=== PATIENT | male | born 1955 | race Caucasian/White ===

== ENCOUNTER 2023-09-23 08:34 | Outpatient (OUT) | payer MEDICARE, SELFPAY ==
--- NOTE | 2023-09-23 | CT_ITS ---
[address] [address] Patient Name: GER MACKENZIE MRN: [id number] date: 1955 Sex: M Assigned Patient Location: LAB Current Patient Location: Accession/Order Number: [id number] Exam Date: 09/23/2023 09:14 Report Date: 09/25/2023 08:27 At the request of: DERIC LOCKETT Procedure: CT chest w con EXAMINATION: CT chest w con HISTORY: R91.8, Lung mass COMPARISON: 06/15/2023 PET scan TECHNIQUE: Multi-planar CT images were created with IV contrast. Axial, Coronal, and Sagittal images. Dose reduction techniques were achieved by using automated exposure control and/or adjustment of mA and/or kV according to patient size and/or use of iterative reconstruction technique. FINDINGS: LUNGS: Slight interval overall increase in size of left upper lobe solid noncalcified mass now measuring up to 5.9 x 2.8 cm previously 5.9 x 2.7 cm. Increase in size of a solid noncalcified pulmonary nodule in the right lung base measuring 8 mm, axial image 81. Multiple new and increased size of scattered bilateral subcentimeter pulmonary nodules. Increase in size of a now submillimeter solid nodule right lower lobe axial image 56. Moderate diffuse centrilobular emphysema. Peripheral intralobular septal thickening and honeycombing. PLEURA: No mass, effusion, or pneumothorax. VASCULATURE: No abnormality. WINSTON: Bilateral hilar lymphadenopathy MEDIASTINUM: Pretracheal and subcarinal lymphadenopathy CARDIAC: No enlargement or pericardial effusion. Mild coronary atherosclerosis AORTA: No aneurysm or dissection. CHEST WALL: No mass or axillary adenopathy. BONES: No bone lesion or fracture. LIMITED ABDOMEN: Diffuse hypoattenuation the liver suggesting hepatic steatosis. Stable 9 mm perihepatic solid nodule axial image #99 OTHER: Negative. CT/CT chest w con IMPRESSION: Slight interval progression of malignancy with increase in size of a left upper lobe mass and increase in metastases Electronically authenticated by: JP VELASQUEZ Date: 09/25/2023 08:27
[2023-09-23 09:04] LABS: Estimated GFR (African America >60 (>=60); Estimated GFR (Non-African Ame 56 (>=60)
== END 2023-09-23 08:35 | disposition home or self-care (01) ==
PROVIDERS: PCP Family Medicine; Visit Provider Internal Medicine
DX: R91.8 Other nonspecific abnormal finding of lung field (principal)
CPT/HCPCS: 36415; 71260; 82565; Q9967

== ENCOUNTER 2023-10-02 12:46 | Outpatient (OUT) | payer MEDICARE, SELFPAY ==
--- NOTE | 2023-10-02 12:51 | ECG_ITS ---
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
== END 2023-10-02 12:47 | disposition home or self-care (01) ==
LOC: PST 12:47
PROVIDERS: PCP Family Medicine; Visit Provider Internal Medicine
DX: Z01.810 Encounter for preprocedural cardiovascular examination (principal); R91.8 Other nonspecific abnormal finding of lung field
CPT/HCPCS: 93005

== ENCOUNTER 2023-10-03 10:43 | Day surgery (SDC) | payer MEDICARE, SELFPAY ==
[2023-10-02 13:41] VITALS: BP 168/92; PULSE 79; TEMP 36.3; O2SAT 92; BMI 29.7
[2023-10-03] VITALS (14 sets, daily range): BP systolic 111–137; BP diastolic 62–99; PULSE 65–101; TEMP 36.2; O2SAT 92–97; BMI 29.3
--- NOTE | 2023-10-03 | FL_ITS ---
[address] [address] Patient Name: GER MACKENZIE MRN: [id number] date: 1955 Sex: M Assigned Patient [facility] Current Patient Location: [facility] Accession/Order Number: [id number] Exam Date: 10/03/2023 12:15 Report Date: 10/03/2023 15:03 At the request of: DERIC LOCKETT Procedure: FL fluoroscopy <1hr NON-READ EXAM: FL fluoroscopy <1hr NON-READ HISTORY: TECHNIQUE: FINDINGS: Please see Operative Report. Electronically authenticated by: RADIOLOGIST NO Date: 10/03/2023 15:03
[2023-10-03] MEDS: LACTATED RINGER'S SOLUTION 1,000 ML 50 ML IV ×2 (11:22→12:55)
[2023-10-03] MEDS: ALBUTEROL SULFATE 2.5 MG/3 ML VIAL NEB IH (12:02)
[2023-10-03] MEDS: LIDOCAINE HCL 1% 100 MG/10 ML MDV 5 ML INJ (12:40)
--- NOTE | 2023-10-03 13:14 | XR_ITS ---
The [address] [address] Patient Name: GER MACKENZIE MRN: [id number] date: 1955 Sex: M Assigned Patient Location: [facility] Current Patient Location: [facility] Accession/Order Number: [id number] Exam Date: 10/03/2023 13:28 Report Date: 10/03/2023 15:17 At the request of: DERIC LOCKETT Procedure: XR chest 1V ONE-VIEW CHEST RADIOGRAPH, 10/03/2023 1:28 PM EDT COMPARISON: CT scan of the chest, 09/23/2023. CLINICAL HISTORY: Left lower lobe mass - check for pneumothorax. Findings and impression: 1. No pneumothorax identified. 2. Known mass in the apical segment of the left lower lobe is not well appreciated by plain film. Some slight fullness in the left infrahilar region with opacity in the left lower lobe likely due to some atelectasis. Minimal atelectasis also suspected in the right lower lobe. 3. Normal heart size. 4. No acute osseous abnormality. Electronically authenticated by: Sahil FREEDMAN Date: 10/03/2023 15:17
--- NOTE | 2023-10-03 14:01 | PC.NURSE ---
1400 REAPPLIED OXYGEN PATIENT HAS ON OXYGEN SATURATION OF 84% PUT BACK ON 2 LITERS SATURATION IS 89 TO 91 %
--- NOTE | 2023-10-03 15:09 | PC.NURSE ---
1500 TURNED OXYGEN OFF 1507 PULSE OX IS BEEPING PATIENT IS DOWN TO 86% ON ROOM AIR. REAPPLIED 1 LITER OF OXYGEN AND OXYGENATION REMAINED AT 86 TO 87% 1510 REAPPLIED 2 LITERS OF OXYGEN CURRENT OXYGENATION IS 91%
--- NOTE | 2023-10-03 15:14 | PC.NURSE ---
1500 TURNED OFF OXYGEN, 1505 OXYGEN RINGNG PULSE OX DROPPED TO 86%. REAPPLIED OXYGEN TO 1 LITER OXYGEN IS 86 YO 87% INCREASED OXYGEN TO 2 LITERS CURRENT OXYGEN LEVEL IS 91%.
--- NOTE | 2023-10-03 15:33 | PC.NURSE ---
Dr Caldwell came up to see patient post operation due to low oxygen saturation. Gave patient directives that if when he goes home and becomes short of breath to call 911 and return to the Er. Physician believes it is due to the fwashing of the lung. Patient has chosen to go home as well and understands what to do if he becomes short of breath.
--- NOTE | 2023-10-03 16:42 | P.ON_ITS ---
Date of procedure: 10/03/23 Procedure: Procedure Diagnostic fiberoptic bronchoscopy with bronchoalveolar lavage (BAL) and marroquin sbronchial biopsies Indication Left lower lobe (LLL) mass Findings 1. Mild amount of clear mucus throughout the bronchial tree 2. No endobronchial lesions Anesthesia 1. General anesthesia - please see their records 2. Lidocaine 1% - 5mL Specimens 1. BAL of LLL 2. Transbronchial biopsies of LLL Estimated blood loss <5mL Complications Patient had mild asymptomatic hypoxemia post-op Fluoroscopy time 12 seconds Description Informed consent was obtained after risks, benefits, and alternatives were discussed with the patient.? Time out was initiated to confirm the correct patient, site, and procedure with all present voicing in the affirmative. Patient was brought to the operating room suite where noninvasive monitoring was utilized.? Sedation & anesthesia were administered by the anesthesia department- please refer to their records for further information.? Tape was placed over the patient's eyes to prevent spillage of secretions.? An endotracheal tube was placed by anesthesia. Due to the endotracheal tube, the larynx, vocal cords, and proximal trachea were unable to be examined. The distal trachea was visualized without any gross tracheal lesions. 5mL of 1% lidocaine were instilled topically to the main avelino.? The main avelino was sharp without splaying or evidence of underlying mass. The bronchoscope was then advanced through the right main bronchus to the right upper lobe, where the apical, posterior, and anterior segments were visualized.? The bronchoscope was advanced through the bronchus intermedius to the right middle lobe or the medial and lateral segments visualized.? The bronchoscope was then advanced to the right lower lobe superior, medial, anterior, lateral, and posterior basilar segments.? A mild amount of thick, clear secretions were suctioned from various bronchopulmonary segments. No endobronchial lesions were seen. The bronchoscope was retracted to the main avelino and advanced through the left main bronchus to the left upper lobe where the upper division apicoposterior and anterior, as well as lingular superior and inferior segments were visualized.? The bronchoscope was then advanced into the left lower lobe where the superior, anteromedial, lateral, and posterior basilar segments visualized.? No endobronchial lesions, exudate, or other abnormalities were noted. Next, the bronchoscope was wedged into the LLL with attention to the superior segment. A BAL was performed in the LLL. After adequate return of fluid was obtained, transbronchial biopsies under fluoroscopic guidance were performed. The position of the targeted bronchus was somewhat difficult to cannulate with the biopsy forceps, but I was eventually able to get at least 5 transbronchial biopsies from the area. There was mild bleeding encountered, but it spo ntaneously stopped without further intervention by me. The bronchoscope was withdrawn.? Patient tolerated procedure well. His [id number] was updated on the procedure and findings. Post-operative chest x-ray was done which showed no perioperative pneumothorax. I was contacted by PACU with concerns that the patient remained on supplemental O2. On 2L/min, SpO2 was 97%, but after 7 minutes on room air, he would drop to 86%. I personally saw him at the bedside after being contacted by PACU. The patient was awake and alert by this point. He voiced he was asymptomatic when he was off the O2. I provided him with the options of ordering him O2 vs. going home and taking it easy for the next several days. My suspicion is that the hypoxemia is transient, associated with the procedure and lavage fluid instilled. He voiced that as he did not feel much benefit from the O2, he wished to be discharged home. My office will call him tomorrow in follow up to see how he is doing. If his breathing worsens, he was instructed to call 911/go to ER. He voiced understanding. Surgeon: Usman Caldwell Condition: stable Disposition: same day
== END 2023-10-03 15:43 | disposition home or self-care (01) ==
PROVIDERS: PCP Family Medicine; Visit Provider Internal Medicine
PROC: (CPT 31624; principal; 2023-10-03 12:00)
DX: R91.8 Other nonspecific abnormal finding of lung field (principal); R09.02 Hypoxemia; J43.2 Centrilobular emphysema; F17.210 Nicotine dependence, cigarettes, uncomplicated; Z96.642 Presence of left artificial hip joint; C61 Malignant neoplasm of prostate
CPT/HCPCS: 31624; 31628; 36415; 71045; 76000; 87070; 87102; 87116; 87205; 87206; 88112; 88305; 89051; 94640; 99999; J1094; J2704

== ENCOUNTER 2024-01-13 09:04 | Outpatient (OUT) | payer MEDICARE, SELFPAY ==
--- OUTSIDE RECORDS SUMMARY | 2024-01-13 09:07 | XMS_ITS | CCD ---
Author Organization [facility] Team Providers Care Alternative Medicine Practitioner Name Role Phone ALONZOC, DR SUMMERS Attending Unavailable MISC, DR SUMMERS Admitting Unavailable HOUSE, DR MEJIA Primary Care Unavailable HOUSE, DR MEJIA Primary Care Unavailable HOUSE, DR MEJIA Admitting Unavailable HOUSE, DR MEJIA Attending Unavailable HOUSE, DR MEJIA Consulting Unavailable MISC, DR SUMMERS Attending Unavailable MISC, DR SUMMERS Admitting Unavailable HOUSE, DR MEJIA Consulting Unavailable HOUSE, DR MEJIA Primary Care Unavailable MISC, DR SUMMERS Consulting Unavailable House Sr., DO, Jw P Primary Care Provider HOUSE SR, JW Onofre Primary Care Unavailable COLLETTE SEGAL Referring Unavailable HOUSE SR, JW Onofre Primary Care Unavailable COLLETTE SEGAL Referring Unavailable HOUSE SR, JW Onofre Primary Care Unavailable COLLETTE SEGAL Referring Unavailable LUZMA, COLLETTE Attending Unavailable COLLETTE SEGAL Referring Unavailable HOUSE SR, JW Onofre Primary Care Unavailable Kim SCHOFIELD, Ramiro Rosas Attending Unavailab le House DO, [facility] Unavai lable House DO, Jw Ramirez Consulting Ena Alvarez MD, Ramiro oRsas Attending Unavailab le House DO, [facility] Unavai lable House DO, [facility] Primary [facility] Ena Alvarez MD, Ramiro Rosas Attending Unavailab bertin Alvarez MD, Ramiro Rosas Attending Unavailab le House DO, [facility] Chandler Peres MD Attending Unavailable Sukhjinder Wild PA-C Referring Unav ailable House DO, [facility] Ena Alvarez MD, Ramiro Rosas Attending Unavailab le House DO, [facility] Ena Alvarez MD, Ramiro Rosas Attending Unavailab le House DO, [facility] Ena Alvarez MD, Ramiro Rosas Attending Unavailab le House DO, [facility] DO Deric Stuart Attending Provider Paulette, Deric P Attending Unavailable Samsa, Deric P Admitting Unavailable Samsa, Deric P Attending Unavailable Samsa, Deric P Admitting Unavailable FLORIN, STEPHANIE Attending Unavailable FLORIN, STEPHANIE Referring Unavailable FLORIN, STEPHANIE Referring Unavailable Mark Padilla MD Attending Unavailable JW SHEA Primary Care Unavailable JW SHEA Primary Care Unavailable Mark Padilla MD Attending Unavailable JW SHEA Primary Care Unavailable Mark Padilla MD Attending Unavailable JW SHEA Primary Care Unavailable JW SHEA Attending Unavailable Medications Current Medications Medication Drug Class(es) Dates Sig (Normalized) Sig (Original) meloxicam 15 mg oral tablet (1 source) Nonsteroidal Anti-inflammatory Drug Start: 01-31-2023 take 1 tablet by mouth once daily meloxicam (MOBIC) 15 MG tablet Take 1 tablet by mouth daily 0 01/31/2023 Active tamsulosin hydrochloride 0.4 mg oral capsule (1 source) alpha-Adrenergic Diana Start: 02-23-2023 take 1 capsule by mouth once daily tamsulosin (FLOMAX) 0.4 MG capsule Indications: BPH with obstruction/lowe r urinary tract symptoms Take 1 capsule by mouth daily 30 capsule 5 02/23/2023 Active Problems Active Problems Problem Classification Problem Date Documented Da te Episodic/Chronic Cancer of prostate (1 source) Malignant neoplasm of prostate; Translations: [Malignant neoplasm of prostate] Onset: 06-15-2023 Chronic Hyperplasia of prostate (6 sources) Benign prostatic hyperplasia without lower urinary tract symptoms; Translations: [Benign prostatic hypertrophy with outflow obstruction] Onset: 05-24-2022 Chronic Osteoarthritis (2 sources) Unilateral primary osteoarthritis, left hip; Translations: [Unilateral primary osteoarthritis, right hip] Onset: 06-21-2021 Chronic Other lower respiratory disease (2 sources) Other nonspecific abnormal finding of lung field; Translations: [Other nonspecific abnormal finding of lung field] Onset: 10-19-2023 Episodic Other screening for suspected conditions (not mental disorders or infectious disease) (5 sources) Patient encounter status; Translations: [Encounter for screening for malignant neoplasm of prostate] Onset: 02-23-2023 02-23-2023 Episodic Past or Other Problems Problem Classification Problem Date Documented Da te Episodic/Chronic Genitourinary symptoms and ill-defined conditions (2 sources) Proteinuria; Translations: [Proteinuria, unspecified] Onset: 02-23-2023 02-23-2023 Episodic Other diseases of kidney and ureters (1 source) Other obstructive and reflux uropathy; Translations: [Other obstructive and reflux uropathy] Onset: 02-23-2023 Episodic Other non-traumatic joint disorders (4 sources) Pain in right hip; Translations: [PAIN IN RIGHT HIP] Onset: 06-13-2021 Episodic Other non-traumatic joint disorders (1 source) Pain in left hip; Translations: [PAIN IN LEFT HIP] Onset: 06-21-2021 Episodic Other non-traumatic joint disorders (1 source) Other specified joint disorders, unspecified hip; Translations: [OTHER SPECIFIED JOINT D/O UNS HIP] Onset: 06-21-2021 Episodic Results Test Name Value Interpretation Reference Range Facility Outside Recordson 10-25-2023 Outside Records [id number] Telephone [id number] Haroon Mackenzie Sonia 1955 M Date Provider Department Center 10/23/2023 ROMEO URBAN [facility] ONC [facility] Family History Problem Relation Age of Onset Bone cancer Mother Asthma Maternal Grandfather Asthma Paternal Grandfather Family Status - Relation Status Age at Mother Maternal Grandfather Paternal Grandfather Normal [facility] Lab - Other Lab Resultson Lab - Other Lab Results [id number] Results [id number] [facility]icine[facility] 10-19-2023 Telemedicine [id number] Haroon Mackenzie L 1955 M Date Provider Department Center 10/19/2023 STEPHANIE DIAZ [facility] ONC [facility] Family History Problem Relation Age of Onset Bone cancer Mother Asthma Maternal Grandfather Asthma Paternal Grandfather Family Status - Relation Status Age at Mother Maternal Grandfather Paternal Grandfather Level of Service:59132 MS PHYS/QHP TELEPHONE EVALUATION 21-30 MIN () Reason for Visit and Comments: New Patient [632] - 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 CT DONE 09-23-23. PET DONE 06-15-23 FILMS in EPIC. BRONCH WAS DONE 10-18-2023. ALL IN MEDIA Normal [facility] Orders Onlyon 10-18-2023 Orders Only [id number] Haroon Mackenzie 1955 M Date Provider Department Center 10/18/2023 QUINTON ARIAS ONC DCC Family History Problem Relation Age of Onset Bone cancer Mother Asthma Maternal Grandfather Asthma Paternal Grandfather Family Status - Relation Status Age at Mother Maternal Grandfather Paternal Grandfather Normal [facility] Body fluid differential cell countOrdered By: Deric Lockett on 10-03-2023 Differential panel (Body fld) 5 % [facility] Comment on above: The reference interv al and other method performance specifications have not been established for this body fluid. The test result must be integrated into the clinical context for interpretation. Cell Count/Diff, Fluidon Appearance, Fluid Hazy Normal [facility] Comment on above: Order Comment: Body Fluid Source: Other (Name in the Site) Body Fluid Site: LEFT LOWER LOBE LAVAGE Result Comment: The reference interval and other method performance specifications have not been established for this body fluid. The test result must be integrated into the clinical context for interpretation. Performed By: #### F LCCDIFF #### [facility] [address] [id number] [place] Color, Fluid Colorless Normal [facility] Comment on above: Order Comment: Body Fluid Source: Other (Name in the Site) Body Fluid Site: LEFT LOWER LOBE LAVAGE Result Comment: The reference interval and other method performance specifications have not been established for this body fluid. The test result must be integrated into the clinical context for interpretation. Performed By: #### F LCCDIFF #### [facility] [address] [id number] [place] Color, Fluid Supernatant Colorless Normal [facility] Comment on above: Order Comment: Body Fluid Source: Other (Name in the Site) Body Fluid Site: LEFT LOWER LOBE LAVAGE Result Comment: The reference interval and other method performance specifications have not been established for this body fluid. The test result must be integrated into the clinical context for interpretation. Performed By: #### F LCCDIFF #### [address] Comment, Fluid Normal [facility] Comment on above: Order Comment: Body Fluid Source: Other (Name in the Site) Body Fluid Site: LEFT LOWER LOBE LAVAGE Result Comment: Body fluid is partially clotted and/or cell clumps or debris are present. Fluid cell count and differential results may not be reliable. Clinical correlation is recommended. PERFORMED BY: [place] [address] PATHOLOGIST DYNO TECHNICIAN HEMA GOULD M.D. Performed By: #### F LCCDIFF #### [address] Eosinophils, Fluid 0 /100{WBC} Normal 0-3 [facility] Comment on above: Order Comment: Body Fluid Source: Other (Name in the Site) Body Fluid Site: LEFT LOWER LOBE LAVAGE Performed By: #### F LCCDIFF #### [address] Lymphocytes, Fluid 2 % Normal [facility] Comment on above: Order Comment: Body Fluid Source: Other (Name in the Site) Body Fluid Site: LEFT LOWER LOBE LAVAGE Result Comment: The reference interval and other method performance specifications have not been established for this body fluid. The test result must be integrated into the clinical context for interpretation. Performed By: #### F LCCDIFF #### [address] Monocytes/Macrophages, Fluid 5 % Normal [facility] Comment on above: Order Comment: Body Fluid Source: Other (Name in the Site) Body Fluid Site: LEFT LOWER LOBE LAVAGE Result Comment: The reference interval and other method performance specifications have not been established for this body fluid. The test result must be integrated into the clinical context for interpretation. Performed By: #### F LCCDIFF #### [address] [address] [place] Neutrophil, Fluid 93 % Normal [facility] Comment on above: Order Comment: Body Fluid Source: Other (Name in the Site) Body Fluid Site: LEFT LOWER LOBE LAVAGE Result Comment: The reference interval and other method performance specifications have not been established for this body fluid. The test result must be integrated into the clinical context for interpretation. Performed By: #### F LCCDIFF #### [facility] [address] [id number] [facility] RBC, Fluid 735 /uL Normal [facility] Comment on above: Order Comment: Body Fluid Source: Other (Name in the Site) Body Fluid Site: LEFT LOWER LOBE LAVAGE Result Comment: Body fluid is partially clotted and/or cell clumps or debris are present. Fluid cell count and differential results may not be reliable. Clinical correlation is recommended. The reference interval and other method performance specifications have not been established for this body fluid. The test result must be integrated into the clinical context for interpretation. Performed By: #### F LCCDIFF #### [facility] [address] [place] [address] TNC, Body Fluid 525 /uL Normal [facility] Comment on above: Order Comment: Body Fluid Source: Other (Name in the Site) Body Fluid Site: LEFT LOWER LOBE LAVAGE Result Comment: Body fluid is partially clotted and/or cell clumps or debris are present. Fluid cell count and differential results may not be reliable. Clinical correlation is recommended. The reference interval and other method performance specifications have not been established for this body fluid. The test result must be integrated into the clinical context for interpretation. Performed By: #### F LCCDIFF #### [facility] [address] [place], [place] [id number] [facility] Color of Spun Body fluidOrde red By: Deric Lockett on 10-03-2023 Color (Spun body fld) Colorless [facility] Comment on above: The reference interv al and other method performance specifications have not been established for this body fluid. The test result must be integrated into the clinical context for interpretation. Determination of appearance of body fluidOrdered By: Deric Lockett on 10-03-2023 Appearance (Body fld) Hazy [facility] Comment on above: The reference interv al and other method performance specifications have not been established for this body fluid. The test result must be integrated into the clinical context for interpretation. Evaluation of color of body fluidOrdered By: Deric Lockett on 10-03-2023 Color (Body fld) Colorless [facility] Comment on above: The reference interv al and other method performance specifications have not been established for this body fluid. The test result must be integrated into the clinical context for interpretation. Gordon 10-03-2023 L Specimen: [id number] Received: 10/04/23 Status: FRED Koenig Num: [id number] Spec Type: Surgical Subm Dr: Deric Lockett DO Tissues: A Lung - Transbroncial Biopsy (LT LOWER LOBE BX) Procedures: HE/2, Gross/Micro L4 Age/ Patient Sex Location Account Attending Physician Haroon Mackenzie 68/M LABELL [id number] Deric Lockett DO SPEC NUM: [id number] RECD: 10/04/23 STATUS: FRED KOENIG NUM: [id number] ARSH: 10/03/[address]: Deric Lockett DO ENTERED: 10/04/[address] [facility] [address]: Nadine,Lab SPEC TYPE: Surgical DEPT: [facility] ORDERED: HE/2, Gross/Micro L4 ORDERED: HE/2, Gross/Micro L4 Pathological Diagnosis Left lung, lower lobe, biopsy: Fragments of benign bronchial mucosa and cartilage. Gross Description Received in formalin, labeled with the patient's name and left lower lobe BX is a single delicate delong tissue core measuring 0.6 cm in length by 0.1 cm in diameter. Additionally submitted are 4 delicate delong tissue fragments ranging from 0.2 to 0.1 cm. Submitted entirely in A1. Clinical history: Mild amount of mucus, no endometrial lesions. CPT Codes 30694 -------- -------- Specimen: [id number] Received: 10/04/23 Status: FRED Koenig Num: [id number] Spec Type: Surgical Subm Dr: Deric Lockett DO Tissues: A Lung - Transbroncial Biopsy (LT LOWER LOBE BX) Procedures: HANNAH/Letty, Gross/Micro L4 -------- Patient: Haroon Mackenzie [id number] (Continued) -------- Signed (signature on file) Stephanie Jackson MD 10/05/23 1636 Normal [facility] L Specimen: [id number] Received: 10/05/23 Status: FRED Koenig Num: [id number] Spec Type: Cytology Subm Dr: Deric Lockett DO Tissues: A BRONWASH (LLL) Procedures: HE/2, Gross/Micro L4, Cyto Prepstain, PAPSTN Age/ Patient Sex Location Account Attending Physician Haroon Mackenzie 68/M LABELL [id number] Deric Lockett DO SPEC NUM: [id number] RECD: 10/05/23 STATUS: FRDE KOENIG NUM: [id number] ARSH: 10/03/23- DR: Deric Lockett DO ENTERED: 10/05/[address]: Nadine,Lab SPEC TYPE: Cytology DEPT: [facility] ENTERED BY: [id number] RECV BY: [id number] ORDERED: HE/2, Gross/Micro L4, Cyto Prepstain, PAPSTN ORDERED: HE/2, Gross/Micro L4, Cyto Prepstain, PAPSTN Pathological Diagnosis Left lower lobe of lung, bronchial lavage cytology: -No evidence of malignant cells -Few reactive or degenerated bronchial epithelial cells are intermixed with some degenerative debris, and few alveolar macrophages and other acute and chronic inflammatory cells -Cell block section also showing similar findings, suggesting at least some degenerated mucus plugging Gross Description Received fresh labeled with the patient's name, date of and left lower lobe lavage per requisition is 5 ml colorless slightly hazy unfixed fluid. 1 Thin Prep slides are prepared. 1 cell blocks are prepared. (UT/ct) CPT Codes 05605, 88196 -------- -------- Specimen: [id number] Received: 10/05/23 Status: FRED [place] Num: [id number] Spec Type: Cytology Subm Dr: Deric Lockett DO Tissues: A BRONWASH (LLL) Procedures: HE/2, Gross/Micro L4, Cyto Prepstain, PAPSTN -------- Patient: Haroon Mackenzie [id number] (Continued) -------- Signed (signature on file) Johnny-Jamaal Acosta MD 10/08/232007 Normal [facility] Manual body fluid eosinophil s/100 leukocytesOrdered By: Deric Lockett on 10-03-2023 Eosinophils/100 WBC Manual cnt (Body fld) 0 /100{WBC} 0-3 [facility] Manual body fluid erythrocyt es count (number/volume)Ordered By: Deric Lockett on 10-03-2023 RBC Manual cnt (Body fld) [#/Vol] 735 /uL [facility] Comment on above: Body fluid is partia lly clotted and/or cell clumps or debris are present. Fluid cell count and differential results may not be reliable. Clinical correlation is recommended.The reference interval and other method performance specifications have not been established for this body fluid. The test result must be integrated into the clinical context for interpretation. Manual body fluid lymphocyte s/100 leukocytesOrdered By: Deric Lockett on 10-03-2023 Lymphocytes/100 WBC Manual cnt (Body fld) 2 % [facility] Comment on above: The reference interv al and other method performance specifications have not been established for this body fluid. The test result must be integrated into the clinical context for interpretation. Neutrophils/100 WBC Manual c nt (Body fld)Ordered By: Deric Lockett on 10-03-2023 Neutrophils/100 WBC (Body fld) 93 % [facility] Comment on above: The reference interv al and other method performance specifications have not been established for this body fluid. The test result must be integrated into the clinical context for interpretation. No Panel InformationOrdered By: Deric Lockett on 10-03-2023 Body Fluid Comment See comment [facility] Comment on above: Body fluid is partia lly clotted and/or cell clumps or debris are present. Fluid cell count and differential results may not be reliable. Clinical correlation is recommended. Body Fluid Total Nucleated Cells 525 /uL [facility] Comment on above: Body fluid is partia lly clotted and/or cell clumps or debris are present. Fluid cell count and differential results may not be reliable. Clinical correlation is recommended.The reference interval and other method performance specifications have not been established for this body fluid. The test result must be integrated into the clinical context for interpretation. Outside Recordson 09-28-2023 Outside Records [id number] [facility] Outside Recordson 09-27-2023 Outside Records [id number]#1 .[facility] CT TUMOR IMAGE SKULL THI GH PSMAon 06-15-[address] TUMOR IMAGE SKULL THIGH PSMA EXAMINATION: PROSTATE PET SKULL BASE TO MID THIGHS 06/15/2023 TECHNIQUE: 4.5 mCi Ga-68 gozetotide (Illuccix) injected intravenously. PET imaging was obtained from skull vertex to mid thighs. Computed tomography was used for attenuation correction and localization. Fusion imaging was obtained. Uptake time 79 mins. COMPARISON: None HISTORY: ORDERING SYSTEM PROVIDED HISTORY: Prostate cancer (HCC) FINDINGS: PROSTATE/PROSTATE BED: Small focus of activity in the left posterior peripheral zone is present. LYMPH NODES: No PSMA avid lymph nodes. BONES: No abnormal PSMA activity localizes to the bones. OTHER PET FINDINGS: Mild PSMA activity localizes to a bilobed mass in the left lower lobe measuring about 5.7 x 2.6 cm. Physiologic activity within the salivary glands, liver, spleen, kidneys, and bowel. OTHER INCIDENTAL CT FINDINGS: Emphysema. Evidence of prior granulomatous disease. Nodule in the right posterior retroperitoneum adjacent to the liver without any focal activity. Left hip arthroplasty. IMPRESSION: 1. Small focus of activity in the left posterior peripheral zone of the prostate compatible with history of prostate cancer. 2. Mild PSMA activity associated with a 5.7 cm bilobed mass in the left lower lobe. This is unlikely to be related to the prostate cancer, but is concerning for primary lung cancer. Further evaluation could include biopsy and FDG PET. If there is evidence of active pulmonary infection, consider further evaluation in 2-3 months after appropriate treatment. Interpreted by: Deric Hernández MD Signed by: Deric Hernández MD 06/15/23 Final result Normal [facility] Surgical Pathology Reporton 05-18-2023 Surgical Pathology Report (NOTE) Path Number: [id number] -- Diagnosis -- A. PROSTATE, LB, NEEDLE CORE BIOPSY: -BENIGN PROSTATE TISSUE B. PROSTATE, LLB, NEEDLE CORE BIOPSY: -BENIGN PROSTATE TISSUE C. PROSTATE, LM, NEEDLE CORE BIOPSY: -PROSTATIC ADENOCARCINOMA, EDGAR SCORE 3+4 = 7, INVOLVING 1 OF 1 CORE, AND OCCUPYING APPROXIMATELY 60% OF THE BIOPSY SPECIMEN, 5.5 MM EXTENT -PERCENTAGE OF PATTERN 4: LESS THAN 10% -GRADE GROUP 2 D. PROSTATE, LLM, NEEDLE CORE BIOPSY: -PROSTATIC ADENOCARCINOMA, EDGAR SCORE 3+3 = 6, INVOLVING 1 OF 1 CORE, AND OCCUPYING APPROXIMATELY 20% OF THE BIOPSY SPECIMEN, 3 MM EXTENT -GRADE GROUP 1 E. PROSTATE, LA, NEEDLE CORE BIOPSY: -PROSTATIC ADENOCARCINOMA, EDGAR SCORE 3+4 = 7, INVOLVING 1 OF 1 CORE, AND OCCUPYING APPROXIMATELY 40% OF THE BIOPSY SPECIMEN, 6 MM EXTENT -PERCENTAGE OF PATTERN 4: LESS THAN 10% -GRADE GROUP 2 F. PROSTATE, LLA, NEEDLE CORE BIOPSY: -PROSTATIC ADENOCARCINOMA, EDGAR SCORE 4+3 = 7, INVOLVING 1 OF 2 CORES AND OCCUPYING APPROXIMATELY 20% OF THE BIOPSY SPECIMEN, 1 MM EXTENT -PERCENTAGE OF PATTERN 4: APPROXIMATELY 70% -GRADE GROUP 3 G. PROSTATE, RB, NEEDLE CORE BIOPSY: -BENIGN PROSTATE TISSUE H. PROSTATE, RLB, NEEDLE CORE BIOPSY: -BENIGN PROSTATE TISSUE I. PROSTATE, RM, NEEDLE CORE BIOPSY: -BENIGN PROSTATE TISSUE J. PROSTATE, RLM, NEEDLE CORE BIOPSY: -BENIGN PROSTATE TISSUE K. PROSTATE, RA, NEEDLE CORE BIOPSY: -BENIGN PROSTATE TISSUE L. PROSTATE, RLA, NEEDLE CORE BIOPSY: -PROSTATIC ADENOCARCINOMA, EDGAR SCORE 3+4 = 7, INVOLVING 1 OF 1 CORE AND OCCUPYING APPROXIMATELY 9% OF THE BIOPSY SPECIMEN, 1.5 MM EXTENT -PERCENTAGE OF PATTERN 4: 10-20% -GRADE GROUP 2 Matt Dale D.O. Electronically Signed Out lj/05/23/2023 Clinical Information Pre-Op Diagnosis: ELEVATED PSA Operative Findings: PROSTATE BIOPSY X 12 Operation Performed: MS PROSTATE NEEDLE BIOPSY ANY APPROACH kb Source of Specimen A: LB B: LLB C: LM D: LLM E: LA F: LLA G: RB H: RLB I: RM J: RLM K: RA L: RLA Gross Description HAROON MACKENZIE, PROSTATE BIOPSIES All specimens are received in formalin on sponges and are delong-white needle core biopsies less than < 0.1 cm in diameter with the following lengths: A. LB One core, 1.5 cm in length. Entirely 1cs. B. LLB One core, 1.4 cm in length. Entirely 1cs. C. LM One core, 1.2 cm in length. Entirely 1cs. D. LLM One core, 1.5 cm in length. Entirely 1cs. E. LA One core, 1.4 cm in length. Entirely 1cs. F. LLA Two core fragments, 0.3 and 0.4 cm in length. Entirely 1cs. G. RB One core, 1.4 cm in length. Entirely 1cs. H. RLB One core, 1.1 cm in length. Entirely 1cs. I. RM One core, 1.4 cm in length. Entirely 1cs. J. RLM Two cores, 0.6 and 0.7 cm in length. Entirely 1cs. K. RA One core, 1.3 cm in length. Entirely 1cs. L. RLA One core, 1.6 cm in length. Entirely 1cs. yr tm FRANKLYN/kb2:05/19/2023 Microscopic Description A-L. Microscopic examination performed. Parts E, F, and L were seen in intradepartmental consultation (FRANKLYN) for quality review trainer purposes. Processing Lab: [address] [place] [address] Interpretation Performed at [facility] [address] [place] [address] SURGICAL PATHOLOGY CONSULTATION Patient Name: HAROON MACKENZIE Rec: [id number] [facility] ANATOMIC PATHOLOGY [address] [place] [id number] [facility] PSA, Diagnosticon 04-15-2023 Prostatic Spec. Ag 9.60 ng/mL High <4.1 [facility] Comment on above: Result Comment: The Ion ECLIA assay is used. Results obtained with different assay methods cannot be used interchangeably. Performed By: #### P SAD #### [address] [id number] Wheelchair Van Operator First Responder: Delon Rizzo MD Outside Recordson 03-09-2023 Outside Records [id number]#1 .00[facility] Patient Provided Health Data on 03-08-2023 Patient Provided Health Data [id number]#1 .00[facility] Patient Handouton 02-28-2023 Patient Handout [id number]# 1.00[facility] Cult,Urineon 02-24-2023 Cult,Urine Specimen Description .CLEAN CATCH URINE Culture NO GROWTH Report Status FINAL 02/24/2023 [facility] Comment on above: Performed By: #### U RC #### [address] [id number] Wheelchair Van Operator First Responder: Delon Rizzo MD [facility] [address] [place] [address] [place] [address] Wheelchair Van Operator First Responder: Juan Carlos Eisenberg MD PSA, Screeningon 02-24-2023 Prostatic Spec. Ag 7.43 ng/mL High <4.1 [facility] Comment on above: Result Comment: The Ion ECLIA assay is used. Results obtained with different assay methods cannot be used interchangeably. Performed By: #### C P, CDP #### [facility] [address] [place] [address] Wheelchair Van Operator First Responder: Juan Carlos Eisenberg MD #### PSAS #### [facility] [address] [place], [place] [phone] Wheelchair Van Operator First Responder: Delon Rizzo MD CBC with Auto Differentialon 02-23-2023 Basophils (Bld) [#/Vol] 0.07 10*3/uL [facility] Basophils/100 WBC (Bld) 1 % 0 - 2 % [facility] Eosinophils (Bld) [#/Vol] 0.11 10*3/uL [facility] Eosinophils/100 WBC (Bld) 1 % 1 - 4 % [facility] Erythrocyte distribution width (RBC) [Ratio] 12.1 % 11.8 - 14.4 % [facility] Hematocrit (Bld) [Volume fraction] 47.1 % 40.7 - 50.3 % [facility] Hemoglobin (Bld) [Mass/Vol] 16.6 g/dL 13.0 - 17.0 g/dL [facility] Immature granulocytes (Bld) [#/Vol] 0.03 10*3/uL [facility] Immature granulocytes/100 WBC (Bld) 0 % 0 [facility] Interpretation and review of laboratory results Abnormal [facility] Lymphocytes/100 WBC (Bld) 19 % Low 24 - 43 % [facility] Lymphocytes/100 WBC (Bld) 1.46 % [facility] MCH (RBC) [Entitic mass] 33.9 pg High 25.2 - 33.5 pg [facility] MCHC (RBC) [Mass/Vol] 35.2 g/dL High 28.4 - 34.8 g/dL [facility] MCV (RBC) [Entitic vol] 96.1 fL 82.6 - 102.9 fL [facility] Monocytes/100 WBC (Bld) 7 % 3 - 12 % [facility] Monocytes/100 WBC (Bld) 0.52 % [facility] Neutrophils/100 WBC (Bld) 72 % High 36 - 65 % [facility] Nucleated RBC/100 WBC (Bld) [Ratio] 0.0 % 0.0 per 100 WBC [facility] Platelet mean volume (Bld) [Entitic vol] 10.2 fL 8.1 - 13.5 fL [facility] Platelets (Bld) [#/Vol] 206 10*3/uL [facility] RBC (Bld) [#/Vol] 4.90 10*6/uL 4.21 - 5.7 7 m/uL [facility] Segmented neutrophils/100 WBC (Bld) 5.44 % [facility] WBC other (Bld) [#/Vol] 7.6 [facility] CBC with Diffon 02-23-2023 Abs. Basophil 0.07 k/uL Normal 0.00-0.20 [place] Comment on above: Performed By: #### C P, CDP #### [address] [place] [phone] Wheelchair Van Operator First Responder: Juan Carlos Eisenberg MD #### PSAS #### [place] [phone] Wheelchair Van Operator First Responder: Delon Rizzo MD Abs.Imm.Granulocyte 0.03 k/uL Normal 0.00-0.30 [facility] Comment on above: Performed By: #### C P, CDP #### [address] [place] [phone] Wheelchair Van Operator First Responder: Juan Carlos Eisenberg MD #### PSAS #### [place] [phone] Wheelchair Van Operator First Responder: Delon Rizzo MD Abs.Neutrophil (Seg) 5.44 k/uL Normal 1.50-8.10 [facility] Comment on above: Performed By: #### C P, CDP #### [address] [place] [phone] Wheelchair Van Operator First Responder: Juan Carlos Eisenberg MD #### PSAS #### [address] [address] Wheelchair Van Operator First Responder: Delon Rizzo MD Basophils/100 WBC (Bld) 1 % Normal 0-2 [facility] Comment on above: Performed By: #### C P, CDP #### [address] [place] [phone] Wheelchair Van Operator First Responder: Juan Carlos Eisenberg MD #### PSAS #### [place] [address] Wheelchair Van Operator First Responder: Delon Rizzo MD Eosinophils (Bld) [#/Vol] 0.11 10*3/uL Normal 0.00-0.44 [facility] Comment on above: Performed By: #### C P, CDP #### [address] [place] [phone] ( Wheelchair Van Operator First Responder: Juan Carlos Eisenberg MD #### PSAS #### [place] [address] Wheelchair Van Operator First Responder: Delon Rizzo MD Eosinophils/100 WBC (Bld) 1 % Normal 1-4 [facility] Comment on above: Performed By: #### C P, CDP #### [address] [place] [phone] Wheelchair Van Operator First Responder: Juan Carlos Eisenberg MD #### PSAS #### [place] [address] Wheelchair Van Operator First Responder: Delon Rizzo MD Erythrocyte distribution width (RBC) [Ratio] 12.1 % Normal 11.8-14.4 [facility] Comment on above: Performed By: #### C P, CDP #### [address] [place] [phone] Wheelchair Van Operator First Responder: Juan Carlos Eisenberg MD #### PSAS #### [address] [address] Wheelchair Van Operator First Responder: Delon Rizzo MD Hematocrit (Bld) [Volume fraction] 47.1 % Normal 40.7-50.3 [facility] Comment on above: Performed By: #### C P, CDP #### [facility] [address] [place], [place] [phone] Wheelchair Van Operator First Responder: Juan Carlos Eisenberg MD #### PSAS #### [address] [address] Wheelchair Van Operator First Responder: Delon Rizzo MD Hemoglobin (Bld) [Mass/Vol] 16.6 g/dL Normal 13.0-17.0 [facility] Comment on above: Performed By: #### C P, CDP #### [facility] [address] [place] [address] Dr. [place] [phone] Wheelchair Van Operator First Responder: Juan Carlos Eisenberg MD #### PSAS #### [address] [address] Wheelchair Van Operator First Responder: Delon Rizzo MD Immature granulocytes/100 WBC (Bld) 0 % Normal 0 [facility] Comment on above: Performed By: #### C P, CDP #### [facility] [address] [place] [phone] Wheelchair Van Operator First Responder: Juan Carlos Eisenberg MD #### PSAS #### [address] [address] Wheelchair Van Operator First Responder: Delon Rizzo MD Lymphocytes (Bld) [#/Vol] 1.46 10*3/uL Normal 1.10-3.70 [facility] Comment on above: Performed By: #### C P, CDP #### [facility] [address] [place] [phone] Wheelchair Van Operator First Responder: Juan Carlos Eisenberg MD #### PSAS #### [address] [phone] Wheelchair Van Operator First Responder: Delon Rizzo MD Lymphocytes/100 WBC (Bld) 19 % Low 24-43 [facility] Comment on above: Performed By: #### C P, CDP #### [facility] [address] [place], [place] [phone] Wheelchair Van Operator First Responder: Juan Carlos Eisenberg MD #### PSAS #### [address] [address] Wheelchair Van Operator First Responder: Delon Rizzo MD MCH (RBC) [Entitic mass] 33.9 pg High 25.2-33.5 [facility] Comment on above: Performed By: #### C P, CDP #### [facility] [address] [place] [address] Dr. [place] [phone] Wheelchair Van Operator First Responder: Juan Carlos Eisenberg MD #### PSAS #### [address] [address] Wheelchair Van Operator First Responder: Delon Rizzo MD MCHC (RBC) [Mass/Vol] 35.2 g/dL High 28.4-34.8 [facility] Comment on above: Performed By: #### C P, CDP #### [facility] [address] [place] [address] Dr. [place], [place] [phone] Wheelchair Van Operator First Responder: Juan Carlos Eisenberg MD #### PSAS #### [address] [address] Wheelchair Van Operator First Responder: Delon Rizzo MD MCV (RBC) [Entitic vol] 96.1 fL Normal 82.6-102.9 [facility] Comment on above: Performed By: #### C P, CDP #### [address] [place], [place] [phone] Wheelchair Van Operator First Responder: Juan Carlos Eisenberg MD #### PSAS #### [address] [phone] Wheelchair Van Operator First Responder: Delon Rizzo MD Monocytes (Bld) [#/Vol] 0.52 10*3/uL Normal 0.10-1.20 [facility] Comment on above: Performed By: #### C P, CDP #### [facility] [address] [place] [address] Dr. [place], [place] [phone] Wheelchair Van Operator First Responder: Juan Carlos Eisenberg MD #### PSAS #### [address] [phone] Wheelchair Van Operator First Responder: Delon Rizzo MD Monocytes/100 WBC (Bld) 7 % Normal 3-12 [facility] Comment on above: Performed By: #### C P, CDP #### [address] [place] [phone] Wheelchair Van Operator First Responder: Juan Carlos Eisenberg MD #### PSAS #### [address] [address] Wheelchair Van Operator First Responder: Delon Rizzo MD Neutrophil (Seg) 72 % High 36-65 [facility] Comment on above: Performed By: #### C P, CDP #### [address] [place] [phone] Wheelchair Van Operator First Responder: Juan Carlos Eisenberg MD #### PSAS #### [address] [address] Wheelchair Van Operator First Responder: Delon Rizzo MD NRBC Automated 0.0 per 100 WBC Normal 0.0 [facility] Comment on above: Performed By: #### C P, CDP #### [address] [place] [phone] Wheelchair Van Operator First Responder: Juan Carlos Eisenberg MD #### PSAS #### [address] [address] Wheelchair Van Operator First Responder: Delon Rizzo MD Platelet mean volume (Bld) [Entitic vol] 10.2 fL Normal 8.1-13.5 [facility] Comment on above: Performed By: #### C P, CDP #### [facility] [address] [place], [place] [phone] Wheelchair Van Operator First Responder: Juan Carlos Eisenberg MD #### PSAS #### [place] 722372 [place], [place] [phone] Wheelchair Van Operator First Responder: Delon Rizzo MD Platelets (Bld) [#/Vol] 206 10*3/uL Normal 138-453 [facility] Comment on above: Performed By: #### C P, CDP #### [facility] [address] [place], [place] [phone] Wheelchair Van Operator First Responder: Juan Carlos Eisenberg MD #### PSAS #### [address] [address] Wheelchair Van Operator First Responder: Delon Rizzo MD RBC (Bld) [#/Vol] 4.90 10*6/uL Normal 4.21-5.77 [facility] Comment on above: Performed By: #### C P, CDP #### [facility] [address] [place], [place] [phone] Wheelchair Van Operator First Responder: Juan Carlos Eisenberg MD #### PSAS #### [place] [address] [place] [address] Wheelchair Van Operator First Responder: Delon Rizzo MD WBC (Bld) [#/Vol] 7.6 10*3/uL Normal 3.5-11.3 [facility] Comment on above: Performed By: #### C P, CDP #### [facility] [address] [place], [place] [phone] Wheelchair Van Operator First Responder: Juan Carlos Eisenberg MD #### PSAS #### [address] [address] Wheelchair Van Operator First Responder: Delon Rizzo MD Comp Metabolic Profon 2022 Albumin [Mass/Vol] 4.4 g/dL Normal 3.5-5.2 [facility] Comment on above: Performed By: #### C P, CDP #### [facility] [address] [place] [address] [place] [address] Wheelchair Van Operator First Responder: Juan Carlos Eisenberg MD #### PSAS #### [address] [address] Wheelchair Van Operator First Responder: Delon Rizzo MD Albumin/Glob Ratio 1.3 Normal 1.0-2.5 [facility] Comment on above: Performed By: #### C P, CDP #### [address] [place], [place] 8856083 Wheelchair Van Operator First Responder: Juan Carlos Eisenberg MD #### PSAS #### [address] [address] Wheelchair Van Operator First Responder: Delon Rizzo MD Alkaline Phos 91 U/L Normal 40-129 [place] Comment on above: Performed By: #### C P, CDP #### [address] [place] [address] Wheelchair Van Operator First Responder: Juan Carlos Eisenberg MD #### PSAS #### [address] [address] Wheelchair Van Operator First Responder: Delon Rizzo MD ALT [Catalytic activity/Vol] 42 U/L High 5-41 [facility] Comment on above: Performed By: #### C P, CDP #### [address] [place] [address] Wheelchair Van Operator First Responder: Juan Carlos Eisenberg MD #### PSAS #### [address] [address] Wheelchair Van Operator First Responder: Delon Rizzo MD Anion gap [Moles/Vol] 9 mmol/L Normal 9-17 [facility] Comment on above: Performed By: #### C P, CDP #### [address] [place], [place] [phone] Wheelchair Van Operator First Responder: Juan Carlos Eisenberg MD #### PSAS #### [address] [address] Wheelchair Van Operator First Responder: Delon Rizzo MD AST [Catalytic activity/Vol] 27 U/L Normal <40 [facility] Comment on above: Performed By: #### C P, CDP #### [address] [place], [place] 7159083 Wheelchair Van Operator First Responder: Juan Carlos Eisenberg MD #### PSAS #### [address] [address] Wheelchair Van Operator First Responder: Delon Rizzo MD Bilirubin [Mass/Vol] 0.6 mg/dL Normal 0.3-1.2 [facility] Comment on above: Performed By: #### C P, CDP #### [address] [place] [address] Wheelchair Van Operator First Responder: Juan Carlos Eisenberg MD #### PSAS #### [address] [address] Wheelchair Van Operator First Responder: Delon Rizzo MD BUN/CRE Ratio 21 High 9-20 [place] Comment on above: Performed By: #### C P, CDP #### [address] [place], [place] [phone] Wheelchair Van Operator First Responder: Jua nCarlos Eisenberg MD #### PSAS #### [address] [address] Wheelchair Van Operator First Responder: Delon Rizzo MD Calcium [Mass/Vol] 9.3 mg/dL Normal 8.6-10.4 [facility] Comment on above: Performed By: #### C P, CDP #### [address] [place], [place] 6961083 Wheelchair Van Operator First Responder: Juan Carlos Eisenberg MD #### PSAS #### [place] [address] [place] [address] Wheelchair Van Operator First Responder: Delon Rizzo MD Chloride [Moles/Vol] 106 mmol/L Normal 98-107 [facility] Comment on above: Performed By: #### C P, CDP #### [facility] [address] [place], [place] [phone] Wheelchair Van Operator First Responder: Juan Carlos Eisenberg MD #### PSAS #### [address] [address] Wheelchair Van Operator First Responder: Delon Rizzo MD CO2 [Moles/Vol] 28 mmol/L Normal 20-31 [facility] Comment on above: Performed By: #### C P, CDP #### [facility] [address] [place], [place] 9909783 Wheelchair Van Operator First Responder: Juan Carlos Eisenberg MD #### PSAS #### [address] [address] Wheelchair Van Operator First Responder: Delon Rizzo MD Creatinine [Mass/Vol] 1.0 mg/dL Normal 0.7-1.2 [facility] Comment on above: Performed By: #### C P, CDP #### [facility] [address] [place], [place] 7111283 Wheelchair Van Operator First Responder: Juan Carlos Eisenberg MD #### PSAS #### [address] [address] Wheelchair Van Operator First Responder: Delon Rizzo MD GFR/1.73 sq M.predicted among non-blacks MDRD (S/P/Bld) [Vol rate/Area] mL/min/{1.73_m2} Normal >60 [facility] Comment on above: Result Comment: These results are not intended for use in patients <18 years of age. eGFR results are calculated without a race factor using the 2020 CKD-EPI equation. Careful clinical correlation is recommended, particularly when comparing to results calculated using previous equations. The CKD-EPI equation is less accurate in patients with extremes of muscle mass, extra-renal metabolism of creatine, excessive creatine ingestion, or following therapy that affects renal tubular secretion. Performed By: #### C P, CDP #### [address] [place] [address] Wheelchair Van Operator First Responder: Juan Carlos Eisenberg MD #### PSAS #### [address] [address] Wheelchair Van Operator First Responder: Delon Rizzo MD Glucose [Mass/Vol] 84 mg/dL Normal 70-99 [facility] Comment on above: Performed By: #### C P, CDP #### [address] [place] 9477583 Wheelchair Van Operator First Responder: Juan Carlos Eisenberg MD #### PSAS #### [address] [address] Wheelchair Van Operator First Responder: Delon Rizzo MD Potassium [Moles/Vol] 4.4 mmol/L Normal 3.7-5.3 [facility] Comment on above: Performed By: #### C P, CDP #### [address] [place], [place] [phone] Wheelchair Van Operator First Responder: Juan Carlos Eisenberg MD #### PSAS #### [address] [address] Wheelchair Van Operator First Responder: Delon Rizzo MD Protein [Mass/Vol] 7.8 g/dL Normal 6.4-8.3 [facility] Comment on above: Performed By: #### C P, CDP #### [address] [place] 9477583 Wheelchair Van Operator First Responder: Juan Carlos Eisenberg MD #### PSAS #### [address] [address] Wheelchair Van Operator First Responder: Delon Rizzo MD Sodium [Moles/Vol] 143 mmol/L Normal 135-144 [facility] Comment on above: Performed By: #### C P, CDP #### [facility] [address] [place] [address] Wheelchair Van Operator First Responder: Juan Carlos Eisenberg MD #### PSAS #### [facility] [address] [place], [place] [phone] Wheelchair Van Operator First Responder: Delon Rizzo MD Urea nitrogen [Mass/Vol] 21 mg/dL Normal 8-23 [facility] Comment on above: Performed By: #### C P, CDP #### [facility] [address] [place] [address] Wheelchair Van Operator First Responder: Juan Carlos Eisenberg MD #### PSAS #### [facility] [address] [place], [place] 0694708 Wheelchair Van Operator First Responder: Delon Rizzo MD Comprehensive Metabolic Pane [facility] 02-23-2023 Albumin [Mass/Vol] 4.4 g/dL 3.5 - 5.2 g/dL [facility] Albumin/Globulin [Mass ratio] 1.3 {ratio} 1.0 - 2.5 [facility] ALP [Catalytic activity/Vol] 91 U/L 40 - 129 U/L [facility] ALT [Catalytic activity/Vol] 42 U/L High 5 - 41 U/L [facility] Anion gap [Moles/Vol] 9 mmol/L 9 - 17 mmol/L [facility] AST [Catalytic activity/Vol] 27 U/L NINF - 40 U/L [facility] Bilirubin [Mass/Vol] 0.6 mg/dL 0.3 - 1 .2 mg/dL [facility] Calcium [Mass/Vol] 9.3 mg/dL 8.6 - 10. 4 mg/dL [facility] Chloride [Moles/Vol] 106 mmol/L 98 - 10 7 mmol/L [facility] CO2 [Moles/Vol] 28 mmol/L 20 - 31 mmol/L [facility] Creatinine [Mass/Vol] 1.0 mg/dL 0.7 - 1.2 mg/dL [facility] GFR/1.73 sq M.predicted MDRD (S/P/Bld) [Vol rate/Area] - PINF [facility] Comment on above: These results are not intended for use in patients <18 years of age. eGFR results are calculated without a race factor using the 2020 CKD-EPI equation. Careful clinical correlation is recommended, particularly when comparing to results calculated using previous equations. The CKD-EPI equation is less accurate in patients with extremes of muscle mass, extra-renal metabolism of creatine, excessive creatine ingestion, or following therapy that affects renal tubular secretion. Glucose [Mass/Vol] 84 mg/dL 70 - 99 mg/dL [facility] Interpretation and review of laboratory results Abnormal [facility] Potassium [Moles/Vol] 4.4 mmol/L 3.7 - 5.3 mmol/L [facility] Protein [Mass/Vol] 7.8 g/dL 6.4 - 8.3 g/dL [facility] Sodium [Moles/Vol] 143 mmol/L 135 - 144 mmol/L [facility] Urea nitrogen [Mass/Vol] 21 mg/dL 8 - 23 mg/dL [facility] Urea nitrogen/Creatinine [Mass ratio] 21 mg/mg High 9 - 20 [facility] Urinalysis w/ Microon 2022 Bilirubin, SemiQt,Ur Negative Normal NEG [facility] Comment on above: Performed By: #### U AMIC #### [facility] [address] [place] [address] Wheelchair Van Operator First Responder: Juan Carlos Eisenberg MD Blood, Urine Negative Normal NEG [facility] Comment on above: Performed By: #### U AMIC #### [facility] [address] [place] [address] Wheelchair Van Operator First Responder: Juan Carlos Eisenberg MD Clarity (U) Clear Normal CLEAR [facility] Comment on above: Performed By: #### U AMIC #### [facility] [address] [place] [address] Wheelchair Van Operator First Responder: Juan Carlos Eisenberg MD Color (U) Yellow Normal YEL [facility] Comment on above: Performed By: #### U AMIC #### [facility] [address] [place] [address] Dr. [place], [place] [phone] Wheelchair Van Operator First Responder: Juan Carlos Eisenberg MD Epithelial cells LM Ql (Urine sed) None Normal 0-5 [facility] Comment on above: Performed By: #### U AMIC #### [facility] [address] [place] [address] Dr. [place], [place] [phone] Wheelchair Van Operator First Responder: Juan Carlos Eisenberg MD Glucose Ql (U) Negative Normal NEG [facility] Comment on above: Performed By: #### U AMIC #### [address] [place], [place] [phone] Wheelchair Van Operator First Responder: Juan Carlos Eisenberg MD Ketones Ql (U) Negative Normal NEG [facility] Comment on above: Performed By: #### U AMIC #### [facility] [address] [place] [address] Dr. [place], [place] [phone] Wheelchair Van Operator First Responder: Juan Carlos Eisenberg MD Leukocyte esterase Test strip Ql (U) Negative Normal NEG [facility] Comment on above: Performed By: #### U AMIC #### [address] [place], [place] [phone] Wheelchair Van [employer] First Responder: Juan Carlos Eisenberg MD Nitrite,Ur Negative Normal NEG [facility] Comment on above: Performed By: #### U AMIC #### [facility] [facility] [address] [place] [address] Dr. [place], [place] [id number] Wheelchair Van Operator First Responder: Juan Carlos Eisenberg MD PH,Ur 6.5 Normal 5.0-9.0 [facility] Comment on above: Performed By: #### U AMIC #### [facility] [address] [place] [address] Dr. Mack[place], [place] [id number] Wheelchair Van Operator First Responder: Juan Carlos Eisenberg MD Protein Ql (U) Negative Normal NEG [facility] in Hospital Comment on above: Performed By: #### U AMIC #### [facility] [address] [place], [place] [id number] Wheelchair Van Operator First Responder: Juan Carlos Eisenbegr MD Spec. [place],Ur 1.020 Normal 1.010-1.020 [facility] Comment on above: Performed By: #### U AMIC #### [facility] [address] [place] [address] Wheelchair Van Operator First Responder: Juan Carlos Eisenberg MD Urine RBC's None Normal 0-2 [facility] Comment on above: Performed By: #### U AMIC #### [facility] [address] [place], [place] [phone] Wheelchair Van Operator First Responder: Juan Carlos Eisenberg MD Urine WBC's None Normal 0-5 [facility] Comment on above: Performed By: #### U AMIC #### [facility] [address] [place], [place] [phone] Wheelchair Van Operator First Responder: Juan Carlos Eisenberg MD Urobilinogen,Ur Normal Normal 0.0-1.0 [facility] Comment on above: Performed By: #### U AMIC #### [facility] [address] [place] [address] [address] [place], [place] [id number] Wheelchair Van Operator First Responder: Juan Carlos Eisenberg MD Urinalysis with Microscopico n 02-23-2023 Bilirubin Ql (U) Negative NEGATIVE [facility] Clarity (U) Clear Clear [facility] Color (U) Yellow Yellow [facility] Epithelial cells LM.HPF (Urine sed) [#/Area] None [facility] Glucose Test strip (U) [Mass/Vol] Negative NEGATIVE mg/dL [facility] Hemoglobin Auto test strip Ql (U) Negative NEGATIVE [facility] Ketones (U) [Mass/Vol] Negative NEGAT MATHEW mg/dL [facility] Leukocyte esterase Test strip Ql (U) Negative NEGATIVE [facility] Nitrite Ql (U) Negative NEGATIVE [facility] pH (U) 6.5 [pH] 5.0 - 9.0 [facility] Protein (U) [Mass/Vol] Negative NEGAT MATHEW mg/dL [facility] RBC LM.HPF (Urine sed) [#/Area] None [facility] Specific gravity (U) [Rel density] 1.020 1.010 - 1.020 [facility] Urobilinogen Qn (U) Normal 0.0 - 1. 0 EU/dL [facility] WBC LM.HPF (Urine sed) [#/Area] None [facility] Urology Office/Clinic Noteon 10-10-2022 Urology Office/Clinic Note Chief Complaint F/u with MRI resutls. Discuss biopsy History of Present Illness The patient is a 67 Years old Male with a past history of an elevated PSA to 9.12 who returns to discuss prostate MRI findings. He was previously scheduled for MRI but cancelled this without explanation. He now returns with his wfie. Review of Systems Constitutional: No fevers. No chills. Physical Exam Vitals & Measurements T: 36.5 ?C (Temporal Artery) HT: 173 cm WT: 89.9 kg WT: 89.9 kg (Dosing) BMI: 30.04 Constitutional: Well nourished. HENT: Normocephalic, atraumatic. Assessment/Plan 1. Prostate mass I independently reviewed and interpreted the patient's MRI imaging. My findings are that: he has two visible areas of diffusion restriction. Prostate is otherwise enlarged. Normal bladder appearance. We discussed his MRI findings with two highly concerning PIRADS5 lesions. He was initially not planning to move forward with a biopsy. I did strongly encourage him to move forward given these findings. He now wishes to do so. Reviewed risks of bleeding and infection again. I will send him Drake again. Follow-up for a biopsy on a at his request. Medications ciprofloxacin 500 mg oral tablet meloxicam 15 mg oral tablet Mobic, Oral Mobic 15 mg oral tablet, 15 mg= 1 tabs, Oral, Daily Allergies No Known Allergies Diagnostic Results (09/10/2022 10:52 EDT MRI Prostate w/ + w/o Contrast) The prostate gland measures 6.2 x 5.0 x 5.1 cm. This correlates with a prostate volume of 70.3 mL. [1] (09/10/2022 10:52 EDT MRI Prostate w/ + w/o Contrast) Category 5 lesions involving the prostate, as described above. [2] [1] MRI Prostate w/ + w/o Contrast; Franny Webb MD 09/10/2022 10:52 EDT [2] MRI Prostate w/ + w/o Contrast; Franny Webb MD 09/10/2022 10:52 EDT Electronically signed by Ramiro Alvarez MD 10/10/22 20:10 EDT Normal [facility] MRI Prostate w/ + w/o Contra caorline 09-12-2022 MRI Prostate w/ + w/o Contrast HISTORY: Enlarged prostate. TECHNIQUE: MRI of the prostate gland with T2 axial, sagittal, and coronal. Axial T1. Diffusion-weighted imaging with ADC mapping was performed as well as axial dynamic enhanced sequences. CONTRAST ADMINISTERED: 18cc of Multihance. COMPARISON: None. FINDINGS: The prostate gland measures 6.2 x 5.0 x 5.1 cm. This correlates with a prostate volume of 70.3 mL. Peripheral zone: VANIA 1: A 1.6 x 0.8 x 1.5 cm focus of moderate hypointensity on T2 with early enhancement seen in the left posterior medial posterior lateral peripheral zone at the mid gland. Nondiagnostic diffusion-weighted images due to artifacts of the left hip hardware. This is a category 5 lesion. VANIA 2: A 1.9 x 0.9 x 1.8 cm focus of moderate hypointensity on ADC map, moderate hyperintensity on high b value diffusion-weighted images, moderate hypointensity on T2 with early enhancement seen in the right posterior medial posterior lateral peripheral zone at the mid gland to apex. This is a category 5 lesion. Transitional zone: Finding suggestive of benign prostatic hypertrophy Central zone: Unremarkable Prostatic capsule: There is involvement of the posterior prostatic capsule Neurovascular bundles: Unremarkable Seminal vesicles: Unremarkable Extraprostatic findings: Bilateral inguinal hernias containing fat. Colonic diverticulosis. IMPRESSION: Category 5 lesions involving the prostate, as described above. PIRADS 5 - Very high (clinically significant cancer is highly likely to be present) Final Dictated by: Franny Webb MD Dictated DT/TM: 09/12/2022 9:10 am Signed by: Franny Webb MD Signed (Electronic Signature): 09/12/2022 9:27 am (If Report Is Signed, Electronically Signed in Other Vendor System) Normal [facility] In office Testingon 08-25-19 23 In office Testing [id number] 3 [id number] .[id number]:[id number] Normal [facility] Provider Letteron 07-25-2022 Provider Letter Jw Shea DO [address] [place] [address] Re: Haroon Mackenzie 1955 Date of Visit: 07/25/2022 Dear Jw Shea, I had the pleasure of seeing your patient, Haroon Mackenzie, in my office today. Please find a summary of my assessment below: Assessment/Plan 1. Elevated PSA The patient and I discussed the non-specific nature of an elevated PSA in the context of his age, health, and >10 year life table predicted life expectancy. I did discuss his enlargement with his last MRI showing his prostate to be 112cc (PSAD 0.08). Reviewed that his enlargement may be the most likely origin. I am concerned about his nodule and degree of PSA elevation however. He elected to proceed with a prostate biopsy. He acknowledged the risks of hematochezia, hematospermia, hematuria, retention, and urosepsis. A 3 day course of Cipro was sent to his pharmacy . 2. Nocturia Did discuss association with IVETTE. Will have him complete a voiding diary in the interim and consider sleep referral. Thank you for referring your patient to my office. Please do no hesitate to contact me with any questions or concerns about your patient's care. Sincerely, Ramiro Alvarez MD Normal [facility] Urology Office/Clinic Noteon 07-25-2022 Urology Office/Clinic Note Chief Complaint Referred by Dr. Shea - Elevated PSA and enlarged prostate. History of Present Illness The patient is a 67 Years old Male with a past history of hip OA who presents in consultation regarding elevated PSA and enlarged prostate at the request of Dr. Shea. This was found in the work-up of hip OA. Had his left hip previously replaced. Being evaluated on the right. No recent PSAs otherwise. Does have mild urinary symptoms. Biggest complaints is nocturia x3. Does snore. MRI HIP- IMPRESSION: 05/06/22 1. Severe osteoarthritis with marked subchondral cyst change anterior, superior, ans posterior lateral aspect right acetabulum. 2. Moderate right hip joint effusion. 3. severe right superficial greater trochanteric bursitis. 4. Left total hip arthroplasty. 5. mild left superficial greater trochanteric bursitis. 6. Enlarged heterogeneous signal intensity prostate extending into the bladder base measuring 5.8cm superior to inferior 7cm transverse 5.3cm AP diameter. 7. 1.3cm subcortical cystic change posterior lateral aspect right ischial tuberosity. 8. Bilateral hamstring tendinosis. PSA (5 Years) Event Name Event Result Date/Time Total PSA 9.12 ng/mL High 05/24/22 Review of Systems Constitutional: No fevers. No chills. Physical Exam Vitals & Measurements T: 36.7 ?C (Tympanic) HT: 173 cm WT: 89 kg WT: 89 kg (Dosing) BMI: 29.74 MALISSA: 60+g, indeterminate left lateral nodule. Additional Vitals No qualifying data available. Assessment/Plan 1. Elevated PSA The patient and I discussed the non-specific nature of an elevated PSA in the context of his age, health, and >10 year life table predicted life expectancy. I did discuss his enlargement with his last MRI showing his prostate to be 112cc (PSAD 0.08). Reviewed that his enlargement may be the most likely origin. I am concerned about his nodule and degree of PSA elevation however. He elected to proceed with a prostate biopsy. He acknowledged the risks of hematochezia, hematospermia, hematuria, retention, and urosepsis. A 3 day course of Cipro was sent to his pharmacy. Ordered: MRI Prostate w/ + w/o Contrast 2. Nocturia Did discuss association with IVETTE. Will have him complete a voiding diary in the interim and consider sleep referral. MDM: #1 is a new diagnosis with prognosis pending biopsy. Problem List/Past Medical History Ongoing No chronic problems Historical No qualifying data Procedure/Surgical History ANESTH ARTHROSCOPY OF HIP Medications Mobic 15 mg oral tablet, 15 mg= 1 tabs, Oral, Daily Allergies No Known Allergies Social History Tobacco 5-9 cigarettes (between 1/4 to 1/2 pack)/day in last 30 days Use:. Family History Other: Mother. Electronically signed by Ramiro Alvarez MD 07/25/22 19:47 EST Normal [facility] PROTIMEon 08-14-2021 INR Coag (PPP) [Relative time] 1.03 {INR} Normal [facility] Comment on above: Performed By: #### P TT, PT #### [facility] [address] [place] [address] Dr. Philippe Acosta INR GUIDELINES SEE BELOW Normal [facility] Comment on above: Result Comment: TONY RED INR: 2.0 - 3.0 CONDITIONS NOT LISTED BELOW 2.5 - 3.5 FOR PROSTHETIC HEART VALVE REPLACEMENT 2.5 - 3.5 RECURRENT THROMBOSIS Performed By: #### P TT, PT #### [facility] [address] [place] [address] Dr. Philippe Acosta PT Coag (PPP) [Time] 11.1 s Normal 9.0-11.6 [facility] Comment on above: Performed By: #### P TT, PT #### [facility] [address] [place] [address] Dr. Philippe Acosta PTTon 08-14-2021 aPTT Coag (Bld) [Time] 30.4 s Normal 22.3-36.2 [facility] Comment on above: Performed By: #### P TT, PT #### [facility] [address] [place] [address] Dr. Philippe Acosta Encounters Encounter Date Encounter Type Care Provider Facility Start: 10-19-2023 End: 10-19-2023 [facility] Start: 10-19-2023 End: 10-20-2023 ambulatory [facility] Start: 10-19-2023 End: 10-19-2023 ambulatory [facility] Start: 10-03-2023 End: 10-03-2023 ambulatory Deric Lockett Facility:[facility] Start: 10-03-2023 End: 10-03-2023 ambulatory DO Deric Lockett Work Phone: [facility] Work Phone: Start: 10-03-2023 End: 10-03-2023 Departed Referred DO Deric Lockett Work Phone: [facility] Start: 06-20-2023 ambulatory Chandler Ventura MD Facility: [facility] Start: 06-15-2023 End: 06-18-2023 ambulatory COLLETTE SEGAL [facility] Start: 05-18-2023 End: 05-19-2023 ambulatory WJ SHEA SR [facility] Start: 04-20-2023 End: 04-20-2023 ambulatory JW SHEA Facility:[facility] Start: 04-15-2023 End: 04-16-2023 ambulatory JW SHEA SR [facility] Start: 03-30-2023 End: 03-30-2023 ambulatory JW SHEA Facility:[facility] Start: 03-02-2023 End: 03-02-2023 ambulatory Mark Padilla MD Facility:[facility] Start: 02-23-2023 End: 02-24-2023 ambulatory JW SHEA SR [facility] Start: 02-23-2023 End: 02-23-2023 Subsequent hospital visit by physician Jw Shea Sr., DO [facility] Phone[facility] Comment on above: Proteinuria, unspeci fied type; Prostate cancer screening; BPH with obstruction/lower urinary tract symptoms Start: 12-26-2022 ambulatory Jw Shea DO Facility:[facility] Start: 12-08-2022 End: 12-09-2022 ambulatory Ramiro Alvarez MD [facility] Start: 10-10-2022 End: 10-11-2022 ambulatory Ramiro Alvarez MD [facility] Start: 10-03-2022 ambulatory Ramiro Alvarez MD F acility:[facility] Start: 09-15-2022 End: 09-16-2022 ambulatory Ramiro Alvarez MD Facility:[facility] Start: 09-10-2022 End: 09-11-2022 ambulatory Ramiro Alvarez MD Facility:[facility] Start: 07-25-2022 End: 07-26-2022 ambulatory Ramiro Alvarez MD [facility] Start: 05-24-2022 End: 05-25-[address] JW SHEA Facility:[facility] Start: 08-17-2021 Encounter for preprocedural laboratory examination DR DOCTOR TELLES [facility] Start: 08-14-2021 End: 08-15-[address] DOCTOR TELLES Facility:[facility] Start: 08-14-2021 End: 08-15-2021 Encounter for preprocedural laboratory examination DR DOCTOR TELLES Facility:[facility] Start: 06-13-2021 End: 08-06-[address] DOCTOR TELLES Facility:[facility] Procedures Date Procedure Procedure Detail Performing Clinician Start: 02-23-2023 Urnls dip stick/tabl et reagent auto microscopy Collette Segal MD Work Phone: Start: 02-23-2023 Comprehensive metabo lic panel Collette Segal MD Work Phone: Start: 05-24-[address] DOCTOR TELLES Comment on above: Performed By: #### P SAD #### [facility] [address] [place] [address] Dr. Philippe Acosta Plan of Treatment Date Care Activity Detail Author Start: 03-09-2023 End: 03-09-2023 Patient encounter procedure 03/09/2023 4:30 PM EDT Office Visit [facility] Part of [address] [place] [phone] follow up, PSA [facility] Part of [facility] Comment on above: follow up, PSA Start: 01-10-2023 Influenza vaccination Flu vaccine (# 1) [facility] Start: 06-03-2022 Pneumococcal 65+ yea rs Vaccine (2 - PCV) Pneumococcal 65+ years Vaccine (2 - PCV) [facility] Start: 2021 Abdominal aortic aneurysm screening AAA screen [facility] Start: 2006 Shingles vaccine (1 of 2) Shingles vaccine (1 of 2) [facility] Start: 2001 Screening for malign ant neoplasm of colon [facility] Start: 1996 Lipid panel Lipids [facility] Start: 1991 Diabetes screen Diabetes screen [facility] Start: 1975 DTaP/Tdap/Td vaccine (1 - Tdap) DTaP/Tdap/Td vaccine (1 - Tdap) [facility] Start: 1974 Hepatitis C screening Hepatitis C sc reen [facility] Start: 1968 Depression Screen Depression Screen [facility] Start: 1956 COVID-19 Vaccine (#1) COVID-19 Vacci ne (#1) [facility] End: 02-23-2023 Culture, Urine [facility] Comment on above: 1 Occurrences starti ng 02/23/2023 until 02/23/2023 End: 02-23-2023 PSA screening [facility] Comment on above: 1 Occurrences starti ng 02/23/2023 until 02/23/2023 Payers Date Payer Category Payer Self-pay 2023 Medicare [id number] 2021 Unknown 1959 Unknown [id number] 1955 Unknown [id number] 2.16.84 [id number] 1955 Unknown [id number] 2.16.84 [id number] 1955 Unknown [id number] 2.16.84 0.1.323587.3.579.2.593 1955 Unknown [id number] 2.16.8 40.1.509095.3.579.2.173 1955 Unknown [id number] 2.16.8 40.1.072061.3.579.2.173 1955 Unknown [id number] 2.16.8 40.1.300604.3.579.2.173 1956 Unknown [id number] 2.16.8 40.1.190227.3.579.2.173 1956 Unknown [id number] 2.16. 840.1.556822.3.579.2.196 1955 Unknown [id number] 2.16. 840.1.974423.3.579.2.196 1956 Unknown [id number] 2.16. 840.1.627163.3.579.2.196 1955 Unknown [id number] 2.16. 840.1.435033.3.579.2.196 1956 Unknown [id number] 2.16. 840.1.684017.3.579.2.196 1956 Unknown [id number] 2.16. 840.1.653651.3.579.2.196 1955 Unknown [id number] 2.16. 840.1.468426.3.579.2.196 1956 Unknown [id number] 2.16.8 40.1.005158.3.579.2.718 1955 Unknown [id number] 2.16.8 40.1.968540.3.579.2.718 1955 Unknown [id number] 2.16.8 40.1.802833.3.579.2.718 1955 Unknown [id number] 2.16.8 40.1.379128.3.579.2.718 Social History Date Type Detail Facility Start: [facility] [employer] History of tobacco use Cigarette Smoker B ON [employer] Start: 02-23-2023 Tobacco use and exposure Smokeless tobacco non-user [facility] [employer] Start: 02-23-2023 Alcohol intake Current drinke r of alcohol (finding) [facility] [employer] Start: 02-23-2023 History of Social function [facility] [employer] Start: 02-23-2023 Tobacco use panel [facility] [employer] Start: 02-23-2023 Alcohol Comment weekends [facility] [employer] Start: 1955 Sex Assigned At Not on file B ON [employer] Start: 1955 Sex Assigned At Male F [facility] Medication management note 12-05-2023 Note Date & Type Note Facility 12-05-2023 Note Entered by STEPHANY SHEA DO on December 05, 2023 09:57:04 EDT From: JW SHEA DO To: [id number] Sent: 12/05/2023 09:57:04 EDT Subject: Medication Management Submitted: Complete:meloxicam (meloxicam 15 mg oral tablet) Signed by JW SHEA DO 12/05/2023 09:57:00 EDT Approved with modifications: meloxicam (MELOXICAM 15MG TABLET) TAKE ONE TABLET BY MOUTH DAILY Qty: 30 EA Days Supply: 30 Refills: 2 Substitutions Allowed Route To Pharmacy - [id number] From: [facility] To: JW SHEA DO Sent: December 05, 2023 8:33:02 AM CDT Subject: Medication Management Due: December 06, 2023 12:10:45 AM CDT On Hold Pending Signature Drug: meloxicam (meloxicam 15 mg oral tablet), TAKE ONE TABLET BY MOUTH DAILY Quantity: 30 EA Days Supply: 30 Refills: 1 Substitutions Allowed Notes from Pharmacy: Dispensed Drug: meloxicam (meloxicam 15 mg oral tablet), TAKE ONE TABLET BY MOUTH DAILY Quantity: 30 EA Days Supply: 30 Refills: 2 Substitutions Allowed Notes from Pharmacy: [facility] Progress note 10-19-2023 Note Date & Type Note Facility 10-19-2023 Note -------- Attestation signed by Stephanie Emmanuel MD at 10/20/2023 11:16 AM Total time spent on day of encounter: 30 minutes Attending attestation: GC: I personally spoke with this patient via telephone on the day of the encounter, performed the wang portion(s) of the service and participated in the management and confirm the fellow's documentation. Physical examination was not performed and may limit some portions of the clinical encounter. Please note there may be an additional personal documentation from me. -------- Pulmonary Tele Visit Note Patient: Haroon Mackenzie Age: 68 y.o. : 1955 Account No.: [id number] Referring physician: Paulette Chief complaint: Left lung mass HPI 68 years old male past medical history significant for prostatic adenocarcinoma, PET scan was done as a part of workup on 06/15/2023 that showed size 5.9 x 2.8 cm left lobe lung mass with mild tracer uptake, which is new. He underwent bronchoscopy but the lesion was far to reach, so BAL was done and procedure was ended. Patient was referred to us for ION robotic evaluation. Shx: prison smoker 2 pack a day for 50 years, trying to cut down Past Medical History: Diagnosis Date Mass of upper lobe of left lung Past Surgical History: Procedure Laterality Date TOTAL HIP ARTHROPLASTY Left Allergies: Patient has no known allergies. Prior to Admission medications Medication Sig Start Date End Date Taking? Authorizing Provider albuterol 90 mcg/actuation inhaler 2 puffs as needed for SOB Inhalation Q4H for 30 days 09/20/23 Yes Historical Provider, lisinopril 20 mg tablet Take 1 tablet by mouth in the morning. 03/02/23 Yes Historical Provider, meloxicam (Mobic) 15 mg tablet TAKE ONE TABLET BY MOUTH DAILY Oral for 30 Days 01/31/23 Yes Historical Provider, multivitamin with minerals (MULTIPLE VITAMIN-MINERALS ORAL) 1 (one) time each day at the same time. Yes Historical Provider, tamsulosin (Flomax) 0.4 mg 24 hr capsule 1 capsule 1 (one) time each day at the same time. 08/22/23 Yes Historical Provider, tiotropium-olodateroL (Stiolto Respimat) 2.5-2.5 mcg/actuation mist inhaler 1 (one) time each day at the same time. 09/26/23 Yes Historical Provider, Social history: reports that he has been smoking cigarettes. He has a 50.00 pack-year smoking history. He does not have any smokeless tobacco history on file. Alcohol use questions deferred to the physician. Drug use questions deferred to the physician. Family History Problem Relation Name Age of Onset Bone cancer Mother Asthma Maternal Grandfather Asthma Paternal Grandfather Review of Systems: -ve except as above Labs Results: No results found for: HGB , HCT , WBC , BUN , CREATININE , NA , K , BICARB , CO2 , PH , PHART , PHVEN , BSA1LLI , KVV0ASC , ZWV8EGE , PO2POC , PO2ART , PO2VEN , CHM1SGZ , [id number] Radiology: Assessment and Plan: # Left lower lobe mildly PET avid # Recent diagnosis of prostatic adenocarcinoma # heavy smoker # Emphysema Plan: - Patient is agreeable for bronchoscopy+ ION robotic TBBx, TBFNA and EBUS. -Will require CT chest for procedure planning on the day of procedure - Procedure was explained indetails to the patient -Time to be determined Total time spent in Medical Discussion including obtaining history from the patient, review of labs, tests with the patient, discussion of assessment and plan 30 minutes.. The visit was initiated by the patient and conducted [id number] with use of audio-only real time telephone communication between patient and provider for a virtual visit. Verbal consent to provide and bill this service was obtained on: 10/19/23 No signature was obtained due to the COVID-19 pandemic. Manuel Hoffman MD [facility] Pulmonary/Critical Care Fellow [facility] Evaluation note Note Date & Type Note Facility Evaluation note Diagnosis Proteinuria, unspecified type Prostate cancer screening Special screening for malignant neoplasm of prostate BPH with obstruction/lower urinary tract symptoms Hypertrophy of prostate with urinary obstruction and other lower urinary tract symptoms (LUTS) documented in this encounter [facility] Evaluation note Note Date & Type Note Facility Evaluation note No assessment information availa [facility] Work Phone: Summary Purpose Family History No Family History Records FoundNo Family History Records FoundNo Family History Records FoundNo Family History Records FoundNo Family History Records FoundNo Family History Records FoundNo Family History Records Found Advance Directives No Advanced Directives Records FoundNo Advanced Directives Records FoundNo Advanced Directives Records FoundNo Advanced Directives Records FoundNo Advanced Directives Records FoundNo Advanced Directives Records FoundNo Advanced Directives Records Found Additional Source Comments (unrecognized sect ion and content) No Status Records FoundNo Status Records FoundNo Status Records FoundNo Status Records FoundNo Status Records FoundNo Status Records FoundNo Status Records Found INFORMATION SOURCE (unrecogn ized section and content) DATE CREATED AUTHOR 06/03/2022 [facility] DATE CREATED AUTHOR AUTHOR'S ORGANIZ ATION 08/25/2022 [facility] DATE CREATED AUTHOR AUTHOR'S ORGANIZ ATION 06/18/[address] [facility] DATE CREATED AUTHOR AUTHOR'S ORGANIZ ATION 06/21/2023 [facility] DATE CREATED AUTHOR AUTHOR'S ORGANIZ ATION 10/09/2023 [facility] DATE CREATED AUTHOR AUTHOR'S ORGANIZ ATION 10/23/2023 [facility] DATE CREATED AUTHOR AUTHOR'S ORGANIZ ATION 12/06/2023 [facility] Care Teams (unrecognized sec tion and content) Alternative Medicine Practitioner Relationship Specialty Start Date End Date Jw Shea Sr., DO [address] [place] [address] PCP - General Family Medicine 02/23/23 Team Status: Inactive Member Role Status Dates Deric Lockett DO Attending Provider Active St art: October 03, 2023 End: October 03, 2023 Goals (unrecognized section and content) Goals may be documented in a n alternate sectionGoals may be documented in an alternate section FOR RECORDS PERTAINING TO PATIENTS WHO ARE OR HAVE BEEN ENROLLED IN A CHEMICAL DEPENDENCY/SUBSTANCEABUSE PROGRAM, SOME INFORMATION MAY BE OMITTED. This clinical summary was aggregated from multiple sources. Caution should be exercised in using it in the provision of clinical care. This summary normalizes information from multiple sources, and as a consequence, information in this document may materially change the coding, format and clinical context of patient data. In addition, data may be omitted in some cases. CLINICAL DECISIONS SHOULD BE BASED ON THE PRIMARY CLINICAL RECORDS. [employer] provides no warranty or guarantee of the accuracy or completeness of information in this document.
--- NOTE | 2024-01-13 09:20 | CT_ITS ---
[address] [address] Patient Name: GER MACKENZIE MRN: [id number] date: 1955 Sex: M Assigned Patient Location: LAB Current Patient Location: Accession/Order Number: [id number] Exam Date: 01/13/2024 09:40 Report Date: 01/16/2024 07:04 At the request of: DERIC LOCKETT Procedure: CT chest w con EXAMINATION: CT chest w con HISTORY: Lung mass R91.8 COMPARISON: CT chest 09/23/2023 TECHNIQUE: Multi-planar CT images were obtained without and/or with IV contrast as indicated by examination type. Axial, Coronal, and Sagittal images. Dose reduction techniques were achieved by using automated exposure control and/or adjustment of mA and/or kV according to patient size and/or use of iterative reconstruction technique. FINDINGS: LUNGS: Within left lower lobe superior segment is a geographic shaped spiculated mass approximately 6.6 x 3.1 x 4.6 cm; unchanged. 6 mm nodule within lateral left lung base and 5 mm nodule within posterior medial left lower lobe.7 mm nodule within posterior lateral right lower lobe and 8 mm nodule within right lower lobe adjacent the diaphragm. Marked emphysematous changes throughout the lungs. PLEURA: No mass, effusion, or pneumothorax. VASCULATURE: No abnormality. WINSTON: Mild adenopathy bilaterally. MEDIASTINUM: Mild adenopathy. CARDIAC: No enlargement or pericardial thickening.. Coronary artery calcifications: AORTA: No aneurysm or dissection. CHEST WALL: No mass or axillary adenopathy. BONES: No bone lesion or fracture. LIMITED ABDOMEN: No suspicious findings Limited images of the upper abdomen. OTHER: Negative. CT/CT chest w con IMPRESSION: 1. Grossly stable large mass within left lower lobe superior segment most compatible with malignancy. 2. Stable appearance of the additional nonspecific nodules. 3. Grossly stable mediastinal and hilar adenopathy. 4. Moderate-marked emphysematous changes. Electronically authenticated by: GER KELLY Date: 01/16/2024 07:04
[2024-01-13 09:24] LABS: Estimated GFR (African America >60 (>=60); Estimated GFR (Non-African Ame >60 (>=60)
== END 2024-01-13 09:05 | disposition home or self-care (01) ==
LOC: LAB 09:05
PROVIDERS: PCP Family Medicine; Visit Provider Internal Medicine
DX: R91.8 Other nonspecific abnormal finding of lung field (principal)
CPT/HCPCS: 36415; 71260; 82565; Q9967

== ENCOUNTER 2024-04-22 08:51 | Outpatient (OUT) | payer MEDICARE, SELFPAY ==
--- NOTE | 2024-04-22 09:02 | CT_ITS ---
[address] [address] Patient Name: GER MACKENZIE MRN: [id number] date: 1955 Sex: M Assigned Patient Location: LAB Current Patient Location: Accession/Order Number: [id number] Exam Date: 04/22/2024 09:30 Report Date: 04/24/2024 15:48 At the request of: DERIC LOCKETT Procedure: CT chest w con EXAMINATION: CT chest w con HISTORY: Nonspecific Abnormal Finding Lung Field COMPARISON: 01/13/2024 TECHNIQUE: Multi-planar CT images were created with IV contrast. Axial, Coronal, and Sagittal images. Dose reduction techniques were achieved by using automated exposure control and/or adjustment of mA and/or kV according to patient size and/or use of iterative reconstruction technique. FINDINGS: LUNGS: Soft tissue in the trachea likely retained mucus. 6.0 x 4.0 cm left lower lobe lobular spiculated pulmonary mass with narrowing of the associated pulmonary artery. Additional 10 mm pulmonary nodule right lower lobe axial image #81. 8mm pulmonary nodule right lower lobe axial image #58. Moderate to severe centrilobular and paraseptal emphysema. Peripheral intralobular septal thickening. PLEURA: No mass, effusion, or pneumothorax. VASCULATURE: Normal postcontrast opacification with no filling defects to suggest a pulmonary embolus WINSTON: Bilateral hilar lymphadenopathy MEDIASTINUM: Enlarged pretracheal and subcarinal lymph nodes CARDIAC: No enlargement or pericardial effusion Coronary arteries: Mild calcifications AORTA: No aortic aneurysm or dissection CHEST WALL: No mass or axillary adenopathy. BONES: No bone lesion or fracture. LIMITED ABDOMEN: No suspicious findings. Limited images of the upper abdomen. OTHER: Negative. CT/CT chest w con IMPRESSION: 6 cm left lower lobe pulmonary mass. Primary malignancy is favored. Electronically authenticated by: JP VELASQUEZ Date: 04/24/2024 15:48
--- OUTSIDE RECORDS SUMMARY | 2024-04-22 09:08 | XMS_ITS | CCD ---
Author Organization [facility] Care Team Providers Care Necktie Operator Pockets And Pieces Name Role Phone ALONZOC, DR SUMMERS Attending [...] COLLETTE SEGAL Referring Unavailable HOUSE SR, JW nOofre Primary Care Unavailable COLLETTE SEGAL Referring Unavailable LUZMA, COLLETTE Attending Unavailable COLLETTE SEGAL Referring Unavailable HOUSE SR, JW Onofre Primary Care Unavailable Kim SCHOFIELD, Ramiro Rosas Attending Unavailab le House DO, [facility] Unavai lable House DO, Jw Ramirez Consulting Ena Alvarez MD, Ramiro Rosas Attending Unavailab le House DO, [facility] Unavai lable House DO, [facility] Primary [facility] Ena Alvarez MD, Ramiro Rosas Attending Unavailab bertin Alvarez MD, Ramiro Rosas Attending Unavailab le House DO, [facility] Chandler Peres MD Attending Unavailable Sukhjinder Wild PA-C Referring Unav ailable House DO, Jw [facility] Ena Alvarez MD, Ramiro Rosas Attending Unavailab le House DO, [facility] Ena Alvarez MD, Ramiro Rosas Attending Unavailab le House DO, [facility] Ena Alvarez MD, Ramiro Rosas Attending Unavailab le House DO, [facility] DO Deric Stuart Attending Provider Paulette, Deric P Attending Unavailable Samsa, Deric P Admitting Unavailable Samsa, Deric P Attending Unavailable Paulette, Deric P Admitting Unavailable STEPHANIE CATHERINE Attending Unavailable FLORIN, STEPHANIE Referring Unavailable FLORIN, STEPHANIE Referring Unavailable Mark Padilla MD Attending Unavailable JW SHEA Primary Care Unavailable Mark Padilla MD Attending Unavailable JW SHEA Primary Care Unavailable QUINTONDO JW Attending [facility] JW SHEA Primary Care Unavailable Medications Current Medications Medication Drug Class(es) [...] Value Interpretation Reference Range Facility Outside Recordson 02-01-2024 Outside Records [id number] .00[facility] Rad - Other Radiology Report on 01-16-2024 Rad - Other Radiology Report [id number] .[facility] 10-25-2023 Outside Records [id number] .[facility] 10-23-2023 Telephone [id number] Haroon Mackenzie 1955 Date Provider Department [place] 10/23/2023 ROMEO UBRAN ONC DCC Family History Problem Relation Age of Onset Bone cancer Mother Asthma Maternal Grandfather Asthma Paternal Grandfather Family Status - Relation Status Age at Mother Maternal Grandfather Paternal Grandfather Normal [facility] Lab - Other Lab Resultson Lab - Other Lab Results [id number] Results [id number] [facility]-19-2023 Telemedicine [id number] Haroon Mackenzie 1955 M Date Provider Department Center 10/19/2023 383-STEPHANIE CATHERINE [facility] ONC [facility] Family History Problem Relation Age of Onset Bone cancer Mother Asthma Maternal Grandfather Asthma Paternal Grandfather Family Status - Relation Status Age at Mother Maternal Grandfather Paternal Grandfather Level of Service:82389 [place] PHYS/QHP TELEPHONE EVALUATION 21-30 MIN () Reason for Visit and Comments: 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 CT DONE 09-23-23. PET DONE 06-15-23 FILMS in EPIC. BRONCH WAS DONE 10-18-2023. ALL IN MEDIA Normal [facility] Orders Onlyon 10-18-2023 Orders Only [id number] Haroon Mackenzie 1955 M Date Provider Department Center 10/18/2023 QUINTON ARIAS ONC [facility] Family History Problem Relation Age of Onset Bone cancer Mother Asthma Maternal Grandfather Asthma Paternal Grandfather Family Status - Relation Status Age at Mother Maternal Grandfather Paternal Grandfather Normal [facility] Body fluid differential cell countOrdered By: Deric Lockett on 10-03-2023 Differential panel (Body fld) 5 % [facility] Comment on above: The reference interv al and other method performance specifications have not been established for this body fluid. The test result must be integrated into the clinical context for interpretation. Cell Count/Diff, Fluidon Appearance, Fluid Hazy Normal [facility] Comment on above: Order Comment: Body Fluid Source: Other (Name in the Site) Body Fluid Site: LEFT LOWER LOBE LAVAGE Result Comment: The reference interval and other method performance specifications have not been established for this body fluid. The test result must be integrated into the clinical context for interpretation. Performed By: #### F LCCDIFF #### [address] Color, Fluid Colorless Normal [facility] Comment on above: Order Comment: Body Fluid Source: Other (Name in the Site) Body Fluid Site: LEFT LOWER LOBE LAVAGE Result Comment: The reference interval and other method performance specifications have not been established for this body fluid. The test result must be integrated into the clinical context for interpretation. Performed By: #### F LCCDIFF #### [address] Color, Fluid Supernatant Colorless Normal [facility] Comment on above: Order Comment: Body Fluid Source: Other (Name in the Site) Body Fluid Site: LEFT LOWER LOBE LAVAGE Result Comment: The reference interval and other method performance specifications have not been established for this body fluid. The test result must be integrated into the clinical context for interpretation. Performed By: #### F LCCDIFF #### [address] Comment, Fluid Normal [facility] Comment on above: Order Comment: Body Fluid Source: Other (Name in the Site) Body Fluid Site: LEFT LOWER LOBE LAVAGE Result Comment: Body fluid is partially clotted and/or cell clumps or debris are present. Fluid cell count and differential results may not be reliable. Clinical correlation is recommended. PERFORMED BY: [place] [address] PATHOLOGIST ENDO TECH HEMA GOULD M.D. Performed By: #### F LCCDIFF #### [address] Eosinophils, Fluid 0 /100{WBC} Normal 0-3 [facility] Comment on above: Order Comment: Body Fluid Source: Other (Name in the Site) Body Fluid Site: LEFT LOWER LOBE LAVAGE Performed By: #### F LCCDIFF #### [address] Lymphocytes, Fluid 2 % Normal [facility] Comment on above: Order Comment: Body Fluid Source: Other (Name in the Site) Body Fluid Site: LEFT LOWER LOBE LAVAGE Result Comment: The reference interval and other method performance specifications have not been established for this body fluid. The test result must be integrated into the clinical context for interpretation. Performed By: #### F LCCDIFF #### [place] [address] [place] Monocytes/Macrophages, Fluid 5 % Normal [facility] Comment on above: Order Comment: Body Fluid Source: Other (Name in the Site) Body Fluid Site: LEFT LOWER LOBE LAVAGE Result Comment: The reference interval and other method performance specifications have not been established for this body fluid. The test result must be integrated into the clinical context for interpretation. Performed By: #### F LCCDIFF #### [facility] [address] [place] [address] [facility] [[email or web address]] Neutrophil, Fluid 93 % Normal [facility] Comment on above: Order Comment: Body Fluid Source: Other (Name in the Site) Body Fluid Site: LEFT LOWER LOBE LAVAGE Result Comment: The reference interval and other method performance specifications have not been established for this body fluid. The test result must be integrated into the clinical context for interpretation. Performed By: #### F LCCDIFF #### [facility] [address] [place] [id number] [facility] [[email or web address]] RBC, Fluid 735 /uL Normal [facility] Comment on above: Order Comment: [...] interpretation. Performed By: #### F LCCDIFF #### [facility] [address] [place] [id number] [facility] [[email or web address]] TNC, Body Fluid 525 /uL Normal [facility] Comment on above: [...] interpretation. Performed By: #### F LCCDIFF #### [facility] [address] [place] [id number] [facility] [[email or web address]] Color of Spun Body fluidOrde red By: Deric Lockett on 10-03-2023 Color (Spun body fld) Colorless [facility] Comment on above: The reference interv al and other method performance specifications have not been established for this body fluid. The test result must be integrated into the clinical context for interpretation. Determination of appearance of body fluidOrdered By: Deric Lockett on 10-03-2023 Appearance (Body fld) Hazy Fir [facility] Comment on above: The reference interv al and other method performance specifications have not been established for this body fluid. The test result must be integrated into the clinical context for interpretation. Evaluation of color of body fluidOrdered By: Deric Lockett on 10-03-2023 Color (Body fld) Colorless [facility] Comment on above: The reference interv al and other method performance specifications have not been established for this body fluid. The test result must be integrated into the clinical context for interpretation. Gordon 10-03-2023 L Specimen: [id number] Received: 10/04/23 Status: FRED Koenig Num: [id number] Spec Type: Surgical Subm Dr: Deric Lockett DO Tissues: A Lung - Transbroncial Biopsy (LT LOWER LOBE BX) Procedures: HE/2, Gross/Micro L4 Age/ Patient Sex Location Account Attending Physician Haroon Mackenzie 68/M LABELL [id number] Deric Lockett DO SPEC NUM: [id number] RECD: 10/04/23 STATUS: FRED KOENIG NUM: [id number] ARSH: 10/03/[address]: Deric Lockett DO ENTERED: 10/04/[address] [facility] [address]: Nadine,Lab SPEC TYPE: Surgical DEPT: NETTA [...] of mucus, no endometrial lesions. CPT Codes 90309 -------- -------- Specimen: [id number] Received: 10/04/23 Status: MIKEYLauren Liberty Num: [id number] Spec Type: Surgical Subm Dr: Deric Lockett DO Tissues: A Lung - Transbroncial Biopsy (LT LOWER LOBE BX) Procedures: Timothy ALAS/Kathya L4 -------- Patient: Haroon Mackenzie [id number] (Continued) -------- Signed (signature on file) Stephanie Jackson MD 10/05/23 [address] [facility] L Specimen: [id number] Received: 10/05/23 Status: FRED Koenig Num: [id number] Spec Type: Cytology Subm Dr: Deric Lockett DO Tissues: [facility] Procedures: HE/2, Gross/Micro L4, Cyto Prepstain, PAPSTN Age/ Patient Sex Location Account Attending Physician Jose Mackenzieen Snoia 68/M LABELL [id number] Deric Lockett DO SPEC NUM: [id number] RECD: 10/05/23 STATUS: FRED KOENIG NUM: [id number] ARSH: 10/03/23- SUBM DR: Deric Lockett DO ENTERED: 10/05/[address]: Ajay Mccoy SPEC TYPE: Cytology DEPT: NET[facility] ENTERED BY: [id number] RECV BY: [id number] ORDERED: HE/2, Gross/Micro L4, Cyto Prepstain, PAPSTN [...] are prepared. 1 cell blocks are prepared. (NH/wa) CPT Codes 75214, 50890 -------- -------- Specimen: [id number] Received: 10/05/23 Status: FRED Koenig Num: [id number] Spec Type: Cytology Subm Dr: Deric Lockett DO Tissues: A BRONWASH ([facility]) Procedures: HE/2, Gross/Micro L4, Cyto Prepstain, PAPSTN -------- Patient: Haroon Mackenzie [id number] (Continued) -------- Signed (signature on file) Snehal Acosta MD 10/08/232007 Normal [facility] Manual body fluid eosinophil s/100 leukocytesOrdered By: Deric Lockett on 10-03-2023 Eosinophils/100 WBC Manual cnt (Body fld) 0 /100{WBC} 0-3 [facility] Manual body fluid erythrocyt es count (number/volume)Ordered By: Deric Lockett on 10-03-2023 RBC Manual cnt (Body fld) [#/Vol] 735 /uL [facility] Comment on above: Body fluid is partia [...] WBC Manual cnt (Body fld) 2 % [facility] Comment on above: The reference interv al and other method performance specifications have not been established for this body fluid. The test result must be integrated into the clinical context for interpretation. Neutrophils/100 WBC Manual c nt (Body fld)Ordered By: Deric Lockett on 10-03-2023 Neutrophils/100 WBC (Body fld) 93 % [facility] Comment on above: The reference interv al and other method performance specifications have not been established for this body fluid. The test result must be integrated into the clinical context for interpretation. No Panel InformationOrdered By: Deric Lockett on 10-03-2023 Body Fluid Comment See comment [facility] Comment on above: Body fluid is partia lly clotted and/or cell clumps or debris are present. Fluid cell count and differential results may not be reliable. Clinical correlation is recommended. Body Fluid Total Nucleated Cells 525 /uL [facility] Comment on above: Body fluid is partia lly clotted and/or cell clumps or debris are present. Fluid cell count and differential results may not be reliable. Clinical correlation is recommended.The reference interval and other method performance specifications have not been established for this body fluid. The test result must be integrated into the clinical context for interpretation. Outside Recordson 09-28-2023 Outside Records [id number] [facility] 09-27-2023 Outside Records [id number] .[facility] CT TUMOR IMAGE SKULL THI [...] Deric Hernández MD 06/15/23 Final result Normal [facility] Surgical Pathology Reporton 05-18-2023 Surgical Pathology Report (NOTE) Path Number: [id number] -- Diagnosis -- A. PROSTATE, LB, NEEDLE [...] 2 Matt Dale D.O. Electronically Signed Out 05/23/2023 Clinical Information Pre-Op Diagnosis: ELEVATED PSA Operative Findings: PROSTATE BIOPSY X 12 Operation Performed: CA PROSTATE NEEDLE BIOPSY ANY APPROACH kb Source [...] seen in intradepartmental consultation (FRANKLYN) for quality internship purposes. Processing Lab: [facility] [address] [place] [phone] Interpretation Performed at [facility] [address] [place] [address] SURGICAL PATHOLOGY CONSULTATION Patient Name: HAROON MACKENZIE [facility] Rec: [id number] [facility] ANATOM[facility] PATHOLOG[facility] [address] [place] [phone] Normal [facility] PSA, Diagnosticon 04-15-2023 Prostatic Spec. Ag 9.60 ng/mL High <4.1 [facility] Comment on above: Result Comment: The Ion ECLIA assay is used. Results obtained with different assay methods cannot be used interchangeably. Performed By: #### P SAD #### [address] [id number] Wine Merchant: Delon Rizzo MD Cult,Urineon 02-24-2023 Cult,Urine Specimen Description .CLEAN CATCH URINE Culture NO GROWTH Report Status FINAL 02/24/2023 [facility] Comment on above: Performed By: #### U RC #### [address] [phone] Wine Merchant: Delon Rizzo MD [facility] [address] [place] [address] [place] [address] Wine Merchant: Juan Carlos Eisenberg MD PSA, Screeningon 02-24-2023 Prostatic Spec. Ag 7.43 ng/mL High <4.1 [facility] Comment on above: Result Comment: The Ion ECLIA assay is used. Results obtained with different assay methods cannot be used interchangeably. Performed By: #### C P, CDP #### [facility] [address] [place] [address] [place] [address] Wine Merchant: Juan Carlos Eisenberg MD #### PSAS #### [facility] [address] [place] [address] Wine Merchant: Delon Rizzo MD CBC with Auto Differentialon 02-23-2023 Basophils (Bld) [#/Vol] 0.07 10*3/uL [facility] Basophils/100 WBC (Bld) 1 % 0 - 2 % [facility] Eosinophils (Bld) [#/Vol] 0.11 10*3/uL [facility] Eosinophils/100 WBC (Bld) 1 % 1 - 4 % [facility] Erythrocyte distribution width (RBC) [Ratio] 12.1 % 11.8 - 14.4 % [facility] Hematocrit (Bld) [Volume fraction] 47.1 % 40.7 - 50.3 % [facility] Hemoglobin (Bld) [Mass/Vol] 16.6 g/dL 13.0 - 17.0 g/dL [facility] Immature granulocytes (Bld) [#/Vol] 0.03 10*3/uL [facility] Immature granulocytes/100 WBC (Bld) 0 % 0 [facility] Interpretation and review of laboratory results Abnormal [facility] Lymphocytes/100 WBC (Bld) 19 % Low 24 - 43 % [facility] Lymphocytes/100 WBC (Bld) 1.46 % [facility] MCH (RBC) [Entitic mass] 33.9 pg High 25.2 - 33.5 pg [facility] MCHC (RBC) [Mass/Vol] 35.2 g/dL High 28.4 - 34.8 g/dL [facility] MCV (RBC) [Entitic vol] 96.1 fL 82.6 - 102.9 fL [facility] Monocytes/100 WBC (Bld) 7 % 3 - 12 % [facility] Monocytes/100 WBC (Bld) 0.52 % [facility] Neutrophils/100 WBC (Bld) 72 % High 36 - 65 % [facility] Nucleated RBC/100 WBC (Bld) [Ratio] 0.0 % 0.0 per 100 WBC [facility] Platelet mean volume (Bld) [Entitic vol] 10.2 fL 8.1 - 13.5 fL [facility] Platelets (Bld) [#/Vol] 206 10*3/uL [facility] RBC (Bld) [#/Vol] 4.90 10*6/uL 4.21 - 5.7 7 m/uL [facility] Segmented neutrophils/100 WBC (Bld) 5.44 % [facility] WBC other (Bld) [#/Vol] 7.6 [facility] CBC with Diffon 02-23-2023 Abs. Basophil 0.07 k/uL Normal 0.00-0.20 [facility] Comment on above: Performed By: #### C P, CDP #### [address] [place] [phone] Wine Merchant: Juan Carlos Eisenberg MD #### PSAS #### [place] [address] Wine Merchant: Delon Rizzo MD Abs.Imm.Granulocyte 0.03 k/uL Normal 0.00-0.30 [facility] Comment on above: Performed By: #### C P, CDP #### [address] [place] [phone] Wine Merchant: Juan Carlos Eisenberg MD #### PSAS #### [place] [address] Wine Merchant: Delon Rizzo MD Abs.Neutrophil (Seg) 5.44 k/uL Normal 1.50-8.10 [facility] Comment on above: Performed By: #### C P, CDP #### [facility] [address] [place] [address] Dr. [place] [phone] Wine Merchant: Juan Carlos Eisenberg MD #### PSAS #### [place] [address] Wine Merchant: Delon Rizzo MD Basophils/100 WBC (Bld) 1 % Normal 0-2 [facility] Comment on above: Performed By: #### C P, CDP #### [facility] [address] [place] [address] Wine Merchant: Juan Carlos Eisenberg MD #### PSAS #### [address] [id number] Wine Merchant: Delon Rizzo MD Eosinophils (Bld) [#/Vol] 0.11 10*3/uL Normal 0.00-0.44 [facility] Comment on above: Performed By: #### C P, CDP #### [address] [place] [phone] Wine Merchant: Juan Carlos Eisenberg MD #### PSAS #### [address] [address] Wine Merchant: Delon Rizzo MD Eosinophils/100 WBC (Bld) 1 % Normal 1-4 [facility] Comment on above: Performed By: #### C P, CDP #### [address] [place] [phone] Wine Merchant: Juan Carlos Eisenberg MD #### PSAS #### [address] [address] Wine Merchant: Delon Rizzo MD Erythrocyte distribution width (RBC) [Ratio] 12.1 % Normal 11.8-14.4 [facility] Comment on above: Performed By: #### C P, CDP #### [address] [place] [phone] Wine Merchant: Juan Carlos Eisenberg MD #### PSAS #### [address] [address] Wine Merchant: Delon Rizzo MD Hematocrit (Bld) [Volume fraction] 47.1 % Normal 40.7-50.3 [facility] Comment on above: Performed By: #### C P, CDP #### [facility] [address] [place], [place] [phone] Wine Merchant: Juan Carlos Eisenberg MD #### PSAS #### [address] [phone] Wine Merchant: Delon Rizzo MD Hemoglobin (Bld) [Mass/Vol] 16.6 g/dL Normal 13.0-17.0 [facility] Comment on above: Performed By: #### C P, CDP #### [facility] [address] [place] [phone] Wine Merchant: Juan Carlos Eisenberg MD #### PSAS #### [address] [phone] Wine Merchant: Delon Rizzo MD Immature granulocytes/100 WBC (Bld) 0 % Normal 0 [facility] Comment on above: Performed By: #### C P, CDP #### [facility] [address] [place], [place] [phone] Wine Merchant: Juan Carlos Eisenberg MD #### PSAS #### [address] [address] Wine Merchant: Delon Rizzo MD Lymphocytes (Bld) [#/Vol] 1.46 10*3/uL Normal 1.10-3.70 [facility] Comment on above: Performed By: #### C P, CDP #### [facility] [address] [place], [place] [phone] Wine Merchant: Juan Carlos Eisenberg MD #### PSAS #### [address] [address] Wine Merchant: Delon Rizzo MD Lymphocytes/100 WBC (Bld) 19 % Low 24-43 [facility] Comment on above: Performed By: #### C P, CDP #### [facility] [address] [place] [address] [place], [place] [phone] Wine Merchant: Juan Carlos Eisenberg MD #### PSAS #### [address] [phone] Wine Merchant: Delon Rizzo MD MCH (RBC) [Entitic mass] 33.9 pg High 25.2-33.5 [facility] Comment on above: Performed By: #### C P, CDP #### [facility] [address] [place] [address] Dr. [place] [phone] Wine Merchant: Juan Carlos Eisenberg MD #### PSAS #### [address] [address] Wine Merchant: Delon Rizzo MD MCHC (RBC) [Mass/Vol] 35.2 g/dL High 28.4-34.8 [facility] Comment on above: Performed By: #### C P, CDP #### [address] [place] [phone] Wine Merchant: Juan Carlos Eisenberg MD #### PSAS #### [address] [address] Wine Merchant: Delon Rizzo MD MCV (RBC) [Entitic vol] 96.1 fL Normal 82.6-102.9 [facility] Comment on above: Performed By: #### C P, CDP #### [address] [place] [phone] Wine Merchant: Juan Carlos Eisenberg MD #### PSAS #### [address] [address] Wine Merchant: Delon Rizzo MD Monocytes (Bld) [#/Vol] 0.52 10*3/uL Normal 0.10-1.20 [facility] Comment on above: Performed By: #### C P, CDP #### [facility] [address] [place], [place] [phone] Wine Merchant: Juan Carlos Eisenberg MD #### PSAS #### [address] [phone] Wine Merchant: Delon Rizzo MD Monocytes/100 WBC (Bld) 7 % Normal 3-12 [facility] Comment on above: Performed By: #### C P, CDP #### [facility] [address] [place] [address] Dr. [place], [place] [phone] Wine Merchant: Juan Carlos Eisenberg MD #### PSAS #### [address] [address] Wine Merchant: Delon Rizzo MD Neutrophil (Seg) 72 % High 36-65 [facility] Comment on above: Performed By: #### C P, CDP #### [address] [place], [place] [id number] Wine Merchant: Juan Carlos Eisenberg MD #### PSAS #### [address] [address] Wine Merchant: Delon Rizzo MD NRBC Automated 0.0 per 100 WBC Normal 0.0 [facility] Comment on above: Performed By: #### C P, CDP #### [address] [place], [place] [id number] Wine Merchant: Juan Carlos Eisenberg MD #### PSAS #### [address] [address] Wine Merchant: Delon Rizzo MD Platelet mean volume (Bld) [Entitic vol] 10.2 fL Normal 8.1-13.5 [facility] Comment on above: Performed By: #### C P, CDP #### [address] [place], [place] [id number] Wine Merchant: Juan Carlos Eisenberg MD #### PSAS #### [address] [place] [address] Wine Merchant: Delon Rizzo MD Platelets (Bld) [#/Vol] 206 10*3/uL Normal 138-453 [facility] Comment on above: Performed By: #### C P, CDP #### [facility] [address] [place] [address] Dr. [place], [place] [phone] Wine Merchant: Juan Carlos Eisenberg MD #### PSAS #### [address] [place] [address] Wine Merchant: Delon Rizzo MD RBC (Bld) [#/Vol] 4.90 10*6/uL Normal 4.21-5.77 [facility] Comment on above: Performed By: #### C P, CDP #### [address] [place] [id number] Wine Merchant: Juan Carlos Eisenberg MD #### PSAS #### [address] [id number] Wine Merchant: Delon Rizzo MD WBC (Bld) [#/Vol] 7.6 10*3/uL Normal 3.5-11.3 [facility] Comment on above: Performed By: #### C P, CDP #### [address] [place] [phone] Wine Merchant: Juan Carlos Eisenberg MD #### PSAS #### [address] [address] Wine Merchant: Delon Rizzo MD Comp Metabolic Profon 2022 Albumin [Mass/Vol] 4.4 g/dL Normal 3.5-5.2 [facility] Comment on above: Performed By: #### C P, CDP #### [facility] [address] [place] [address] [place] [address] Wine Merchant: Juan Carlos Eisenberg MD #### PSAS #### [address] [address] Wine Merchant: Delon Rizzo MD Albumin/Glob Ratio 1.3 Normal 1.0-2.5 [facility] Comment on above: Performed By: #### C P, CDP #### [facility] [address] [place], [place] [phone] Wine Merchant: Juan Carlos Eisenberg MD #### PSAS #### [address] [address] Wine Merchant: Delon Rizzo MD Alkaline Phos 91 U/L Normal 40-129 [facility] Comment on above: Performed By: #### C P, CDP #### [facility] [address] [place], [place] [phone] Wine Merchant: Juan Carlos Eisenberg MD #### PSAS #### [address] [address] Wine Merchant: Delon Rizzo MD ALT [Catalytic activity/Vol] 42 U/L High 5-41 [facility] Comment on above: Performed By: #### C P, CDP #### [facility] [address] [place] [address] Dr. [place], [place] [phone] Wine Merchant: Juan Carlos Eisenberg MD #### PSAS #### [address] [address] Wine Merchant: Delon Rizzo MD Anion gap [Moles/Vol] 9 mmol/L Normal 9-17 [facility] Comment on above: Performed By: #### C P, CDP #### [facility] [address] [place], [place] [phone] Wine Merchant: Juan Carlos Eisenberg MD #### PSAS #### [address] [address] Wine Merchant: Delon Rizzo MD AST [Catalytic activity/Vol] 27 U/L Normal <40 [facility] Comment on above: Performed By: #### C P, CDP #### [facility] [address] [place], [place] [phone] Wine Merchant: Juan Carlos Eisenberg MD #### PSAS #### [address] [address] Wine Merchant: Delon Rizzo MD Bilirubin [Mass/Vol] 0.6 mg/dL Normal 0.3-1.2 [facility] Comment on above: Performed By: #### C P, CDP #### [facility] [address] [place] [address] Dr. [place], [place] [phone] Wine Merchant: Juan Carlos Eisenberg MD #### PSAS #### [address] [address] Wine Merchant: Delon Rizzo MD BUN/CRE Ratio 21 High 9-20 [facility] Comment on above: Performed By: #### C P, CDP #### [facility] [address] [place] [address] Dr. [place], [place] [phone] Wine Merchant: Juan Carlos Eisenberg MD #### PSAS #### [address] [address] Wine Merchant: Delon Rizzo MD Calcium [Mass/Vol] 9.3 mg/dL Normal 8.6-10.4 [facility] Comment on above: Performed By: #### C P, CDP #### [facility] [address] [place], [place] 1027483 Wine Merchant: Juan Carlos Eisenberg MD #### PSAS #### [address] [address] Wine Merchant: Delon Rizzo MD Chloride [Moles/Vol] 106 mmol/L Normal 98-107 [facility] Comment on above: Performed By: #### C P, CDP #### [facility] [address] [place], [place] 1309183 Wine Merchant: Juan Carlos Eisenberg MD #### PSAS #### [facility] [address] [place], [place] 1173108 Wine Merchant: Delon Rizzo MD CO2 [Moles/Vol] 28 mmol/L Normal 20-31 [facility] Comment on above: Performed By: #### C P, CDP #### [facility] [address] [place], [place] 4202483 Wine Merchant: Juan Carlos Eisenberg MD #### PSAS #### [address] [place], [place] 8018608 Wine Merchant: Delon Rizzo MD Creatinine [Mass/Vol] 1.0 mg/dL Normal 0.7-1.2 [facility] Comment on above: Performed By: #### C P, CDP #### [facility] [address] [place] [address] Wine Merchant: Juan Carlos Eisenberg MD #### PSAS #### [address] [place], [place] 1523608 Wine Merchant: Delon Rizzo MD GFR/1.73 sq M.predicted among non-blacks MDRD (S/P/Bld) [Vol rate/Area] mL/min/{1.73_m2} Normal >60 [facility] Comment on above: Result Comment: These results [...] Performed By: #### C P, CDP #### [facility] [address] [place], [place] 6886483 Wine Merchant: Juan Carlos Eisenberg MD #### PSAS #### [address] [address] Wine Merchant: Delon Rizzo MD Glucose [Mass/Vol] 84 mg/dL Normal 70-99 [facility] Comment on above: Performed By: #### C P, CDP #### [address] [place], [place] 3098183 Wine Merchant: Juan Carlos Eisenberg MD #### PSAS #### [address] [address] Wine Merchant: Delon Rizzo MD Potassium [Moles/Vol] 4.4 mmol/L Normal 3.7-5.3 [facility] Comment on above: Performed By: #### C P, CDP #### [address] [place] [phone] Wine Merchant: Juan Carlos Eisenberg MD #### PSAS #### [address] [address] Wine Merchant: Delon Rizzo MD Protein [Mass/Vol] 7.8 g/dL Normal 6.4-8.3 [facility] Comment on above: Performed By: #### C P, CDP #### [address] [place], [place] 3713283 Wine Merchant: Juan Carlos Eisenberg MD #### PSAS #### [address] [address] Wine Merchant: Delon Rizzo MD Sodium [Moles/Vol] 143 mmol/L Normal 135-144 [facility] Comment on above: Performed By: #### C P, CDP #### [address] [place], [place] 7189583 Wine Merchant: Juan Carlos Eisenberg MD #### PSAS #### [facility] [address] [place] [address] Wine Merchant: Delon Rizzo MD Urea nitrogen [Mass/Vol] 21 mg/dL Normal 8-23 [facility] Comment on above: Performed By: #### C P, CDP #### [facility] [address] [place] [address] Wine Merchant: Juan Carlos Eisenberg MD #### PSAS #### [facility] [address] [place] [address] Wine Merchant: Delon Rizzo MD Comprehensive Metabolic Pane [facility] 02-23-2023 Albumin [Mass/Vol] 4.4 g/dL 3.5 - [...] ratio] 21 mg/mg High 9 - 20 [facility] Urinalysis w/ Microon 2022 Bilirubin, SemiQt,Ur Negative Normal NEG [facility] Comment on above: Performed By: #### U AMIC #### [facility] [address] [place] [address] [place] [address] Wine Merchant: Juan Carlos Eisenberg MD Blood, Urine Negative Normal NEG [facility] Comment on above: Performed By: #### U AMIC #### [facility] [address] [place] [address] [place] [address] Wine Merchant: Juan Carlos Eisenberg MD Clarity (U) Clear Normal CLEAR [facility] Comment on above: Performed By: #### U AMIC #### [facility] [address] [place] [address] [place] [address] Wine Merchant: Juan Carlos Eisenberg MD Color (U) Yellow Normal YEL [facility] Comment on above: Performed By: #### U AMIC #### [facility] [address] [place] [address] [place] [address] Wine Merchant: Juan Carlos Eisenberg MD Epithelial cells LM Ql (Urine sed) None Normal 0-5 [facility] Comment on above: Performed By: #### U AMIC #### [facility] [address] [place], [place] 4747183 Wine Merchant: Juan Carlos Eisenberg MD Glucose Ql (U) Negative Normal NEG [facility] Comment on above: Performed By: #### U AMIC #### [facility] [address] [place] [address] Wine Merchant: Juan Carlos Eisenberg MD Ketones Ql (U) Negative Normal NEG [facility] Comment on above: Performed By: #### U AMIC #### [facility] [address] [place] [address] [place]. [place], [place] 5815483 Wine Merchant: Juan Carlos Eisenberg MD Leukocyte esterase Test strip Ql (U) Negative Normal NEG [facility] Comment on above: Performed By: #### U AMIC #### [facility] [address] [place] [address] [place] [address] Wine Merchant: Juan Carlos Eisenberg MD Nitrite,Ur Negative Normal NEG [facility] Comment on above: Performed By: #### U AMIC #### [facility] [address] [place] [address] [place] [address] Wine Merchant: Juan Carlos Eisenberg MD PH,Ur 6.5 Normal 5.0-9.0 [facility] Comment on above: Performed By: #### U AMIC #### [facility] [address] [place] [address] Wine Merchant: Juan Carlos Eisenberg MD Protein Ql (U) Negative Normal NEG [facility] Comment on above: Performed By: #### U AMIC #### [facility] [address] [place], [place] 4503283 Wine Merchant: Juan Carlos Eisenberg MD Spec. [place],Ur 1.020 Normal 1.010-1.[address] [facility] Comment on above: Performed By: #### U AMIC #### [facility] [address] [place] [address] Wine Merchant: Juan Carlos Eisenberg MD Urine RBC's None Normal 0-2 [facility] Comment on above: Performed By: #### U AMIC #### [facility] [address] [place], [place] [phone] Wine Merchant: Juan Carlos Eisenberg MD Urine WBC's None Normal 0-5 [facility] Comment on above: Performed By: #### U AMIC #### [facility] [address] [place] [address] Wine Merchant: Juan Carlos Eisenberg MD Urobilinogen,Ur Normal Normal 0.0-1.0 [facility] Comment on above: Performed By: #### U AMIC #### [facility] [address] [place] [address] Wine Merchant: Juan Carlos Eisenberg MD Urinalysis with Microscopico n 02-23-2023 Bilirubin Ql (U) Negative NEGATIVE [facility] Clarity (U) Clear Clear [facility] Color (U) Yellow Yellow [facility] Epithelial cells LM.HPF (Urine sed) [#/Area] None [facility] Glucose Test strip (U) [Mass/Vol] Negative NEGATIVE mg/dL [facility] Hemoglobin Auto test strip Ql (U) Negative NEGATIVE [facility] Ketones (U) [Mass/Vol] Negative NEGAT MATHEW mg/dL [facility] Leukocyte esterase Test strip Ql (U) Negative NEGATIVE [facility] Nitrite Ql (U) Negative NEGATIVE [facility] pH (U) 6.5 [pH] 5.0 - 9.[address] [facility] Protein (U) [Mass/Vol] Negative NEGAT MATHEW mg/dL [facility] RBC LM.HPF (Urine sed) [#/Area] None [facility] Specific gravity (U) [Rel density] 1.020 1.010 - 1.020 [facility] Urobilinogen Qn (U) Normal 0.0 - 1. 0 EU/dL [facility] WBC LM.HPF (Urine sed) [#/Area] None [facility] Urology Office/Clinic Noteon 10-10-2022 Urology Office/Clinic Note [...] and infection again. I will send him Cipro again. Follow-up for a biopsy on a [...] Ramiro Alvarez MD 10/10/22 20:10 EDT Normal [facility] MRI Prostate w/ + w/o Contra ston 09-12-2022 MRI Prostate w/ + w/o Contrast [...] Dictated DT/TM: 09/12/2022 9:10 am Signed by: Tracey SCHOFIELD, Franny Flores Signed (Electronic Signature): 09/12/2022 9:27 am (If Report Is Signed, Electronically Signed in Other Vendor System) Normal [facility] In office Testingon 08-25-19 23 In office Testing [id number] Normal [facility] Provider Letteron 07-25-2022 Provider Letter Jw Shea DO [address] [place] [address] Re: Haroon Mackenzie 1955 Date of Visit: [...] patient's care. Sincerely, Ramiro Alvarez MD Normal [facility] Urology Office/Clinic Noteon 07-25-2022 Urology Office/Clinic [...] Ramiro Alvarez MD 07/25/22 19:47 EST Normal [facility] PROTIMEon 08-14-2021 INR Coag (PPP) [Relative time] 1.03 {INR} Normal [facility] Comment on above: Performed By: #### P TT, PT #### [facility] [address] [place] [address] Dr. Philippe Acosta INR GUIDELINES SEE BELOW Normal [facility] Comment on above: Result Comment: TONY RED INR: 2.0 - 3.0 CONDITIONS NOT LISTED BELOW 2.5 - 3.5 FOR PROSTHETIC HEART VALVE REPLACEMENT 2.5 - 3.5 RECURRENT THROMBOSIS Performed By: #### P TT, PT #### [facility] [address] [address] [address] Philippe Acosta PT Coag (PPP) [Time] 11.1 s Normal 9.0-11.6 [facility] Comment on above: Performed By: #### P TT, PT #### [facility] [address] [place] [address] Dr. Philippe Acosta PTTon 08-14-2021 aPTT Coag (Bld) [Time] 30.4 s Normal 22.3-36.2 [facility] Comment on above: Performed By: #### P TT, PT #### [facility] [address] [place] [address] Dr. Philippe Acosta Encounters Encounter Date Encounter Type Care Provider Facility Start: 10-19-2023 End: 10-19-2023 ambulatory [facility] Start: 10-19-2023 End: 10-20-2023 ambulatory [facility] Start: 10-19-2023 End: 10-19-2023 ambulatory [facility] Start: 10-03-2023 End: 10-03-2023 ambulatory Deric P Samsa Facility:[facility] Start: 10-03-2023 End: 10-03-2023 ambulatory DO Deric Lockett Work Phone: [facility] Work Phone: Start: 10-03-2023 End: 10-03-2023 Departed Referred DO Deric Lockett Work Phone: [facility] Start: 06-20-2023 ambulatory Chandler Ventura MD Facility: [facility] Start: 06-15-2023 End: 06-18-2023 ambulatory [facility]LET[facility] LYNDAILY [facility] Start: 05-18-2023 End: 05-19-2023 ambulatory [facility]W [facility]A [facility] Start: 04-20-2023 End: 04-20-2023 ambulatory Mark Padilla MD Facility:[facility] Start: 04-15-2023 End: 04-16-2023 ambulatory JW SHEA SR [facility] Start: 03-30-2023 End: 03-30-2023 ambulatory Mark Padilla MD Facility:[facility] Start: 02-23-2023 End: 02-24-2023 ambulatory JW SHEA SR [facility] Start: 02-23-2023 End: 02-23-2023 Subsequent hospital visit by physician Jw Shea Sr., DO [facility] Comment on above: Proteinuria, unspeci fied type; Prostate cancer screening; BPH with obstruction/lower urinary tract symptoms Start: 12-26-2022 ambulatory Jw Shea DO Facility:[facility] Start: 12-08-2022 End: 12-09-2022 ambulatory Ramiro Alvarez MD [facility] Start: 10-10-2022 End: 10-11-2022 ambulatory Ramiro Alvarez MD [facility] Start: 10-03-2022 ambulatory Ramiro Alvarez MD F acility:[facility] Start: 09-15-2022 End: 09-16-2022 ambulatory Ramiro Alvarez MD Facility:[facility] Start: 09-10-2022 End: 09-11-2022 ambulatory Ramiro Alvarez MD Facility:[facility] Start: 07-25-2022 End: 07-26-2022 ambulatory Ramiro Alvarez MD [facility] Start: 05-24-2022 End: 05-25-[address] JW SHEA Facility:[facility] Start: 08-17-2021 Encounter for preprocedural laboratory examination DR DOCTOR TELLES [facility] Start: 08-14-2021 End: 08-15-[address] DOCTOR [...] above: Performed By: #### P SAD #### [facility] [address] [place] [address] Dr. Philippe Acosta Plan of Treatment Date Care Activity Detail Author Start: 03-09-2023 End: 03-09-2023 Patient encounter procedure 03/09/2023 4:30 PM EDT Office Visit [facility] Part of [address] [place] [phone] follow up, PSA [facility] Comment on above: follow up, PSA Start: 01-10-2023 Influenza vaccination Flu vaccine (# 1) [facility] Start: 06-03-2022 Pneumococcal 65+ yea rs Vaccine (2 - PCV) Pneumococcal 65+ years Vaccine (2 - PCV) [facility] Start: 2021 Abdominal aortic aneurysm screening AAA screen [facility] Start: 2006 Shingles vaccine (1 of 2) Shingles vaccine (1 of 2) [facility] Start: 2001 Screening for malign ant neoplasm of colon [facility] Start: 1996 Lipid panel Lipids [facility] Start: 1991 Diabetes screen Diabetes screen [facility] Start: 1975 DTaP/Tdap/Td vaccine (1 - Tdap) DTaP/Tdap/Td vaccine (1 - Tdap) [facility] Start: 1974 Hepatitis C screening Hepatitis C sc reen [facility] Start: 1968 Depression Screen Depression Screen [facility] Start: 1956 COVID-19 Vaccine (#1) COVID-19 Vacci ne (#1) [facility] End: 02-23-2023 Culture, Urine [facility] Comment on above: 1 Occurrences starti ng 02/23/2023 until 02/23/2023 End: 02-23-2023 PSA screening [facility] Comment on above: 1 Occurrences starti ng 02/23/2023 until 02/23/2023 Payers Date Payer Category Payer Self-pay 2023 Medicare [id number] 2021 Unknown 1959 Unknown [id number] 1955 Unknown [id number] 2.16.84 [id number] 1955 Unknown [id number] 2.16.84 [id number] 1955 Unknown [id number] 2.16.84 0.1.905980.3.579.2.593 1955 Unknown [id number] 2.16.8 40.1.756573.3.579.2.173 1956 Unknown [id number] 2.16.8 40.1.034235.3.579.2.173 1955 Unknown [id number] 2.16.8 40.1.217309.3.579.2.173 1956 Unknown [id number] 2.16.8 40.1.813901.3.579.2.173 1956 Unknown [id number] 2.16. 840.1.965624.3.579.2.196 1955 Unknown [id number] 2.16. 840.1.663871.3.579.2.196 1956 Unknown [id number] 2.16. 840.1.882085.3.579.2.196 1956 Unknown [id number] 2.16. 840.1.046835.3.579.2.196 1956 Unknown [id number] 2.16. 840.1.903863.3.579.2.196 1956 Unknown [id number] 2.16. 840.1.459929.3.579.2.196 1956 Unknown [id number] 2.16. 840.1.449662.3.579.2.196 1956 Unknown [id number] 2.16.8 40.1.805436.3.579.2.718 1956 Unknown [id number] 2.16.8 40.1.341231.3.579.2.718 1955 Unknown [id number] 2.16.8 40.1.813996.3.579.2.718 Social History Date Type Detail Facility Start: 02-23-2023 [facility] of tobacco use [facility]ig[facility] Start: 02-23-2023 Tobacco use and exposure Smokeless tobacco [facility]-user [facility] Start: 02-23-2023 Alcohol intake Current drinke r of alcohol (finding) [facility] Start: 02-23-2023 History of Social function [facility] Start: 02-23-2023 Tobacco use panel [facility] Start: 02-23-2023 Alcohol Comment weekends [facility] Start: 1955 Sex Assigned At Not on file B ON [facility] Start: 1955 Sex Assigned At Male F [facility] Medication management note 03-05-2024 Note Date & Type Note Facility 03-05-2024 Note Entered by STEPHANY SHEA DO on March 05, 2024 09:51:44 EDT From: JW SHEA DO To: [id number] Sent: 03/05/2024 09:51:44 EDT Subject: Medication Management Submitted: Complete:meloxicam (meloxicam 15 mg oral tablet) Signed by JW SHEA DO 03/05/2024 09:51:00 EDT Approved meloxicam (MELOXICAM 15MG TABLET) TAKE ONE TABLET BY MOUTH DAILY Qty: 30 EA Days Supply: 30 Refills: 2 Substitutions Allowed Route To Pharmacy - [id number] From: [facility] To: JW SHEA DO Sent: March 05, 2024 8:42:43 AM CDT Subject: Medication Management Due: March 06, 2024 12:04:00 AM CDT On Hold Pending Signature Drug: meloxicam (meloxicam 15 mg oral tablet), TAKE ONE TABLET BY MOUTH DAILY Quantity: 30 EA Days Supply: 30 Refills: 1 Substitutions Allowed Notes from Pharmacy: Dispensed Drug: meloxicam (meloxicam 15 mg oral tablet), TAKE ONE TABLET BY MOUTH DAILY Quantity: 30 EA Days Supply: 30 Refills: 2 Substitutions Allowed Notes from Pharmacy: [facility] Medication management note 12-05-2023 Note Date & [...] Substitutions Allowed Route To Pharmacy - [facility] To: JW SHEA DO Sent: December 05, [...] Refills: 2 Substitutions Allowed Notes from Pharmacy: [facility] Progress note 10-19-2023 Note Date & Type Note Facility 10-19-2023 Note -------- Attestation signed by Stephanie Catherine MD at 10/20/2023 11:16 AM Total time [...] Age: 68 y.o. : 1955 Account No.: [id number] Referring physician: Paulette Chief complaint: Left lung [...] to us for ION robotic evaluation. Shx: longterm smoker 2 pack a day for 50 [...] , PH , PHART , PHVEN , [id number] , [id number] , [id number] , PO2POC , PO2ART , PO2VEN , [id number] , [id number] Radiology: Assessment and Plan: # Left lower [...] was initiated by the patient and conducted [id number] with use of audio-only real time telephone communication between patient and provider for a virtual visit. Verbal consent to provide and bill this service was obtained on: 10/19/23 No signature was obtained due to the COVID-19 pandemic. Manuel Hoffman MD [facility] Pulmonary/Critical Care Fellow [facility] Evaluation note Note Date & Type Note [...] Facility Evaluation note No assessment information availa [facility] Work Phone: Summary Purpose Family [...] DATE CREATED AUTHOR AUTHOR'S ORGANIZ ATION 08/25/2022 [facility] DATE CREATED AUTHOR AUTHOR'S ORGANIZ ATION 06/18/2023 [facility] DATE CREATED AUTHOR AUTHOR'S ORGANIZ ATION 06/21/2023 [facility] [facility] DATE CREATED AUTHOR AUTHOR'S ORGANIZ ATION 10/09/2023 [facility] DATE CREATED AUTHOR AUTHOR'S ORGANIZ ATION 10/23/2023 [facility] DATE CREATED AUTHOR AUTHOR'S ORGANIZ ATION 03/07/2024 [facility] Care Teams (unrecognized sec tion and content) Neck[employer] Relationship Specialty Start Date End Date Jw Shea Sr., DO [address] [place] [address] PCP - General Family Medicine 02/23/23 Team [...] BE BASED ON THE PRIMARY CLINICAL RECORDS. [facility]. provides no warranty or guarantee of the accuracy or completeness of information in this document.
[2024-04-22 09:11] LABS: Estimated GFR (African America >60 (>=60 mL/min/1.73m^2); Estimated GFR (Non-African Ame 56 (>=60 mL/min/1.73m^2)
== END 2024-04-22 08:52 | disposition home or self-care (01) ==
LOC: LAB 08:51
PROVIDERS: PCP Family Medicine; Visit Provider Internal Medicine
DX: R91.8 Other nonspecific abnormal finding of lung field (principal); R59.0 Localized enlarged lymph nodes
CPT/HCPCS: 36415; 71260; 82565; Q9967

== ENCOUNTER 2024-07-26 08:31 | Outpatient (OUT) | payer MEDICARE, SELFPAY ==
--- NOTE | 2024-07-26 08:41 | CT_ITS ---
[address] [address] Patient Name: GER MACKENZIE MRN: [id number] date: 1955 Sex: M Assigned Patient Location: LAB Current Patient Location: LAB Accession/Order Number: [id number] Exam Date: 07/26/2024 08:55 Report Date: 07/26/2024 18:28 At the request of: DERIC LOCKETT Procedure: CT chest w con EXAMINATION: CT chest w con HISTORY: Lung Mass, Hilar Lymphadenopathy ; follow-up lung mass COMPARISON: CT chest 04/22/2024 TECHNIQUE: Multi-planar CT images were obtained without and/or with IV contrast as indicated by examination type. Axial, Coronal, and Sagittal images. Dose reduction techniques were achieved by using automated exposure control and/or adjustment of mA and/or kV according to patient size and/or use of iterative reconstruction technique. FINDINGS: LUNGS: Heterogeneously enhancing mass in the from left hilum into the superior segment of the left lower lobe, 7.2 x 5.1 x 5.1 cm. Marked emphysematous changes throughout the lungs. Moderate bronchiectasis within lung bases. PLEURA: No mass, effusion, or pneumothorax. VASCULATURE: No abnormality. WINSTON: Mild adenopathy bilaterally. Large left hilar mass (see LUNGS above was (. MEDIASTINUM: Mild extension of left hilar mass in the posterior sub-bronchial mediastinum. Mild precarinal lymphadenopathy. CARDIAC: No enlargement or pericardial thickening.. Coronary artery calcifications: AORTA: No aneurysm or dissection. CHEST WALL: No mass or axillary adenopathy. BONES: No bone lesion or fracture. LIMITED ABDOMEN: No suspicious findings Limited images of the upper abdomen. OTHER: Negative. CT/CT chest w con IMPRESSION: 1. Slight increase in size of the large left perihilar/lower lobe mass most suggestive of malignancy. Suspect slight posterior mediastinal extension 2. Mild bilateral perihilar and mediastinal lymphadenopathy; not appreciably changed. Electronically authenticated by: GER KELLY Date: 07/26/2024 18:28
[2024-07-26 08:46] LABS: Estimated GFR (African America >60 (>=60 mL/min/1.73m^2); Estimated GFR (Non-African Ame 55 (>=60 mL/min/1.73m^2)
--- OUTSIDE RECORDS SUMMARY | 2024-07-26 08:51 | XMS_ITS | CCD ---
Author Organization [facility] Care Team Providers Care Equine Vet Name Role Phone ALONZOC, DR SUMMERS Attending [...] P Primary Care Provider HOUSE SR, JW P Primary Care Unavailable COLLETTE SEGAL Referring Unavailable HOUSE SR, JW Onofre Primary Care Unavailable COLLETTE SEGAL Referring Unavailable HOUSE SR, JW Onofre Primary Care Unavailable COLLETTE SEGAL Referring Unavailable COLLETTE SEGAL Attending Unavailable COLLETTE SEGAL Referring Unavailable HOUSE SR, JW P Primary Care Unavailable Kim SCHOFIELD, Ramiro Rosas Attending Unavailab le House DO, [facility] Unavai lable House DO, Jw Ramirez Consulting Ena Alvarez MD, Ramiro Rosas Attending Unavailab le House DO, [facility] Care Unavai lable House DO, [facility] Primary [facility] Ena Alvarez MD, Ramiro Rosas Attending Unavailab bertin Alvarez MD, Ramiro Rosas Attending Unavailab le House DO, [facility] Chandler Peres MD Attending Unavailable Junito BEGUM, Sukhjinder Gallegos Referring Unav ailable House DO, [facility] Ena Alvarez MD, Ramiro Rosas Attending Unavailab le House DO, [facility] Ena Alvarez MD, Ramiro Rosas Attending Unavailab le House DO, [facility] Ena Alvarez MD, Ramiro Rosas Attending Unavailab le Monse DOJw Primary Care DO Deric Stuart Attending Provider Deric Lockett Attending Unavailable Paulette, Deric P Admitting Unavailable Samsa, Deric P Attending Unavailable Paulette, Deric P Admitting Unavailable STEPHANIE CATHERINE Attending Unavailable OMBALLI, PARISAMED Referring Unavailable OMMONAI, PARISAMED Referring Unavailable HOUSE, DO JW P Attending Unavailable JW SHEA P Primary Care Unavailable HOUSE, DO JW P Attending Unavailable MONSE, JW Onofre Primary Care Unavailable NONE, XXXX Primary Care Physician Unavailab JW Woodward Primary Care Physician Bettye Lloyd Attending Unavailable Harley ESTRELLA Attending Unavailable Allergies Allergy Classification Reported Allergen(s) Allergy Type Date of Onset Reaction(s) Facility (1 source) No Known Medication Allergies; Translations: [No Known Medication Allergies] Propensity to adverse reactions (disorder) [facility] Repository Medications Current Medications Medication Drug Class(es) Dates Sig (Normalized) Sig (Original) meloxicam 15 mg oral tablet (3 sources) Nonsteroidal Anti-inflammatory Drug Start: 07-03-2024 meloxicam 15 mg Tab Refills(s) 0 Start Date: 07/03/24 Status: Ordered Start: 01-31-2023 take 1 tablet by chito th once daily meloxicam (MOBIC) 15 MG tablet Take 1 tablet by mouth daily 0 01/31/2023 Active tamsulosin hydrochloride 0.4 mg oral capsule (3 sources) alpha-Adrenergic Diana Start: 07-24-2024 End: 07-19-2025 take 1 capsule by mouth once daily tamsulosin 0.4 mg Cap 0.4 mg = 1 cap(s), Oral, Daily, X 90 day(s), # 90 cap(s), Refills(s) 3, Pharmacy: [id number], 172, cm, 07/24/24 9:10:00 EST, Height/Length Dosing, 86, kg, 07/24/24 9:10:00 EST, Weight Dosing Start Date: 07/24/24 Stop Date: 07/19/25 Status: Ordered Start: 07-03-2024 tamsulosin 0.4 mg Cap Refills(s) 0 Start Date: 07/03/24 Status: Ordered Start: 02-23-2023 take 1 capsule by [facility] once daily tamsulosin (FLOMAX) 0.4 MG capsule Indications: BPH with obstruction/lower urinary tract symptoms Take 1 capsule by mouth daily 30 capsule 5 02/23/2023 Active Problems Active Problems Problem Classification Problem Date Documented Date Episodic/Chronic Cancer of prostate (7 sources) Malignant neoplasm of prostate; Translations: [Adenocarcinoma of prostate] Onset: 06-15-2023 Chronic Chronic obstructive pulmonary disease and bronchiectasis (2 sources) Centriacinar emphysema 07-03-2024 Chronic Essential hypertension (2 sources) Hypertensive disorder 07-03-2024 Chronic Hyperplasia of prostate (10 sources) Benign prostatic hyperplasia without lower urinary tract symptoms; Translations: [Benign prostatic hypertrophy with outflow obstruction] Onset: 05-24-2022 Chronic Lymphadenitis (2 sources) Hilar lymphadenopathy 07-03-2024 Episodic Osteoarthritis (4 sources) Unilateral primary osteoarthritis, left hip; Translations: [Unilateral primary osteoarthritis, right hip] Onset: 06-21-2021 07-03-2024 Chronic Other lower respiratory disease (2 sources) Other nonspecific abnormal finding of lung field; Translations: [Other nonspecific abnormal finding of lung field] Onset: 10-19-2023 Episodic Other lower respiratory disease (2 sources) Solitary nodule of lung; Translations: [Solitary pulmonary nodule] Onset: 07-03-2024 Episodic Other lower respiratory disease (2 sources) Lung mass 07-03-2024 Episodic Other lower respiratory disease (2 sources) Nodule of lung 07-03-2024 Episodic Other screening for suspected conditions (not mental disorders or infectious disease) (5 sources) Patient encounter status; Translations: [Encounter for screening for malignant neoplasm of prostate] Onset: 02-23-2023 02-23-2023 Episodic Residual codes; unclassified (2 sources) Tobacco user 06-30-2024 Episodic Substance-related disorders (2 sources) Nicotine dependence; Translations: [Nicotine dependence, unspecified, uncomplicated] Onset: 07-24-2024 Chronic Past or Other Problems Problem Classification Problem [...] Test Name Value Interpretation Reference Range Facility Urology Office/Clinic Noteon 07-24-2024 Urology Office/Clinic Note Urology Office/Clinic Note Chief Complaint discus RALP HPI Staff 69yr old male pt here to discuss RALP. S/p TRUS/bx 05/18/23. PSMA PET/PET 06/15/24 Previous Dx: prostate cancer, lung nodule, BPH with urinary obstruction *Flomax 0.4mg qd PSA 06/22/24 - 11.39 pt and states they were going through [facility] and did not like it so they switched to our office. pt did see Dr Estrella. Basically they would like to take care of his elevated PSA and wants to discuss options or next steps Dysuria: _no Incomplete bladder emptying: _at times Hematuria: _no Frequency: _q2-3 hrs Urgency: _no Nocturia: _1x Stream: _weaker than he would like Leaking: _no Post void dripping: _no Wearing pads/ Depends: _no Urge incontinence: _no Stress incontinence: _no Incontinence without Sensory Awareness: _no Abdominal pain: _no Flank pain: _no Sexual complaints: _ History of Present Illness Tests reviewed: reviewed UA, external records, PSMA PET scan, path report, PSAs I have reviewed the previous health record information and history for this patient from external providers and Dr. Estrella and external providers I have reviewed and verified the staff HPI to be accurate for this encounter. Review of Systems PHQ Score Initial Depression Screen Score: 0 SCORE ROS - Provider Constitutional: denies weight loss, denies hot flashes. Eyes: denies eye problems. Gastrointestinal: denies nausea, denies vomiting. Cardiovascular: denies chest pain or angina. Integumentary: no dryness Musculoskeletal: denies musculoskeletal symptoms. ENMT: denies otolaryngeal symptoms. Respiratory: no shortness of breath. Heme/Lymph: denies easy bleeding tendency, denies easy bruising tendency. Psychiatric: no confusion, no anxiety. Genitourinary: See HPI. Physical Exam Vitals & Measurements T: 37 ???C(Oral) HR: 90(Peripheral) BP: 146/90 HT: 68 in HT: 172 cm WT: 86 kg WT: 189.597 lb BMI: 29.07 General Appearance: alert, no distress, well nourished, well developed male. Prostate: severely enlarged prostate, firm left nodule irregular lateral border, soft/higher right lobe Assessment/Plan 69 yo GPC pt here to discuss RALP for unfavorable intermediate risk prostate cancer. Pt was following with Dr. Daisy Ferguson, preferred new provider Pt accompanied by today, she works at [employer] [facility] [employer]. No prior abdominal surgeries. Denies hx [place], stroke or DM MELE 13 - not a priority 1. Prostate cancer (C61: Malignant neoplasm of prostate) PSA. 02/23/23- 7.43 04/15/23 - 9.60 08/19/23 - 9.55 02/06/24 - 9.91 04/20/24 - 10.15 06/22/24 - 11.39 Mother had breast cancer. MALISSA by Dr. Alvarez 07/25/22: 60+g, intermediate left lateral nodule. MRI prostate 09/10/22 [facility] - Two lesions PI-RADS 5. Involvement of the posterior prostatic capsule. S/p TRUS/bx 05/18/23 - [place] 7 (4+3) Bilateral apex and L mid. Grade group 3. 5/12 cores. Unfavorable intermediate risk. PSMA PET/PET 06/15/24 [facility] - small focus of activity in the left posterior peripheral zone of the prostate compatible with history of prostate cancer. No metastasis Mild PSMA activity associated with a 5.7 cm bilobed mass in the left lower lobe. This is unlikely to be related to prostate cancer, but is concerning for primary lung cancer. MALISSA today: firm left nodule, irregular lateral border, soft on right Pt has not been treated for prostate cancer. Pt states treatment options were discussed with Dr. Villa. Pt states RALP was recommended and to be referred to a tertiary care center. Pt did not wish to proceed at that time. Went natural route. Advised pt he needs treated, especially given rise in PSA and biopsy done >1yr ago. I discussed radical prostatectomy with pelvic lymph node dissection including robot-assisted laparoscopic and open approaches. I showed him the [facility] [place]ogram which estimates his risk of organ confined disease to be 21 %, extraprostatic extension 77 %, lymph node metastasis 25 %, and seminal vesical invasion 26 %. He understood the risks of the procedure include but are not be limited to bleeding, need for transfusion, pain, infection, injury to the bladder, ureter, urethra, urinary sphincter, surrounding tissues, injury to the bowels including the rectum, small intestines, permanent erectile dysfunction, incontinence, urinary leakage, bladder neck contracture or anastomotic stricture, bowel obstruction or fistula, hernia formation, deep venous thrombosis, pulmonary embolism, positive surgical margin, need for further treatments, urinary fistula, open conversion, lymphocele and need for further surgeries. - He understands high chance of needing salvage/adjuvant RT - Further discussed risk of ED. Pt does not feel this is a priority as he is not very sexually active. -Inc risk of rectal injury We discussed different forms of radiation for prostate cancer including external beam radiation therapy along with brachytherapy. He understood the risks of radiatio (more content not included)... Normal [facility] Comment on above: Result Comment: Elec tronically Signed By: Bettye Lloyd MD\.br\Date and Time Signed: 07/24/24 16:36 EST\.br\Electronically Co-Signed By: Miriam Saba\.br\Date and Time Co-Signed: 07/24/24 10:17 EST Ambulatory Visit Summaryon 0 07-03-2024 Ambulatory Visit Summary Ambulatory Visit Summary MACKENZIEJOSE LaytonCAROLANN Scott :1955 Visit Date:07/03/2024 Ambulatory Visit Instructions Your Diagnosis Prostate cancer Lung nodule BPH with urinary obstruction Your Care Team Attending Physician - DELORES SCHOFIELD, Harley Onofre Primary Care Physician - NONE, XXXX This Is Your Medications List Contact prescribing physician if questions or concerns meloxicam (meloxicam 15 mg Tab) tamsulosin (tamsulosin 0.4 mg Cap) Procedures Performed Bronchoscope (10/04/2023), Total replacement of left hip joint (08/18/2020), Total hip replacement. Discharge Vitals Heart Rate (Peripheral) 90 Respiratory Rate 21 Blood Pressure 143/96 Height 172 cm Height 68 in Weight 86 kg Weight 189.597 lb BMI 29.07 What to do next You Need to Schedule the Following Appointments Follow Up with DELORES SCHOFIELD, LUCIAN Munoz When: Where: [address] [place] [id number]- Someone Will Contact You Regarding These Appointments [facility] External Ambulatory Referral, Other Referral, Dr. Mancia @ [facility], 07/03/24 14:30:00 EST, Prostate cancer Medications What When Instructions Unchanged meloxicam (meloxicam 15 mg Tab) Contact prescribing physician if questions or concerns Unchanged tamsulosin (tamsulosin 0.4 mg Cap) Contact prescribing physician if questions or concerns Allergies No Known Medication Allergies Problems Ongoing - Any problem that you are currently receiving treatment for. BPH with urinary obstruction Lung nodule Prostate cancer Historical - Any problem that you are no longer receiving treatment for. Adenocarcinoma of prostate Centrilobular emphysema Hilar lymphadenopathy Hypertension Lung mass Osteoarthritis Patient Survey You may receive a survey via text or e-mail asking about your office visit. Please share your experience with us by completing your survey. We appreciate your feedback and thank you for choosing us for your care. Education Materials Prostate Cancer The prostate is a small gland that produces fluid that makes up semen (seminal fluid). It is located below the bladder in men, in front of the rectum. Prostate cancer is the abnormal growth of cells in the prostate gland. What are the causes? The exact cause of this condition is not known. What increases the risk? You are more likely to develop this condition if: ??? You are 65 years of age or older. ??? You have a family history of prostate cancer. ??? You have a family history of breast and ovarian cancer. ??? You have genes that are passed from parent to child (inherited), such as BRCA1 and BRCA2. ??? You have Elizondo syndrome. men and men of descent are diagnosed with prostate cancer at higher rates than other men. The reasons for this are not well understood and are likely due to a combination of genetic and environmental factors. What are the signs or symptoms? Symptoms of this condition include: ??? Problems with urination. This may include: ? A weak or interrupted flow of urine. ? Trouble starting or stopping urination. ? Trouble emptying the bladder all the way. ? The need to urinate more often, especially at night. ??? Blood in urine or semen. ??? Persistent pain or discomfort in the lower back, lower abdomen, or hips. ??? Trouble getting an erection. ??? Weakness or numbness in the legs or feet. How is this diagnosed? This condition can be diagnosed with: ??? A digital rectal exam. For this exam, a health care provider inserts a gloved finger into the rectum to feel the prostate gland. ??? A blood test called a prostate-specific antigen (PSA) test. ??? A procedure in which a sample of tissue is taken from the prostate and checked under a microscope (prostate biopsy). ??? An imaging test called transrectal ultrasonography. Once the condition is diagnosed, tests will be done to determine how far the cancer has spread. This is called staging the cancer. Staging may involve imaging tests, such as a bone scan, CT scan, PET scan, or MRI. Stages of prostate cancer The stages of prostate cancer are as follows: ??? Stage 1 (I). At this stage, the cancer is found in the prostate only. The cancer is not visible on imaging tests, and it is usually found by accident, such as during prostate surgery. ??? Stage 2 (II). At this stage, the cancer is more advanced than it is in stage 1, but the cancer has not spread outside the prostate. ??? Stage 3 (III). At this stage, the cancer has spread beyond the outer layer of the prostate to nearby tissues. The cancer may be found in the seminal vesicles, which are near the bladder and the prostate. ??? Stage 4 (IV). At this stage, the cancer has spread to other parts of the body, such as the lymph nodes, bones, bladder, rectum, liver, or lungs. Prostate cancer grading Prostate can (more content not included)... Normal [facility] Urology Office/Clinic Noteon 07-03-2024 Urology Office/Clinic Note Urology Office/Clinic Note Chief Complaint New Pt. HPI Staff 69 year old male new patient here to discuss elevated psa flomax 0.4mg qd Patient does have a 6x4 cm lung nodule being followed by DR. Samsa- repeat ct w/contrast due mid Jul 2024 Prostate bx 05/18/[address] Segal at [facility]- 5 cores positive, [place] 4+3=7 PSMA 06/15/23 IPSS 9 PSA 04/15/23- 9.60 02/23/23- 7.43 08/19/23- 9.55 02/06/24- 9.91 04/20/24- 10.15 06/22/24- 11.39 Dysuria: no Incomplete bladder emptying: no Hematuria: no Frequency: every 2-3 hours Urgency: no Nocturia: 2x's Stream: good stream Post void dripping: no Wearing pads/ Depends: no Urge incontinence: no Stress incontinence: no Incontinence without Sensory Awareness: no Abdominal pain: no Flank pain: no History of Present Illness Tests reviewed: reviewed UA, PSA, path, PSMA PET/PET, MRI, external records. I have reviewed the previous health record information and history for this patient from external provider I have reviewed and verified the staff HPI to be accurate for this encounter. There have been no associated fever, chills, flank pain, or blood in the urine. Denies any urinary infections since last encounter. Review of Systems PHQ Score Initial Depression Screen Score: 1 SCORE ROS - Provider Constitutional: denies weight loss, denies hot flashes. Eyes: denies eye problems. Gastrointestinal: denies nausea, denies vomiting. Cardiovascular: denies chest pain or angina. Integumentary: no dryness Musculoskeletal: denies musculoskeletal symptoms. ENMT: denies otolaryngeal symptoms. Respiratory: no shortness of breath. Heme/Lymph: denies easy bleeding tendency, denies easy bruising tendency. Psychiatric: no confusion, no anxiety. Genitourinary: See HPI. Physical Exam Vitals & Measurements HR: 90(Peripheral) RR: 21 BP: 143/96 HT: 68 in HT: 172 cm WT: 86 kg WT: 189.597 lb BMI: 29.07 General Appearance: alert, no distress, well nourished, well developed male. Head: normocephalic . Eyes: normal orbit and globe. ENMT: normal examination of external ears. Psychiatric: cooperative, affect appropriate for age, normal judgement, euthymic mood. Assessment/Plan 69 yo new patient to our office to discuss prostate cancer. Pt has been following with Dr. Daisy Ferguson. Pt accompanied by today, she works at [employer] [facility] [employer]. Portions of this record may have been created with voice recognition artificial intelligence software, specifically [employer] and or [employer] Substitutions may have occurred due to the inherent limitations of voice recognition and artificial intelligence software. 1. Prostate cancer (C61: Malignant neoplasm of prostate) PSA. 02/23/23- 7.43 04/15/23 - 9.60 08/19/23 - 9.55 02/06/24 - 9.91 04/20/24 - 10.15 06/22/24 - 11.39 Mother had breast cancer. MRI of prostate 09/10/22 [facility] - Two lesions PI-RADS 5. Involvement of the posterior prostatic capsule. S/p TRUS/bx 05/18/23 - [place] 7 (4+3) Bilateral disease. Grade group 3. /12 cores. PSMA PET/PET 06/15/24 [facility] - small focus of activity in the left posterior peripheral zone of the prostate compatible with history of prostate cancer. Mild PSMA activity associated with a 5.7 cm bilobed mass in the left lower lobe. This is unlikely to be related to prostate cancer, but is concerning for primary lung cancer. Pt has not been treated for prostate cancer. Pt states treatment options were discussed with Dr. Villa. Pt states RALP was recommended and to be referred to a tertiary care center. Pt did not wish to proceed at that time. Explained to pt that he needs treated for prostate cancer, especially given the fact that his PSA continues to rise. Again discussed treatment options with pt including RT vs RALP. Potential side effects discussed. Strongly recommended referral to consult with a radiation oncologist, Dr. Mancia or Dr. Villaseñor. Also discussed referral to discuss RALP, locally or [facility]. We also discussed the possible need of repeating biopsy since it has been over a year. Will have pt meet with Dr. Lloyd and Dr. Mancia first. -Schedule appt with Dr. Lloyd to discuss RALP -Referral placed to Dr. Mancia at [facility] 2. Lung nodule (R91.1: Solitary pulmonary nodule) PSMA PET/PET 06/15/24 [facility] - Mild PSMA activity associated with a 5.7 cm bilobed mass in the left lower lobe. This is unlikely to be related to prostate cancer, but is concerning for primary lung cancer. Following with Dr. Lockett. CT due 07/2024. 3. BPH with urinary obstruction (N40.1: Benign prostatic hyperplasia with lower urinary tract symptoms) MRI of prostate 09/10/22 [place] - prostate volume 70.3 mL. UA today negative for blood or infection. IPSS 9. Taking Flomax 0.4mg qd through external provider. Summary is that this patient had adenocarcinoma the prostate, [place] 4+3 equal 7 diagnosed over a year ago. He had postbiopsy c (more content not included)... Normal [facility] Comment on above: Result Comment: Elec tronically Signed By: Harley ESTRELLA MD\.br\Date and Time Signed: 07/03/24 14:35 EST\.br\Electronically Co-Signed By: Tammie Weathers\.br\Date and Time Co-Signed: 07/03/24 14:32 EST Outside Recordson 05-13-2024 Outside Records [id number]# [facility] Rad[facility] Report on 04-25-2024 Rad - Other Radiology Report [id number]# 1.[facility] - Other Lab Result[facility] Lab - Other Lab Results [id number] #[facility] Results [id number] #1.[facility] Outside Recordson 02-01-2024 Outside Records [id number]#1 .[facility] - Other Radiology Report on 01-16-2024 Rad - Other Radiology Report [id number]#1 .[facility] Outside Recordson 10-25-2023 Outside Records [id number]#1 .[facility] Telephoneon 10-23-2023 Telephone [id number] Ger Mackenzie Sonia 1955 M Date Provider Department Center 10/23/2023 Juvenal-[facility] Family History Problem Relation Age of Onset Bone cancer Mother Asthma Maternal Grandfather Asthma Paternal Grandfather Family Status - Relation Status Age at Mother Maternal Grandfather Paternal Grandfather Normal [facility] Lab - Other Lab Resultson Lab - Other Lab Results [id number]#1 .[facility] - Other Lab Results [id number]#1 .[facility] Telemedicineon 10-19-2023 Telemedicine [id number] Mackenzie,Ger L 1955 M [facility] Provider Department Center 10/19/2023 Laurence-STE[address] 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 CT DONE 09-23-23. PET DONE 06-15-23 FILMS in EPIC. BRONCH WAS DONE 10-18-2023. ALL IN MEDIA Normal [facility] Orders Onlyon 10-18-2023 Orders Only [id number] MackenzieGer 1955 M Date Provider Department Center 10/18/[address] [facility] Family History Problem Relation Age of Onset Bone cancer Mother Asthma Maternal Grandfather Asthma Paternal Grandfather Family Status - Relation Status Age at Mother Maternal Grandfather Paternal Grandfather Normal [facility] Body fluid differential cell countOrdered By: Deric Lockett on 04-23-2024 Differential panel (Body fld) 5 % [facility] Comment on above: The reference interv al and other method performance specifications have not been established for this body fluid. The test result must be integrated into the clinical context for interpretation. Cell Count/Diff, Fluidon Appearance, Fluid Hazy Normal The [facility] Comment on above: Order Comment: Body Fluid Source: Other (Name in the Site) Body Fluid Site: LEFT LOWER LOBE LAVAGE Result Comment: The reference interval and other method performance specifications have not been established for this body fluid. The test result must be integrated into the clinical context for interpretation. Performed By: #### F LCCDIFF #### [address] Color, Fluid Colorless Normal The [facility] Comment on above: Order Comment: Body Fluid Source: Other (Name in the Site) Body Fluid Site: LEFT LOWER LOBE LAVAGE Result Comment: The reference interval and other method performance specifications have not been established for this body fluid. The test result must be integrated into the clinical context for interpretation. Performed By: #### F LCCDIFF #### [address] Color, Fluid Supernatant Colorless Normal [facility] Comment on above: Order Comment: Body Fluid Source: Other (Name in the Site) Body Fluid Site: LEFT LOWER LOBE LAVAGE Result Comment: The reference interval and other method performance specifications have not been established for this body fluid. The test result must be integrated into the clinical context for interpretation. Performed By: #### F LCCDIFF #### [address] Comment, Fluid Normal The [facility] Comment on above: Order Comment: Body Fluid Source: Other (Name in the [facility]) Body Fluid Site: LEFT LOWER LOBE LAVAGE Result Comment: Body fluid is partially clotted and/or cell clumps or debris are present. Fluid cell count and differential results may not be reliable. Clinical correlation is recommended. PERFORMED BY: [place] [address] PATHOLOGIST SHOT PEEN OPERATOR HEMA GOULD M.D. Performed By: #### F LCCDIFF #### [address] [place] [address] [facility] Eosinophils, Fluid 0 /100{WBC} Normal 0-3 [facility] Comment on above: Order Comment: Body Fluid Source: Other (Name in the Site) Body Fluid Site: LEFT LOWER LOBE LAVAGE Performed By: #### F LCCDIFF #### [facility] [address] [id number] [facility] Lymphocytes, Fluid 2 % Normal The [facility] Comment on above: Order Comment: Body Fluid Source: Other (Name in the Site) Body Fluid Site: LEFT LOWER LOBE LAVAGE Result Comment: The reference interval and other method performance specifications have not been established for this body fluid. The test result must be integrated into the clinical context for interpretation. Performed By: #### F LCCDIFF #### [address] Monocytes/Macrophages, Fluid 5 % Normal [facility] Comment on above: Order Comment: Body Fluid Source: Other (Name in the Site) Body Fluid Site: LEFT LOWER LOBE LAVAGE Result Comment: The reference interval and other method performance specifications have not been established for this body fluid. The test result must be integrated into the clinical context for interpretation. Performed By: #### F LCCDIFF #### [address] Neutrophil, Fluid 93 % Normal The [facility] Comment on above: Order Comment: Body Fluid Source: Other (Name in the Site) Body Fluid Site: LEFT LOWER LOBE LAVAGE Result Comment: The reference interval and other method performance specifications have not been established for this body fluid. The test result must be integrated into the clinical context for interpretation. Performed By: #### F LCCDIFF #### [facility] [address] [place], [place] [phone] [facility] RBC, Fluid 735 /uL Normal [facility] Comment on above: Order Comment: [...] interpretation. Performed By: #### F LCCDIFF #### [facility] [address] [id number] [facility] TNC, Body Fluid 525 /uL Normal The [facility] Comment on above: [...] interpretation. Performed By: #### F LCCDIFF #### [facility] [address] [id number] [facility] Color of Spun Body fluidOrde red By: Deric Lockett on 10-03-2023 Color (Spun body fld) Colorless [facility] Comment on above: The reference interv al and other method performance specifications have not been established for this body fluid. The test result must be integrated into the clinical context for interpretation. Determination of appearance of body fluidOrdered By: Deric Lockett on 10-03-2023 Appearance (Body fld) Hazy [facility] Comment on above: The reference interv al and other method performance specifications have not been established for this body fluid. The test result must be integrated into the clinical context for interpretation. Evaluation of color of body fluidOrdered By: Deric Lockett on 10-03-2023 Color (Body fld) Colorless [facility] Comment on above: The reference interv al and other method performance specifications have not been established for this body fluid. The test result must be integrated into the clinical context for interpretation. Gordon 10-03-2023 L Specimen: [id number] Received: 10/04/23 Status: SOUT Req Num: [id number] Spec Type: Surgical Subm Dr: Deric Lockett DO Tissues: A Lung - Transbroncial Biopsy (LT LOWER LOBE BX) Procedures: HE/2, Gross/Micro L4 Age/ Patient Sex Location Account Attending Physician Ger Mackenzie 68/M LABELL [id number] Deric Lockett DO SPEC NUM: [id number] RECD: 10/04/23 STATUS: FRED VALENTINEAkhil NUM: [id number] ARSH: 10/03/[address]: Deric Lockett DO ENTERED: 10/04/[address]: Ajay Mccoy SPEC TYPE: Surgical DEPT: NETTA QUIROS ORDERED: [...] of mucus, no endometrial lesions. CPT Codes 45164 -------- -------- Specimen: [id number] Received: 10/04/23 Status: FRED Koenig Num: [id number] Spec Type: Surgical Subm Dr: Deric Lockett DO Tissues: A Lung - Transbroncial Biopsy (LT LOWER LOBE BX) Procedures: HE/2, Gross/Micro L4 -------- Patient: Ger Mackenzie Sonia [id number] (Continued) -------- Signed (signature on file) Stephanie Jackson MD 10/05/236 Normal [facility] L Specimen: [id number] Received: 10/05/23 Status: FRED Koenig Num: [id number] Spec Type: Cytology Subm Dr: Deric Lockett DO Tissues: A [facility]) Procedures: HE/2, Gross/Micro L4, Cyto Prepstain, PAPSTN Age/ Patient Sex Location Account Attending Physician Ger Mackenzie 68/M LABELL [id number] Deric Lockett DO SPEC NUM: [id number] RECD: 10/05/23 STATUS: FRED KOENIG NUM: [id number] ARSH: 10/03/23- [facility] DR: Deric Lockett DO ENTERED: 10/05/23 [facility] DR: Ajay Mccoy SPEC TYPE: Cytology DEPT: NETTA HUANG ENTERED BY: [id number] RECV BY: [id number] ORDERED: HE/2, Gross/Micro L4, Cyto Prepstain, PAPSTN [...] are prepared. 1 cell blocks are prepared. (KS/me) CPT Codes 49072, 06463 -------- -------- Specimen: [id number] Received: 10/05/23 Status: FRED Valentineakhil Num: [id number] Spec Type: Cytology Subm Dr: Deric Lockett DO Tissues: A [facility] ([facility]) Procedures: HE/2, Gross/Micro L4, Cyto Prepstain, PAPSTN -------- Patient: Ger Mackenzie [id number] (Continued) -------- Signed (signature on file) Snehal Acosta MD 10/08/232007 Normal [facility] Manual body fluid eosinophil s/100 leukocytesOrdered By: Deric Lockett on 10-03-2023 Eosinophils/100 WBC Manual cnt (Body fld) 0 /100{WBC} 0-3 [facility] Manual body fluid erythrocyt es count (number/volume)Ordered By: Deric Lockett on 10-03-2023 RBC Manual cnt (Body fld) [#/Vol] 735 /uL [facility] Comment on above: Body fluid is [...] WBC Manual cnt (Body fld) 2 % [facility] Comment on above: The reference interv al and other method performance specifications have not been established for this body fluid. The test result must be integrated into the clinical context for interpretation. Neutrophils/100 WBC Manual c nt (Body fld)Ordered By: Deric Lockett on 10-03-2023 Neutrophils/100 WBC (Body fld) 93 % [facility] Comment on above: The reference interv al and other method performance specifications have not been established for this body fluid. The test result must be integrated into the clinical context for interpretation. No Panel InformationOrdered By: Deric Lockett on 10-03-2023 Body Fluid Comment See comment [facility] Comment on above: Body fluid is partia lly clotted and/or cell clumps or debris are present. Fluid cell count and differential results may not be reliable. Clinical correlation is recommended. Body Fluid Total Nucleated Cells 525 /uL [facility] Comment on above: Body fluid is partia lly clotted and/or cell clumps or debris are present. Fluid cell count and differential results may not be reliable. Clinical correlation is recommended.The reference interval and other method performance specifications have not been established for this body fluid. The test result must be integrated into the clinical context for interpretation. Outside Recordson 09-28-2023 Outside Records [id number] #1.00OTGTIFF Normal [facility] Outside Recordson 09-27-2023 Outside Records [id number]#1 .[facility] T[facility]OR [facility]AGE SKULL THI GH [...] Deric Hernández MD 06/15/23 Final result Normal [facility] Surgical Pathology Reporton 05-18-2023 Surgical Pathology Report (NOTE) Path Number: [id number] -- Diagnosis -- A. PROSTATE, LB, NEEDLE CORE BIOPSY: -BENIGN PROSTATE TISSUE B. PROSTATE, LLB, NEEDLE CORE BIOPSY: -BENIGN PROSTATE TISSUE C. 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 PROSTATE, LLM, NEEDLE CORE BIOPSY: -PROSTATIC ADENOCARCINOMA, NILES SCORE 3+3 = 6, INVOLVING 1 OF 1 CORE, AND OCCUPYING APPROXIMATELY 20% OF THE BIOPSY SPECIMEN, 3 MM EXTENT -GRADE GROUP 1 E. 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 Electronically Signed Out 05/23/2023 Clinical Information Pre-Op Diagnosis: ELEVATED PSA Operative Findings: PROSTATE BIOPSY X 12 Operation Performed: MN PROSTATE NEEDLE BIOPSY ANY APPROACH kb Source of Specimen A: LB B: LLB C: LM D: LLM E: LA F: LLA G: RB H: RLB I: RM J: RLM K: RA L: RLA Gross Description GER MACKENZIE, PROSTATE BIOPSIES All specimens are received [...] were seen in intradepartmental consultation (FRANKLYN) for clinical quality manager purposes. Processing Lab: [address] [id number] Interpretation Performed at [address] SURGICAL PATHOLOGY CONSULTATION Patient Name: GER MACKENZIE Rec: [id number] [facility] ANATOMIC PATHOLOGY [address] [place] [address]. [place], [place] [address] Normal [facility] PSA, Diagnosticon 04-15-2023 Prostatic Spec. Ag 9.60 ng/mL High <4.1 [facility] Comment on above: Result Comment: The Ion ECLIA assay is used. Results obtained with different assay methods cannot be used interchangeably. Performed By: #### P SAD #### [address] [phone] Car Bracer: Delon Rizzo MD Cult,Urineon 02-24-2023 Cult,Urine Specimen Description .CLEAN CATCH URINE Culture NO GROWTH Report Status FINAL 02/24/2023 Normal [facility] Comment on above: Performed By: #### U RC #### [address] [place], [place] [phone] Car Bracer: Delon Rizzo MD [facility] Lab [address] [place] [address] Car Bracer: Juan Carlos Eisenberg MD PSA, Screeningon 02-24-2023 Prostatic Spec. Ag 7.43 ng/mL High <4.1 [facility] Comment on above: Result Comment: The Ion ECLIA assay is used. Results obtained with different assay methods cannot be used interchangeably. Performed By: #### C P, CDP #### [facility] Lab [address] [place] [address] [place] [address] Car Bracer: Juan Carlos Eisenberg MD #### PSAS #### [address] [phone] Car Bracer: Delon Rizzo MD CBC with Auto Differentialon 02-23-2023 Basophils (Bld) [#/Vol] 0.07 10*3/uL [facility] Basophils/100 WBC (Bld) 1 % 0 - 2 % [facility] Eosinophils (Bld) [#/Vol] 0.11 10*3/uL [facility] Eosinophils/100 WBC (Bld) 1 % 1 - 4 % [facility] Erythrocyte distribution width (RBC) [Ratio] 12.1 % 11.8 - 14.4 % [facility] Hematocrit (Bld) [Volume fraction] 47.1 % 40.7 - 50.3 % [facility] Hemoglobin (Bld) [Mass/Vol] 16.6 g/dL 13.0 - 17.0 g/dL [facility] Immature granulocytes (Bld) [#/Vol] 0.03 10*3/uL [facility] Immature granulocytes/100 WBC (Bld) 0 % 0 [facility] Interpretation and review of laboratory results Abnormal [facility] Lymphocytes/100 WBC (Bld) 19 % Low 24 - 43 % [facility] Lymphocytes/100 WBC (Bld) 1.46 % [facility] MCH (RBC) [Entitic mass] 33.9 pg High 25.2 - 33.5 pg [facility] MCHC (RBC) [Mass/Vol] 35.2 g/dL High 28.4 - 34.8 g/dL [facility] MCV (RBC) [Entitic vol] 96.1 fL 82.6 - 102.9 fL [facility] Monocytes/100 WBC (Bld) 7 % 3 - 12 % [facility] Monocytes/100 WBC (Bld) 0.52 % [facility] Neutrophils/100 WBC (Bld) 72 % High 36 - 65 % [facility] Nucleated RBC/100 WBC (Bld) [Ratio] 0.0 % 0.0 per 100 WBC [facility] Platelet mean volume (Bld) [Entitic vol] 10.2 fL 8.1 - 13.5 fL [facility] Platelets (Bld) [#/Vol] 206 10*3/uL [facility] RBC (Bld) [#/Vol] 4.90 10*6/uL 4.21 - 5.7 7 m/uL [facility] Segmented neutrophils/100 WBC (Bld) 5.44 % [facility] WBC other (Bld) [#/Vol] 7.6 [facility] CBC with Diffon 02-23-2023 Abs. Basophil 0.07 k/uL Normal 0.00-0.20 [facility] Comment on above: Performed By: #### C P, CDP #### [facility] [address] [place] [place] [address] Car Bracer: Juan Carlos Eisenberg MD #### PSAS #### [facility] [address] [place] [address] Car Bracer: Delon Rizzo MD Abs.Imm.Granulocyte 0.03 k/uL Normal 0.00-0.30 [facility] Comment on above: Performed By: #### C P, CDP #### [address] [place], [place] [phone] Car Bracer: Juan Carlos Eisenberg MD #### PSAS #### [address] [phone] Car Bracer: Delon Rizzo MD Abs.Neutrophil (Seg) 5.44 k/uL Normal 1.50-8.10 [facility] Comment on above: Performed By: #### C P, CDP #### [facility] [address] [place] [address] [address] [phone] Car Bracer: Juan Carlos Eisenberg MD #### PSAS #### [address] [phone] Car Bracer: Delon Rizzo MD Basophils/100 WBC (Bld) 1 % Normal 0-2 [facility] Comment on above: Performed By: #### C P, CDP #### [address] [place] [place] [phone] Car Bracer: Juan Carlos Eisenberg MD #### PSAS #### [address] [address] Car Bracer: Delon Rizzo MD Eosinophils (Bld) [#/Vol] 0.11 10*3/uL Normal 0.00-0.44 [facility] Comment on above: Performed By: #### C P, CDP #### [address] [place], [place] [phone] Car Bracer: Juan Carlos Eisenberg MD #### PSAS #### [address] [address] Car Bracer: Delon Rizzo MD Eosinophils/100 WBC (Bld) 1 % Normal 1-4 [facility] Comment on above: Performed By: #### C P, CDP #### [facility] [address] [place] [address] [place] [address] Car Bracer: Juan Carlos Eisenberg MD #### PSAS #### [address] [phone] Car Bracer: Delon Rizzo MD Erythrocyte distribution width (RBC) [Ratio] 12.1 % Normal 11.8-14.4 [facility] Comment on above: Performed By: #### C P, CDP #### [address] [place] [address] Car Bracer: Juan Carlos Eisenberg MD #### PSAS #### [address] [phone] Car Bracer: Delon Rizzo MD Hematocrit (Bld) [Volume fraction] 47.1 % Normal 40.7-50.3 [facility] Comment on above: Performed By: #### C P, CDP #### [address] [place] [phone] Car Bracer: Juan Carlos Eisenberg MD #### PSAS #### [address] [phone] Car Bracer: Delon Rizzo MD Hemoglobin (Bld) [Mass/Vol] 16.6 g/dL Normal 13.0-17.0 [facility] Comment on above: Performed By: #### C P, CDP #### [address] [place] [address] Car Bracer: Juan Carlos Eisenberg MD #### PSAS #### [address] [phone] Car Bracer: Delon Rizzo MD Immature granulocytes/100 WBC (Bld) 0 % Normal 0 [facility] Comment on above: Performed By: #### C P, CDP #### [address] [address] Car Bracer: Juan Carlos Eisenberg MD #### PSAS #### [address] [phone] Car Bracer: Delon Rizzo MD Lymphocytes (Bld) [#/Vol] 1.46 10*3/uL Normal 1.10-3.70 [facility] Comment on above: Performed By: #### C P, CDP #### [facility] [address] [place] [address] Dr. [place] [place] [phone] Car Bracer: Juan Carlos Eisenberg MD #### PSAS #### [address] [phone] Car Bracer: Delon Rizzo MD Lymphocytes/100 WBC (Bld) 19 % Low 24-43 [facility] Comment on above: Performed By: #### C P, CDP #### [address] [place] [address] Car Bracer: Juan Carlos Eisenberg MD #### PSAS #### [place] [address] Car Bracer: Delon Rizzo MD MCH (RBC) [Entitic mass] 33.9 pg High 25.2-33.5 [facility] Comment on above: Performed By: #### C P, CDP #### [address] [place] [address] Car Bracer: Juan Carlos Eisenberg MD #### PSAS #### [place] [address] Car Bracer: Delon Rizzo MD MCHC (RBC) [Mass/Vol] 35.2 g/dL High 28.4-34.8 [facility] Comment on above: Performed By: #### C P, CDP #### [address] [place] [phone] ( Car Bracer: Juan Carlos Eisenberg MD #### PSAS #### [address] [address] Car Bracer: Delon Rizzo MD MCV (RBC) [Entitic vol] 96.1 fL Normal 82.6-102.9 [facility] Comment on above: Performed By: #### C P, CDP #### [facility] [address] [place] [place] [address] Car Bracer: Juan Carlos Eisenberg MD #### PSAS #### [address] [address] Car Bracer: Delon Rizzo MD Monocytes (Bld) [#/Vol] 0.52 10*3/uL Normal 0.10-1.20 [facility] Comment on above: Performed By: #### C P, CDP #### [address] [place] [address] Car Bracer: Juan Carlos Eisenberg MD #### PSAS #### [address] [address] Car Bracer: Delon Rizzo MD Monocytes/100 WBC (Bld) 7 % Normal 3-12 [facility] Comment on above: Performed By: #### C P, CDP #### [address] [place], [place] [phone] Car Bracer: Juan Carlos Eisenberg MD #### PSAS #### [address] [address] Car Bracer: Delon Rizzo MD Neutrophil (Seg) 72 % High 36-65 [facility] Comment on above: Performed By: #### C P, CDP #### [address] [address] Car Bracer: Juan Carlos Eisenberg MD #### PSAS #### [address] [phone] Car Bracer: Delon Rizzo MD NRBC Automated 0.0 per 100 WBC Normal 0.0 [facility] Comment on above: Performed By: #### C P, CDP #### [facility] [address] [place] [place] [address] Car Bracer: Juan Carlos Eisenberg MD #### PSAS #### [address] [phone] Car Bracer: Delon Rizzo MD Platelet mean volume (Bld) [Entitic vol] 10.2 fL Normal 8.1-13.5 [facility] Comment on above: Performed By: #### C P, CDP #### [address] [address] Car Bracer: Juan Carlos Eisenberg MD #### PSAS #### [place] [address] Car Bracer: Delon Rizzo MD Platelets (Bld) [#/Vol] 206 10*3/uL Normal 138-453 [facility] Comment on above: Performed By: #### C P, CDP #### [address] [address] Car Bracer: Juan Carlos Eisenberg MD #### PSAS #### [place] [address] Car Bracer: Delon Rizzo MD RBC (Bld) [#/Vol] 4.90 10*6/uL Normal 4.21-5.77 [facility] Comment on above: Performed By: #### C P, CDP #### [facility] [address] [place] [address] [place], [place] [phone] Car Bracer: Juan Carlos Eisenberg MD #### PSAS #### [address] [phone] Car Bracer: Delon Rizzo MD WBC (Bld) [#/Vol] 7.6 10*3/uL Normal 3.5-11.3 [facility] Comment on above: Performed By: #### C P, CDP #### [facility] [address] [place] [address] [place] [address] Car Bracer: Juan Carlos Eisenberg MD #### PSAS #### [address] [address] Car Bracer: Delon Rizzo MD Comp Metabolic Profon 2022 Albumin [Mass/Vol] 4.4 g/dL Normal 3.5-5.2 [facility] Comment on above: Performed By: #### C P, CDP #### [address] [address] Car Bracer: Juan Carlos Eisenberg MD #### PSAS #### [address] [address] Car Bracer: Delon Rizzo MD Albumin/Glob Ratio 1.3 Normal 1.0-2.5 [facility] Comment on above: Performed By: #### C P, CDP #### [address] [address] Car Bracer: Juan Carlos Eisenberg MD #### PSAS #### [address] [address] Car Bracer: Delon Rizzo MD Alkaline Phos 91 U/L Normal 40-129 [facility] Comment on above: Performed By: #### C P, CDP #### [address] [place] [address] Car Bracer: Juan Carlos Eisenberg MD #### PSAS #### [address] [address] Car Bracer: Delon Rizzo MD ALT [Catalytic activity/Vol] 42 U/L High 5-41 [facility] Comment on above: Performed By: #### C P, CDP #### [facility] [address] [place], [place] [phone] Car Bracer: Juan Carlos Eisenberg MD #### PSAS #### [address] [place] [address] Car Bracer: Delon Rizzo MD Anion gap [Moles/Vol] 9 mmol/L Normal 9-17 [facility] Comment on above: Performed By: #### C P, CDP #### [facility] [address] [place], [place] 095[address]83 Car Bracer: Juan Carlos Eisenberg MD #### PSAS #### [address] [address] Car Bracer: Delon Rizzo MD AST [Catalytic activity/Vol] 27 U/L Normal <40 [facility] Comment on above: Performed By: #### C P, CDP #### [facility] [address] [place], [place] [phone] Car Bracer: Juan Carlos Eisenberg MD #### PSAS #### [address] [address] Car Bracer: Delon Rizzo MD Bilirubin [Mass/Vol] 0.6 mg/dL Normal 0.3-1.2 [facility] Comment on above: Performed By: #### C P, CDP #### [facility] [address] [place] [address] Car Bracer: Juan Carlos Eisenberg MD #### PSAS #### [address] [address] Car Bracer: Delon Rizzo MD BUN/CRE Ratio 21 High 9-20 [facility] Comment on above: Performed By: #### C P, CDP #### [facility] [address] [place], [place] [phone] Car Bracer: Juan Carlos Eisenberg MD #### PSAS #### [address] [phone] Car Bracer: Delon Rizzo MD Calcium [Mass/Vol] 9.3 mg/dL Normal 8.6-10.4 [facility] Comment on above: Performed By: #### C P, CDP #### [address] [place], [place] [phone] Car Bracer: Juan Carlos Eisenberg MD #### PSAS #### [address] [phone] Car Bracer: Delon Rizzo MD Chloride [Moles/Vol] 106 mmol/L Normal 98-107 [facility] Comment on above: Performed By: #### C P, CDP #### [address] [place] [address] Car Bracer: Juan Carlos Eisenberg MD #### PSAS #### [address] [address] Car Bracer: Delon Rizzo MD CO2 [Moles/Vol] 28 mmol/L Normal 20-31 [facility] Comment on above: Performed By: #### C P, CDP #### [address] [place], [place] [phone] Car Bracer: Juan Carlos Eisenberg MD #### PSAS #### [address] [address] Car Bracer: Delon Rizzo MD Creatinine [Mass/Vol] 1.0 mg/dL Normal 0.7-1.2 [facility] Comment on above: Performed By: #### C P, CDP #### [address] [place], [place] [phone] Car Bracer: Juan Carlos Eisenberg MD #### PSAS #### [address] [address] Car Bracer: Delon Rizzo MD GFR/1.73 sq M.predicted among non-blacks MDRD (S/P/Bld) [Vol rate/Area] mL/min/{1.73_m2} Normal >60 [facility] Comment on above: Result Comment: These [...] Performed By: #### C P, CDP #### [address] [place] [address] Car Bracer: Juan Carlos Eisenberg MD #### PSAS #### [address] [address] Car Bracer: Delon Rizzo MD Glucose [Mass/Vol] 84 mg/dL Normal 70-99 [facility] Comment on above: Performed By: #### C P, CDP #### [address] [place], [place] 4886683 Car Bracer: Juan Carlos Eisenberg MD #### PSAS #### [address] [address] Car Bracer: Delon Rizzo MD Potassium [Moles/Vol] 4.4 mmol/L Normal 3.7-5.3 [facility] Comment on above: Performed By: #### C P, CDP #### [address] [place], [place] [phone] Car Bracer: Juan Carlos Eisenberg MD #### PSAS #### [address] [address] Car Bracer: Delon Rizzo MD Protein [Mass/Vol] 7.8 g/dL Normal 6.4-8.3 [facility] Comment on above: Performed By: #### C P, CDP #### [facility] [address] [place], [place] [phone] Car Bracer: Juan Carlos Eisenberg MD #### PSAS #### [address] [phone] Car Bracer: Delon Rizzo MD Sodium [Moles/Vol] 143 mmol/L Normal 135-144 [facility] Comment on above: Performed By: #### C P, CDP #### [facility] [address] [place] [address] Dr. [place], [place] [phone] Car Bracer: Juan Carlos Eisenberg MD #### PSAS #### [address] [phone] Car Bracer: Delon Rizzo MD Urea nitrogen [Mass/Vol] 21 mg/dL Normal 8-23 [facility] Comment on above: Performed By: #### C P, CDP #### [address] [place], [place] 5342683 Car Bracer: Juan Carlos Eisenberg MD #### PSAS #### [address] [phone] Car Bracer: Delon Rizzo MD Comprehensive Metabolic Pane [facility] 02-23-2023 Albumin [Mass/Vol] 4.4 g/dL 3.5 - 5.2 g/dL [facility] Albumin/Globulin [Mass ratio] 1.3 {ratio} 1.0 - 2.5 [facility] ALP [Catalytic activity/Vol] 91 U/L 40 - 129 U/L [facility] ALT [Catalytic activity/Vol] 42 U/L High 5 - 41 U/L [facility] Anion gap [Moles/Vol] 9 mmol/L 9 - 17 mmol/L [facility] AST [Catalytic activity/Vol] 27 U/L NINF - 40 U/L [facility] Bilirubin [Mass/Vol] 0.6 mg/dL 0.3 - 1 .2 mg/dL [facility] Calcium [Mass/Vol] 9.3 mg/dL 8.6 - 10. 4 mg/dL [facility] Chloride [Moles/Vol] 106 mmol/L 98 - 10 7 mmol/L [facility] CO2 [Moles/Vol] 28 mmol/L 20 - 31 mmol/L [facility] Creatinine [Mass/Vol] 1.0 mg/dL 0.7 - 1.2 mg/dL [facility] GFR/1.73 sq M.predicted MDRD (S/P/Bld) [Vol rate/Area] - PINF [facility] Comment on above: These results are not [...] [Mass/Vol] 84 mg/dL 70 - 99 mg/dL [facility] Interpretation and review of laboratory results Abnormal [facility] Potassium [Moles/Vol] 4.4 mmol/L 3.7 - 5.3 mmol/L [facility] Protein [Mass/Vol] 7.8 g/dL 6.4 - 8.3 g/dL [facility] Sodium [Moles/Vol] 143 mmol/L 135 - 144 mmol/L [facility] Urea nitrogen [Mass/Vol] 21 mg/dL 8 - 23 mg/dL [facility] Urea nitrogen/Creatinine [Mass ratio] 21 mg/mg High 9 - 20 [facility] Urinalysis w/ Microon 2022 Bilirubin, SemiQt,Ur Negative Normal [facility] Comment on above: Performed By: #### U [facility] #### [facility] [address] [place], [place] [phone] Car Bracer: Juan Carlos Eisenberg MD Blood, Urine Negative Normal NEG [facility] Comment on above: Performed By: #### U AMIC #### [facility] [address] [place], [place] [phone] Car Bracer: Juan Carlos Eisenberg MD Clarity (U) Clear Normal CLEAR [facility] Comment on above: Performed By: #### U AMIC #### [facility] [address] [place], [place] [phone] Car Bracer: Juan Carlos Eisenberg MD Color (U) Yellow Normal YEL [facility] Comment on above: Performed By: #### U AMIC #### [facility] [address] [place], [place] [phone] Car Bracer: Juan Carlos Eisenberg MD Epithelial cells LM Ql (Urine sed) None Normal 0-5 [facility] Comment on above: Performed By: #### U AMIC #### [facility] [address] [place], [place] [phone] Car Bracer: Juan Carlos Eisenberg MD Glucose Ql (U) Negative Normal NEG [facility] Comment on above: Performed By: #### U AMIC #### [facility] [address] [place], [place] 0383283 Car Bracer: Juan Carlos Eisenberg MD Ketones Ql (U) Negative Normal NEG [facility] Comment on above: Performed By: #### U AMIC #### [facility] [address] [place], [place] [phone] Car Bracer: Juan Carlos Eisenberg MD Leukocyte esterase Test strip Ql (U) Negative Normal NEG [facility] Comment on above: Performed By: #### U AMIC #### [facility] [address] [place], [place] [phone] Car Bracer: Juan Carlos Eisenberg MD Nitrite,Ur Negative Normal NEG [facility] Comment on above: Performed By: #### U AMIC #### [facility] [address] [place], [place] 2133483 Car Bracer: Juan Carlos Eisenberg MD PH,Ur 6.5 Normal 5.0-9.0 [facility] Comment on above: Performed By: #### U AMIC #### [facility] [address] [place], [place] [phone] Car Bracer: Juan Carlos Eisenberg MD Protein Ql (U) Negative Normal NEG [facility] Comment on above: Performed By: #### U AMIC #### [address] [place], [place] [phone] Car Bracer: Juan Carlos Eisenberg MD Spec. [place],Ur 1.020 Normal 1.010-1.020 [facility] Comment on above: Performed By: #### U AMIC #### [facility] [address] [place], [place] 2196383 Car Bracer: Juan Carlos Eisenberg MD Urine RBC's None Normal 0-2 [facility] Comment on above: Performed By: #### U AMIC #### [facility] [address] [place] [address] Dr. [place], [place] [phone] Car Bracer: Juan Carlos Eisenberg MD Urine WBC's None Normal 0-5 [facility] Comment on above: Performed By: #### U AMIC #### [facility] [address] [place] [address] Dr. [place], [place] [phone] Car Bracer: Juan Carlos Eisenberg MD Urobilinogen,Ur Normal Normal 0.0-1.0 [facility] Comment on above: Performed By: #### U AMIC #### [facility] [address] [place] [address] Dr. [place], [place] [phone] Car Bracer: Juan Carlos Eisenberg MD Urinalysis with Microscopico n 02-23-2023 Bilirubin Ql (U) Negative NEGATIVE [facility] Clarity (U) Clear Clear [facility] Color (U) Yellow Yellow [facility] Epithelial cells LM.HPF (Urine sed) [#/Area] None [facility] Glucose Test strip (U) [Mass/Vol] Negative NEGATIVE mg/dL [facility] Hemoglobin Auto test strip Ql (U) Negative NEGATIVE [facility] Ketones (U) [Mass/Vol] Negative NEGAT MATHEW mg/dL [facility] Leukocyte esterase Test strip Ql (U) Negative NEGATIVE [facility] Nitrite Ql (U) Negative NEGATIVE [facility] pH (U) 6.5 [pH] 5.0 - 9.0 [facility] Protein (U) [Mass/Vol] Negative NEGAT MATHEW mg/dL [facility] RBC LM.HPF (Urine sed) [#/Area] None [facility] Specific gravity (U) [Rel density] 1.020 1.010 - 1.020 [facility] Urobilinogen Qn (U) Normal 0.0 - 1. 0 EU/dL [facility] WBC LM.HPF (Urine sed) [#/Area] None [facility] Urology Office/Clinic Noteon 10-10-2022 Urology Office/Clinic Note Chief Complaint F/u with MRI resutls. Discuss biopsy History of Present Illness The patient is a 67 Years old Male with a past history of an elevated PSA to 9.12 who returns to discuss prostate MRI findings. He was previously scheduled for MRI but cancelled this without explanation. He now returns with his ie. Review of Systems Constitutional: No fevers. No [...] MD 09/10/2022 10:52 EDT Electronically signed by Kim SCHOFIELD, Ramiro Rosas 10/10/22 20:10 EDT Normal [facility] MRI Prostate w/ + w/o Liseth velazquez 09-12-2022 MRI Prostate w/ + w/o Contrast [...] Electronically Signed in Other Vendor System) Normal [facility] Provider Letteron 07-25-2022 Provider Letter Jw Shea DO [address] [place] [address] Re: [place] 1955 Date of Visit: 07/25/2022 Dear Jw Shea, I had the pleasure of seeing your patient, Ger [place], in my office today. Please find [...] patient's care. Sincerely, Ramiro Alvarez MD Normal [facility] Urology Office/Clinic Noteon 07-25-2022 Urology [...] Ramiro Alvarez MD 07/25/22 19:47 EST Normal [facility] PROTIMEon 08-14-2021 INR Coag (PPP) [Relative time] 1.03 {INR} Normal [facility] Comment on above: Performed By: #### P TT, PT #### [facility] [address] [place] [address] Dr. Philippe Acosta INR GUIDELINES SEE BELOW Normal [facility] Comment on above: Result Comment: TONY RED INR: 2.0 - 3.0 CONDITIONS NOT LISTED BELOW 2.5 - 3.5 FOR PROSTHETIC HEART VALVE REPLACEMENT 2.5 - 3.5 RECURRENT THROMBOSIS Performed By: #### P TT, PT #### [facility] [address] [address] [address] Philippe Acosta PT Coag (PPP) [Time] 11.1 s Normal 9.0-11.6 [facility] Comment on above: Performed By: #### P TT, PT #### [facility] [address] [address] [address] Philippe Acosta PTTon 08-14-2021 aPTT Coag (Bld) [Time] 30.4 s Normal 22.3-36.2 Th e [facility] Comment on above: Performed By: #### P TT, PT #### [facility] [address] [address] [address] Philippe Acosta Vital Signs Date Time Vital Sign Value Performing Clinician Nakia chavez 07-24-2024 08:48-0500 Blood Pressure Location Bettye Lue [facility] 07-24-2024 08:48-0500 Body temperature 98.6 [degF] Bettye Lue [facility] 07-24-2024 08:48-0500 Diastolic blood pressure 90 mm[Hg] Bettye Lue [facility] 07-24-2024 08:48-0500 Heart rate 90 /min Bettye Lue [facility] 07-24-2024 08:48-0500 Systolic blood pressure 146 mm[Hg] Bettye Lue [facility] 07-03-2024 13:51-0500 Blood Pressure Location Harley DELORES [facility] 07-03-2024 13:51-0500 Diastolic blood pressure 96 mm[Hg] Harley ESTRELLA [facility] 07-03-2024 13:51-0500 Heart rate 90 /min Harley ESTRELLA [facility] 07-03-2024 13:51-0500 Respiratory rate 21 /min Harley ESTRELLA [facility] 07-03-2024 13:51-0500 Systolic blood pressure 143 mm[Hg] Harley ESTRELLA [facility] Marilee Encounters Encounter Date Encounter Type Care Provider Facility Start: 07-24-2024 End: 07-24-2024 ambulatory Bettye Lloyd Facility:[facility] Start: 07-24-2024 End: 07-24-2024 Patient encounter procedure Bettye Lloyd [facility] Nadine Start: 07-03-2024 End: 07-03-2024 ambulatory Harley ESTRELLA [facility] [place] Start: 07-03-2024 End: 07-03-2024 Patient encounter procedure Harley Onofre DELORES [facility] Start: 2024 ambulatory Bettye Lloyd Facility:[facility] [place] Start: 05-15-2024 End: 05-15-2024 ambulatory DO JW SHEA Facility:[facility] Start: 10-19-2023 End: 10-19-2023 ambulatory [facility] Start: 10-19-2023 End: 10-20-2023 ambulatory [facility] Start: 10-19-2023 End: 10-19-2023 ambulatory [facility] Start: 10-03-2023 End: 10-03-2023 ambulatory Deric P Samsa Facility:[facility] Start: 10-03-2023 End: 10-03-2023 ambulatory DO Deric Samsa Work Phone: [facility] Work Phone: Start: 10-03-2023 End: 10-03-2023 Departed Referred DO Deric Samsa Work Phone: [facility] Start: 06-20-2023 ambulatory Chandler Ventura MD Facility: [facility] Start: 06-15-2023 End: 06-18-2023 ambulatory [facility] Start: 05-18-2023 End: 05-19-2023 [facility] Start: 04-15-2023 End: 04-16-2023 [facility] Start: 02-23-2023 End: 02-24-2023 [facility]ulatory [facility] Start: 02-23-2023 End: 02-23-2023 Subsequent hospital visit by physician Jw Shea Sr., DO Work Phone: [facility] Comment on above: Proteinuria, unspeci fied type; Prostate cancer screening; BPH with obstruction/lower urinary tract symptoms Start: 12-26-2022 ambulatory Jw Shea DO Facility:[facility] Start: 12-08-2022 End: 12-09-2022 ambulatory Ramiro Alvarez MD Facility:[facility] Start: 10-10-2022 End: 10-11-2022 ambulatory Ramiro Alvarez MD Facility:[facility] Start: 10-03-2022 ambulatory Ramiro Alvarez MD F acility:[facility] Start: 09-15-2022 End: 09-16-2022 ambulatory Ramiro Alvarez MD Facility:[facility] Start: 09-10-2022 End: 09-11-2022 ambulatory Ramiro Alvarez MD Facility:[facility] Start: 07-25-2022 End: 07-26-2022 ambulatory Ramiro Alvarez MD Facility:[facility] Start: 05-24-2022 End: 05-25-[address] JW SHEA Facility:[facility] Start: 08-17-2021 Encounter for preprocedural laboratory examination DR DOCTOR TELLES [facility] Start: 08-14-2021 End: 08-15-[address] DOCTOR TELLES Facility:[facility] Start: 08-14-2021 End: 08-15-2021 Encounter for preprocedural laboratory examination DR DOCTOR TELLES Facility:[facility] Start: 06-13-2021 End: 08-06-[address] DOCTOR TELLES Facility:[facility] Procedures Date Procedure Procedure Detail Performing Clinician Start: 10-04-2023 Bronchoscope, device (physical object) Harley ESTRELLA Start: 02-23-2023 Urnls dip stick/tabl et reagent auto microscopy Collette Segal MD Work Phone: Start: 02-23-2023 Comprehensive metabo lic panel Collette Segal MD Work Phone: Start: 05-24-[address] DOCTOR TELLES Comment on above: Performed By: #### P SAD #### [facility] [address] [place] [address] Dr. Philippe Acosta Start: 08-18-2020 Total replacement of left hip joint Harley ESTRELLA Total replacement of hip Gre sumit ESTRELLA Plan of Treatment Date Care Activity Detail Author Start: 03-09-2023 End: 03-09-2023 Patient encounter procedure 03/09/2023 4:30 PM EDT Office Visit [facility] Part of [address] [phone] follow up, PSA [facility] Comment on above: follow up, PSA Start: 01-10-2023 Influenza vaccination Flu vaccine (# 1) [facility] Start: 06-03-2022 Pneumococcal 65+ yea rs Vaccine (2 - PCV) Pneumococcal 65+ years Vaccine (2 - PCV) [facility] Start: 2021 Abdominal aortic aneurysm screening AAA screen [facility] Start: 2006 Shingles vaccine (1 of 2) Shingles vaccine (1 of 2) [facility] Start: 2001 Screening for malign ant neoplasm of colon [facility] Start: 1996 Lipid panel Lipids [facility] Start: 1991 Diabetes screen Diabetes screen [facility] Start: 1975 DTaP/Tdap/Td vaccine (1 - Tdap) DTaP/Tdap/Td vaccine (1 - Tdap) [facility] [employer] Start: 1974 Hepatitis C screening Hepatitis C sc reen [facility] [employer] Start: 1968 Depression Screen Depression Screen [facility] Start: 1956 COVID-19 Vaccine (#1) COVID-19 Vacci ne (#1) [facility] [employer] End: 02-23-2023 Culture, Urine [facility] Comment on above: 1 Occurrences starti ng 02/23/2023 until 02/23/2023 End: 02-23-2023 PSA screening [facility] Comment on above: 1 Occurrences starti ng 02/23/2023 until 02/23/2023 Payers Date Payer Category Payer Unknown [id number] 2023 Medicare [id number] 2021 Unknown 2017 Self-pay 1959 Unknown [id number] 1955 Unknown [id number] 2.16.84 [id number] 1955 Unknown [id number] 2.16.84 [id number] 1955 Unknown [id number] 2.16.84 0.1.815624.3.579.2.593 1955 Unknown [id number] 2.16.8 40.1.010946.3.579.2.173 1956 Unknown [id number] 2.16.8 40.1.327393.3.579.2.173 1956 Unknown [id number] 2.16.8 40.1.805261.3.579.2.173 1956 Unknown [id number] 2.16.8 40.1.302717.3.579.2.173 1956 Unknown [id number] 2.16. 840.1.470971.3.579.2.196 1956 Unknown [id number] 2.16. 840.1.759238.3.579.2.196 1956 Unknown [id number] 2.16. 840.1.206221.3.579.2.196 1956 Unknown [id number] 2.16. 840.1.777872.3.579.2.196 1956 Unknown [id number] 2.16. 840.1.384824.3.579.2.196 1956 Unknown [id number] 2.16. 840.1.234339.3.579.2.196 1956 Unknown [id number] 2.16. 840.1.070709.3.579.2.196 1956 Unknown [id number] 2.16.8 40.1.727583.3.579.2.718 1956 Unknown [id number] 2.16.8 40.1.549744.3.579.2.718 1956 Unknown [id number] 2.16.8 40.1.463423.3.579.2.727 1956 Unknown [id number] 2.16.8 40.1.281787.3.579.2.727 1956 Unknown [id number] 2.16.8 40.1.808569.3.579.2.727 Social History Date Type Detail Facility Start: 02-23-2023 [facility] [employer] History of tobacco use Cigarette Smoker B ON [employer] Start: 02-23-2023 Tobacco use and exposure Smokeless tobacco non-user [facility] [employer] Start: 02-23-2023 Alcohol intake Current drinke r of alcohol (finding) [facility] [employer] Start: 02-23-2023 History of Social function [facility] [employer] Start: 02-23-2023 Tobacco use panel [facility] Start: 02-23-2023 Alcohol Comment weekends [facility] [employer] [facility] Start: 1955 Sex Assigned At Not on file B ON [employer] Start: 1955 Sex Assigned At Male F [facility] Start: 07-03-2024 End: 07-24-2024 Tobacco smoking status Heavy tobacco smoker (finding) [facility] Functional Status Date Assessment Result Facility 07-24-2024 Functional Status N/A [facility] Nadine 07-03-2024 Functional Status N/A [facility] Clinical Notes 10-19-2023 to 07-24-2024 Note Date & Type Note Facility 07-24-2024 Hospital Discharg e instructions Patient Education 07/24/2024 10:02:25 Robot-Assisted Laparoscopic Radical Prostatectomy Robot-Assisted Laparoscopic Radical Prostatectomy Robot-assisted laparoscopic radical prostatectomy is surgery done to remove the entire prostate and nearby tissue. This includes the seminal vesicles, which are near the bladder and the prostate. This procedure is done to treat prostate cancer that has not spread (metastasized) to other parts of the body. The goal of the surgery is to remove all cancer cells to help keep the cancer from metastasizing. During this procedure, the surgeon makes several incisions in the abdomen instead of one large incision. A long, thin, lighted tube with a tiny camera on the end (laparoscope) is put into one of the incisions. This allows the surgeon to see inside the abdomen. Other surgical tools are put in through the other incisions and used to take out the prostate and nearby tissues. The surgeon uses robotic arms to control these tools while sitting at a computer near the operating table. Lymph nodes in the pelvis may also be removed. Lymph nodes are part of the body's disease-fighting system (immune system). When prostate cancer spreads, it tends to go to the lymph nodes in the pelvis first. If the pelvic lymph nodes are removed, they will be checked for cancer cells. Tell a health care provider about: Any allergies you have. All medicines you are taking, including vitamins, herbs, eye drops, creams, and [id number] medicines. Any problems you or family members have had with anesthetic medicines. Any bleeding problems you have. Any surgeries you have had. Any medical conditions you have. Any prostate infections you have had. What are the risks? Generally, this is a safe procedure. Still, problems may occur, including: Infection. Bleeding. Allergic reactions to medicines. Damage to nearby structures or organs, such as the rectum, ureters, urethra, bladder, or small intestine. Blockage (obstruction) of the large or small intestines. Problems that affect urination or sexual function. These may include: ?Narrowing or scarring of the urethra (stricture), which may block the flow of urine. ?Inability to control when you urinate (incontinence). ?Inability to get or keep an erection (erectile dysfunction). ?Dry ejaculation. This is when no semen comes out during orgasm. The formation of a sac (cyst) in the pelvis that is filled with fluid from the lymph glands (lymphocele). Blood clots in the legs. What happens before the procedure? Staying hydrated Follow instructions from your health care provider about hydration, which may include: Up to 2 hours before the procedure you may continue to drink clear liquids, such as water, clear fruit juice, black coffee, and plain tea. Eating and drinking restrictions Follow instructions from your health care provider about eating and drinking, which may include: 8 hours before the procedure stop eating heavy meals or foods, such as meat, fried foods, or fatty foods. 6 hours before the procedure stop eating light meals or foods, such as toast or cereal. 6 hours before the procedure stop drinking milk or drinks that contain milk. 2 hours before the procedure stop drinking clear liquids. Medicines Ask your health care provider about: ?Changing or stopping your regular medicines. This is especially important if you are taking diabetes medicines or blood thinners. ?Taking medicines such as aspirin and ibuprofen. These medicines can thin your blood. Do not take these medicines unless your health care provider tells you to take them. ?Taking fjmz-diw-ncwwsfj medicines, vitamins, herbs, and supplements. Follow your health care provider's instructions about cleaning out your bowels. Surgery safety Ask your health care provider: How your surgery site will be marked. What steps will be taken to help prevent infection. These steps may include: ?Removing hair at the surgery site. ?Washing skin with a germ-killing soap. ?Taking antibiotic medicine. General instructions Do not use any products that contain nicotine or tobacco for at least 4 weeks before the procedure. These products include cigarettes, chewing tobacco, and vaping devices, such as e-cigarettes. If you need help quitting, ask your health care provider. Plan to have a responsible adult take you home from the hospital or clinic. Plan to have a responsible adult care for you for the time you are told after you leave the hospital or clinic. You may have an exam or testing. This may include blood or urine samples, or imaging tests such as a CT scan or an MRI. What happens during the procedure? An IV will be put into a vein in your hand or arm. You may be given: ?A medicine to help you relax (sedative). ?A medicine to make you fall asleep (general anesthetic). A thin, flexible tube (Magana catheter) will be put into your penis through your urethra and into your bladder to drain your urine. Small incisions will be made in your abdomen and near your belly button. The laparoscope and other surgical instruments will be put through the incisions. The surgical tools will be used to cut and remove your prostate, seminal vesicles, and maybe your pelvic lymph nodes. Your surgeon will use a computer and robotic arms to control the surgical instruments. Your urethra will be cut and from your bladder to take out the prostate. Your urethra will then be reconnected to your bladder neck. This is the group of muscles that help push urine through your urethra. A small tube (drain) may be put in one or more of your incisions to help drain extra fluid from your surgical site after surgery. The laparoscope and other surgical instruments will be removed. Your incisions will be closed with stitches (sutures), skin glue, or adhesive strips. Medicine may be applied and bandages (dressings) will be placed over your incisions. The procedure may vary among health care providers and hospitals. What happens after the procedure? Your blood pressure, heart rate, breathing rate, and blood oxygen level will be monitored until you leave the hospital or clinic. You may get fluids and medicines through your IV. You may be given antibiotics and medicines to help relieve pain or nausea. You will be encouraged to walk as soon as possible. You will also use a device or do breathing exercises to keep your lungs clear. The catheter will stay in to drain urine from your bladder. You will be taught how to care for it at home. The drain may stay in to drain fluid from the surgical site. If so, you will be taught how to care for it at home. You may need to wear compression stockings until you are able to get up and walk around. These stockings help prevent blood clots and reduce swelling in your legs. If you were given a sedative during the procedure, it can affect you for several hours. Do not drive or operate machinery until your health care provider says that it is safe. Summary Robot-assisted laparoscopic radical prostatectomy is a surgical procedure to remove the entire prostate and the seminal vesicles. Follow instructions from your health care provider about eating and drinking before your surgery. After your procedure, you may be given fluids and medicines through an IV. You may get antibiotics and medicines to help relieve pain or nausea. After your surgery, you will continue to have a small, thin tube (Magana catheter) draining your urine. You will be taught how to care for it at home. This information is not intended to replace advice given to you by your health care provider. Make sure you discuss any questions you have with your health care provider. Document Revised: 08/25/2021 Document Reviewed: 08/25/2021 [employer] Patient Education 2023 [employer]. 07/24/2024 09:58:20 Steps to Quit Smoking Steps to Quit Smoking Smoking tobacco is the leading cause of preventable . It can affect almost every organ in the body. Smoking puts you and those around you at risk for developing many serious chronic diseases. Quitting smoking can be very challenging. Do not get discouraged if you are not successful the first time. Some people need to make many attempts to quit before they achieve long-term success. Do your best to stick to your quit plan, and talk with your health care provider if you have any questions or concerns. How do I get ready to quit? When you decide to quit smoking, create a plan to help you succeed. Before you quit: Pick a date to quit. Set a date within the next 2 weeks to give you time to prepare. Write down the reasons why you are quitting. Keep this list in places where you will see it often. Tell your family, friends, and co-workers that you are quitting. Support from people you are close to can make quitting easier. Talk with your health care provider about your options for quitting smoking. Find out what treatment options are covered by your health insurance. Identify people, places, things, and activities that make you want to smoke (triggers). Avoid them. What first steps can I take to quit smoking? Throw away all cigarettes at home, at work, and in your car. Throw away smoking accessories, such as ashtrays and lighters. Clean your car. Make sure to empty the ashtray. Clean your home, including curtains and carpets. What strategies can I use to quit smoking? Talk with your health care provider about combining strategies, such as taking medicines while you are also receiving in-person counseling. Using these two strategies together makes you more likely to succeed in quitting than if you used either strategy on its own. If you are or , talk with your health care provider about finding counseling or other support strategies to quit smoking. Do not take medicine to help you quit smoking unless your health care provider tells you to. Quit right away Quit smoking completely, instead of gradually reducing how much you smoke over a period of time. Stopping smoking right away may be more successful than gradually quitting. Attend in-person counseling to help you build problem-solving skills. You are more likely to succeed in quitting if you attend counseling sessions regularly. Even short sessions of 10 minutes can be effective. Take medicine You may take medicines to help you quit smoking. Some medicines require a prescription. You can also purchase ffhd-nae-xryytvb medicines. Medicines may have nicotine in them to replace the nicotine in cigarettes. Medicines may: Help to stop cravings. Help to relieve withdrawal symptoms. Your health care provider may recommend: Nicotine patches, gum, or lozenges. Nicotine inhalers or sprays. Non-nicotine medicine that you take by mouth. Find resources Find resources and support systems that can help you quit smoking and remain smoke-free after you quit. These resources are most helpful when you use them often. They include: Online chats with a counselor. Telephone quitlines. Printed self-help materials. Support groups or group counseling. Text messaging programs. Mobile phone apps or applications. Use apps that can help you stick to your quit plan by providing reminders, tips, and encouragement. Examples of free services include Quit Guide from the CDC and smokefree.gov What can I do to make it easier to quit? Reach out to your family and friends for support and encouragement. Call telephone quitlines, such as 7-555-HPGJ-NOW, reach out to support groups, or work with a counselor for support. Ask people who smoke to avoid smoking around you. Avoid places that trigger you to smoke, such as bars, parties, or smoke-break areas at work. Spend time with people who do not smoke. Lessen the stress in your life. Stress can be a smoking trigger for some people. To lessen stress, try: ?Exercising regularly. ?Doing deep-breathing exercises. ?Doing yoga. ?Meditating. What benefits will I see if I quit smoking? Over time, you should start to see positive results, such as: Improved sense of smell and taste. Decreased coughing and sore throat. Slower heart rate. Lower blood pressure. Clearer and healthier skin. The ability to breathe more easily. Fewer sick days. Summary Quitting smoking can be very challenging. Do not get discouraged if you are not successful the first time. Some people need to make many attempts to quit before they achieve long-term success. When you decide to quit smoking, create a plan to help you succeed. Quit smoking right away, not slowly over a period of time. Find resources and support systems that can help you quit smoking and remain smoke-free after you quit. This information is not intended to replace advice given to you by your health care provider. Make sure you discuss any questions you have with your health care provider. Document Revised: 05/20/2022 Document Reviewed: 05/20/2022 [employer] Patient Education 2023 [employer]. Follow Up Care 07/03/2024 15:37:41 With:Gabino SCHOFIELD, LUCIAN Hall, [facility] Address: [address] [place] [address]- [phone] When: Unknown [facility] 07-24-2024 Note Patient Education Pulmonary Medicine Steps to Quit Smoking Smoking tobacco is the leading cause of preventable . It can affect almost every organ in the body. Smoking puts you and those around you at risk for developing many serious chronic diseases. Quitting smoking can be very challenging. Do not get discouraged if you are not successful the first time. Some people need to make many attempts to quit before they achieve long-term success. Do your best to stick to your quit plan, and talk with your health care provider if you have any questions or concerns. How do I get ready to quit? When you decide to quit smoking, create a plan to help you succeed. Before you quit: ??? Pick a date to quit. Set a date within the next 2 weeks to give you time to prepare. ??? Write down the reasons why you are quitting. Keep this list in places where you will see it often. ??? Tell your family, friends, and co-workers that you are quitting. Support from people you are close to can make quitting easier. ??? Talk with your health care provider about your options for quitting smoking. ??? Find out what treatment options are covered by your health insurance. ??? Identify people, places, things, and activities that make you want to smoke (triggers). Avoid them. What first steps can I take to quit smoking? Throw away all cigarettes at home, at work, and in your car. ??? Throw away smoking accessories, such as ashtrays and lighters. ??? Clean your car. Make sure to empty the ashtray. ??? Clean your home, including curtains and carpets. What strategies can I use to quit smoking? Talk with your health care provider about combining strategies, such as taking medicines while you are also receiving in-person counseling. Using these two strategies together makes you more likely to succeed in quitting than if you used either strategy on its own. If you are or , talk with your health care provider about finding counseling or other support strategies to quit smoking. Do not take medicine to help you quit smoking unless your health care provider tells you to. Quit right away ??? Quit smoking completely, instead of gradually reducing how much you smoke over a period of time. Stopping smoking right away may be more successful than gradually quitting. ??? Attend in-person counseling to help you build problem-solving skills. You are more likely to succeed in quitting if you attend counseling sessions regularly. Even short sessions of 10 minutes can be effective. Take medicine You may take medicines to help you quit smoking. Some medicines require a prescription. You can also purchase vgxu-jgc-uqhozgd medicines. Medicines may have nicotine in them to replace the nicotine in cigarettes. Medicines may: ??? Help to stop cravings. ??? Help to relieve withdrawal symptoms. Your health care provider may recommend: ??? Nicotine patches, gum, or lozenges. ??? Nicotine inhalers or sprays. ??? Non-nicotine medicine that you take by mouth. Find resources Find resources and support systems that can help you quit smoking and remain smoke-free after you quit. These resources are most helpful when you use them often. They include: ??? Online chats with a counselor. ??? Telephone quitlines. ??? Printed self-help materials. ??? Support groups or group counseling. ??? Text messaging programs. ??? Mobile phone apps or applications. Use apps that can help you stick to your quit plan by providing reminders, tips, and encouragement. Examples of free services include Quit Guide from the CDC and smokefree.gov What can I do to make it easier to quit? Reach out to your family and friends for support and encouragement. Call telephone quitlines, such as 5-939-FVIK-NOW, reach out to support groups, or work with a counselor for support. ??? Ask people who smoke to avoid smoking around you. ??? Avoid places that trigger you to smoke, such as bars, parties, or smoke-break areas at work. ??? Spend time with people who do not smoke. ??? Lessen the stress in your life. Stress can be a smoking trigger for some people. To lessen stress, try: ? Exercising regularly. ? Doing deep-breathing exercises. ? Doing yoga. ? Meditating. What benefits will I see if I quit smoking? Over time, you should start to see positive results, such as: ??? Improved sense of smell and taste. ??? Decreased coughing and sore throat. ??? Slower heart rate. ??? Lower blood pressure. ??? Clearer and healthier skin. ??? The ability to breathe more easily. ??? Fewer sick days. Summary ??? Quitting smoking can be very challenging. Do not get discouraged if you are not successful the first time. Some people need to make many attempts to quit before they achieve long-term success. ??? When you decide to quit smoking, create a plan to help you succeed. ??? Quit smoking right away, not s (more content not included)... [facility] 07-03-2024 Hospital Discharg e instructions Patient Education 07/03/2024 14:16:01 Prostate Cancer Prostate Cancer The prostate is a small gland that produces fluid that makes up semen (seminal fluid). It is located below the bladder in men, in front of the rectum. Prostate cancer is the abnormal growth of cells in the prostate gland. What are the causes? The exact cause of this condition is not known. What increases the risk? You are more likely to develop this condition if: You are 65 years of age or older. You have a family history of prostate cancer. You have a family history of breast and ovarian cancer. You have genes that are passed from parent to child (inherited), such as BRCA1 and BRCA2. You have Elizondo syndrome. men and men of descent are diagnosed with prostate cancer at higher rates than other men. The reasons for this are not well understood and are likely due to a combination of genetic and environmental factors. What are the signs or symptoms? Symptoms of this condition include: Problems with urination. This may include: ?A weak or interrupted flow of urine. ?Trouble starting or stopping urination. ?Trouble emptying the bladder all the way. ?The need to urinate more often, especially at night. Blood in urine or semen. Persistent pain or discomfort in the lower back, lower abdomen, or hips. Trouble getting an erection. Weakness or numbness in the legs or feet. How is this diagnosed? This condition can be diagnosed with: A digital rectal exam. For this exam, a health care provider inserts a gloved finger into the rectum to feel the prostate gland. A blood test called a prostate-specific antigen (PSA) test. A procedure in which a sample of tissue is taken from the prostate and checked under a microscope (prostate biopsy). An imaging test called transrectal ultrasonography. Once the condition is diagnosed, tests will be done to determine how far the cancer has spread. This is called staging the cancer. Staging may involve imaging tests, such as a bone scan, CT scan, PET scan, or MRI. Stages of prostate cancer The stages of prostate cancer are as follows: Stage 1 (I). At this stage, the cancer is found in the prostate only. The cancer is not visible on imaging tests, and it is usually found by accident, such as during prostate surgery. Stage 2 (II). At this stage, the cancer is more advanced than it is in stage 1, but the cancer has not spread outside the prostate. Stage 3 (III). At this stage, the cancer has spread beyond the outer layer of the prostate to nearby tissues. The cancer may be found in the seminal vesicles, which are near the bladder and the prostate. Stage 4 (IV). At this stage, the cancer has spread to other parts of the body, such as the lymph nodes, bones, bladder, rectum, liver, or lungs. Prostate cancer grading Prostate cancer is also graded according to how the cancer cells look under a microscope. This is called the Niles score and the total score can range from 6 10, indicating how likely it is that the cancer will spread (metastasize) to other parts of the body. The higher the score, the greater the likelihood that the cancer will spread. [place] 6 or lower: This indicates that the cancer cells look similar to normal prostate cells (well differentiated). [place] 7: This indicates that the cancer cells look somewhat similar to normal prostate cells (moderately differentiated). [place] 8, 9, or 10: This indicates that the cancer cells look very different than normal prostate cells (poorly differentiated). How is this treated? Treatment for this condition depends on several factors, including the stage of the cancer, your age, personal preferences, and your overall health. Talk with your health care provider about treatment options that are recommended for you. Common treatments include: Observation for early stage prostate cancer (active surveillance). This involves having exams, blood tests, and in some cases, more biopsies. For some men, this is the only treatment needed. Surgery. Types of surgeries include: ?Open surgery (radical prostatectomy). In this surgery, a larger incision is made to remove the prostate. ?A laparoscopic radical prostatectomy. This is a surgery to remove the prostate and lymph nodes through several small incisions. It is often referred to as a minimally invasive surgery. ?A robotic radical prostatectomy. This is laparoscopic surgery to remove the prostate and lymph nodes with the help of robotic arms that are controlled by the surgeon. ?Cryoablation. This is surgery to freeze and destroy cancer cells. Radiation treatment. Types of radiation treatment include: ?External beam radiation. This type aims beams of radiation from outside the body at the prostate to destroy cancerous cells. ?Brachytherapy. This type uses radioactive needles, seeds, wires, or tubes that are implanted into the prostate gland. Like external beam radiation, brachytherapy destroys cancerous cells. An advantage is that this type of radiation limits the damage to surrounding tissue and has fewer side effects. Chemotherapy. This treatment kills cancer cells or stops them from multiplying. It kills both cancer cells and normal cells. Targeted therapy. This treatment uses medicines to kill cancer cells without damaging normal cells. Hormone treatment. This treatment involves taking medicines that act on testosterone, one of the male hormones, by: ?Stopping your body from producing testosterone. ?Blocking testosterone from reaching cancer cells. Follow these instructions at home: Lifestyle Do not use any products that contain nicotine or tobacco. These products include cigarettes, chewing tobacco, and vaping devices, such as e-cigarettes. If you need help quitting, ask your health care provider. Eat a healthy diet. To do this: ?Eat foods that are high in fiber. These include beans, whole grains, and fresh fruits and vegetables. ?Limit foods that are high in fat and sugar. These include fried or sweet foods. Treatment for prostate cancer may affect sexual function. If you have a partner, continue to have intimate moments. This may include touching, holding, hugging, and caressing your partner. Get plenty of sleep. Consider joining a support group for men who have prostate cancer. Meeting with a support group may help you learn to manage the stress of having cancer. General instructions Take wqak-qve-dfhxncc and prescription medicines only as told by your health care provider. If you have to go to the hospital, notify your cancer specialist (oncologist). Keep all follow-up visits. This is important. Where to find more information [place] [employer]: www.cancer.org [place] [employer]: www.cancer.net National Cancer [place]: www.cancer.gov Contact a health care provider if: You have new or increasing trouble urinating. You have new or increasing blood in your urine. You have new or increasing pain in your hips, back, or chest. Get help right away if: You have weakness or numbness in your legs. You cannot control urination or your bowel movements (incontinence). You have chills or a fever. Summary The prostate is a small gland that is involved in the production of semen. It is located below a man's bladder, in front of the rectum. Prostate cancer is the abnormal growth of cells in the prostate gland. Treatment for this condition depends on the stage of the cancer, your age, personal preferences, and your overall health. Talk with your health care provider about treatment options that are recommended for you. Consider joining a support group for men who have prostate cancer. Meeting with a support group may help you learn to manage the stress of having cancer. This information is not intended to replace advice given to you by your health care provider. Make sure you discuss any questions you have with your health care provider. Document Revised: 08/25/2021 Document Reviewed: 08/25/2021 [employer] Patient Education 2023 [employer]. Follow Up Care 05/06/2024 10:07:10 With:DELORES SCHOFIELD, Harley Onofre, URL Address: [address] [place] [address] [place], [place] [id number]- When: Unknown [facility] 07-03-2024 Note Patient Education Oncology Prostate Cancer The prostate is a small gland that produces fluid that makes up semen (seminal fluid). It is located below the bladder in men, in front of the rectum. Prostate cancer is the abnormal growth of cells in the prostate gland. What are the causes? The exact cause of this condition is not known. What increases the risk? You are more likely to develop this condition if: ??? You are 65 years of age or older. ??? You have a family history of prostate cancer. ??? You have a family history of breast and ovarian cancer. ??? You have genes that are passed from parent to child (inherited), such as BRCA1 and BRCA2. ??? You have Elizonod syndrome. men and men of descent are diagnosed with prostate cancer at higher rates than other men. The reasons for this are not well understood and are likely due to a combination of genetic and environmental factors. What are the signs or symptoms? Symptoms of this condition include: ??? Problems with urination. This may include: ? A weak or interrupted flow of urine. ? Trouble starting or stopping urination. ? Trouble emptying the bladder all the way. ? The need to urinate more often, especially at night. ??? Blood in urine or semen. ??? Persistent pain or discomfort in the lower back, lower abdomen, or hips. ??? Trouble getting an erection. ??? Weakness or numbness in the legs or feet. How is this diagnosed? This condition can be diagnosed with: ??? A digital rectal exam. For this exam, a health care provider inserts a gloved finger into the rectum to feel the prostate gland. ??? A blood test called a prostate-specific antigen (PSA) test. ??? A procedure in which a sample of tissue is taken from the prostate and checked under a microscope (prostate biopsy). ??? An imaging test called transrectal ultrasonography. Once the condition is diagnosed, tests will be done to determine how far the cancer has spread. This is called staging the cancer. Staging may involve imaging tests, such as a bone scan, CT scan, PET scan, or MRI. Stages of prostate cancer The stages of prostate cancer are as follows: ??? Stage 1 (I). At this stage, the cancer is found in the prostate only. The cancer is not visible on imaging tests, and it is usually found by accident, such as during prostate surgery. ??? Stage 2 (II). At this stage, the cancer is more advanced than it is in stage 1, but the cancer has not spread outside the prostate. ??? Stage 3 (III). At this stage, the cancer has spread beyond the outer layer of the prostate to nearby tissues. The cancer may be found in the seminal vesicles, which are near the bladder and the prostate. ??? Stage 4 (IV). At this stage, the cancer has spread to other parts of the body, such as the lymph nodes, bones, bladder, rectum, liver, or lungs. Prostate cancer grading Prostate cancer is also graded according to how the cancer cells look under a microscope. This is called the [place] score and the total score can range from 6?10, indicating how likely it is that the cancer will spread (metastasize) to other parts of the body. The higher the score, the greater the likelihood that the cancer will spread. ??? [place] 6 or lower: This indicates that the cancer cells look similar to normal prostate cells (well differentiated). ??? Niles 7: This indicates that the cancer cells look somewhat similar to normal prostate cells (moderately differentiated). ??? [place] 8, 9, or 10: This indicates that the cancer cells look very different than normal prostate cells (poorly differentiated). How is this treated? Treatment for this condition depends on several factors, including the stage of the cancer, your age, personal preferences, and your overall health. Talk with your health care provider about treatment options that are recommended for you. Common treatments include: ??? Observation for early stage prostate cancer (active surveillance). This involves having exams, blood tests, and in some cases, more biopsies. For some men, this is the only treatment needed. ??? Surgery. Types of surgeries include: ? Open surgery (radical prostatectomy). In this surgery, a larger incision is made to remove the prostate. ? A laparoscopic radical prostatectomy. This is a surgery to remove the prostate and lymph nodes through several small incisions. It is often referred to as a minimally invasive surgery. ? A robotic radical prostatectomy. This is laparoscopic surgery to remove the prostate and lymph nodes with the help of robotic arms that are controlled by the surgeon. ? Cryoablation. This is surgery to freeze and destroy cancer cells. ??? Radiation treatment. Types of radiation treatment include: ? External beam radiation. This type aims beams of radiation from outside the body at the prostate to destroy cancerous cells. ? Brachytherapy. This type uses radioactive needles, seeds, wires, o (more content not included)... 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 Due: June 05, 2024 12:15:51 AM 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 Pending Signature Drug: meloxicam (meloxicam 15 mg oral tablet), TAKE ONE TABLET BY MOUTH DAILY Quantity: 30 EA Days Supply: 30 Refills: 1 Substitutions Allowed Notes from Pharmacy: Dispensed Drug: meloxicam (meloxicam 15 mg oral tablet), TAKE ONE TABLET BY MOUTH DAILY Quantity: 30 EA Days Supply: 30 Refills: 2 Substitutions Allowed Notes from Pharmacy: [facility] 03-05-2024 Note Entered by STEPHANY SHEA DO on March 05, 2024 09:51:44 EDT From: JW SHEA DO To: [facility] Sent: 03/05/2024 09:51:44 EDT Subject: Medication Management Submitted: Complete:meloxicam (meloxicam 15 mg oral tablet) Signed by JW SHEA DO 03/05/2024 09:51:00 EDT Approved meloxicam (MELOXICAM 15MG TABLET) TAKE ONE TABLET BY MOUTH DAILY Qty: 30 EA Days Supply: 30 Refills: 2 Substitutions Allowed [facility] [id number] [facility]: [facility] To: JW SHEA DO Sent: March 05, [...] Refills: 2 Substitutions Allowed Notes from Pharmacy: [facility] 12-05-2023 Note Entered by STEPHANY SHEA DO [...] Refills: 2 Substitutions Allowed Notes from Pharmacy: [facility] 10-19-2023 Note Attestation signed by Stephanie Catherine MD at [...] be an additional personal documentation from me. Pulmonary Tele Visit Note Patient: Ger Mackenzie Age: 68 y.o. : 1955 Account No.: [id number] Referring physician: Paulette Chief complaint: Left lung [...] to us for ION robotic evaluation. 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 Verbal consent to provide and bill this service was obtained on: 10/19/23 No signature was obtained due to the COVID-19 pandemic. Manuel Hoffman MD [facility] Pulmonary/Critical Care Fellow [facility] Evaluation + Plan note Future Appointments Appointment Date:07/24/2024 08:45:00 AM Scheduled Provider:Bettye Lloyd MD Location:[facility] Appointment Type:URO Office Visit [facility] Evaluation note Diagnosis Proteinuria, unspecified type Prostate cancer screening Special screening for malignant neoplasm of prostate BPH with obstruction/lower urinary tract symptoms Hypertrophy of prostate with urinary obstruction and other lower urinary tract symptoms (LUTS) documented in this encounter [facility] [place] noteNo assessment information available [facility] Work Phone: Hospital course Narrative No data available for this section [facility] Progress note No data available for this section [facility] Reason for referral (narrative) Referred by: Harley ESTRELLA MD [facility] Summary Purpose Family History No Family History Records FoundNo Family History Records FoundNo Family History Records FoundNo Family History Records FoundNo Family History Records FoundNo Family History Records Found No data available for this section No data available for this section No Family History Records Found Advance Directives No [...] pital DATE CREATED AUTHOR AUTHOR'S ORGANIZ ATION 06/18/2023 [facility] DATE CREATED AUTHOR AUTHOR'S ORGANIZ ATION 06/21/2023 [facility] DATE CREATED AUTHOR AUTHOR'S ORGANIZ ATION 10/09/2023 [facility] DATE CREATED AUTHOR AUTHOR'S ORGANIZ ATION 10/23/2023 [facility] DATE CREATED AUTHOR AUTHOR'S ORGANIZ ATION 06/06/2024 [facility] DATE CREATED AUTHOR AUTHOR'S ORGANIZ ATION 07/26/2024 [facility] Care Teams (unrecognized sec tion and content) Equine Vet Relationship Specialty Start Date End Date Jw Shea Sr., DO [address] [place] [address] PCP - General Family Medicine 02/23/23 Team Status: Inactive Member Role Status Dates Deric Lockett DO Attending Provider Active St art: October 03, 2023 End: October 03, 2023 Goals (unrecognized section and content) Goals may be documented in a n alternate sectionGoals may be documented in an alternate section No data available for this section No data available for this section FOR RECORDS PERTAINING TO PATIENTS WHO [...] BE BASED ON THE PRIMARY CLINICAL RECORDS. [facility] [email or web address] [facility]. provides no warranty or guarantee of the accuracy or completeness of information in this document.
== END 2024-07-26 08:32 | disposition home or self-care (01) ==
LOC: LAB 08:32
PROVIDERS: PCP Family Medicine; Visit Provider Internal Medicine
DX: R91.8 Other nonspecific abnormal finding of lung field (principal); R59.0 Localized enlarged lymph nodes
CPT/HCPCS: 36415; 71260; 82565; Q9967

== ENCOUNTER 2024-09-20 07:19 | Outpatient (OUT) | payer MEDICARE, SELFPAY ==
--- OUTSIDE RECORDS SUMMARY | 2024-09-20 07:21 | XMS_ITS | CCD ---
Author Organization [facility] Team Providers Care Lead Network Engineer Name Role Phone ALONZOC, DR SUMMERS Attending [...] SR, JW P Primary Care Unavailable COLLETTE MIGUEL Referring Unavailable HOUSE SR, JW Onofre Primary Care Unavailable COLLETTE MIGUEL Referring Unavailable HOUSE SR, JW Onofre Primary Care Unavailable COLLETTE MIGUEL Referring Unavailable COLLETTE MIGUEL Attending Unavailable COLLETTE MIGUEL Referring Unavailable HOUSE SR, JW P Primary Care Unavailable Kim SCHOFIELD, Ramiro Rosas Attending Unavailab le House DO, [facility] Care Unavai lable House DO, Jw Ramirez Consulting Ena Alvarez MD, Ramiro Rosas Attending Unavailab le House DO, Jw [facility] Care Unavai lable House DO, Jw [facility] Ena Alvarez MD, Ramiro Rosas Attending Unavailab bertin Alvarez MD, Ramiro Rosas Attending Unavailab le House DO, [facility] Chandler Peres MD Attending Unavailable Sukhjinder Wild PA-C Referring Unav ailable House DO, Jw [facility] Care Ena Alvarez MD, Ramiro Rosas Attending Unavailab le House DO, Jw [facility] Ena Alvarez MD, Ramiro Rosas Attending Unavailab le House DO, [facility] Ena Alvarez MD, Ramiro Rosas Attending Unavailab le House DO, Jw James Primary Care Unaevahumble sujey Lockett, DO Deric Onofre Attending Provider Samsa, Deric P Attending Unavailable Samsa, Deric P Admitting Unavailable Samsa, Deric P Attending Unavailable Samsa, Deric P Admitting Unavailable NONE, XXXX Primary Care Physician Unavailab JW Woodward Primary Care Physician Essence Crowley MD Unavailable Bettye Lloyd Attending Unavailable Essence CROWLEY Attending Unavailable OMBALLI, STEPHANIE Referring Unavailable OMBALLI, STEPHANIE Attending Unavailable OMBALLI, PARISAMED Referring Unavailable OMBALLI, PARISAMED Attending Unavailable OMBALLI, PARISAMED Attending Unavailable OMBALLI, MOHAMED Referring Unavailable OMBALLI, PARISAMED Referring Unavailable OMBALLI, MOHAMED Referring Unavailable House Sr., Jw [place] Primary Care Provider NATHANIEL LEWIS Attending Unavailable ESSENCE CROWLEY Referring Unavailable HOUSE SRJW Primary Care Unavailable JOB BRADY Attending Unavailable SAMSA, DERIC P Referring Unavailable HOUSE SR, JW P Primary Care Unavailable SAMSA, DERIC P Referring Unavailable HOUSE SR, JW P Primary Care Unavailable HOUSE, DO JW P Attending Unavailable HOUSE, JW P Primary Care Unavailable HOUSE, DO JW P Attending Unavailable HOUSE, JW P Primary Care Unavailable Allergies Allergy Classification Reported Allergen(s) Allergy Type Date of Onset Reaction(s) Facility (1 source) No Known Medication Allergies; Translations: [No Known Medication Allergies] Propensity to adverse reactions (disorder) [facility] Repository Medications Current Medications Medication Drug Class(es) Dates Sig (Normalized) Sig (Original) [id number] 200 actuat albuterol 0.09 mg/actuat metered dose inhaler (3 sources) beta2-Adrenergic Agonist take 2 puff(s) by inhalation every four hours as needed albuterol HFA (PROVENTIL HFA, VENTOLIN HFA) 90 mcg/actuation inhaler INHALE 2 PUFFS EVERY 4 HOURS NEEDED FOR SHORTNESS OF BREATH Active bicalutamide 50 mg oral tablet (2 sources) Androgen Receptor Inhibitor Start: 09-13-2024 End: 10-13-2024 take 1 tablet by mouth once daily bicalutamide (CASODEX) 50 mg tablet Take 1 tablet by mouth once daily. 30 tablet 09/13/2024 10/13/2024 Active 24 hr buPROPion hydrochloride 150 mg extended release oral tablet (3 sources) Aminoketone Start: 07-31-2024 buPROPion XL (WELLBUTRIN XL) 150 mg 24 hr tablet 07/31/2024 Active iv contrast (will be provided with radiology test) (1 source) Start: 09-13-2024 End: 09-14-2024 inject 1 dose intravenously once iv contrast (will be provided with radiology test) MRI Brain Inject, intravenously, once for 1 dose.No IV access, insert saline lock prior to beginning of sedation, infusion, injection of imaging exam.Discontinue saline lock post exam. If Pt. has a central line or IVAD, may access for administration according to line specific nursing protocol.Once exam is complete flush line and de-access according to line specific nursing protocol in the MR contrast administration guidelines link 1 each 09/13/2024 09/14/2024 Active lisinopril 20 mg oral tablet (3 sources) Angiotensin Converting Enzyme Inhibitor Start: 03-02-2023 take 1 tablet by mouth once daily in the morning lisinopril (ZESTRIL) 20 mg tablet Take 1 tablet by mouth every morning. 03/02/2023 Active meloxicam 15 mg oral tablet (6 sources) Nonsteroidal Anti-inflammatory Drug Start: 01-31-2023 meloxicam 15 mg Tab Refills(s) 0 Start Date: 07/03/24 Status: Ordered 10 actuat olodaterol 0.0025 mg/actuat / tiotropium 0.0025 mg/actuat inhalation spray (3 sources) Anticholinergic, beta2-Adrenergic Agonist Start: 09-26-2023 tiotropium-olodater ol (STIOLTO RESPIMAT) 2.5-2.5 mcg/actuation inhaler 1 (one) time each day at the same time. 09/26/2023 Active tamsulosin hydrochloride 0.4 mg oral capsule (6 sources) alpha-Adrenergic Diana Start: 02-23-2023 End: 07-19-2025 take 1 capsule by mouth once daily tamsulosin 0.4 mg Cap 0.4 mg = 1 cap(s), Oral, Daily, X 90 day(s), # 90 cap(s), Refills(s) 3, Pharmacy: [id number], 172, cm, 07/24/24 9:10:00 EST, Height/Length Dosing, 86, kg, 07/24/24 9:10:00 EST, Weight Dosing Start Date: 07/24/24 Stop Date: 07/19/25 Status: Ordered Problems Active Problems Problem Classification Problem Date Documented Date Episodic/Chronic Cancer of bronchus; lung (3 sources) Malignant neoplasm of lower lobe of left lung; Translations: [Malignant neoplasm of lower lobe, left bronchus or lung] 09-13-2024 Chronic Cancer of prostate (12 sources) Malignant neoplasm of prostate; Translations: [Adenocarcinoma [...] Chronic Other lower respiratory disease (2 sources) Solitary nodule of lung; Translations: [Solitary pulmonary nodule] Onset: 07-03-2024 Episodic Other lower respiratory disease (2 sources) Lung mass 07-03-2024 Episodic Other lower respiratory disease (2 sources) Nodule of lung 07-03-2024 Episodic Other lower respiratory disease (2 sources) Other nonspecific abnormal finding of lung field; Translations: [Other nonspecific abnormal finding of lung field] Onset: 08-20-2024 Episodic Other screening for suspected conditions (not mental disorders or infectious disease) (5 sources) Patient encounter status; Translations: [Encounter for screening for malignant neoplasm of prostate] Onset: 02-23-2023 02-23-2023 Episodic Residual codes; unclassified (2 sources) Tobacco user 06-30-2024 Episodic Substance-related disorders (4 sources) Nicotine dependence; Translations: [Nicotine dependence, unspecified, [...] Value Interpretation Reference Range Facility Outside Recordson 09-16-2024 Outside Records [id number] CBC W Auto Differential pane l (Bld)on 09-13-2024 Basophils (Bld) [#/Vol] 0.06 10*3/uL [facility] Basophils/100 WBC (Bld) 0.7 % [facility] Differential cell count method Nom (Bld) Auto [facility] Eosinophils (Bld) [#/Vol] 0.25 10*3/uL [facility] Eosinophils/100 WBC (Bld) 2.8 % [facility] Erythrocyte distribution width (RBC) [Ratio] 12.6 % 11.5 - 15.0 % [facility] Hematocrit (Bld) [Volume fraction] 47.7 % 39.0 - 51.0 % [facility] Hemoglobin (Bld) [Mass/Vol] 16.9 g/dL 13.0 - 17.0 g/dL [facility] Immature granulocytes (Bld) [#/Vol] 0.03 10*3/uL [facility] Immature granulocytes/100 WBC (Bld) 0.3 % [facility] Lymphocytes (Bld) [#/Vol] 1.52 10*3/uL [facility] Lymphocytes/100 WBC (Bld) 17.1 % [facility] MCH (RBC) [Entitic mass] 33.1 pg 26.0 - 34.0 pg [facility] MCHC (RBC) [Mass/Vol] 35.4 g/dL 30.5 - 36.0 g/dL [facility] MCV (RBC) [Entitic vol] 93.3 fL 80.0 - 100.0 fL [facility] Monocytes (Bld) [#/Vol] 0.74 10*3/uL [facility] Monocytes/100 WBC (Bld) 8.3 % [facility] Neutrophils (Bld) [#/Vol] 6.29 10*3/uL [facility] Neutrophils/100 WBC (Bld) 70.8 % [facility] Nucleated RBC (Bld) [#/Vol] NINF [facility] Nucleated RBC/100 WBC (Bld) [Ratio] 0 % /100 WBC [facility] Platelet mean volume (Bld) [Entitic vol] 9.5 fL 9.0 - 12.7 fL [facility] Platelets (Bld) [#/Vol] 223 10*3/uL [facility] RBC (Bld) [#/Vol] 5.11 10*6/uL 4.20 - 6.0 0 m/uL [facility] WBC (Bld) [#/Vol] 8.89 10*3/uL [facility] Basophils (Bld) [#/Vol] 0.06 10*3/uL Normal <0.11 [facility] Comment on above: Order Comment: Speci men Type: BLOOD SPECIMEN Ordering Facility: [facility] Address: [address] [place] [address] Performed By: #### 5 7021-8 #### [facility] CLIA [id number] [address] [place] [address] Basophils/100 WBC (Bld) 0.7 % Normal [facility] Comment on above: Order Comment: Speci men Type: BLOOD SPECIMEN Ordering Facility: [facility] Address: [address] [place], [place] [address] Performed By: #### 5 7021-8 #### [facility] CLIA [id number] [address] [place] [address]46 Differential cell count method Nom (Bld) Auto Normal [facility] Comment on above: Order Comment: Speci men Type: BLOOD SPECIMEN Ordering Facility: [facility] Address: [facility] [place] [address] Performed By: #### 5 7021-8 #### [facility] CLIA [id number] [address] [place] [address]324 Eosinophils (Bld) [#/Vol] 0.25 10*3/uL Normal <0.46 [facility] Comment on above: Order Comment: Speci men Type: BLOOD SPECIMEN Ordering Facility: [facility] Address: [address] [place] [address] Performed By: #### 5 7021-8 #### [facility] CLIA [id number] [address] [place] [address]35 Eosinophils/100 WBC (Bld) 2.8 % Normal [facility] Comment on above: Order Comment: Speci men Type: BLOOD SPECIMEN Ordering Facility: [facility] Address: [address] [place] [address] Performed By: #### 5 7021-8 #### [facility] CLIA [id number] [address] [place] [address] 22543 Erythrocyte distribution width (RBC) [Ratio] 12.6 % Normal 11.5-15.0 [facility] Comment on above: Order Comment: Speci men Type: BLOOD SPECIMEN Ordering Facility: [facility] Address: [address] [place] [address] Performed By: #### 5 7021-8 #### [facility] CLIA [id number] [address] [place] [address]10 Hematocrit (Bld) [Volume fraction] 47.7 % Normal 39.0-51.0 [facility] Comment on above: Order Comment: Speci men Type: BLOOD SPECIMEN Ordering Facility: [facility] Address: [address] [place] [address] Performed By: #### 5 7021-8 #### [facility] CLIA [id number] [address] [place] [address] 19154 Hemoglobin (Bld) [Mass/Vol] 16.9 g/dL Normal 13.0-17.0 [facility] Comment on above: Order Comment: Speci men Type: BLOOD SPECIMEN Ordering Facility: [facility] Address: [address] [place] [address] Performed By: #### 5 7021-8 #### [facility] CLIA [id number] [address] [place] [address]908 Immature granulocytes (Bld) [#/Vol] 0.03 10*3/uL Normal <0.10 [facility] Comment on above: Order Comment: Speci men Type: BLOOD SPECIMEN Ordering Facility: [facility] Address: [address] [place] [address] Performed By: #### 5 7021-8 #### [facility] CLIA [id number] [address] [place] [address] 18000 Immature granulocytes/100 WBC (Bld) 0.3 % Normal [facility] Comment on above: Order Comment: Speci men Type: BLOOD SPECIMEN Ordering Facility: [facility] Address: [address] [place] [address] Performed By: #### 5 7021-8 #### [facility] CLIA [id number] [address] [place] [address]862 Lymphocytes (Bld) [#/Vol] 1.52 10*3/uL Normal 1.00-4.00 [facility] Comment on above: Order Comment: Speci men Type: BLOOD SPECIMEN Ordering Facility: [facility] Address: [address] [place] [address] Performed By: #### 5 7021-8 #### [facility] CLIA [id number] [address] [place] [address] 23846 Lymphocytes/100 WBC (Bld) 17.1 % Normal [facility] Comment on above: Order Comment: Speci men Type: BLOOD SPECIMEN Ordering Facility: [facility] Address: [address] [place] [address] Performed By: #### 5 7021-8 #### [facility] CLIA [id number] [address] [place] [address] 49389 MCH (RBC) [Entitic mass] 33.1 pg Normal 26.0-34.0 [facility] Comment on above: Order Comment: Speci men Type: BLOOD SPECIMEN Ordering Facility: [facility] Address: [address] [place] [address] Performed By: #### 5 7021-8 #### [facility] CLIA [id number] [address] [place] [address]263 MCHC (RBC) [Mass/Vol] 35.4 g/dL Normal 30.5-36.[address] [facility] Comment on above: Order Comment: Speci men Type: BLOOD SPECIMEN Ordering Facility: [facility] Address: [address] [place] [address] Performed By: #### 5 7021-8 #### [facility] CLIA [id number] [address] [place] [address] 46098 MCV (RBC) [Entitic vol] 93.3 fL Normal 80.0-100.0 [facility] Comment on above: Order Comment: Speci men Type: BLOOD SPECIMEN Ordering Facility: [facility] Address: [address] [place] [address] Performed By: #### 5 7021-8 #### [facility] CLIA [id number] [address] [place] [address]7579 Monocytes (Bld) [#/Vol] 0.74 10*3/uL Normal <0.87 [facility] Comment on above: Order Comment: Speci men Type: BLOOD SPECIMEN Ordering Facility: [facility] Address: [address] [place] [address] Performed By: #### 5 7021-8 #### [facility] CLIA [id number] [address] [place] [address] 81029 Monocytes/100 WBC (Bld) 8.3 % Normal [facility] Comment on above: Order Comment: Speci men Type: BLOOD SPECIMEN Ordering Facility: [facility] Address: [address] [place] [address] Performed By: #### 5 7021-8 #### [facility] CLIA [id number] [address] [place] [address] 71609 Neutrophils (Bld) [#/Vol] 6.29 10*3/uL Normal 1.45-7.50 [facility] Comment on above: Order Comment: Speci men Type: BLOOD SPECIMEN Ordering Facility: [facility] Address: [address] [place] [address] Performed By: #### 5 7021-8 #### [facility] CLIA [id number] [address] [place] [address] 19247 Neutrophils/100 WBC (Bld) 70.8 % Normal [facility] Comment on above: Order Comment: Speci men Type: BLOOD SPECIMEN Ordering Facility: [facility] Address: [address] [place] [address] Performed By: #### 5 7021-8 #### [facility] CLIA [id number] [address] [place] [address] 75418 Nucleated RBC (Bld) [#/Vol] 10*3/uL Normal <0.01 [facility] Comment on above: Order Comment: Speci men Type: BLOOD SPECIMEN Ordering Facility: [facility] Address: [address] [place] [id number] Performed By: #### 5 7021-8 #### [facility] CLIA [id number] [address] [place] [address] 32992 Nucleated RBC/100 WBC (Bld) [Ratio] 0.0 /100 WBC Normal [facility] Comment on above: Order Comment: Speci men Type: BLOOD SPECIMEN Ordering Facility: [facility] Address: [address] [place] [id number] Performed By: #### 5 7021-8 #### [facility] CLIA [id number] [address] [place] [address] 12505 Platelet mean volume (Bld) [Entitic vol] 9.5 fL Normal 9.0-12.7 [facility] Comment on above: Order Comment: Speci men Type: BLOOD SPECIMEN Ordering Facility: [facility] Address: [address] [place] [address] Performed By: #### 5 7021-8 #### [facility] CLIA [id number] [address] [place] [address] 75754 Platelets (Bld) [#/Vol] 223 10*3/uL Normal 150-400 [facility] Comment on above: Order Comment: Speci men Type: BLOOD SPECIMEN Ordering Facility: [facility] Address: [address] [place] [address] Performed By: #### 5 7021-8 #### [facility] CLIA [id number] [address] [place] [address] 84210 RBC (Bld) [#/Vol] 5.11 10*6/uL Normal 4.20-6.00 [facility] Comment on above: Order Comment: Speci men Type: BLOOD SPECIMEN Ordering Facility: [facility] Address: [address] [place] [address] Performed By: #### 5 7021-8 #### [facility] CLIA [id number] [address] [place] [address] 45104 WBC (Bld) [#/Vol] 8.89 10*3/uL Normal 3.70-11.00 [facility] Comment on above: Order Comment: Speci men Type: BLOOD SPECIMEN Ordering Facility: [facility] Address: [address] [place] [address] Performed By: #### 5 7021-8 #### [facility] CLIA [id number] [address] [place] [address] 26060 CNOVSPon 09-13-2024 CNOVSP Visit (SP) Office ([facility]) -- GER MACKENZIE ([id number]) 1955 M Date Time Provider Department 09/13/24 2:30 PM JOB BRADY During your visit today, we recorded the following information about you: Temperature Pulse Respiration Blood pressure 98.2 degrees 76/minute 16/minute 126/78 Weight Height 86.5 kg 1.702 m Job Brady MD 09/13/2024 3:07 PM Signed PATIENT NAME: Ger Mackenzie CLINIC NO.: [id number] ATTENDING PHYSICIAN: Job Brady MD DATE OF SERVICE: September 13, [address] Deric Lockett [address] [place] [address] thank you for referring Ger Mackenzie for an opinion regarding lung cancer. CHIEF COMPLAINT: Lung cancer HPI: Ger Mackenzie is a 69 year old year old male with PMH of prostate cancer, referred to us for lung cancer. The lesion was first discovered on 06/15/2023 PET scan, with weak uptake, and highly suspicion for primary lung cancer. At that time his clinical documentation developer recommended him to do IR robotic bronchoscopy on 06/22/[address] Vega, but patient refused. A follow-up CT with contrast on 09/23/2023 showed increase in size of the mass, bronchoscopy on 10/03/2023 was non diagnostic. Patient was sent to pulmonary Dr.Al Randall for second opinion on 10/2023, during that visit with us patient was offered Ion robotic bronchoscopy, but he backed up few days after. The lesion has been increasing in size on the following CAT scans, most recent on 07/26/2024, he also has some mediastinal hilar lymph nodes. Prostate biopsy on 05/18/23 showed prostate adenoca, niles score 4+3=7. Grade group 3. PSA was 11.3 in Jun 2024. Underwent bronchoscopy EBUS on 08/20/24. 50pk yr smoking history. Still smoking lightly. 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 Mother- breast cancer. Father- alive. Scheduled for PFTs at [facility]. Current Outpatient Medications Medication Sig albuterol HFA (PROVENTIL HFA, VENTOLIN HFA) 90 mcg/actuation inhaler INHALE 2 PUFFS EVERY 4 HOURS NEEDED FOR SHORTNESS OF BREATH buPROPion XL (WELLBUTRIN XL) 150 mg 24 hr tablet lisinopril (ZESTRIL) 20 mg tablet Take 1 tablet by mouth every morning. meloxicam (MOBIC) 15 mg tablet Take 15 mg by mouth once daily. tamsulosin (FLOMAX) 0.4 mg Take 0.4 mg by mouth once daily. tiotropium-olodaterol (STIOLTO RESPIMAT) 2.5-2.5 mcg/actuation inhaler 1 (one) time each day at the same time. No current facility-administered medications for this visit. ALLERGIES No Known Allergies PAST MEDICAL HISTORY Diagnosis Date Adenocarcinoma of prostate (HCC) Adenocarcinoma, lung, left (HCC) 09/[address] Deric Lockett Cigarette nicotine dependence with nicotine-induced disorder Emphysema lung (HCC) Hilar lymphadenopathy HTN (hypertension) Lung mass 09/[address] Deric Lockett PAST SURGICAL HISTORY Procedure Laterality Date TOTAL HIP REPLACEMENT Left FAMILY HISTORY Problem Relation Age of Onset Breast Cancer Mother Cancer Sister Asthma Maternal Grandfather Asthma Paternal Grandmother Social History Tobacco Use Smoking status: Every Day Current packs/day: 1.50 Average packs/day: 1.5 packs/day for 55.0 years (82.5 ttl pk-yrs) Types: Cigarettes Passive exposure: Current Smokeless tobacco: Never Tobacco comments: Smokes 10-19 cigs/day Substance Use Topics Alcohol use: Yes Comment: socially Drug use: Never REVIEW OF SYSTEMS GENERAL: No weight loss, malaise or fevers. No night sweats. HEENT: Negative for headaches, No changes in hearing or vision, no nose bleeds or other nasal problems. RESPIRATORY: Negative for cough, wheezing and shortness of breath CARDIOVASCULAR: Negative for chest pain, leg swelling and palpitations GI: Negative for abdominal discomfort, blood in stools or black stools and change in bowel habits : Negative for dysuria, frequency and incontinence MUSCULOSKELETAL: Negative for joint pain or swelling, back pain, and muscle pain. SKIN: Negative for lesions, rash, and itching. HEMATOLOGY/LYMPHOLOGY Negative for prolonged bleeding, bruising easily, and swollen nodes. NEURO: Negative for numbness or tingling of hands/feet. No weakness. PHYSICAL EXAMINATION: BP 126/78 Pulse 76 Temp 36.8 ?C (98.2 ?F) (Temporal) Resp 16 Ht 170.2 cm (5' 7.01 ) Wt 86.5 kg (190 lb 11.2 oz) SpO2 95% BMI 29.86 kg/m? There were no vitals taken for this visit. No data found for this vital: Wt General appearance:ECOG PERFORMANCE STATUS: 0- Fully active, able to carry on all pre-disease performance w/o restriction. Patient in NAD. Skin: Skin color, texture, turgor normal. No rashes or lesions. Eyes: Anicteric sclera. Pupils are equally round and reactive to light. Extraocular movements are intact. Breast: No palpable breast masses. No nipple change or discharge. Lymph Nodes: No cervical, supraclavicular, (more content not included)... Normal [facility] Comprehensive metabolic 2000 panelOrdered By: Iman Mckenzie on 09-13-2024 Albumin [Mass/Vol] 4 g/dL 3.9 - 4.9 g/dL [facility] ALP [Catalytic activity/Vol] 88 U/L 38 - 113 U/L [facility] ALT [Catalytic activity/Vol] 26 U/L 10 - 54 U/L [facility] Anion gap [Moles/Vol] 12 mmol/L 8 - 15 mmol/L [facility] AST [Catalytic activity/Vol] 24 U/L 14 - 40 U/L [facility] Bilirubin [Mass/Vol] 0.4 mg/dL 0.2 - 1 .3 mg/dL [facility] Calcium [Mass/Vol] 9.8 mg/dL 8.5 - 10. 2 mg/dL [facility] Chloride [Moles/Vol] 101 mmol/L 98 - 10 7 mmol/L [facility] CO2 [Moles/Vol] 26 mmol/L 22 - 30 mmol/L [facility] Creatinine [Mass/Vol] 1.05 mg/dL 0.73 - 1.22 mg/dL [facility] GFR/1.73 sq M.predicted among non-blacks MDRD (S/P/Bld) [Vol rate/Area] 77 mL/min/{1.73_m2} - PINF [facility] Comment on above: Estimated Glomerular Filtration Rate (eGFR) is calculated using the 2020 CKD-EPI creatinine equation. This equation utilizes serum creatinine, sex, and age as parameters. The creatinine assay has traceable calibration to isotope dilution-mass spectrometry. Refer to KDIGO guidelines for clinical interpretation. In patients with unstable renal function, e.g. those with acute kidney injury, the eGFR may not accurately reflect actual GFR. Glucose [Mass/Vol] 95 mg/dL 74 - 99 mg/dL [facility] Comment on above: The [place] Diabete s Association (ADA) provides guidance for cutoff values for fasting glucose and random glucose. The ADA defines fasting as no caloric intake for at least 8 hours. Fasting plasma glucose results between 100 to 125 mg/dL indicate increased risk for diabetes (prediabetes). Fasting plasma glucose results greater than or equal to 126 mg/dL meet the criteria for diagnosis of diabetes. In the absence of unequivocal hyperglycemia, results should be confirmed by repeat testing. In a patient with classic symptoms of hyperglycemia or hyperglycemic crisis, random plasma glucose results greater than or equal to 200 mg/dL meet the criteria for diagnosis of diabetes. Reference: Standards of Medical Care in Diabetes 2016, [place] Diabetes Association. Diabetes Care. 2016.39(Suppl 1). Interpretation and review of laboratory results Abnormal [facility] Potassium [Moles/Vol] 4.5 mmol/L 3.7 - 5.1 mmol/L [facility] Protein [Mass/Vol] 8.1 g/dL High 6.3 - 8.0 g/dL [facility] Sodium [Moles/Vol] 139 mmol/L 136 - 144 mmol/L [facility] Urea nitrogen [Mass/Vol] 18 mg/dL 9 - 24 mg/dL [facility] Comprehensive metabolic 2000 panelon 09-13-2024 Albumin [Mass/Vol] 4.0 g/dL Normal 3.9-4.9 [facility] Comment on above: Order Comment: Speci men Type: BLOOD SPECIMEN Ordering Facility: [facility] Address: [address] [place] [address] Performed By: #### 2 4323-8 #### [facility] CLIA [id number] [address] [place] [address] ALP [Catalytic activity/Vol] 88 U/L Normal 38-113 [facility] Comment on above: Order Comment: Speci men Type: BLOOD SPECIMEN Ordering Facility: [facility] Address: [address] [place] [address] Performed By: #### 2 4323-8 #### [facility] CLIA [id number] [address] [place] [address] ALT [Catalytic activity/Vol] 26 U/L Normal 10-54 [facility] Comment on above: Order Comment: Speci men Type: BLOOD SPECIMEN Ordering Facility: [facility] Address: [address] [place], [place] [address] Performed By: #### 2 4323-8 #### [facility] CLIA [id number] [address] [place] [address] Anion gap [Moles/Vol] 12 mmol/L Normal 8-[address] [facility] Comment on above: Order Comment: Speci men Type: BLOOD SPECIMEN Ordering Facility: [facility] Address: [address] [place] [address] Performed By: #### 2 4323-8 #### [facility] CLIA [id number] [address] [place] [address] AST [Catalytic activity/Vol] 24 U/L Normal 14-40 [facility] Comment on above: Order Comment: Speci men Type: BLOOD SPECIMEN Ordering Facility: [facility] Address: [address] [place], [place] [address] Performed By: #### 2 4323-8 #### [facility] CLIA [id number] [address] [place] [address] Bilirubin [Mass/Vol] 0.4 mg/dL Normal 0.2-1.3 [facility] Comment on above: Order Comment: Speci men Type: BLOOD SPECIMEN Ordering Facility: [facility] Address: [address] [place], [place] [address] Performed By: #### 2 4323-8 #### [facility] CLIA [id number] [address] [place] [address] Calcium [Mass/Vol] 9.8 mg/dL Normal 8.5-10.2 [facility] Comment on above: Order Comment: Speci men Type: BLOOD SPECIMEN Ordering Facility: [facility] Address: [address] [place], [place] [address] Performed By: #### 2 4323-8 #### [facility] CLIA [id number] [address] [place] [address] Chloride [Moles/Vol] 101 mmol/L Normal 98-107 [facility] Comment on above: Order Comment: Speci men Type: BLOOD SPECIMEN Ordering Facility: [facility] Address: [address] [place] [address] Performed By: #### 2 4323-8 #### [facility] CLIA [id number] [address] [place] [address] CO2 [Moles/Vol] 26 mmol/L Normal 22-30 [facility] Comment on above: Order Comment: Speci men Type: BLOOD SPECIMEN Ordering Facility: [facility] Address: [address] [place] [address] Performed By: #### 2 4323-8 #### [facility] CLIA [id number] [address] [place] [address] Creatinine [Mass/Vol] 1.05 mg/dL Normal 0.73-1.[address] [facility] Comment on above: Order Comment: Speci men Type: BLOOD SPECIMEN Ordering Facility: [facility] Address: [address] [place] [address] Performed By: #### 2 4323-8 #### [facility] CLIA [id number] [address] [place] [address] Creatinine and Glomerular filtration rate.predicted panel (S/P/Bld) 77 mL/min/1.73m??? Normal >=60 [facility] Comment on above: Order Comment: Speci men Type: BLOOD SPECIMEN Ordering Facility: [facility] Address: [address] [place] [address] Result Comment: Yuly mated Glomerular Filtration Rate (eGFR) is calculated using the 2020 CKD-EPI creatinine equation. This equation utilizes serum creatinine, sex, and age as parameters. The creatinine assay has traceable calibration to isotope dilution-mass spectrometry. Refer to KDIGO guidelines for clinical interpretation. In patients with unstable renal function, e.g. those with acute kidney injury, the eGFR may not accurately reflect actual GFR. Performed By: #### 2 4323-8 #### [facility] CLIA [id number] [address] [place] [address] Glucose [Mass/Vol] 95 mg/dL Normal 74-99 [facility] Comment on above: Order Comment: Brent romero Type: BLOOD SPECIMEN Ordering Facility: [facility] Address: [address] [place], [place] [address] Result Comment: The [place] Diabetes Association (ADA) provides guidance for cutoff values for fasting glucose and random glucose. The ADA defines fasting as no caloric intake for at least 8 hours. Fasting plasma glucose results between 100 to 125 mg/dL indicate increased risk for diabetes (prediabetes). Fasting plasma glucose results greater than or equal to 126 mg/dL meet the criteria for diagnosis of diabetes. In the absence of unequivocal hyperglycemia, results should be confirmed by repeat testing. In a patient with classic symptoms of hyperglycemia or hyperglycemic crisis, random plasma glucose results greater than or equal to 200 mg/dL meet the criteria for diagnosis of diabetes. Reference: Standards of Medical Care in Diabetes 2016, [place] Diabetes Association. Diabetes Care. 2016.39(Suppl 1). Performed By: #### 2 4323-8 #### [facility] CLIA [id number] [address] [place] [address] Potassium [Moles/Vol] 4.5 mmol/L Normal 3.7-5.[address] [facility] Comment on above: Order Comment: Brent romero Type: BLOOD SPECIMEN Ordering Facility: [facility] Address: [address] [place] [address] Performed By: #### 2 4323-8 #### [facility] CLIA [id number] [address] [place] [address] Protein [Mass/Vol] 8.1 g/dL High 6.3-8.0 [facility] Comment on above: Order Comment: Speci men Type: BLOOD SPECIMEN Ordering Facility: [facility] Address: [facility] [place] [id number] Performed By: #### 2 4323-8 #### [facility] CLIA [id number] [address] [place] [address] Sodium [Moles/Vol] 139 mmol/L Normal 136-144 [facility] Comment on above: Order Comment: Speci men Type: BLOOD SPECIMEN Ordering Facility: [facility] Address: [address] [place], [place] [address] Performed By: #### 2 4323-8 #### [facility] CLIA [id number] [address] [place] [address] Urea nitrogen [Mass/Vol] 18 mg/dL Normal 9-24 [facility] Comment on above: Order Comment: Speci men Type: BLOOD SPECIMEN Ordering Facility: [facility] Address: [address] [place], [place] [address] Performed By: #### 2 4323-8 #### [facility] CLIA [id number] [address] [place] [address] PSA SerPl-mCncon 09-13-2024 Prostate specific Ag [Mass/Vol] 11.30 ng/mL High <2.60 [facility] Comment on above: Order Comment: Speci men Type: BLOOD SPECIMEN Ordering Facility: [facility] Address: [address] [place] [address] Result Comment: Tota l PSA test methodology used is the Electrochemiluminescence Immunoassay by [employer]. Total PSA values by differing methodologies cannot be interchanged. For an individual patient, the significance of a PSA level should be interpreted in a broad clinical context, including age, race, family history, digital rectal exam, prostate size, results of prior testing (prostate biopsy, free PSA, PCA3), and use of 5-alpha reductase inhibitors. Considering the high incidence of asymptomatic cancer in the general population that may not pose an ultimate risk to a patient, the decision to recommend urological evaluation or prostate biopsy should be individualized after consideration of all these factors. REFERENCE: Alesha Cintron M.D., M.P.H., Crow Piña M.D., Ph.D., Fermin Park M.D., Lizeth Monae M.P.H., Opal Obregon, ScOtfD. Effect of Verification Bias on Screening for Prostate Cancer by Measurement of Prostatic Specific Antigen. N Engl J Med 2003,349:335-42. Performed By: #### 2 857-1 #### [facility] CLIA [id number] [address] [place] [address] STATES OF [facility] Testost SerPl-mCncon 025 Testosterone [Mass/Vol] 437 ng/dL Normal 193-824 [facility] Comment on above: Order Comment: Speci men Type: BLOOD SPECIMEN Ordering Facility: [facility] Address: [address] [place] [address] Result Comment: A te stosterone level in the 193-320 ng/dL range with associated clinical symptoms is considered low and may indicate hypogonadism (from [facility] 2010 363:123-135). Results >320 ng/dL are considered normal. Performed By: #### 2 986-8 #### [facility] CLIA [id number] [address] [place] [address] OF [facility] HPon 08-20-2024 HP ------ -- Attestation signed by Stephanie Catherine MD at 08/20/2024 10:55 AM Re-explained the procedure to the patient along with the associated risk of pneumothorax, bleeding, hypoxia, and respiratory failure. Patient is agreeable and will proceed with the scheduled bronchoscopy and EBUS Stephanie Catherine MD Interventional Pulmonary Medicine Pulmonary and Critical Care Medicine [facility] -- H&P reviewed. The patient was examined and there are no changes to the H&P. With left lower lobe lung mass growing in size undergoing bronchoscopy with biopsy and EBUS today. Risks and benefits of the procedure were explained in detail, patient is agreeable. Consent obtained Physical exam General: Not in distress HEENT: Trachea midline Pulmonary: Clear breath sounds throughout, no wheezing/crackles/rales Cardio: Normal rate and rhythm, normal S1/S2, no murmurs, no gallops, no thrills Abdomen: Not distended Extremities: No edema Normal [facility] NON-CARE SERVICES MANAGER CYTOLOGY - CELLULAR EXAMon 08-20-2024 LAB AP ADDENDUM 1 Normal [facility] Comment on above: Result Comment: 09/06 - This case ([id number]) was sent to [facility] for PD-L1 22C3 IHC with tumor proportion score (TPS) interpretation and read by Elsy Hallman MD. The result reads as follows: Tumor Proportion Score: 91-100% Adequacy of specimen: Adequate Note: The results of this assay depend on the type of primary tumor. If pulmonary origin is favored, then this study is adequate for interpretation as positive for expression of PD-L1 (Tumor Proportion Score greater than or equal to 1 percent). Otherwise, it must be noted that the predictive value of the TPS in neoplasms other than non-small cell lung cancer is uncertain and represents an off-label use of this assay. Addendum electronically signed by Austen Govea MD on 09/06/2024 at 10:45 AM Performed By: #### L AB13 ####[facility] [place] [address] LAB AP ASR DISCLAIMER The interpretation of this case included the use of immunohistochemistry or special stains. These tests have not been cleared or approved by the U.S. Food and Drug Administration. The FDA has determined that such clearance or approval is not necessary. These tests are used for clinical purposes and should not be regarded as investigational or for research. This laboratory is certified to perform high complexity testing under the Clinical Laboratory Improvement Amendments of 1998. Normal [facility] Comment on above: Performed By: #### L AB13 ####[facility] ([facility])[address] [place] [address] LAB AP CASE REPORT Normal [facility] Comment on above: Result Comment: Non- gynecologic Cytology Case: [id number] Authorizing Provider: Stephanie Catherine MD Collected: 08/20/2024 1304 Ordering Location: [facility] Main Operating Room Received: 08/20/2024 1345 Pathologist: Austen Govea MD Specimens: A) - Lymph Node, Station 4R B) - Lymph Node, Station 7 C) - Lung, Left Lower Lobe, LLL mass FNA Performed By: #### L AB13 ####[facility] ([facility])[address] [place] [address] LAB AP CLINICAL INFORMATION Left lower lobe lung mass initially discovered in 06/2023, recent imaging showed an increase in size as well as hilar/mediastinal adenopathy, 50 pack-year smoking history, history of prostate cancer Normal [facility] Comment on above: Performed By: #### L AB13 ####[facility] ([facility])[address] [place] [address] LAB AP DIAGNOSIS COMMENT Normal [facility] Comment on above: Result Comment: C. I mmunohistochemical stains performed on the cell block show the tumor is positive for CK7, TTF-1, Napsin A, and weak to moderately positive for p63. CK5/6 and PSA are negative. The controls are satisfactory. Morphologically, there are some tumor fragments in the cell block section where the neoplastic cells have dense squamoid cytoplasm, however, the staining profile is most consistent with adenocarcinoma. PD-L1 staining is pending and will be reported in an addendum. There is abundant tumor present in the cell block section for additional studies, if clinically indicated. Performed By: #### L AB13 ####[facility] ([facility])[address] [place] [address] LAB AP GROSS DESCRIPTION Normal [facility] Comment on above: Result Comment: A. 3 air-dried slides, 3 alcohol-fixed slides, 30 mL CytoLyt with hazy, red fluid and clots. B. 3 air-dried slides, 3 alcohol-fixed slides, 30 mL CytoLyt with hazy, red fluid and clots. C. 1 air-dried slide, 1 alcohol-fixed slide, 30 mL CytoLyt with cloudy, red fluid and clots. Performed By: #### L AB13 ####[facility] [place] [address] LAB AP INTRAOPERATIVE CONSULTATION Normal [facility] Comment on above: Result Comment: Dionne. Sonia ymph Node, Station 4R. Rapid on-site evaluation was performed by Estrella Wharton MD. The material examined during rapid on-site evaluation was deemed adequate for diagnosis. Pass #1: Adequate Pass #2: Adequate Pass #3: Inadequate Pass #4: Defer - cell block B. Lymph Node, Station 7. Rapid on-site evaluation was performed by Estrella Wharton MD. The material examined during rapid on-site evaluation was deemed adequate for diagnosis. Pass #1: Inadequate Pass #2: Inadequate Pass #3: Adequate Pass #4: Defer - cell block Pass #5: Defer - cell block C. Lung, Left Lower Lobe. Rapid on-site evaluation was performed by Estrella Wharton MD. The material examined during rapid on-site evaluation was deemed adequate for diagnosis. Pass #1: Adequate Pass #2: Defer - cell block Pass #3: Defer - cell block Pass #4: Defer - cell block Pass #5: Defer - cell block Pass #6: Defer - cell block *Only select material is examined during the on-site evaluation. Final diagnosis is pending the review of all material submitted.* Performed By: #### L AB13 ####[facility] [place] [address] LAB AP MICROSCOPIC DESCRIPTION Normal [facility] Comment on above: Result Comment: A. S atisfactory for evaluation. Examination of the prepared smears and cell block reveals numerous lymphocytes in a background of benign bronchial cells and blood. B. Satisfactory for evaluation. Examination of the prepared smears and cell block reveals numerous lymphocytes in a background of benign bronchial cells, macrophages, and blood. C. Satisfactory for evaluation. Examination of the prepared smears and cell block reveals an abundance of tumor cells arranged in loose aggregates with moderately abundant cytoplasm and enlarged nuclei exhibiting irregular nuclear membranes, unevenly distributed coarse chromatin, and prominent nuclei in a background of necrois and blood. Performed By: #### L AB13 ####[facility] [place] [address] LAB AP REPORT FINAL DIAGNOSIS NARRATIVE Normal [facility] Comment on above: Result Comment: A. L ymph node, station 4R, EBUS-guided fine needle aspiration: - Negative for metastatic malignancy. - Cellular evidence of a lymph node. B. Lymph node, station 7, EBUS-guided fine needle aspiration: - Negative for metastatic malignancy. - Cellular evidence of a lymph node. C. Lung, left lower lobe, EBUS-guided fine needle aspiration: - Non-small cell carcinoma, most consistent with adenocarcinoma. - See comment. Preliminary result electronically signed by Anila Blount MD on 08/29/2024 at 1:03 PM Performed By: #### L AB13 ####[facility] [place] [address] POCT GLUCOSE METER UNSOLICIT ED RESULTSon 08-20-2024 Glucose [Mass/Vol] 103 mg/dL Normal 70-105 [facility] Comment on above: Order Comment: Waive d Testing in the ED is performed under the ED CLIA certificate #[id number]. Result Comment: dhol as Performed By: #### L [id number] ####[facility] [place] [address] Prep for Procedureon 025 Prep for Procedure [id number] Chase Mackenzie 1955 M Date Provider Department Center 08/12/2024 STEPHANIE DIAZ [facility] Family History Problem Relation Age of Onset Bone cancer Mother Asthma Maternal Grandfather Asthma Paternal Grandfather Family Status - Relation Status Age at Mother Maternal Grandfather Paternal Grandfather Normal [facility] HPon 08-01-2024 HP ------ -- Attestation signed by Stephanie Catherine MD at 08/06/2024 9:26 AM Total time spent on day of [...] be an additional personal documentation from me. -- Pulmonary Tele Visit Note Patient: Ger Mackenzie Age: 69 y.o. : 1955 Account No.: [id number] Referring physician: Paulette Chief complaint: Following up on lung mass HPI Mr. Mackenzie is a 69-year-old male past medical history significant for prostatic adenocarcinoma, smoker, he had a televisit with us back on 10/19/2023 for left lower ling mass .The lesion was first discovered on 06/15/2023 PET scan, with weak uptake, and highly suspicion for primary lung cancer. At that time his clinical documentation developer recommended him to do IR robotic bronchoscopy on 06/22/[address] Vega, but patient refused. A follow-up CT with contrast on 09/23/2023 showed increase in size of the mass, bronchoscopy on 10/03/2023 was nondiagnosticafter so patient was sent to us for second opinion on 10/2023, during that visit with us patient was offered [facility] robotic bronchoscopy, but he backed up few days after. The lesion has been increasing in size on the following CAT scans, most recent on 07/26/2024, he also has some mediastinal hilar lymph nodes, he was referred back to us by Dr. Lockett for further evaluation. Patient reported today no change in his respiratory status, no wt changes and willing to proceed with biopsy Past Medical History: Diagnosis Date Mass of upper lobe of left lung Past Surgical History: Procedure Laterality Date TOTAL HIP ARTHROPLASTY Left Allergies: Patient has no known allergies. Prior to Admission medications Medication Sig Start Date End Date Taking? Authorizing Provider albuterol 90 mcg/actuation inhaler 2 puffs as needed for SOB Inhalation Q4H for 30 days 09/20/23 Yes Historical Provider, buPROPion XL (Wellbutrin XL) 150 mg 24 hr tablet 07/31/24 Yes Historical Provider, lisinopril 20 mg tablet [...] the same time. 08/22/23 Yes Historical Provider, tamsulosin (Flomax) 0.4 mg 24 hr capsule Take 0.4 mg by mouth. 07/24/24 07/19/25 Yes Historical Provider, tiotropium-olodateroL (Stiolto Respimat) 2.5-2.5 mcg/actuation mist inhaler 1 (one) time each day at the same time. 09/26/23 Yes Historical Provider, Social history: reports that he has been smoking cigarettes. He has a 50 pack-year smoking history. He does not have any smokeless tobacco history on file. Alcohol use questions deferred to the physician. Drug use questions deferred to the physician. Family History Problem Relation Name Age of Onset Bone cancer Mother Asthma Maternal Grandfather Asthma Paternal Grandfather Review of Systems: As per HPI Labs Results: No results found for: HGB , HCT , WBC , BUN , CREATININE , NA , K , BICARB , CO2 , PH , PHART , PHVEN , EUB5LXY , HUO4ZOY , EDQ2AKR , PO2POC , PO2ART , PO2VEN , WII8BEJ , FDP7ZWK Radiology: No Chest X-ray results found for the past [address] results found for the past 12 months Assessment and Plan: # Left lower lobe lung mass increasing in size # History of prostatic adenocarcinoma # Smoker Plan: -Chest CT image reviewed with the patient over the phone. LLL mass concerning for cancer, will schedule the patient for bronchoscopy + EBUS to go after the lymph node /mass. Risks and benefits of the procedure explained to the patient details. - Time to be determined We tried to call Mr. Mackenzie on 08/01/2024 (the day of the appointment) but we couldn't;t reach him, so this telemetry encounter using phone obtained on 08/02/2024 Total time spent in Medical Discussion including obtaining history from the patient, review of labs, tests with the patient, discussion of assessment and plan 30 minutes. The visit was initiated by the patient and conducted [id number] with use of audio-only real time telephone communication between patient and provider for a virtual visit. Verbal consent to provide and bill this service was obtained on: 08/02/24 No signat (more content not included)... [facility] Outside Recordson 08-01-2024 Outside Records [id number] [facility] Telemedicineon 08-01-2024 Telemedicine [id number] Chase Mackenzie 1955 [facility] Provider Department Center 08/01/2024 STEPHANIE DIAZ [facility] ONC DCC Family History Problem Relation Age of Onset Bone cancer Mother Asthma Maternal Grandfather Asthma Paternal Grandfather Family Status - Relation Status Age at Mother Maternal Grandfather Paternal Grandfather Level of Service:78913 PA OFFICE/OUTPT VISIT,PROCEDURE ONLY (GC) Reason for Visit and Comments: New Patient [632] - Please evaluate for interventional bronchoscopy. [facility] Abstracton 07-31-2024 Abstract [id number] MackenzieChase 1955 M Date Provider Department Center 07/31/2024 383-STEPHANIE CATHERINE [facility] ONC DCC Family History Problem Relation Age of Onset Bone cancer Mother Asthma Maternal Grandfather Asthma Paternal Grandfather Family Status - Relation Status Age at Mother Maternal Grandfather Paternal Grandfather Normal [facility] Outside Recordson 07-31-2024 Outside Records [id number]#1.00OTGTI FF [facility] Rad - Other Radiology Report on 07-29-2024 Rad - Other Radiology Report [id number]#1.00OTGTIF F [facility] CNPNon 07-25-2024 CNPN Telephone (NCCAP) -- GER MACKENZIE ([id number]) 1955 M Date Time Provider Department 07[facility]25/24 [facility] During your visit today, we recorded the following information about you: Shannon Minor 07/25/2024 11:24 AM Signed Currently patient is scheduled with Dr. Lewis on 08/09/24 for a new patient with prostate CA. A message was left for him to call back. This appointment will need reschedule with Dr. Fuentes. Shannon Minor 07/25/2024 11:59 AM Signed Patient returned call. Appt was rescheduled with Dr. Fuentes for 08/13/24. This was the first date that worked with the patient's and his 's schedule. Allergies As of Date: 07/25/2024 (Not on File) Date Reviewed: Never Reviewed Problem List As Of Date: 07/25/2024 (None) Encounter Status:Closed by SHANNON MINOR on 07/25/24 [facility] Urology Office/Clinic Noteon 07-24-2024 Urology Office/Clinic Note Urology Office/Clinic Note Chief Complaint discus RALP HPI Staff 69yr old male pt here to discuss RALP. S/p TRUS/bx 05/18/23. PSMA PET/PET 06/15/24 Previous Dx: prostate cancer, lung nodule, BPH with urinary obstruction *Flomax 0.4mg qd PSA 06/22/24 - 11.39 pt and states they were going through [facility] and did not like it so they switched to our office. pt did see Dr Crowley. Basically they would like to take care [...] this patient from external providers and Dr. Crowley and external providers I have reviewed and [...] prostate cancer. Pt was following with Dr. Villa out of [place], preferred new provider Pt accompanied by today, she works at [employer]. No prior abdominal surgeries. Denies hx [place], stroke or DM MELE 13 - not a priority 1. Prostate cancer (C61: Malignant neoplasm of prostate) PSA. 02/23/23- 7.43 04/15/23 - 9.60 08/19/23 - 9.55 02/06/24 - 9.91 04/20/24 - 10.15 06/22/24 - 11.39 Mother had breast cancer. MALISSA by Dr. Alvarez 07/25/22: 60+g, intermediate left lateral nodule. MRI prostate 09/10/22 [facility] - Two lesions PI-RADS 5. Involvement of the posterior prostatic capsule. S/p TRUS/bx 05/18/23 - Colerain 7 (4+3) Bilateral apex and L mid. [...] and open approaches. I showed him the [facility] nomogram which estimates his risk of organ [...] of radiatio (more content not included)... Normal [facility] Comment on above: Result Comment: Elec tronically Signed By: Bettye Lloyd MD\.br\Date and Time Signed: 07/24/24 16:36 EST\.br\Electronically Co-Signed By: Miriam Saba\.br\Date and Time Co-Signed: 07/24/24 10:17 EST Ambulatory Visit Summaryon 0 07-03-2024 Ambulatory Visit Summary Ambulatory Visit Summary GER MACKENZIE :1955 Visit Date:07/03/2024 Ambulatory Visit Instructions Your Diagnosis Prostate cancer Lung nodule BPH with urinary obstruction Your Care Team Attending Physician - Essence CROWLEY MD Primary Care Physician - NONE, XXXX This [...] Schedule the Following Appointments Follow Up with Essence CROWLEY MD, URL When: Where: [facility] [employer] [address] [place] [phone] Will Contact You Regarding These Appointments [facility] External Ambulatory Referral, Other Referral, Dr. Fuentes @ [facility], 07/03/24 14:30:00 EST, Prostate cancer Medications What [...] Prostate can (more content not included)... Normal [facility] Urology Office/Clinic Noteon 07-03-2024 Urology Office/Clinic Note Urology Office/Clinic Note Chief Complaint New Pt. HPI Staff 69 year old male new patient here to discuss elevated psa flomax 0.4mg qd Patient does have a 6x4 cm lung nodule being followed by DR. Lockett- repeat ct w/contrast due mid Jul 2024 Prostate bx 05/18/[address] Miguel at [facility]- 5 cores positive, Colerain 4+3=7 PSMA 06/15/23 IPSS 9 PSA 04/15/23- [...] Pt has been following with Dr. Daisy christianson of [place]. Pt accompanied by today, she works at [employer]. Portions of this record may have been created with voice recognition artificial intelligence software, specifically [employer] and or [employer]. Substitutions may have occurred due to the inherent limitations of voice recognition and artificial intelligence software. 1. Prostate cancer (C61: Malignant neoplasm of prostate) PSA. 02/23/23- 7.43 04/15/23 - 9.60 08/19/23 - 9.55 02/06/24 - 9.91 04/20/24 - 10.15 06/22/24 - 11.39 Mother had breast cancer. MRI of prostate 09/10/22 [facility] - Two lesions PI-RADS 5. Involvement of the posterior prostatic capsule. S/p TRUS/bx 05/18/23 - Niles 7 (4+3) Bilateral disease. Grade group 3. 5/12 cores. PSMA PET/PET 06/15/24 [facility] - small focus of activity in the [...] to consult with a radiation oncologist, Dr. Fuentes or Dr. Villaseñor. Also discussed referral to discuss RALP, locally or [facility]. We also discussed the possible need of repeating biopsy since it has been over a year. Will have pt meet with Dr. Lloyd and Dr. Fuentes first. -Schedule appt with Dr. Lloyd to discuss RALP -Referral placed to Dr. Fuentes at [facility] 2. Lung nodule (R91.1: Solitary pulmonary nodule) PSMA PET/PET 06/15/24 [facility] - Mild PSMA activity associated with a 5.7 cm bilobed mass in the left lower lobe. This is unlikely to be related to prostate cancer, but is concerning for primary lung cancer. Following with Dr. Lockett. CT due 07/2024. 3. BPH with urinary obstruction (N40.1: Benign prostatic hyperplasia with lower urinary tract symptoms) MRI of prostate 09/10/22 [facility] - prostate volume 70.3 mL. UA today negative for blood or infection. IPSS 9. Taking Flomax 0.4mg qd through external provider. Summary is that this patient had adenocarcinoma the prostate, Niles 4+3 equal 7 diagnosed over a year ago. He had postbiopsy c (more content not included)... Normal [facility] Comment on above: Result Comment: Elec tronically Signed By: Essence CROWLEY MD\.br\Date and Time Signed: 07/03/24 14:35 EST\.br\Electronically Co-Signed By: Tammie Weathers\.br\Date and Time Co-Signed: 07/03/24 14:32 EST Outside Recordson 05-13-2024 Outside Records [id number]#1.00OTGTIF F [facility] Rad - Other Radiology Report on 04-25-2024 Rad - Other Radiology Report [id number]#1.00OTGTIF [facility] Lab - Other Lab Resultson Lab - Other Lab Results [id number]#1.00OTGTI [facility] Lab - Other Lab Results [id number]#1.00OTGTI [facility] Outside Recordson 02-01-2024 Outside Records [id number]#1.[facility] - Other Radiology Report on 01-16-2024 Rad - Other Radiology Report [id number]#1.00[facility] Outside Recordson 10-25-2023 Outside Records [id number]#1.00[facility] Telephoneon 10-23-2023 Telephone [id number] Chase Mackenzie wander Scott 1955 M Date Provider Department Center 10/23/2023 ROMEO URBAN ONC DCC Family History Problem Relation Age of Onset Bone cancer Mother Asthma Maternal Grandfather Asthma Paternal Grandfather Family Status - Relation Status Age at Mother Maternal Grandfather Paternal Grandfather Normal [facility] Lab - Other Lab Resultson Lab - Other Lab Results [id number]#1.00OTGTIFF Normal [facility] Telemedicineon 10-19-2023 Telemedicine [id number] Chase Mackenzie wander L 1955 M Date Provider Department Center 10/19/2023 STEPHANIE DIAZ [facility] ONC [facility] Family History Problem Relation Age of Onset Bone cancer Mother Asthma Maternal Grandfather Asthma Paternal Grandfather Family Status - Relation Status Age at Mother Maternal Grandfather Paternal Grandfather Level of Service:98803 PA PHYS/QHP TELEPHONE EVALUATION 21-30 MIN () Reason for Visit and Comments: New Patient [632] - 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 CT DONE 09-23-23. PET DONE 06-15-23 FIL[facility] in [facility] BRONCH WAS DONE 10-18-2023. ALL IN MEDIA Normal [facility] Orders Onlyon 10-18-2023 Orders Only [id number] Chase Mackenzie wander L 1955 M Date Provider Department Center 10/18/2023 QUINTON ARIAS ONC [facility] Family History Problem Relation Age of Onset Bone cancer Mother Asthma Maternal Grandfather Asthma Paternal Grandfather Family Status - Relation Status Age at Mother Maternal Grandfather Paternal Grandfather Normal [facility] Body fluid differential cell countOrdered By: Deric Lockett on 10-03-2023 Differential panel (Body fld) 5 % [facility] Comment on above: The reference interv al and other method performance specifications have not been established for this body fluid. The test result must be integrated into the clinical context for interpretation. Cell Count/Diff, Fluidon Appearance, Fluid Hazy Normal [facility] Comment on above: Order Comment: Body Fluid Source: Other (Name in the Site) Body Fluid Site: LEFT LOWER LOBE LAVAGE Result Comment: The reference interval and other method performance specifications have not been established for this body fluid. The test result must be integrated into the clinical context for interpretation. Performed By: #### F LCCDIFF #### [address] Color, Fluid Colorless Normal [facility] Comment on above: Order Comment: Body Fluid Source: Other (Name in the Site) Body Fluid Site: LEFT LOWER LOBE LAVAGE Result Comment: The reference interval and other method performance specifications have not been established for this body fluid. The test result must be integrated into the clinical context for interpretation. Performed By: #### F LCCDIFF #### [address] Color, Fluid Supernatant Colorless Normal [facility] Comment on above: Order Comment: Body Fluid Source: Other (Name in the Site) Body Fluid Site: LEFT LOWER LOBE LAVAGE Result Comment: The reference interval and other method performance specifications have not been established for this body fluid. The test result must be integrated into the clinical context for interpretation. Performed By: #### F LCCDIFF #### [address] Comment, Fluid Normal [facility] Comment on above: Order Comment: Body Fluid Source: Other (Name in the Site) Body Fluid Site: LEFT LOWER LOBE LAVAGE Result Comment: Body fluid is partially clotted and/or cell clumps or debris are present. Fluid cell count and differential results may not be reliable. Clinical correlation is recommended. PERFORMED BY: [place] [address] PATHOLOGIST TILE SHADER HEMA GOULD M.D. Performed By: #### F LCCDIFF #### [address] Eosinophils, Fluid 0 /100{WBC} Normal 0-3 [facility] Comment on above: Order Comment: Body Fluid Source: Other (Name in the Site) Body Fluid Site: LEFT LOWER LOBE LAVAGE Performed By: #### F LCCDIFF #### [address] Lymphocytes, Fluid 2 % Normal [facility] Comment on above: Order Comment: Body Fluid Source: Other (Name in the Site) Body Fluid Site: LEFT LOWER LOBE LAVAGE Result Comment: The reference interval and other method performance specifications have not been established for this body fluid. The test result must be integrated into the clinical context for interpretation. Performed By: #### F LCCDIFF #### [place] [address] [place] Monocytes/Macrophages , Fluid 5 % Normal [facility] Comment on above: Order Comment: Body Fluid Source: Other (Name in the Site) Body Fluid Site: LEFT LOWER LOBE LAVAGE Result Comment: The reference interval and other method performance specifications have not been established for this body fluid. The test result must be integrated into the clinical context for interpretation. Performed By: #### F LCCDIFF #### [facility] [address] [id number] [facility] Neutrophil, Fluid 93 % Normal [facility] Comment on above: Order Comment: Body Fluid Source: Other (Name in the Site) Body Fluid Site: LEFT LOWER LOBE LAVAGE Result Comment: The reference interval and other method performance specifications have not been established for this body fluid. The test result must be integrated into the clinical context for interpretation. Performed By: #### F LCCDIFF #### [facility] [address] [id number] [facility] RBC, Fluid 735 /uL Normal [facility] Comment on above: Order Comment: [...] interpretation. Performed By: #### F LCCDIFF #### [facility] [address] [id number] [facility] TNC, Body Fluid 525 /uL Normal [facility] Comment on above: Order Comment: [...] interpretation. Performed By: #### F LCCDIFF #### [facility] [address] [id number] [facility] Color of Spun Body fluidOrde red By: Deric Lockett on 10-03-2023 Color (Spun body fld) Colorless [facility] Comment on above: The reference interv al and other method performance specifications have not been established for this body fluid. The test result must be integrated into the clinical context for interpretation. Determination of appearance of body fluidOrdered By: Deric Lockett on 10-03-2023 Appearance (Body fld) Hazy [facility] Comment on above: The reference interv al and other method performance specifications have not been established for this body fluid. The test result must be integrated into the clinical context for interpretation. Evaluation of color of body fluidOrdered By: Deric Lockett on 10-03-2023 Color (Body fld) Colorless [facility] Comment on above: The reference interv al and other method performance specifications have not been established for this body fluid. The test result must be integrated into the clinical context for interpretation. Gordon 10-03-2023 L Specimen: [id number] Received: 10/04/23 Status: FRED Fleming Num: [id number] Spec Type: Surgical Subm Dr: Deric Lokcett DO Tissues: A Lung - Transbroncial Biopsy (LT LOWER LOBE BX) Procedures: HE/2, Gross/Micro L4 Age/ Patient Sex Location Account Attending Physician Ger Mackenzie 68/M [facility] [id number] Deric Lockett DO SPEC NUM: [id number] RECD: 10/04/23 STATUS: FRED FLEMING NUM: [id number] ARSH: 10/03/[address]: Deric Lockett DO ENTERED: 10/04/23 [facility] DR: Nadine,Ajay SPEC TYPE: Surgical DEPT: [facility] ORDERED: [...] of mucus, no endometrial lesions. CPT Codes 51765 Specimen: [id number] Received: 10/04/23 Status: FRED Fleming Num: [id number] Spec Type: Surgical Subm Dr: Deric Lockett DO Tissues: A Lung - Transbroncial Biopsy (LT LOWER LOBE BX) Procedures: HE/2, Gross/Micro L4 Patient: Ger Mackenzie [id number] (Continued) Signed (signature on file) Stephanie Jackson MD 10/05/23 1636 [facility] L Specimen: Received: 10/05/23 Status: FRED Fleming Num: [id number] Spec Type: Cytology Subm Dr: Deric Lockett DO Tissues: A [facility] ([facility]) Procedures: HE/2, Gross/Micro L4, Cyto Prepstain, PAPSTN Age/ Patient Sex Location Account Attending Physician Ger Mackenzie Sonia 68/M [facility] [id number] Deric Lockett DO SPEC NUM: [id number] RECD: 10/05/23 STATUS: FRED FLEMING NUM: [id number] ARSH: 10/03/23- SUBM DR: Deric Lockett DO ENTERED: 10/05/[address]: Ajay Mccoy SPEC TYPE: Cytology DEPT: [facility] ENTERED BY: [id number] RECV BY: [id number] ORDERED: HE/2, Gross/Micro L4, Cyto Prepstain, PAPSTN [...] are prepared. 1 cell blocks are prepared. (NC/fl) CPT Codes 06711, 27404 Specimen: [id number] Received: 10/05/23 Status: FRED Fleming Num: [id number] Spec Type: Cytology Subm Dr: Deric Lockett DO Tissues: A [facility] ([facility]) Procedures: HE/2, Gross/Micro L4, Cyto Prepstain, PAPSTN Patient: Ger Mackenzie [id number] (Continued) Signed (signature on file) Snehal Acosta MD 10/08/232007 Normal [facility] Manual body fluid eosinophil s/100 leukocytesOrdered By: Deric Lockett on 10-03-2023 Eosinophils/100 WBC Manual cnt (Body fld) 0 /100{WBC} 0-3 [facility] Manual body fluid erythrocyt es count (number/volume)Ordered By: Deric Lockett on 10-03-2023 RBC Manual cnt (Body fld) [#/Vol] 735 /uL [facility] Comment on above: Body fluid is partia [...] cnt (Body fld) 2 % [facility] Comment on above: The reference interv al and other method performance specifications have not been established for this body fluid. The test result must be integrated into the clinical context for interpretation. Neutrophils/100 WBC Manual c nt (Body fld)Ordered By: Deric Lockett on 10-03-2023 Neutrophils/100 WBC (Body fld) 93 % [facility] Comment on above: The reference interv al and other method performance specifications have not been established for this body fluid. The test result must be integrated into the clinical context for interpretation. No Panel InformationOrdered By: Deric Lockett on 10-03-2023 Body Fluid Comment See comment [facility] Comment on above: Body fluid is partia lly clotted and/or cell clumps or debris are present. Fluid cell count and differential results may not be reliable. Clinical correlation is recommended. Body Fluid Total Nucleated Cells 525 /uL [facility] Comment on above: Body fluid is partia lly clotted and/or cell clumps or debris are present. Fluid cell count and differential results may not be reliable. Clinical correlation is recommended.The reference interval and other method performance specifications have not been established for this body fluid. The test result must be integrated into the clinical context for interpretation. Outside Recordson 09-28-2023 Outside Records [id number]#1.00OTGTI [facility] Outside Recordson 09-27-2023 Outside Records [id number]#1.00OTGTIFF [facility] PET CT TUMOR IMAGE SKULL THI [...] Deric Hernández MD 06/15/23 Final result Normal [facility] Surgical Pathology Reporton 05-18-2023 Surgical Pathology Report (NOTE) Path Number: [id number] -- Diagnosis -- A. PROSTATE, LB, NEEDLE [...] Findings: PROSTATE BIOPSY X 12 Operation Performed: PA PROSTATE NEEDLE BIOPSY ANY APPROACH kb Source [...] seen in intradepartmental consultation (FRANKLYN) for quality systems specialist purposes. Processing Lab: [facility] [address] [place] [address] Interpretation Performed at [facility] [address] [place], [place] SURGICAL PATHOLOGY CONSULTATION Patient Name: GER MACKENZIE [facility] Rec: [id number] [facility] ANATOMIC PATHOLOGY [address] [place], [place] [address] Normal [facility] PSA, Diagnosticon 04-15-2023 Prostatic Spec. Ag 9.60 ng/mL High <4.1 [facility] Comment on above: Result Comment: The Ion ECLIA assay is used. Results obtained with different assay methods cannot be used interchangeably. Performed By: #### P SAD #### [address] [address] [place] Treating Assistant: Delon Rizzo MD Cult,Urineon 02-24-2023 Cult,Urine Specimen Description .CLEAN CATCH URINE Culture NO GROWTH Report Status FINAL 02/24/2023 [facility] Comment on above: Performed By: #### U RC #### [address] [address] [place] Treating Assistant: Delon Rizzo MD [facility] [address] [place] [address] [place] [address] [place] Treating Assistant: Juan Carlos Eisenberg MD PSA, Screeningon 02-24-2023 Prostatic Spec. Ag 7.43 ng/mL High <4.1 [facility] Comment on above: Result Comment: The Ion ECLIA assay is used. Results obtained with different assay methods cannot be used interchangeably. Performed By: #### C P, CDP #### [facility] [address] [place] [address] [place] Treating Assistant: Juan Carlos Eisenberg MD #### PSAS #### [facility] [address] [place] [address] [place] Treating Assistant: Delon Rizzo MD CBC with Auto Differentialon 02-23-2023 Basophils (Bld) [#/Vol] 0.07 10*3/uL [facility] Basophils/100 WBC (Bld) 1 % 0 - 2 % [facility] Eosinophils (Bld) [#/Vol] 0.11 10*3/uL [facility] Eosinophils/100 WBC (Bld) 1 % 1 - 4 % [facility] Erythrocyte distribution width (RBC) [Ratio] 12.1 % 11.8 - 14.4 % [facility] Hematocrit (Bld) [Volume fraction] 47.1 % 40.7 - 50.3 % [facility] Hemoglobin (Bld) [Mass/Vol] 16.6 g/dL 13.0 - 17.0 g/dL [facility] Immature granulocytes (Bld) [#/Vol] 0.03 10*3/uL [facility] Immature granulocytes/100 WBC (Bld) 0 % 0 [facility] Interpretation and review of laboratory results Abnormal [facility] Lymphocytes/100 WBC (Bld) 19 % Low 24 - 43 % [facility] Lymphocytes/100 WBC (Bld) 1.46 % [facility] MCH (RBC) [Entitic mass] 33.9 pg High 25.2 - 33.5 pg [facility] MCHC (RBC) [Mass/Vol] 35.2 g/dL High 28.4 - 34.8 g/dL [facility] MCV (RBC) [Entitic vol] 96.1 fL 82.6 - 102.9 fL [facility] Monocytes/100 WBC (Bld) 7 % 3 - 12 % [facility] Monocytes/100 WBC (Bld) 0.52 % [facility] Neutrophils/100 WBC (Bld) 72 % High 36 - 65 % [facility] Nucleated RBC/100 WBC (Bld) [Ratio] 0.0 % 0.0 per 100 WBC [facility] Platelet mean volume (Bld) [Entitic vol] 10.2 fL 8.1 - 13.5 fL [facility] Platelets (Bld) [#/Vol] 206 10*3/uL [facility] RBC (Bld) [#/Vol] 4.90 10*6/uL 4.21 - 5.7 7 m/uL [facility] Segmented neutrophils/100 WBC (Bld) 5.44 % [facility] WBC other (Bld) [#/Vol] 7.6 [facility] CBC with Diffon 02-23-2023 Abs. Basophil 0.07 k/uL Normal 0.00-0.20 [facility] Comment on above: Performed By: #### C P, CDP #### [facility] [address] [place] [address] [address] [place] [place] [id number] [place] Treating Assistant: Juan Carlos Eisenberg MD #### PSAS #### [address] [address] [place] Treating Assistant: Delon Rizzo MD Abs.Imm.Granulocyte 0.03 k/uL Normal 0.00-0.30 [facility] Comment on above: Performed By: #### C P, CDP #### [address] [place] [id number] [place] Treating Assistant: Juan Carlos Eisenberg MD #### PSAS #### [address] [address] [place] Treating Assistant: Delon Rizzo MD Abs.Neutrophil (Seg) 5.44 k/uL Normal 1.50-8.10 [facility] Comment on above: Performed By: #### C P, CDP #### [address] [place], [place] [id number] Starch Treating Assistant: Juan Carlos Eisenberg MD #### PSAS #### [address] [phone] Starch Treating Assistant: Delon Rizzo MD Basophils/100 WBC (Bld) 1 % Normal 0-2 [facility] Comment on above: Performed By: #### C P, CDP #### [facility] [address] [place] [address] [place] [phone] [employer] Treating Assistant: Juan Carlos Eisenberg MD #### PSAS #### [address] [address] Starch Treating Assistant: Delon Rizzo MD Eosinophils (Bld) [#/Vol] 0.11 10*3/uL Normal 0.00-0.44 [facility] Comment on above: Performed By: #### C P, CDP #### [address] [place] [phone] [employer] Treating Assistant: Juan Carlos Eisenberg MD #### PSAS #### [address] [address] Starch Treating Assistant: Delon Rizzo MD Eosinophils/100 WBC (Bld) 1 % Normal 1-4 [facility] Comment on above: Performed By: #### C P, CDP #### [address] [place] [phone] Starch Treating Assistant: Juan Carlos Eisenberg MD #### PSAS #### [address] [address] Starch Treating Assistant: Delon Rizzo MD Erythrocyte distribution width (RBC) [Ratio] 12.1 % Normal 11.8-14.4 [facility] Comment on above: Performed By: #### C P, CDP #### [address] [place] [phone] [employer] Treating Assistant: Juan Carlos Eisenberg MD #### PSAS #### [address] [address] Starch Treating Assistant: Delon Rizzo MD Hematocrit (Bld) [Volume fraction] 47.1 % Normal 40.7-50.3 [facility] Comment on above: Performed By: #### C P, CDP #### [facility] [address] [place] [phone] [employer] Treating Assistant: Juan Carlos Eisenberg MD #### PSAS #### [address] [phone] Starch Treating Assistant: Delon Rizzo MD Hemoglobin (Bld) [Mass/Vol] 16.6 g/dL Normal 13.0-17.0 [facility] Comment on above: Performed By: #### C P, CDP #### [facility] [address] [place] [phone] Starch Treating Assistant: Juan Carlos Eisenbegr MD #### PSAS #### [address] [phone] Starch Treating Assistant: Delon Rizzo MD Immature granulocytes/100 WBC (Bld) 0 % Normal 0 [facility] Comment on above: Performed By: #### C P, CDP #### [facility] [address] [place] [phone] [employer] Treating Assistant: Juan Carlos Eisenberg MD #### PSAS #### [address] [address] Starch Treating Assistant: Delon Rizzo MD Lymphocytes (Bld) [#/Vol] 1.46 10*3/uL Normal 1.10-3.70 [facility] Comment on above: Performed By: #### C P, CDP #### [facility] [address] [place], [place] [phone] [employer] Treating Assistant: Juan Carlos Eisenberg MD #### PSAS #### [address] [address] Starch Treating Assistant: Delon Rizzo MD Lymphocytes/100 WBC (Bld) 19 % Low 24-43 [facility] Comment on above: Performed By: #### C P, CDP #### [facility] [address] [address] [employer] Treating Assistant: Juan Carlos Eisenberg MD #### PSAS #### [place] [address] [place], [place] [phone] Starch Treating Assistant: Delon Rizzo MD MCH (RBC) [Entitic mass] 33.9 pg High 25.2-33.5 [facility] Comment on above: Performed By: #### C P, CDP #### [facility] [address] [address] [employer] Treating Assistant: Juan Carlos Eisenberg MD #### PSAS #### [place] [address] [place], [place] [phone] Starch Treating Assistant: Delon Rizzo MD MCHC (RBC) [Mass/Vol] 35.2 g/dL High 28.4-34.8 [facility] Comment on above: Performed By: #### C P, CDP #### [facility] [address] [place] [phone] St[employer] Treating Assistant: Juan Carlos Eisenberg MD #### PSAS #### [place] [address] [place], [place] 1693808 Starch Treating Assistant: Delon Rizzo MD MCV (RBC) [Entitic vol] 96.1 fL Normal 82.6-102.9 [facility] Comment on above: Performed By: #### C P, CDP #### [facility] [address] [place], [place] [phone] [employer] Treating Assistant: Juan Carlos Eisenberg MD #### PSAS #### [address] [address] Starch Treating Assistant: Delon Rizzo MD Monocytes (Bld) [#/Vol] 0.52 10*3/uL Normal 0.10-1.20 [facility] Comment on above: Performed By: #### C P, CDP #### [facility] [address] [place], [place] [phone] [employer] Treating Assistant: Juan Carlos Eisenberg MD #### PSAS #### [address] [address] Starch Treating Assistant: Delon Rizzo MD Monocytes/100 WBC (Bld) 7 % Normal 3-12 [facility] Comment on above: Performed By: #### C P, CDP #### [facility] [address] [place] 1475283 [employer] Treating Assistant: Juan Carlos Eisenberg MD #### PSAS #### [address] [address] Starch Treating Assistant: Delon Rizzo MD Neutrophil (Seg) 72 % High 36-65 [facility] Comment on above: Performed By: #### C P, CDP #### [address] [place], [place] 7635083 [employer] Treating Assistant: Juan Carlos Eisenberg MD #### PSAS #### [address] [address] Starch Treating Assistant: Delon Rizzo MD NRBC Automated 0.0 per 100 WBC Normal 0.0 [facility] Comment on above: Performed By: #### C P, CDP #### [facility] [address] [place] [address] [place] [address] [employer] Treating Assistant: Juan Carlos Eisenberg MD #### PSAS #### [address] [address] Starch Treating Assistant: Delon Rizzo MD Platelet mean volume (Bld) [Entitic vol] 10.2 fL Normal 8.1-13.5 [facility] Comment on above: Performed By: #### C P, CDP #### [facility] [address] [place] [address] Dr. [place] [phone] [employer] Treating Assistant: Juan Carlos Eisenberg MD #### PSAS #### [place] [address] [place], [place] [phone] Starch Treating Assistant: Delon Rizzo MD Platelets (Bld) [#/Vol] 206 10*3/uL Normal 138-453 [facility] Comment on above: Performed By: #### C P, CDP #### [address] [place] [phone] St[employer] Treating Assistant: Juan Carlos Eisenberg MD #### PSAS #### [place] [phone] Starch Treating Assistant: Delon Rizzo MD RBC (Bld) [#/Vol] 4.90 10*6/uL Normal 4.21-5.77 [facility] Comment on above: Performed By: #### C P, CDP #### [address] [place] [phone] Starch Treating Assistant: Juan Carlos Eisenberg MD #### PSAS #### [place] [phone] Starch Treating Assistant: Delon Rizzo MD WBC (Bld) [#/Vol] 7.6 10*3/uL Normal 3.5-11.3 [facility] Comment on above: Performed By: #### C P, CDP #### [address] [place] [phone] St[employer] Treating Assistant: Juan Carlos Eisenberg MD #### PSAS #### [address] [phone] Starch Treating Assistant: Delon Rizzo MD Comp Metabolic Profon 2022 Albumin [Mass/Vol] 4.4 g/dL Normal 3.5-5.2 [facility] Comment on above: Performed By: #### C P, CDP #### [address] [place], [place] [phone] St[employer] Treating Assistant: Juan Carlos Eisenberg MD #### PSAS #### [address] [address] Starch Treating Assistant: Delon Rizzo MD Albumin/Glob Ratio 1.3 Normal 1.0-2.5 [facility] Comment on above: Performed By: #### C P, CDP #### [facility] [address] [place], [place] [phone] [employer] Treating Assistant: Juan Carlos Eisenberg MD #### PSAS #### [address] [address] Starch Treating Assistant: Delon Rizzo MD Alkaline Phos 91 U/L Normal 40-129 [facility] Comment on above: Performed By: #### C P, CDP #### [facility] [address] [place] [address] Dr. [place] [phone] ( Starch Treating Assistant: Juan Carlos Eisenberg MD #### PSAS #### [address] [address] Starch Treating Assistant: Delon Rizzo MD ALT [Catalytic activity/Vol] 42 U/L High 5-41 [facility] Comment on above: Performed By: #### C P, CDP #### [facility] [address] [place] [address] [employer] Treating Assistant: Juan Carlos Eisenberg MD #### PSAS #### [address] [address] Starch Treating Assistant: Delon Rizzo MD Anion gap [Moles/Vol] 9 mmol/L Normal 9-17 [facility] Comment on above: Performed By: #### C P, CDP #### [facility] [address] [address] Starch Treating Assistant: Juan Carlos Eisenberg MD #### PSAS #### [address] [address] Starch Treating Assistant: Delon Rizzo MD AST [Catalytic activity/Vol] 27 U/L Normal <40 [facility] Comment on above: Performed By: #### C P, CDP #### [facility] [address] [place], [place] 2200083 Starch Treating Assistant: Juan Carlos Eisenberg MD #### PSAS #### [address] [address] Starch Treating Assistant: Delon Rizzo MD Bilirubin [Mass/Vol] 0.6 mg/dL Normal 0.3-1.2 [facility] Comment on above: Performed By: #### C P, CDP #### [address] [place], [place] 1111583 St[employer] Treating Assistant: Juan Carlos Eisenberg MD #### PSAS #### [address] [address] Starch Treating Assistant: Delon Rizzo MD BUN/CRE Ratio 21 High 9-20 [facility] Comment on above: Performed By: #### C P, CDP #### [address] [place], [place] [phone] Starch Treating Assistant: Juan Carlos Eisenberg MD #### PSAS #### [address] [address] Starch Treating Assistant: Delon Rizzo MD Calcium [Mass/Vol] 9.3 mg/dL Normal 8.6-10.4 [facility] Comment on above: Performed By: #### C P, CDP #### [address] [place], [place] [phone] Starch Treating Assistant: Juan Carlos Eisenberg MD #### PSAS #### [address] [address] Starch Treating Assistant: Delon Rizzo MD Chloride [Moles/Vol] 106 mmol/L Normal 98-107 [facility] Comment on above: Performed By: #### C P, CDP #### [facility] [address] [address] Starch Treating Assistant: Juan Carlos Eisenberg MD #### PSAS #### [place] [address] [place], [place] 1098808 Starch Treating Assistant: Delon Rizzo MD CO2 [Moles/Vol] 28 mmol/L Normal 20-31 [facility] Comment on above: Performed By: #### C P, CDP #### [facility] [address] [address] Starch Treating Assistant: Juan Carlos Eisenberg MD #### PSAS #### [address] [phone] Starch Treating Assistant: Delon Rizzo MD Creatinine [Mass/Vol] 1.0 mg/dL Normal 0.7-1.2 [facility] Comment on above: Performed By: #### C P, CDP #### [facility] [address] [place] [address] Starch Treating Assistant: Juan Carlos Eisenberg MD #### PSAS #### [address] [phone] Starch Treating Assistant: Delon Rizzo MD GFR/1.73 sq M.predicted among non-blacks MDRD (S/P/Bld) [Vol rate/Area] mL/min/{1.73_m2} Normal >60 [facility] Comment on above: Result Comment: These [...] Performed By: #### C P, CDP #### [address] [place], [place] 7663783 Starch Treating Assistant: Juan Carlos Eisenberg MD #### PSAS #### [address] [address] Starch Treating Assistant: Delon Rizzo MD Glucose [Mass/Vol] 84 mg/dL Normal 70-99 [facility] Comment on above: Performed By: #### C P, CDP #### [address] [place], [place] [phone] Starch Treating Assistant: Juan Carlos Eisenberg MD #### PSAS #### [address] [address] Starch Treating Assistant: Delon Rizzo MD Potassium [Moles/Vol] 4.4 mmol/L Normal 3.7-5.3 [facility] Comment on above: Performed By: #### C P, CDP #### [address] [place], [place] 4812383 Starch Treating Assistant: Juan Carlos Eisenberg MD #### PSAS #### [address] [address] Starch Treating Assistant: Delon Rizzo MD Protein [Mass/Vol] 7.8 g/dL Normal 6.4-8.3 [facility] Comment on above: Performed By: #### C P, CDP #### [address] [place], [place] 1345783 Starch Treating Assistant: Juan Carlos Eisenberg MD #### PSAS #### [address] [address] Starch Treating Assistant: Delon Rizzo MD Sodium [Moles/Vol] 143 mmol/L Normal 135-144 [facility] Comment on above: Performed By: #### C P, CDP #### [address] [place], [place] [phone] Starch Treating Assistant: Juan Carlos Eisenberg MD #### PSAS #### [facility] [address] [place], [place] [phone] Starch Treating Assistant: Delon Rizzo MD Urea nitrogen [Mass/Vol] 21 mg/dL Normal 8-23 [facility] Comment on above: Performed By: #### C P, CDP #### [facility] [address] [place] [address] Starch Treating Assistant: Juan Carlos Eisenberg MD #### PSAS #### [facility] [address] [place], [place] 1300108 Starch Treating Assistant: Delon Rizzo MD [facility] Metabolic Pane [facility] 02-23-2023 Albumin [Mass/Vol] 4.4 g/dL 3.5 - 5.2 g/dL [facility] Albumin/Globulin [Mass ratio] 1.3 {ratio} 1.0 - 2.5 [facility] ALP [Catalytic activity/Vol] 91 U/L 40 - 129 U/L [facility] ALT [Catalytic activity/Vol] 42 U/L High 5 - 41 U/L [facility] Anion gap [Moles/Vol] 9 mmol/L 9 - 17 mmol/L [facility] AST [Catalytic activity/Vol] 27 U/L NINF - 40 U/L [facility] Bilirubin [Mass/Vol] 0.6 mg/dL 0.3 - 1 .2 mg/dL [facility] Calcium [Mass/Vol] 9.3 mg/dL 8.6 - 10. 4 mg/dL [facility] Chloride [Moles/Vol] 106 mmol/L 98 - 10 7 mmol/L [facility] CO2 [Moles/Vol] 28 mmol/L 20 - 31 mmol/L [facility] Creatinine [Mass/Vol] 1.0 mg/dL 0.7 - 1.2 mg/dL [facility] GFR/1.73 sq M.predicted MDRD (S/P/Bld) [Vol rate/Area] - PINF [facility] Comment on above: These results are [...] [Mass/Vol] 84 mg/dL 70 - 99 mg/dL [facility] Interpretation and review of laboratory results Abnormal [facility] Potassium [Moles/Vol] 4.4 mmol/L 3.7 - 5.3 mmol/L [facility] Protein [Mass/Vol] 7.8 g/dL 6.4 - 8.3 g/dL [facility] Sodium [Moles/Vol] 143 mmol/L 135 - 144 mmol/L [facility] Urea nitrogen [Mass/Vol] 21 mg/dL 8 - 23 mg/dL [facility] Urea nitrogen/Creatinine [Mass ratio] 21 mg/mg High 9 - 20 [facility] Urinalysis w/ Microon 2022 Bilirubin, SemiQt,Ur Negative Normal NEG [facility] Comment on above: Performed By: #### U AMIC #### [facility] [address] [place] [address] [place] [address] Starch Treating Assistant: Juan Carlos Eisenberg MD Blood, Urine Negative Normal NEG [facility] Comment on above: Performed By: #### U AMIC #### [facility] [address] [place] [address] Starch Treating Assistant: Juan Carlos Eisenberg MD Clarity (U) Clear Normal CLEAR [facility] Comment on above: Performed By: #### U AMIC #### [facility] [address] [place] [address] [place] [address] Starch Treating Assistant: Juan Carlos Eisenberg MD Color (U) Yellow Normal YEL [facility] Comment on above: Performed By: #### U AMIC #### [facility] [address] [place] [phone] Starch Treating Assistant: Juan Carlos Eisenberg MD Epithelial cells LM Ql (Urine sed) None Normal 0-5 [facility] Comment on above: Performed By: #### U AMIC #### [facility] [address] [place], [place] 6302783 Starch Treating Assistant: Juan Carlos Eisenberg MD Glucose Ql (U) Negative Normal NEG [facility] Comment on above: Performed By: #### U AMIC #### [facility] [address] [place], [place] 1857683 Starch Treating Assistant: Juan Carlos Eisenberg MD Ketones Ql (U) Negative Normal NEG [facility] Comment on above: Performed By: #### U AMIC #### [facility] [address] [place], [place] 1722083 Starch Treating Assistant: Juan Carlos Eisenberg MD Leukocyte esterase Test strip Ql (U) Negative Normal NEG [facility] Comment on above: Performed By: #### U AMIC #### [facility] [address] [place], [place] 6695583 Starch Treating Assistant: Juan Carlos Eisenberg MD Nitrite,Ur Negative Normal NEG [facility] Comment on above: Performed By: #### U AMIC #### [facility] [address] [place], [place] [phone] Starch Treating Assistant: Juan Carlos Eisenberg MD PH,Ur 6.5 Normal 5.0-9.0 [facility] Comment on above: Performed By: #### U AMIC #### [facility] [address] [place], [place] 6549083 Starch Treating Assistant: Juan Carlos Eisenberg MD Protein Ql (U) Negative Normal NEG [facility] Comment on above: Performed By: #### U AMIC #### [facility] [address] [place], [place] 9266283 Starch Treating Assistant: Juan Carlos Eisenberg MD Spec. [place],Ur 1.020 Normal 1.010-1.020 [facility] Comment on above: Performed By: #### U AMIC #### [facility] [address] [place] [address] Starch Treating Assistant: Juan Carlos Eisenberg MD Urine RBC's None Normal 0-2 [facility] Comment on above: Performed By: #### U AMIC #### [facility] [address] [place], [place] [phone] Starch Treating Assistant: Juan Carlos Eisenberg MD Urine WBC's None Normal 0-5 [facility] Comment on above: Performed By: #### U AMIC #### [facility] [address] [place], [place] 6593983 Starch Treating Assistant: Juan Carlos Eisenberg MD Urobilinogen,Ur Normal Normal 0.0-1.0 [facility] Comment on above: Performed By: #### U AMIC #### [facility] [address] [place], [place] [phone] Starch Treating Assistant: Juan Carlos Eisenberg MD Urinalysis with Microscopico n 02-23-2023 Bilirubin Ql (U) Negative NEGATIVE [facility] Clarity (U) Clear Clear [facility] Color (U) Yellow Yellow [facility] Epithelial cells LM.HPF (Urine sed) [#/Area] None [facility] Glucose Test strip (U) [Mass/Vol] Negative NEGATIVE mg/dL [facility] Hemoglobin Auto test strip Ql (U) Negative NEGATIVE [facility] Ketones (U) [Mass/Vol] Negative NEGATIVE mg/dL [facility] Leukocyte esterase Test strip Ql (U) Negative NEGATIVE [facility] Nitrite Ql (U) Negative NEGATIVE [facility] pH (U) 6.5 [pH] 5.0 - 9.0 [facility] Protein (U) [Mass/Vol] Negative NEGATIVE mg/dL [facility] RBC LM.HPF (Urine sed) [#/Area] None [facility] Specific gravity (U) [Rel density] 1.020 1.010 - 1.020 [facility] Urobilinogen Qn (U) Normal 0.0 - 1. 0 EU/dL [facility] WBC LM.HPF (Urine sed) [#/Area] None [facility] Urology Office/Clinic Noteon 10-10-2022 Urology Office/Clinic Note [...] Ramiro Alvarez MD 10/10/22 20:10 EDT Normal [facility] MRI Prostate w/ + w/o Contra ston [...] Signed, Electronically Signed in Other Vendor System) [facility] Provider Letteron 07-25-2022 Provider Letter (Inserted Image. Antoinette ble to display) Jw Shea DO [address] [place] [address] Re: Ger [place] 1955 Date of Visit: [...] your patient's care. Sincerely, Ramiro Alvarez MD [facility] Urology Office/Clinic Noteon 07-25-2022 Urology Office/Clinic Note [...] Family History Other: Mother. Electronically signed by Kim SCHOFIELD, Ramiro Rosas 07/25/22 19:47 EST Normal [facility] PROTIMEon 08-14-2021 INR Coag (PPP) [Relative time] 1.03 {INR} Normal [facility] Comment on above: Performed By: #### P TT, PT #### [facility] [address] [place] [address] Dr. Philippe Acosta INR GUIDELINES SEE BELOW Normal [facility] Comment on above: Result Comment: TONY RED INR: 2.0 - 3.0 CONDITIONS NOT LISTED BELOW 2.5 - 3.5 FOR PROSTHETIC HEART VALVE REPLACEMENT 2.5 - 3.5 RECURRENT THROMBOSIS Performed By: #### P TT, PT #### [facility] [address] [place] [address] Dr. Philippe Acosta PT Coag (PPP) [Time] 11.1 s Normal 9.0-11.6 [facility] Comment on above: Performed By: #### P TT, PT #### [facility] [address] [place] [address] Dr. Philippe Acosta PTTon 08-14-2021 aPTT Coag (Bld) [Time] 30.4 s Normal 22.3-36.2 [facility] Comment on above: Performed By: #### P TT, PT #### [facility] [address] [place] [address] Dr. Philippe Acosta Vital Signs Date Time Vital Sign Value Performing Clinician Nakia chavez 09-13-2024 14:38-0400 Body height 170.2 cm Job Brady MD Work Phone: [facility] 09-13-2024 14:38-0400 Body mass index (BMI) [Ratio] 29.86 kg/m2 Job Brady MD Work Phone: [facility] 09-13-2024 14:38-0400 Body temperature 98.2 [degF] Job Brady MD Work Phone: [facility] 09-13-2024 14:38-0400 Body weight 86.5 kg Job Brady MD Work Phone: [facility] 09-13-2024 14:38-0400 Diastolic blood pressure 78 mm[Hg] Job Brady MD Work Phone: [facility] 09-13-2024 14:38-0400 Heart rate 76 /min Job Brady MD Work Phone: [facility] 09-13-2024 14:38-0400 Respiratory rate 16 /min Job Brady MD Work Phone: [facility] 09-13-2024 14:38-0400 SaO2% (BldA) [Mass fraction] 95 % Job Brady MD Work Phone: [facility] 09-13-2024 14:38-0400 Systolic blood pressure 126 mm[Hg] Job Brady MD Work Phone: [facility] 07-24-2024 08:48-0500 Blood Pressure Location Bettye Lue [facility] 07-24-2024 08:48-0500 Body temperature 98.6 [degF] Bettye Lue [facility] 07-24-2024 08:48-0500 Diastolic blood pressure 90 mm[Hg] Bettye Lue [facility] 07-24-2024 08:48-0500 Heart rate 90 /min Bettye Lue [facility] 07-24-2024 08:48-0500 Systolic blood pressure 146 mm[Hg] Bettye Lue [facility] 07-03-2024 13:51-0500 Blood Pressure Location Essence CROWLEY [facility] 07-03-2024 13:51-0500 Diastolic blood pressure 96 mm[Hg] Essence CROWLEY [facility] 07-03-2024 13:51-0500 Heart rate 90 /min Essence CROWLEY [facility] 07-03-2024 13:51-0500 Respiratory rate 21 /min Essence CROWLEY [facility] 07-03-2024 13:51-0500 Systolic blood pressure 143 mm[Hg] Essence CROWLEY [facility] Encounters Encounter Date Encounter Type Care Provider Facility Start: 09-16-2024 End: 09-16-2024 Orders Only Alisha Tellez 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) (Primary Dx); Prostate cancer (HCC) Start: 09-13-2024 End: 09-13-2024 ambulatory DERIC LOCKETT Facility:[facility] Start: 09-11-2024 End: 09-11-2024 Chart abstracting Job Brady MD Work Phone: Hematology/Oncology Start: 08-20-2024 End: 08-20-2024 ambulatory [facility] Start: 08-01-2024 ambulatory [facility] Start: 07-31-2024 End: 07-31-2024 ambulatory [facility] Start: 07-31-2024 End: 07-31-2024 ambulatory [facility] Start: 07-25-2024 End: 07-25-2024 Telephone encounter Barbara Fuentes MD Work Phone: [facility] Start: 07-24-2024 End: 07-24-2024 ambulatory Bettye Lloyd Facility:[facility] Start: 07-24-2024 End: 07-24-2024 Patient encounter procedure Bettye Lloyd [facility] Start: 07-03-2024 End: 07-03-2024 ambulatory Essence CROWLEY Facility:[facility] Start: 07-03-2024 End: 07-03-2024 Patient encounter procedure Essence CROWLEY [facility] [place] Start: 2024 ambulatory Bettye Lucalin Facility:[facility] [place] Start: 05-15-2024 End: 05-15-2024 ambulatory DO JW P HOUSE Facility:[facility] Start: 10-19-2023 End: 10-19-2023 ambulatory DO JW P HOUSE Facility:[facility] Start: 10-19-2023 ambulatory [facility] Start: 10-19-2023 End: 10-19-2023 ambulatory [facility] Start: 10-19-2023 End: 10-19-2023 ambulatory [facility] Start: 10-03-2023 End: 10-03-2023 ambulatory Deric P Samsa Facility:[facility] Start: 10-03-2023 End: 10-03-2023 ambulatory DO Deric Samsa Work Phone: [facility] Work Phone: Start: 10-03-2023 End: 10-03-2023 Departed Referred DO Deric Samsa Work Phone: [facility] Start: 06-20-2023 ambulatory Chandler Ventura MD Facility: [facility] Start: 06-15-2023 End: 06-18-2023 [facility] Start: 05-18-2023 End: 05-19-2023 ambulatory JW SHEA [facility] Start: 04-15-2023 End: 04-16-2023 ambulatory JW SHEA [facility] Start: 02-23-2023 End: 02-24-2023 ambulatory JW SHEA [facility] Start: 02-23-2023 End: 02-23-2023 Subsequent hospital visit by physician Jw Shea Sr., DO Work Phone: [facility] Comment on above: Proteinuria, unspeci fied type; Prostate cancer screening; BPH with obstruction/lower urinary tract symptoms Start: 12-26-2022 ambulatory Jw Shea DO Facility:[facility] Start: 12-08-2022 End: 12-09-2022 ambulatory Ramiro Alvarez MD Facility:[facility] Start: 10-10-2022 End: 10-11-2022 ambulatory Ramiro Alvarez MD Facility:[facility] Start: 10-03-2022 ambulatory Ramiro Alvarez MD F acility:[facility] Start: 09-15-2022 End: 09-16-2022 ambulatory Ramiro Alvarez MD Facility:[facility] Start: 09-10-2022 End: 09-11-2022 ambulatory Ramiro Alvarez MD Facility:[facility] Start: 07-25-2022 End: 07-26-2022 ambulatory Ramiro Alvarez MD Facility:[facility] Start: 05-24-2022 End: 05-25-[address] JW SHEA Facility: Start: 08-17-2021 Encounter for preprocedural laboratory examination DR DOCTOR TELLES [facility] Start: 08-14-2021 End: 08-15-[address] DOCTOR TELLES Facility:[facility] Start: 08-14-2021 End: 08-15-2021 Encounter for preprocedural laboratory examination DR DOCTOR TELLES Facility:[facility] Start: 06-13-2021 End: 08-06-[address] DOCTOR TELLES Facility:[facility] Procedures Date Procedure Procedure Detail Performing Clinician Start: 10-04-2023 Bronchoscope, device (physical object) Essence DELORES Start: 02-23-2023 Urnls dip stick/tabl et reagent auto microscopy Collette Miguel MD Work Phone: Start: 02-23-2023 Comprehensive metabo lic panel Collette Miguel MD Work Phone: Start: 05-24-[address] DOCTOR TELLES Comment on above: Performed By: #### P SAD #### [facility] [address] [place] [address] Dr. Philippe Acosta Start: 08-18-2020 Total replacement of left hip joint Essence CRWOLEY Total replacement of hip Gre sumit CROWLEY Plan of Treatment Date Care Activity Detail Author Start: 2031 RSV Vaccine (1 - 1-dose 75+ series) RSV Vaccine (1 - 1-dose 75+ series) [facility] Start: 09-13-2029 Prostate specific antigen measurement Prostate Cancer Screening Discussion [facility] Start: 04-15-2028 Prostate specific antigen measurement Prostate Cancer Screening Discussion [facility] Start: 09-14-2027 Diabetes Screening Diabetes Screening [facility] Start: 02-23-2026 Diabetes Screening Diabetes Screening [facility] Start: 10-04-2024 End: 10-04-2024 ambulatory 10/04/2024 2:30 PM EDT Infusion Center Hematology/Oncology [address] [place] [address] [place] [address] Add Lupron Injection To This F/U Appt Per Dr Adams Phone Encounter Hematology/Oncol ogy Comment on above: Add Lupron Injection To This F/U Appt Pe r Dr Adams Phone Encounter Start: 10-04-2024 End: 10-04-2024 Follow-up encounter 10/04/2024 2:00 PM EDT Visit (SP) Office Hematology/Oncology [address] [place] [address] [place] [address] Job Brady MD [address] [place] [address] Follow up after pet scan ( NCC ) and MRI at [facility] Hematology/Oncol ogy Comment on above: Follow up after pet scan ( NCC ) and MRI at [facility] Start: 09-30-2024 End: 09-30-2024 Patient encounter procedure Radiology Pe t CT Comment on above: Pet scan Start: 09-27-2024 End: 12-27-2024 [facility] Routine Malignant neoplasm of lower lobe of left lung (HCC) Prostate cancer (HCC) Expected: 09/27/2024, Expires: 12/27/2024 [facility] Comment on above: Expected: 09/27/2024, Expires: 5 Start: 09-20-2024 End: 10-13-2025 MR Brain WO and W contrast IV MRI BRAIN WO/W IVCON Radiology Routine Malignant neoplasm of lower lobe of left lung (HCC) Prostate cancer (HCC) Expected: 09/20/2024, Expires: 10/13/2025 [facility] Comment on above: Expected: 09/20/2024, Expires: Start: 09-20-2024 End: 10-13-2025 PET+CT Guidance for localization of tumor of Skull base to mid-thigh-- W 18F-FDG IV NM PET/CT SKULL-THIGH INITIAL Radiology Routine Malignant neoplasm of lower lobe of left lung (HCC) Prostate cancer (HCC) Expected: 09/20/2024, Expires: 10/13/2025 [facility] Comment on above: Expected: 09/20/2024, Expires: Start: 09-13-2024 End: 09-13-2024 ambulatory 09/13/2024 2:30 PM EDT Visit (SP) Office Hematology/Oncology [address] [place] [address] [place] [address] Job Brady MD [address] [place] [address] [place] [address] Deric Lockett DX: Primary Adenocarcinoma of lower lobe of left lung Hematology/Oncol ogy Comment on above: Ref by Dr Deric Lockett DX: Primary Adeno carcinoma of lower lobe of left lung Start: 09-13-2024 End: 12-13-2024 Prostate specific Ag [Mass/volume] in Serum or Plasma [facility] Work Phone: Comment on above: Expected: 09/13/2024, Expires: Start: 09-13-2024 End: 12-13-2024 Testosterone [Mass/volume] in Serum or Plasma [facility] Comment on above: Expected: 09/13/2024, Expires: Start: 09-13-2024 End: 09-13-2024 Patient encounter procedure 09/13/2024 1:30 PM EDT Office Visit Radiation Oncology [address] [place] [address] Barbara Fuentes MD [address] [place] [address] DX: Prostate Cancer Radiation Oncology Comment on above: DX: Prostate Cancer Start: 08-13-2024 End: 08-13-2024 Patient encounter procedure 08/13/2024 10:00 AM EST Office Visit Radiation Oncology [address] [place] [address] Barbara Fuentes MD [address] [address] DX: Prostate Cancer Radiation Oncology Comment on above: DX: Prostate Cancer Start: 08-09-2024 End: 08-09-2024 Patient encounter procedure 08/09/2024 1:00 PM EST Office Visit Radiation Oncology [address] [place] [address] Nathaniel Lewis MD [address] [place] [address] DX: Prostate Cancer Radiation Oncology Comment on above: DX: Prostate Cancer Start: 06-12-2024 Advance Directive Discussion Advance Directive Discussion [facility] Start: 02-11-2024 Covid-19 Vaccine ( season) Covid-19 Vaccine ( season) [facility] Start: 02-11-2024 Influenza vaccination Influenza Vaccine (#1) [facility] Start: 03-09-2023 End: 03-09-2023 Patient encounter procedure 03/09/2023 4:30 PM EDT Office Visit [facility] Part of [address] [place] [address] follow up, PSA [facility] Part of [facility] Comment on above: follow up, PSA Start: 01-10-2023 Influenza vaccination Flu vaccine (#1) [facility] Start: 06-03-2022 Pneumococcal 65+ years Vaccine (2 - PCV) Pneumococcal 65+ years Vaccine (2 - PCV) [facility] Start: 06-03-2022 Pneumococcal Vaccine: 50+ (2 of 2 - PCV) Pneumococcal Vaccine: 50+ (2 of 2 - PCV) [facility] Start: 2021 Abdominal aortic aneurysm screening AAA screen [facility] Start: 2006 Shingles vaccine (1 of 2) Shingles vaccine (1 of 2) [facility] Start: 2006 Shingrix Vaccine (1 of 2) Shingrix Vaccine (1 of 2) [facility] Start: 2001 Screening for malignant neoplasm of colon [facility] Start: 1996 Lipid panel Lipids [facility] Start: 1991 Diabetes screen Diabetes screen [facility] Start: 1991 Lipid panel Lipid Screening [facility] Start: 1975 DTaP/Tdap/Td vaccine (1 - Tdap) DTaP/Tdap/Td vaccine (1 - Tdap) [facility] Start: 1975 Urine microalbumin profile DTaP,Tdap,Td Vaccine (1 - Tdap) [facility] Start: 1974 Anxiety Screening Anxiety Screening [facility] Start: 1974 Depression Screening Depression Screening [facility] Start: 1974 Hepatitis C screening [facility] Start: 1968 Depression Screen Depression Screen [facility] Start: 1956 COVID-19 Vaccine (#1) COVID-19 Vaccine (#1) [facility] [employer] Start: 1956 Abdominal aortic aneurysm screening Abdominal Aortic Aneurysm Screening [facility] End: 02-23-2023 Culture, Urine [facility] Comment on above: 1 Occurrences starting 02/23/2023 until 02/23/2023 End: 02-23-2023 PSA screening [facility] Comment on above: 1 Occurrences starting 02/23/2023 until 02/23/2023 Immunizations Immunization Date Immunization Notes Care Provider Russ mascorro 03-10-2023 influenza virus vacc ine, unspecified formulation NA Blanche SCHOFIELD Work Phone: [facility] Payers Date Payer Category Payer Medicare (Managed Care) [employer] H[employer] Member Subscriber Plan / Payer (Effective 2024-Present) Name: Ger Mackenzie Relation to Subscriber: Self Name: Ger Mackenzie Payer ID: Not on file Type: HMO Address: [place] [id number] 2024 Unknown [id number] 2023 Medicare [id number] 2021 Unknown 2017 Self-pay 1959 Unknown [id number] 1956 Unknown [id number] 2.16.840.1.953665.3.579. 2.593 1956 Unknown [id number] 2.16.840.1.020817.3.579. 2.593 1956 Unknown [id number] 2.16.840.1.012738.3.579. 2.593 1956 Unknown [id number] 2.16.840.1.585870.3.579. 2.173 1956 Unknown [id number] 2.16.840.1.131708.3.579. 2.173 1956 Unknown [id number] 2.16.840.1.575901.3.579. 2.173 1956 Unknown [id number] 2.16.840.1.966335.3.579. 2.173 1956 Unknown [id number] 2.16.840.1.779659.3.579. 2.196 1956 Unknown [id number] 2.16.840.1.465900.3.579. 2.196 1956 Unknown [id number] 2.16.840.1.046359.3.579. 2.196 1956 Unknown [id number] 2.16.840.1.756726.3.579. 2.196 1956 Unknown [id number] 2.16.840.1.977777.3.579. 2.196 1956 Unknown [id number] 2.16.840.1.365788.3.579. 2.196 1956 Unknown [id number] 2.16.840.1.502208.3.579. 2.196 1956 Unknown [id number] 2.16.840.1.872245.3.579. 2.727 1956 Unknown [id number] 2.16.840.1.347889.3.579. 2.727 1956 Unknown [id number] 2.16.840.1.648545.3.579. 2.727 1956 Unknown [id number] 2.16.840.1.266405.3.579. 2.718 1956 Unknown [id number] 2.16.840.1.209038.3.579. 2.718 Social History Date Type Detail Facility Start: 02-23-2023 End: 09-13-2024 Tobacco smoking status NHIS Smokes tobacco daily [facility] [employer] History of tobacco use Cigarette Smoker [facility] [employer] Start: 02-23-2023 End: 09-13-2024 Tobacco use and exposure Smokeless tobacco non-user [facility] [employer] Start: 02-23-2023 End: 09-13-2024 Alcohol intake Current drinker of alcohol (finding) [employer] Start: 02-23-2023 End: 09-13-2024 History of Social function [facility] [employer] Start: 02-23-2023 End: 09-13-2024 Tobacco use [address] [facility] Start: 02-23-2023 Alcohol Comment weekends [facility] [employer] Start: 1956 Sex Assigned At Not on file B ON [employer] Start: 1955 Sex Assigned At Male F [facility] Start: 07-03-2024 End: 07-24-2024 Tobacco smoking status Heavy tobacco smoker (finding) [facility] Tobacco smoking status NHIS Tobacco smoking consumption unknown [facility] History of tobacco use Passive smoker [facility] Start: 09-11-2024 Tobacco Comment Smokes 10-19 cigs/da y [facility] Start: 09-11-2024 Alcohol Comment socially [facility] National Score (1-100), lower number is lower risk 59 [facility] Functional Status Date Assessment Result Facility 07-24-2024 Functional Status N/A [facility] [place] 07-03-2024 Functional Status N/A [facility] Clinical Notes 10-19-2023 to 09-13-2024 Patient InstructionsJob Brady MD - 09/13/2024 2:30 PM EDTTelephone Encounter - Shannon Minor - 07/25/2024 11:58 AM ESTTelephone Encounter - Shannon Minor - 07/25/2024 11:58 AM EST Note Date & Type Note Facility 09-13-2024 Instructions Job Brady MD - 09/13/2024 2:53 PM EDT Ordered PET scan and MRI brain Labs today Casodex sent to pharmacy F/u in 2 weeks documented in this encounter [facility] 09-13-2024 History of Present illness Narrative Images from the original note were not included. PATIENT NAME: Ger Mackenzie CLINIC NO.: [id number] ATTENDING PHYSICIAN: Job Brady MD DATE OF SERVICE: September 13, [address] Deric Lockett [address] [place] [address] thank you for referring Ger Mackenzie for an opinion regarding lung cancer. CHIEF COMPLAINT: Lung cancer HPI: Ger Mackenzie is a 69 year old year old male with PMH of prostate cancer, referred to us for lung cancer. The lesion was first discovered on 06/15/2023 PET scan, with weak uptake, and highly suspicion for primary lung cancer. At that time his clinical documentation developer recommended him to do IR robotic bronchoscopy on 06/22/[address] Vega, but patient refused. A follow-up CT with contrast on 09/23/2023 showed increase in size of the mass, bronchoscopy on 10/03/2023 was non diagnostic. Patient was sent to pulmonary Dr.Al Randall for second opinion on 10/2023, during that visit with us patient was offered Ion robotic bronchoscopy, but he backed up few days after. The lesion has been increasing in size on the following CAT scans, most recent on 07/26/2024, he also has some mediastinal hilar lymph nodes. Prostate biopsy on 05/18/23 showed prostate adenoca, niles score 4+3=7. Grade group 3. PSA was 11.3 in Jun 2024. Underwent bronchoscopy EBUS on 08/20/24. 50pk yr smoking history. Still smoking lightly. 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 Mother- breast cancer. Father- alive. Scheduled for PFTs at [facility]. Current Outpatient Medications Medication Sig albuterol HFA (PROVENTIL HFA, VENTOLIN HFA) 90 mcg/actuation inhaler INHALE 2 PUFFS EVERY 4 HOURS NEEDED FOR SHORTNESS OF BREATH buPROPion XL (WELLBUTRIN XL) 150 mg 24 hr tablet lisinopril (ZESTRIL) 20 mg tablet Take 1 tablet by mouth every morning. meloxicam (MOBIC) 15 mg tablet Take 15 mg by mouth once daily. tamsulosin (FLOMAX) 0.4 mg Take 0.4 mg by mouth once daily. tiotropium-olodaterol (STIOLTO RESPIMAT) 2.5-2.5 mcg/actuation inhaler 1 (one) time each day at the same time. No current facility-administered medications for this visit. ALLERGIES No Known Allergies PAST MEDICAL HISTORY Diagnosis Date Adenocarcinoma of prostate (HCC) Adenocarcinoma, lung, left (HCC) 09/[address] Deric Lockett Cigarette nicotine dependence with nicotine-induced disorder Emphysema lung (HCC) Hilar lymphadenopathy HTN (hypertension) Lung mass 09/[address] Deric Lockett PAST SURGICAL HISTORY Procedure Laterality Date TOTAL HIP REPLACEMENT Left FAMILY HISTORY Problem Relation Age of Onset Breast Cancer Mother Cancer Sister Asthma Maternal Grandfather Asthma Paternal Grandmother Social History Tobacco Use Smoking status: Every Day Current packs/day: 1.50 Average packs/day: 1.5 packs/day for 55.0 years (82.5 ttl pk-yrs) Types: Cigarettes Passive exposure: Current Smokeless tobacco: Never Tobacco comments: Smokes 10-19 cigs/day Substance Use Topics Alcohol use: Yes Comment: socially Drug use: Never REVIEW OF SYSTEMS GENERAL: No weight loss, malaise or fevers. No night sweats. HEENT: Negative for headaches, No changes in hearing or vision, no nose bleeds or other nasal problems. RESPIRATORY: Negative for cough, wheezing and shortness of breath CARDIOVASCULAR: Negative for chest pain, leg swelling and palpitations GI: Negative for abdominal discomfort, blood in stools or black stools and change in bowel habits : Negative for dysuria, frequency and incontinence MUSCULOSKELETAL: Negative for joint pain or swelling, back pain, and muscle pain. SKIN: Negative for lesions, rash, and itching. HEMATOLOGY/LYMPHOLOGY Negative for prolonged bleeding, bruising easily, and swollen nodes. NEURO: Negative for numbness or tingling of hands/feet. No weakness. PHYSICAL EXAMINATION: BP 126/78 Pulse 76 Temp 36.8 C (98.2 F) (Temporal) Resp 16 Ht 170.2 cm (5' 7.01 ) Wt 86.5 kg (190 lb 11.2 oz) SpO2 95% BMI 29.86 kg/m There were no vitals taken for this visit. No data found for this vital: Wt General appearance:ECOG PERFORMANCE STATUS: 0- Fully active, able to carry on all pre-disease performance w/o restriction. Patient in NAD. Skin: Skin color, texture, turgor normal. No rashes or lesions. Eyes: Anicteric sclera. Pupils are equally round and reactive to light. Extraocular movements are intact. Breast: No palpable breast masses. No nipple change or discharge. Lymph Nodes: No cervical, supraclavicular, axillary or inguinal adenopathy. Oropharynx: Lips, mucosa, and tongue normal. Back: No pain to percussion. Negative SLR test Lungs clear to auscultation, No wheezing or rhonchi Heart: RRR without murmur, gallop, or rubs. Abdomen soft, non-tender. No masses, organomegaly Extremities: No deformities. No edema Neuro: Gait and speech normal. Reflexes normal and symmetric. Muscular strength intact. Sensation grossly intact. 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 Lymph node, station 4R, EBUS-guided fine needle aspiration: - Negative for metastatic malignancy. - Cellular evidence of a lymph node. B. Lymph node, station 7, EBUS-guided fine needle aspiration: - Negative for metastatic malignancy. - Cellular evidence of a lymph node. C. Lung, left lower lobe, EBUS-guided fine needle aspiration: - Non-small cell carcinoma, most consistent with adenocarcinoma. - See comment. Preliminary result electronically signed by Anila Blount MD on 08/29/2024 at 1:03 PM Comment C. Immunohistochemical stains performed on the cell block show the tumor is positive for CK7, TTF-1, Napsin A, and weak to moderately positive for p63. CK5/6 and PSA are negative. The controls are satisfactory. Morphologically, there are some tumor fragments in the cell block section where the neoplastic cells have dense squamoid cytoplasm, however, the staining profile is most consistent with adenocarcinoma. PD-L1 staining is pending and will be reported in an addendum. There is abundant tumor present in the cell block section for additional studies, if clinically indicated. IMAGING: ASSESSMENT AND PLAN: Ger Mackenzie is a 69 year old year old male referred to us for lung cancer and prostate cancer. PS 0 PLAN: - Left lung mass biopsy on 08/21/2023 showed adenocarcinoma. PD-L1 TPS 91-100%. Lymph node station 4R, station 7 negative for malignancy. - Prostate biopsy on 05/18/23 showed prostate adenoca, niles score 4+3=7. Grade group 3. - Ordered PET scan and MRI brain for complete staging. - Casodex sent to pharmacy for prostate cancer. We will start him on Lupron for the prostate cancer mgmt. - Scheduled for PFTs at [facility]. - Further management of lung cancer depending on PET scan and MRI brain findings. - Seen by Rad onc today. D/w - Ordered labs today - All his questions answered in detail. - F/u in [address] Deric Lockett [address] [address] thank you for allowing me to participate in Ger Mackenzie care, if there are any questions or concerns please do not hesitate to contact me at the number below. I spent a total of 60 minutes on the date of the service which included preparing to see the patient, [id number] patient care, completing clinical documentation, obtaining and/or reviewing separately obtained history, performing a medically appropriate examination, counseling and educating the patient/family/caregiver, ordering medications, tests, or procedures, communicating with other HCPs (not separately reported), independently interpreting results (not separately reported), communicating results to the patient/family/caregiver, and care coordination (not separately reported). Job Brady MD. Hematology/Medical Oncology [place] [address] [phone] CC: documented in this encounter [facility] 09-13-2024 Note HNO ID: [id number] Author: JOB BRADY MD Service: ? Author Type: Physician Type: Progress Notes Filed: 09/13/2024 15:07 Note Text: PATIENT NAME: Ger Mackenzie [facility] NO.: [id number] ATTENDING PHYSICIAN: Job Brady MD DATE OF SERVICE: September 13, [address] Deric Lockett [address] [place] [id number] thank you for referring Ger Mackenzie for an opinion regarding lung cancer. CHIEF COMPLAINT: Lung cancer HPI: Ger Mackenzie is a 69 year old year old male with PMH of prostate cancer, referred to us for lung cancer. The lesion was first discovered on 06/15/2023 PET scan, with weak uptake, and highly suspicion for primary lung cancer. At that time his clinical documentation developer recommended him to do IR robotic bronchoscopy on 06/22/[address] Vega, but patient refused. A follow-up CT with contrast on 09/23/2023 showed increase in size of the mass, bronchoscopy on 10/03/2023 was non diagnostic. Patient was sent to pulmonary Dr.Al Randall for second opinion on 10/2023, during that visit with us patient was offered Ion robotic bronchoscopy, but he backed up few days after. The lesion has been increasing in size on the following CAT scans, most recent on 07/26/2024, he also has some mediastinal hilar lymph nodes. Prostate biopsy on 05/18/23 showed prostate adenoca, niles score 4+3=7. Grade group 3. PSA was 11.3 in Jun 2024. Underwent bronchoscopy EBUS on 08/20/24. 50pk yr smoking history. Still smoking lightly. 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 Mother- breast cancer. Father- alive. Scheduled for PFTs at [facility]. Current Outpatient Medications Medication Sig albuterol HFA (PROVENTIL HFA, VENTOLIN HFA) 90 mcg/actuation inhaler INHALE 2 PUFFS EVERY 4 HOURS NEEDED FOR SHORTNESS OF BREATH buPROPion XL (WELLBUTRIN XL) 150 mg 24 hr tablet lisinopril (ZESTRIL) 20 mg tablet Take 1 tablet by mouth every morning. meloxicam (MOBIC) 15 mg tablet Take 15 mg by mouth once daily. tamsulosin (FLOMAX) 0.4 mg Take 0.4 mg by mouth once daily. tiotropium-olodaterol (STIOLTO RESPIMAT) 2.5-2.5 mcg/actuation inhaler 1 (one) time each day at the same time. No current facility-administered medications for this visit. ALLERGIES No Known Allergies PAST MEDICAL HISTORY Diagnosis Date Adenocarcinoma of prostate (HCC) Adenocarcinoma, lung, left (HCC) 09/[address] Deric Lockett Cigarette nicotine dependence with nicotine-induced disorder Emphysema lung (HCC) Hilar lymphadenopathy HTN (hypertension) Lung mass 09/[address] Deric Lockett PAST SURGICAL HISTORY Procedure Laterality Date TOTAL HIP REPLACEMENT Left FAMILY HISTORY Problem Relation Age of Onset Breast Cancer Mother Cancer Sister Asthma Maternal Grandfather Asthma Paternal Grandmother Social History Tobacco Use Smoking status: Every Day Current packs/day: 1.50 Average packs/day: 1.5 packs/day for 55.0 years (82.5 ttl pk-yrs) Types: Cigarettes Passive exposure: Current Smokeless tobacco: Never Tobacco comments: Smokes 10-19 cigs/day Substance Use Topics Alcohol use: Yes Comment: socially Drug use: Never REVIEW OF SYSTEMS GENERAL: No weight loss, malaise or fevers. No night sweats. HEENT: Negative for headaches, No changes in hearing or vision, no nose bleeds or other nasal problems. RESPIRATORY: Negative for cough, wheezing and shortness of breath CARDIOVASCULAR: Negative for chest pain, leg swelling and palpitations GI: Negative for abdominal discomfort, blood in stools or black stools and change in bowel habits : Negative for dysuria, frequency and incontinence MUSCULOSKELETAL: Negative for joint pain or swelling, back pain, and muscle pain. SKIN: Negative for lesions, rash, and itching. HEMATOLOGY/LYMPHOLOGY Negative for prolonged bleeding, bruising easily, and swollen nodes. NEURO: Negative for numbness or tingling of hands/feet. No weakness. PHYSICAL EXAMINATION: BP 126/78 Pulse 76 Temp 36.8 ?C (98.2 ?F) (Temporal) Resp 16 Ht 170.2 cm (5' 7.01 ) Wt 86.5 kg (190 lb 11.2 oz) SpO2 95% BMI 29.86 kg/m? There were no vitals taken for this visit. No data found for this vital: Wt General appearance:ECOG PERFORMANCE STATUS: 0- Fully active, able to carry on all pre-disease performance w/o restriction. Patient in NAD. Skin: Skin color, texture, turgor normal. No rashes or lesions. Eyes: Anicteric sclera. Pupils are equally round and reactive to light. Extraocular movements are intact. Breast: No palpable breast masses. No nipple change or discharge. Lymph Nodes: No cervical, supraclavicular, axillary or inguinal adenopathy. Oropharynx: Lips, mucosa, and tongue normal. Back: No pain to percussion. Negative SLR test Lungs clear to auscultation, No wheezing or rhonchi Heart: RRR without murmur, gallop, or rubs. Abdomen soft, non-tender. No masses, organomegaly Extremities: No deformities. No edema N (more content not included)... [facility] 09-05-2024 Note Entered by STEPHANY SHEA DO on September 05, 2024 10:25:37 EDT From: JW SHEA DO To: [id number] Sent: 09/05/2024 10:25:37 EDT Subject: Medication Management Submitted: Complete:meloxicam (meloxicam 15 mg oral tablet) Signed by JW SHEA DO 09/05/2024 10:25:00 EDT Approved meloxicam (MELOXICAM 15MG TABLET) TAKE ONE TABLET BY MOUTH DAILY Qty: 30 EA Days Supply: 30 Refills: 2 Substitutions Allowed Route To Pharmacy - [facility] --------- From: [facility] To: JW SHEA DO Sent: September 05, 2024 9:04:42 AM CDT Subject: Medication Management Due: September 06, 2024 3:28:49 AM CDT On Hold Pending Signature Drug: meloxicam (meloxicam 15 mg oral tablet), TAKE ONE TABLET BY MOUTH DAILY Quantity: 30 EA Days Supply: 30 Refills: 1 Substitutions Allowed Notes from Pharmacy: Dispensed Drug: meloxicam (meloxicam 15 mg oral tablet), TAKE ONE TABLET BY MOUTH DAILY Quantity: 30 EA Days Supply: 30 Refills: 2 Substitutions Allowed Notes from Pharmacy: --------- [facility] 08-20-2024 Note Patient: Ger Rubio arpe Procedure Summary Date: 08/20/24 Room / Location: [facility] Main Operating Room Anesthesia Start: 1244 Anesthesia Stop: 1355 Procedure: BRONCHOSCOPY DIAGNOSTIC / EBUS Diagnosis: Mass of lower lobe of left lung Scheduled Providers: Stephanie Catherine MD; Stephanie James MD Responsible Provider: Stephanie James MD Anesthesia Type: general ASA Status: 3 Anesthesia Type: general Vitals Value Taken Time BP 121/82 08/20/24 1435 Temp 36.2 ???C (97.2 ???F) 08/20/24 1352 Pulse 70 08/20/24 1440 Resp 15 08/20/24 1440 SpO2 92 % 08/20/24 1440 Vitals shown include unfiled device data. Anesthesia Post Evaluation Patient location during evaluation: PACU Patient participation: complete - patient participated Level of consciousness: awake and alert Pain score: 0 Pain management: adequate Multimodal analgesia pain management approach Airway patency: patent Two or more strategies used to mitigate risk of obstructive sleep apnea Cardiovascular status: hemodynamically stable Respiratory status: room air and nonlabored ventilation Hydration status: euvolemic Patient is hemodynamically stable and is able to be discharged from PACU per anesthesia protocol. No notable events documented. [facility] 08-20-2024 Note Airway Date/Time: 08/20/2024 12:57 PM Urgency: elective General Information and Staff Patient location during procedure: OR Anesthesiologist: Stephanie James MD Resident/FLARER/CAA: Genet Norwood MD Performed: resident/FLARER/CAA Indications and Patient Condition Indications for airway management: anesthesia Spontaneous Ventilation: absent Sedation level: deep Preoxygenated: yes Mask difficulty assessment: 1 - vent by mask Final Airway Details Final airway type: endotracheal airway Successful airway: ETT Cuffed: yes Successful intubation technique: flexible bronchoscopy Endotracheal tube insertion site: oral Blade: Welsh Blade size: #3 ETT size (mm): 8.5 Placement verified by: chest auscultation and capnometry Measured from: lips ETT to lips (cm): 24 Number of attempts at approach: 1 Number of other approaches attempted: 0 Additional Comments Deep fiberoptic intubation. Ovassapian airway used to optimize fiberoptic scope. Annamarie viewed on bronchoscopy to confirm ETT placement. [facility] 08-20-2024 Note Patient: Ger travis Procedure Information Date/Time: 08/20/24 1200 Scheduled providers: Stephanie Catherine MD; Stephanie James MD Procedure: BRONCHOSCOPY DIAGNOSTIC / EBUS Location: [facility] Main Operating Room Relevant Problems Cardio (within normal limits) Pulmonary (+) Chronic bronchitis (CMS/HCC) Other (+) Arthritis Clinical information reviewed: Past Surgical History: Procedure Laterality Date BRONCHOSCOPY TOTAL HIP ARTHROPLASTY Left Past Medical History: Diagnosis Date Anxiety Arthritis BPH (benign prostatic hyperplasia) Cancer (CMS/HCC) PROSTATE COPD (chronic obstructive pulmonary disease) (CMS/HCC) Mass of upper lobe of left lung Medication Documentation Review Audit Reviewed by Mar Pelayo RN (Registered Nurse) on 08/12/24 at 1104 Medication Order Taking? Sig Documenting Provider Last Dose Status albuterol 90 mcg/actuation inhaler [id number] Yes 2 puffs as needed for SOB Inhalation Q4H for 30 days Kika Larsen MD 08/12/2024 Active buPROPion XL (Wellbutrin XL) 150 mg 24 hr tablet [id number] Yes Kika Larsen MD 08/12/2024 Active lisinopril 20 mg tablet [id number] No Take 1 tablet by mouth in the morning. Kika Larsen MD Unknown Active meloxicam (Mobic) 15 mg tablet [id number] Yes TAKE ONE TABLET BY MOUTH DAILY Oral for 30 Days Kika Larsen MD 08/12/2024 Active multivitamin with minerals (MULTIPLE VITAMIN-MINERALS ORAL) [id number] Yes 1 (one) time each day at the same time. Kika Larsen MD 08/12/2024 Active tamsulosin (Flomax) 0.4 mg 24 hr capsule [id number] Yes 1 capsule 1 (one) time each day at the same time. Kika Larsen MD 08/12/2024 Active tamsulosin (Flomax) 0.4 mg 24 hr capsule [id number] No Take 0.4 mg by mouth. Kika Larsen MD Unknown Active tiotropium-olodateroL (Stiolto Respimat) 2.5-2.5 mcg/actuation mist inhaler [id number] Yes 1 (one) time each day at the same time. Kika Larsen MD 08/12/2024 Active No Known Allergies No results found for: GLUCOSE , CALCIUM , NA , K , CO2 , CL , BUN , CREATININE No results found for: EGFR No results found for: WBC , HGB , HCT , MCV , PLT No results found for: PTT No results found for: INR , PROTIME No results found for: ABORH No results found for: ALT , AST , GGT , ALKPHOS , BILITOT No results found for: HGBA1C Physical Exam Airway Mallampati: III TM distance: >3 FB Neck ROM: full Cardiovascular - normal exam Rhythm: regular Rate: normal Dental - normal exam Pulmonary - normal exam Breath sounds clear to auscultation Abdominal Anesthesia Plan ASA 3 general The patient is a current smoker. Patient was previously instructed to abstain from smoking on day of procedure. Patient did not smoke on day of procedure. Education provided regarding risk of obstructive sleep apnea. intravenous induction Trial extubation is planned. Anesthetic plan and risks discussed with patient. Plan discussed with attending and resident. Additional Equipment Requests [facility] 08-01-2024 Note Attestation signed by Stephanie Catherine MD at 08/08/2024 4:20 PM Please refer to Dr. Samuel's notes as we were able to reach the patient and conduct the visit Stephanie Catherine MD Interventional Pulmonary Medicine Pulmonary and Critical Care Medicine [facility] Visit Note Patient: Ger Mackenzie Age: 69 y.o. : 1955 Account No.: [id number] Referring physician: Jw Shea MD Chief complaint: Follow up HPI Ger Mackenzie is a 69 y.o. male who was scheduled for a tele medicine visit for a follow up. The patient was called twice to initiate the encounter but he never answered the call. Past Medical History: Diagnosis Date Mass of upper lobe of left lung Past Surgical History: Procedure Laterality Date TOTAL HIP ARTHROPLASTY Left Allergies: Patient has no known allergies. Prior to Admission medications Medication Sig Start Date End Date Taking? Authorizing Provider albuterol 90 mcg/actuation inhaler 2 puffs as needed for SOB Inhalation Q4H for 30 days 09/20/23 Yes Historical Provider, buPROPion XL (Wellbutrin XL) 150 mg 24 hr tablet 07/31/24 Yes Historical Provider, lisinopril 20 mg tablet [...] the same time. 08/22/23 Yes Historical Provider, tamsulosin (Flomax) 0.4 mg 24 hr capsule Take 0.4 mg by mouth. 07/24/24 07/19/25 Yes Historical Provider, tiotropium-olodateroL (Stiolto Respimat) 2.5-2.5 mcg/actuation mist inhaler 1 (one) time each day at the same time. 09/26/23 Yes Historical Provider, Social history: reports that he has been smoking cigarettes. He has a 50 pack-year smoking history. He does not have any smokeless tobacco history on file. Alcohol use questions deferred to the physician. Drug use questions deferred to the physician. Family History Problem Relation Name Age of Onset Bone cancer Mother Asthma Maternal Grandfather Asthma Paternal Grandfather Review of Systems: CONSTITUTIONAL: no weight loss, no fever, no chills HEENT: no vision changes, no ear pain, no runny nose, no sore throat RESPIRATORY: no dyspnea, no cough, no wheeze, no sputum production CV: no chest pain, no palpitations, no syncope GI: no abdominal pain, no nausea, no vomiting, no diarrhea. MSK: no myalgia, no joint pain. SKIN: no rash, no pruritus. NEUROLOGICAL: no weakness, no paresthesias PSYCHIATRIC: No mood changes. No anxiety, no depression. Physical examination: Vitals: Ht 1.727 m (5' 8 ) Wt 85.7 kg (189 lb) BMI 28.74 kg/m??? GENERAL: Alert and oriented x 3. No acute distress. HEENT: EOMI, no scleral icterus. Moist mucous membranes. NECK: trachea midline, no JVD. Supple. LUNGS: Clear to auscultation bilaterally. No wheezes, rales, or rhonchi CARDIOVASCULAR: Regular rate and rhythm. Normal S1 and S2. No murmur, rubs, or gallops. BACK: normal curvature ABDOMEN: Soft, non-tender, non-distended. Normal bowel sounds. No palpable masses. EXTREMITIES: No cyanosis, no edema, no calf tenderness SKIN: Warm and dry. No rashes or lesions NEUROLOGIC: Normal gait. No extremity weakness. No slurred speech PSYCHIATRIC: Cooperative. Appropriate mood and affect. Labs Results: No results found for: HGB , HCT , WBC , BUN , CREATININE , NA , K , BICARB , CO2 , PH , PHART , PHVEN , [id number] , [id number] , [id number] , PO2POC , PO2ART , PO2VEN , HES4BSB , [id number] Radiology: No Chest X-ray results found for the past [address] results found for the past 12 months Assessment and Plan: Plan: Visit was not completed, patient never answered the call Ramon Brown MD [facility] Pulmonary/Critical Care Fellow [facility] 08-01-2024 Note Attestation signed by Stephanie Catherine MD at 08/06/2024 9:26 AM Total time spent on day of [...] Tele Visit Note Patient: Ger Mackenzie Age: 69 y.o. : 1955 Account No.: [id number] Referring physician: Paulette Chief complaint: Following up on lung mass HPI Mr. Mackenzie is a 69-year-old male past medical history significant for prostatic adenocarcinoma, smoker, he had a televisit with us back on 10/19/2023 for left lower ling mass .The lesion was first discovered on 06/15/2023 PET scan, with weak uptake, and highly suspicion for primary lung cancer. At that time his clinical documentation developer recommended him to do IR robotic bronchoscopy on 06/22/[address] Vega, but patient refused. A follow-up CT with contrast on 09/23/2023 showed increase in size of the mass, bronchoscopy on 10/03/2023 was nondiagnosticafter so patient was sent to us for second opinion on 10/2023, during that visit with us patient was offered Ion robotic bronchoscopy, but he backed up few days after. The lesion has been increasing in size on the following CAT scans, most recent on 07/26/2024, he also has some mediastinal hilar lymph nodes, he was referred back to us by Dr. Lockett for further evaluation. Patient reported today no change in his respiratory status, no wt changes and willing to proceed with biopsy Past Medical History: Diagnosis Date Mass of upper lobe of left lung Past Surgical History: Procedure Laterality Date TOTAL HIP ARTHROPLASTY Left Allergies: Patient has no known allergies. Prior to Admission medications Medication Sig Start Date End Date Taking? Authorizing Provider albuterol 90 mcg/actuation inhaler 2 puffs as needed for SOB Inhalation Q4H for 30 days 09/20/23 Yes Historical Provider, buPROPion XL (Wellbutrin XL) 150 mg 24 hr tablet 07/31/24 Yes Historical Provider, lisinopril 20 mg tablet [...] the same time. 08/22/23 Yes Historical Provider, tamsulosin (Flomax) 0.4 mg 24 hr capsule Take 0.4 mg by mouth. 07/24/24 07/19/25 Yes Historical Provider, tiotropium-olodateroL (Stiolto Respimat) 2.5-2.5 mcg/actuation mist inhaler 1 (one) time each day at the same time. 09/26/23 Yes Historical Provider, Social history: reports that he has been smoking cigarettes. He has a 50 pack-year smoking history. He does not have any smokeless tobacco history on file. Alcohol use questions deferred to the physician. Drug use questions deferred to the physician. Family History Problem Relation Name Age of Onset Bone cancer Mother Asthma Maternal Grandfather Asthma Paternal Grandfather Review of Systems: As per HPI Labs Results: No results found for: HGB , HCT , WBC , BUN , CREATININE , NA , K , BICARB , CO2 , PH , PHART , PHVEN , [id number] , LKE3DNI , [id number] , PO2POC , PO2ART , PO2VEN , AKN9ALZ , [id number] Radiology: No Chest X-ray results found for the past [address] results found for the past 12 months Assessment and Plan: # Left lower lobe lung mass increasing in size # History of prostatic adenocarcinoma # Smoker Plan: -Chest CT image reviewed with the patient over the phone. LLL mass concerning for cancer, will schedule the patient for bronchoscopy + EBUS to go after the lymph node /mass. Risks and benefits of the procedure explained to the patient details. - Time to be determined We tried to call Mr. Mackenzie on 08/01/2024 (the day of the appointment) but we couldn't;t reach him, so this telemetry encounter using phone obtained on 08/02/2024 Total time spent in Medical Discussion including obtaining history from the patient, review of labs, tests with the patient, discussion of assessment and plan 30 minutes. The visit was initiated by the patient and conducted loq-umbk-ml-face with use of audio-only real time telephone communication between patient and provider for a virtual visit. Verbal consent to provide and bill this service was obtained on: 08/02/24 No signat (more content not included)... [facility] 07-25-2024 Telephone encounter Note Patient returned call. Appt was rescheduled with Dr. Fuentes for 08/13/24. This was the first date that worked with the patient's and his 's schedule. [facility] 07-25-2024 Miscellaneous Notes Patient returned call. Appt was rescheduled with Dr. Fuentes for 08/13/24. This was the first date that worked with the patient's and his 's schedule. Currently patient is scheduled with Dr. Lewis on 08/09/24 for a new patient with prostate CA. A message was left for him to call back. This appointment will need reschedule with Dr. Fuentes. documented in this encounter [facility] 07-25-2024 Telephone encounter Note Currently patient is scheduled with Dr. Lewis on 08/09/24 for a new patient with prostate CA. A message was left for him to call back. This appointment will need reschedule with Dr. Fuentes. [facility] 07-24-2024 Hospital Discharge instructions Patient Education 07/24/2024 10:02:25 Robot-Assisted Laparoscopic [...] including vitamins, herbs, eye drops, creams, and jdqf-kvt-bghysak medicines. Any problems you or family members [...] provider tells you to take them. ?Taking sxam-udr-rvreolf medicines, vitamins, herbs, and supplements. Follow your [...] provider. Document Revised: 08/25/2021 Document Reviewed: 08/25/2021 [employer] Patient Education 2023 [employer]. 07/24/2024 09:58:20 Steps to Quit Smoking Steps [...] require a prescription. You can also purchase qcqc-wcg-ehtrzve medicines. Medicines may have nicotine in them [...] and encouragement. Call telephone quitlines, such as 7-827-NRUQ-NOW, reach out to support groups, or work [...] provider. Document Revised: 05/20/2022 Document Reviewed: 05/20/2022 [employer] Patient Education 2023 [employer]. Follow Up Care 07/03/2024 15:37:41 With:Gabino SCHOFIELD, Bettye Holloway, SAIDAL, URO Address: [address], [place] [address]- [phone] When: Unknown [facility] 07-24-2024 Note Patient Education Pulmonary Medicine [...] require a prescription. You can also purchase htfl-sgv-drriqig medicines. Medicines may have nicotine in them [...] and encouragement. Call telephone quitlines, such as 9-075-VQUG-NOW, reach out to support groups, or work [...] away, not s (more content not included)... [facility] 07-03-2024 Hospital Discharge instructions Patient Education 07/03/2024 14:16:01 Prostate Cancer [...] the likelihood that the cancer will spread. [place] 6 or lower: This indicates that the cancer cells look similar to normal prostate cells (well differentiated). Niles 7: This indicates that the cancer cells look somewhat similar to normal prostate cells (moderately differentiated). Niles 8, 9, or 10: This indicates that [...] stress of having cancer. General instructions Take mkau-abk-yeevsem and prescription medicines only as told by your health care provider. If you have to go to the hospital, notify your cancer specialist (oncologist). Keep all follow-up visits. This is important. Where to find more information [place] [employer]: www.cancer.org [place] [employer]: www.cancer.net National Cancer [place]: www.cancer.gov Contact a health care provider if: [...] provider. Document Revised: 08/25/2021 Document Reviewed: 08/25/2021 [employer] Patient Education 2023 [employer]. Follow Up Care 05/06/2024 10:07:10 With:DELORES SCHOFIELD, Essence Onofre, URL Address: [facility] [employer] [place] [phone]- When: Unknown [facility] 07-03-2024 Note Patient Education Oncology Prostate Cancer [...] to normal prostate cells (well differentiated). ??? Colerain 7: This indicates that the cancer cells look somewhat similar to normal prostate cells (moderately differentiated). ??? Niles 8, 9, or 10: This indicates that [...] seeds, wires, o (more content not included)... 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 Subject: Medication Management Due: June 05, 2024 12:15:51 AM 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 On Hold Pending Signature Drug: meloxicam (meloxicam 15 mg oral tablet), TAKE ONE TABLET BY MOUTH DAILY Quantity: 30 EA Days Supply: 30 Refills: 1 Substitutions Allowed Notes from Pharmacy: Dispensed Drug: meloxicam (meloxicam 15 mg oral tablet), TAKE ONE TABLET BY MOUTH DAILY Quantity: 30 EA Days Supply: 30 Refills: 2 Substitutions Allowed Notes from Pharmacy: --------- [facility] 03-05-2024 Note Entered by SETPHANY SHEA DO on March 05, 2024 09:51:44 EDT From: JW SHEA DO To: [facility] Sent: 03/05/2024 09:51:44 EDT Subject: Medication Management Submitted: Complete:meloxicam (meloxicam 15 mg oral tablet) Signed by JW SHEA DO 03/05/2024 09:51:00 EDT Approved meloxicam (MELOXICAM 15MG TABLET) TAKE ONE TABLET BY MOUTH DAILY Qty: 30 EA Days Supply: 30 Refills: 2 Substitutions Allowed Route To Pharmacy - [facility] --------- From: [facility] To: JW SHEA [...] Refills: 2 Substitutions Allowed Notes from Pharmacy: --------- [facility] 12-05-2023 Note Entered by STEPHANY SHEA DO on December 05, 2023 09:57:04 EDT From: JW SHEA DO To: [facility] Sent: 12/05/2023 09:57:04 EDT Subject: Medication Management Submitted: Complete:meloxicam (meloxicam 15 mg oral tablet) Signed by JW SHEA DO 12/05/2023 09:57:00 EDT Approved with modifications: meloxicam (MELOXICAM 15MG TABLET) TAKE ONE TABLET BY MOUTH DAILY Qty: 30 EA Days Supply: 30 Refills: 2 Substitutions Allowed Route To Pharmacy - [facility] --------- From: [facility] To: JW SHEA [...] Refills: 2 Substitutions Allowed Notes from Pharmacy: --------- [facility] 10-19-2023 Note Attestation signed by Stephanie [...] Age: 68 y.o. : 1955 Account No.: [id number] Referring physician: Paulette Chief complaint: Left lung [...] to us for ION robotic evaluation. Shx: group home smoker 2 pack a day for 50 [...] , PH , PHART , PHVEN , [id number] , [id number] , UVS3LBH , PO2POC , PO2ART , PO2VEN , HDW9WQG , [id number] Radiology: Assessment and Plan: # Left lower [...] was initiated by the patient and conducted xfi-zjmq-eq-face with use of audio-only real time telephone communication between patient and provider for a virtual visit. Verbal consent to provide and bill this service was obtained on: 10/19/23 No signature was obtained due to the COVID-19 pandemic. Manuel Hoffman MD [facility] Pulmonary/Critical Care Fellow [facility] Evaluation + Plan note Future Appointments Appointment Date:07/24/2024 08:45:00 AM Scheduled Provider:Bettye Lloyd MD Location:[facility] Appointment Type:URO Office Visit [facility] Evaluation note Diagnosis Proteinuria, unspecified type Prostate cancer screening Special screening for malignant neoplasm of prostate BPH with obstruction/lower urinary tract symptoms Hypertrophy of prostate with urinary obstruction and other lower urinary tract symptoms (LUTS) documented in this encounter [facility] noteNo assessment information available [facility] Work Phone: Evaluation note* Diagnosis Malignant neoplasm of lower lobe of left lung (HCC)- Primary Prostate cancer (HCC) Malignant neoplasm of prostate documented in this encounter [facility] note* Diagnosis Malignant neoplasm of prostate (HCC)- Primary Malignant neoplasm of prostate [facility]ative No data available for this section [facility] Progress note No data available for this section [facility] Reason for referral (narrative) Referred by: Essence CROWLEY MD [facility] Summary Purpose Family History No Family History Records FoundNo Family History Records FoundNo Family History Records FoundNo Family History Records Found No data available for this section No data available for this section No Family History Records FoundNo Family History [...] DATE CREATED AUTHOR AUTHOR'S ORGANIZ ATION 06/18/2023 [facility] DATE CREATED AUTHOR AUTHOR'S ORGANIZ ATION 06/21/2023 [facility] DATE CREATED AUTHOR AUTHOR'S ORGANIZ ATION 10/09/2023 [facility] DATE CREATED AUTHOR AUTHOR'S ORGANIZ ATION 07/26/2024 [facility] DATE CREATED AUTHOR AUTHOR'S ORGANIZ ATION 09/07/2024 [facility] DATE CREATED AUTHOR AUTHOR'S ORGANIZ ATION 09/16/2024 [facility] DATE CREATED AUTHOR AUTHOR'S ORGANIZ ATION 09/17/2024 [facility] Care Teams (unrecognized sec tion and content) Lead Network Engineer Relationship Specialty Start Date End Date Jw Shea Sr., [address] [place] [address] PCP - General Family Medicine 02/23/23 Team Status: Inactive Member Role Status Dates Deric Lockett DO Attending Provider Active St art: October 03, 2023 End: October 03, 2023 Lead Network Engineer Relationship Specialty Start Date End Date Essence Crowley MD [address] [place] [address] Urology 07/03/24 Lead Network Engineer Relationship Specialty Start Date End Date Jw Shea Sr., DO [address] [place] [address] PCP - General Family Medicine 09/06/24 Essence Crowley MD [address] [place] [address] Urology 07/03/24 Lead Network Engineer Relationship Specialty Start Date End Date Jose Juan Jw Onofre Sr., DO [address] [place] [address] PCP - General Family Medicine 09/06/24 Essence Crowley MD [address] [place] [address] Urology 07/03/24 Lead Network Engineer Relationship Specialty Start Date End Date Jw Shea Sr., DO [address] [place] [address] PCP - General Family Medicine 09/06/24 Essence Crowley MD [address] [place] [address] Urology 07/03/24 Goals (unrecognized section and content) Goals may be documented in a n alternate sectionGoals may be documented in an alternate section No data available for this section No data available for this section Source Comments (unrecognize d section and content) In the event this informatio n is protected by the Federal Confidentiality of Alcohol and Drug Abuse Patient Records regulations: The Federal rules restrict any use of the information to criminally investigate or prosecute any alcohol or drug abuse patient.[facility] the event this information is protected by the Federal Confidentiality of Alcohol and Drug Abuse Patient Records regulations: The Federal rules restrict any use of the information to criminally investigate or prosecute any alcohol or drug abuse patient.[facility] the event this information is protected by the Federal Confidentiality of Alcohol and Drug Abuse Patient Records regulations: The Federal rules restrict any use of the information to criminally investigate or prosecute any alcohol or drug abuse patient.[facility] the event this information is protected by the Federal Confidentiality of Alcohol and Drug Abuse Patient Records regulations: The Federal rules restrict any use of the information to criminally investigate or prosecute any alcohol or drug abuse patient.[facility] Reason for Visit (unrecogniz ed section and content) Reason Comments Lung Cancer FOR RECORDS PERTAINING TO PATIENTS WHO ARE [...] BE BASED ON THE PRIMARY CLINICAL RECORDS. [employer] [facility] provides no warranty or guarantee of the accuracy or completeness of information in this document.
[2024-09-20 07:42] LABS: Hemoglobin 15.9 g/dL (14.0-18.0)
[2024-09-20] MEDS: ALBUTEROL SULFATE 2.5 MG/3 ML VIAL NEB IH (09:28)
--- NOTE | 2024-09-20 09:57 | RT_ITS ---
The [facility] Test Date: 2024-09-20 Pat Name: GER MACKENZIE Department: Room: - Gender: Male [employer] Demonstrator: Noemí Reina RRT : 1955 Requested By: Usman Caldwell Order Number: [id number] Reading MD: Usman Caldwell Interpretive Statements Pulmonary function testing was completed according to ATS criteria. Findings were considered accurate and reproducible. Both pre- and post-bronchodilator values utilized for spirometry. Spirometry (based on pre-bronchodilator values): -FEV1/FVC: Normal @ 73% -FEV1: Mild-moderately reduced @ 77% (2.19L/min) -FVC: Mildly reduced @ 77% -There is no significant bronchodilator response. Lung volumes by plethysmography: -RV: Reduced @ 76% -TLC: Mildly reduced @ 75% Diffusion capacity: -DLCO: Very severe reduction @ 28% when corrected for Hb 15.9g/dL Impressions: -Non-diagnostic spirometry, though it trends towards moderate obstruction without a bronchodilator response. There also appears to be a concomitant restrictive process with a mildly reduced TLC. There is a very severe diffusion impairment. 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 cardiopulmonary vascular or ILD). Clinical correlation required. Electronically Signed On 09-23-2024 13:09:38 EDT by Usman Caldwell
== END 2024-09-20 07:20 | disposition home or self-care (01) ==
LOC: CARD 07:19
PROVIDERS: PCP Family Medicine; Visit Provider Internal Medicine
DX: J43.2 Centrilobular emphysema (principal); C34.32 Malignant neoplasm of lower lobe, left bronchus or lung; C61 Malignant neoplasm of prostate
CPT/HCPCS: 36415; 70551; 85018; 94060; 94726; 94729

== ENCOUNTER 2024-09-20 07:21 | Outpatient (OUT) | payer MEDICARE, SELFPAY ==
--- OUTSIDE RECORDS SUMMARY | 2024-09-20 07:24 | XMS_ITS | CCD ---
Author Organization [facility] Care Team Providers Care Patrol Police Sergeant Name Role Phone ALONZOC, DR SUMMERS Attending [...] Rosas Attending Unavailab le House DO, Jw [facility] Care Unavai lable House DO, Jw [facility] Consulting Ena Alvarez MD, Ramiro Rosas Attending Unavailab le House DO, Jw [facility] Care Unavai lable House DO, Jw [facility] Ena Alvarez MD, Ramiro Rosas Attending Unavailab bertin Alvarez MD, Ramiro Rosas Attending Unavailab le House DO, [facility] Chandler Peres MD Attending Unavailable Sukhjinder Wild PA-C Referring Unav ailable House DO, Jw [facility] Care Ena Alvarez MD, Ramiro Rosas Attending Unavailab le House DO, Jw [facility] Ena Alvarez MD, Ramiro Rosas Attending Unavailab le House DO, [facility] Ena Alvarez MD, Ramiro Rosas Attending [...] SAMSA, DERIC P Referring Unavailable HOUSE SR, WJ P Primary Care Unavailable HOUSE, DO JW P Attending Unavailable HOUSE, JW P Primary Care Unavailable HOUSE, DO JW P Attending Unavailable HOUSE, JW P Primary Care Unavailable Allergies Allergy Classification Reported Allergen(s) Allergy Type Date of Onset Reaction(s) Facility (1 source) No Known Medication Allergies; Translations: [No Known Medication Allergies] Propensity to adverse reactions (disorder) [facility] Repository Medications Current Medications Medication Drug Class(es) Dates Sig (Normalized) Sig (Original) [id number] 200 actuat albuterol 0.09 mg/actuat metered dose [...] Range Facility Outside Recordson 09-16-2024 Outside Records [id number] CBC W Auto Differential pane l (Bld)on 09-13-2024 Basophils (Bld) [#/Vol] 0.06 10*3/uL [facility] Basophils/100 WBC (Bld) 0.7 % [facility] Differential cell count method Nom (Bld) Auto [facility] Eosinophils (Bld) [#/Vol] 0.25 10*3/uL [facility] Eosinophils/100 WBC (Bld) 2.8 % [facility] Erythrocyte distribution width (RBC) [Ratio] 12.6 % 11.5 - 15.0 % [facility] Hematocrit (Bld) [Volume fraction] 47.7 % 39.0 - 51.0 % [facility] Hemoglobin (Bld) [Mass/Vol] 16.9 g/dL 13.0 - 17.0 g/dL [facility] Immature granulocytes (Bld) [#/Vol] 0.03 10*3/uL [facility] Immature granulocytes/100 WBC (Bld) 0.3 % [facility] Lymphocytes (Bld) [#/Vol] 1.52 10*3/uL [facility] Lymphocytes/100 WBC (Bld) 17.1 % [facility] MCH (RBC) [Entitic mass] 33.1 pg 26.0 - 34.0 pg [facility] MCHC (RBC) [Mass/Vol] 35.4 g/dL 30.5 - 36.0 g/dL [facility] MCV (RBC) [Entitic vol] 93.3 fL 80.0 - 100.0 fL [facility] Monocytes (Bld) [#/Vol] 0.74 10*3[facility] Monocytes/100 WBC (Bld) 8.3 % [facility] Neutrophils (Bld) [#/Vol] 6.29 10*3/uL [facility] Neutrophils/100 WBC (Bld) 70.8 % [facility] Nucleated RBC (Bld) [#/Vol] NINF [facility] Nucleated RBC/100 WBC (Bld) [Ratio] 0 % /100 WBC [facility] Platelet mean volume (Bld) [Entitic vol] 9.5 fL 9.0 - 12.7 fL [facility] Platelets (Bld) [#/Vol] 223 10*3/uL [facility] RBC (Bld) [#/Vol] 5.11 10*6/uL 4.20 - 6.0 0 m/uL [facility] WBC (Bld) [#/Vol] 8.89 10*3/uL [facility] Basophils (Bld) [#/Vol] 0.06 10*3/uL Normal <0.11 [facility] Comment on above: Order Comment: Speci men Type: BLOOD SPECIMEN Ordering Facility: [facility] Address: [address] [place] [address] Performed By: #### 5 7021-8 #### [facility] CLIA [id number] [address] [place] [address] 60307 Basophils/100 WBC (Bld) 0.7 % Normal [facility] Comment on above: Order Comment: Speci men Type: BLOOD SPECIMEN Ordering Facility: [facility] Address: [address] [place], [place] [address] Performed By: #### 5 7021-8 #### [facility] CLIA [id number] [address] [place] [address] 45588 Differential cell count method Nom (Bld) Auto Normal [facility] Comment on above: Order Comment: Speci men Type: BLOOD SPECIMEN Ordering Facility: [facility] Address: [facility] [place] [address] Performed By: #### 5 7021-8 #### [facility] CLIA [id number] [address] [place] [address] 83194 Eosinophils (Bld) [#/Vol] 0.25 10*3/uL Normal <0.46 [facility] Comment on above: Order Comment: Speci men Type: BLOOD SPECIMEN Ordering Facility: [facility] Address: [address] [place] [address] Performed By: #### 5 7021-8 #### [facility] CLIA [id number] [address] [place] [address] 09783 Eosinophils/100 WBC (Bld) 2.8 % Normal [facility] Comment on above: Order Comment: Speci men Type: BLOOD SPECIMEN Ordering Facility: [facility] Address: [address] [place] [address] Performed By: #### 5 7021-8 #### [facility] CLIA [id number] [address] [place] [address] 10750 Erythrocyte distribution width (RBC) [Ratio] 12.6 % Normal 11.5-15.0 [facility] Comment on above: Order Comment: Speci men Type: BLOOD SPECIMEN Ordering Facility: [facility] Address: [address] [place] [address] 29898 Performed By: #### 5 7021-8 #### [facility] CLIA [id number] [address] [place] [address] 63276 Hematocrit (Bld) [Volume fraction] 47.7 % Normal 39.0-51.0 [facility] Comment on above: Order Comment: Speci men Type: BLOOD SPECIMEN Ordering Facility: [facility] Address: [address] [place] [address]1776 Performed By: #### 5 7021-8 #### [facility] CLIA [id number] [address] [place] [address] 20879 Hemoglobin (Bld) [Mass/Vol] 16.9 g/dL Normal 13.0-17.0 [facility] Comment on above: Order Comment: Speci men Type: BLOOD SPECIMEN Ordering Facility: [facility] Address: [address] [place] [address] 36862 Performed By: #### 5 7021-8 #### [facility] CLIA [id number] [address] [place] [address] 19878 Immature granulocytes (Bld) [#/Vol] 0.03 10*3/uL Normal <0.10 [facility] Comment on above: Order Comment: Speci men Type: BLOOD SPECIMEN Ordering Facility: [facility] Address: [address] [place] [address] Performed By: #### 5 7021-8 #### [facility] CLIA [id number] [address] [place] [address] 06059 Immature granulocytes/100 WBC (Bld) 0.3 % Normal [facility] Comment on above: Order Comment: Speci men Type: BLOOD SPECIMEN Ordering Facility: [facility] Address: [address] [place] [address] 93396 Performed By: #### 5 7021-8 #### [facility] CLIA [id number] [address] [place] [address] 39584 Lymphocytes (Bld) [#/Vol] 1.52 10*3/uL Normal 1.00-4.00 [facility] Comment on above: Order Comment: Speci men Type: BLOOD SPECIMEN Ordering Facility: [facility] Address: [address] [place] [address] Performed By: #### 5 7021-8 #### [facility] CLIA [id number] [address] [place] [address] 13785 Lymphocytes/100 WBC (Bld) 17.1 % Normal [facility] Comment on above: Order Comment: Speci men Type: BLOOD SPECIMEN Ordering Facility: [facility] Address: [address] [place] [address]285 Performed By: #### 5 7021-8 #### [facility] CLIA [id number] [address] [place] [address] 42184 MCH (RBC) [Entitic mass] 33.1 pg Normal 26.0-34.0 [facility] Comment on above: Order Comment: Speci men Type: BLOOD SPECIMEN Ordering Facility: [facility] Address: [address] [place] [address] Performed By: #### 5 7021-8 #### [facility] CLIA [id number] [address] [place] [address] 72607 MCHC (RBC) [Mass/Vol] 35.4 g/dL Normal 30.5-36.0 [facility] Comment on above: Order Comment: Speci men Type: BLOOD SPECIMEN Ordering Facility: [facility] Address: [address] [place] [address] Performed By: #### 5 7021-8 #### [facility] CLIA [id number] [address] [place] [address] 50399 MCV (RBC) [Entitic vol] 93.3 fL Normal 80.0-100.0 [facility] Comment on above: Order Comment: Speci men Type: BLOOD SPECIMEN Ordering Facility: [facility] Address: [address] [place] [address] Performed By: #### 5 7021-8 #### [facility] CLIA [id number] [address] [place] [address] 17330 Monocytes (Bld) [#/Vol] 0.74 10*3/uL Normal <0.87 [facility] Comment on above: Order Comment: Speci men Type: BLOOD SPECIMEN Ordering Facility: [facility] Address: [address] [place] [address] Performed By: #### 5 7021-8 #### [facility] CLIA [id number] [address] [place] [address] 53920 Monocytes/100 WBC (Bld) 8.3 % Normal [facility] Comment on above: Order Comment: Speci men Type: BLOOD SPECIMEN Ordering Facility: [facility] Address: [address] [place] [address] Performed By: #### 5 7021-8 #### [facility] CLIA [id number] [address] [place] [address] 05232 Neutrophils (Bld) [#/Vol] 6.29 10*3/uL Normal 1.45-7.50 [facility] Comment on above: Order Comment: Speci men Type: BLOOD SPECIMEN Ordering Facility: [facility] Address: [address] [place] [address] Performed By: #### 5 7021-8 #### [facility] CLIA [id number] [address] [place] [address] 78424 Neutrophils/100 WBC (Bld) 70.8 % Normal [facility] Comment on above: Order Comment: Speci men Type: BLOOD SPECIMEN Ordering Facility: [facility] Address: [address] [place] [address] Performed By: #### 5 7021-8 #### [facility] CLIA [id number] [address] [place] [address] 28976 Nucleated RBC (Bld) [#/Vol] 10*3/uL Normal <0.01 [facility] Comment on above: Order Comment: Speci men Type: BLOOD SPECIMEN Ordering Facility: [facility] Address: [address] [place] [id number] Performed By: #### 5 7021-8 #### [facility] CLIA [id number] [address] [place] [address] 70025 Nucleated RBC/100 WBC (Bld) [Ratio] 0.0 /100 WBC Normal [facility] Comment on above: Order Comment: Speci men Type: BLOOD SPECIMEN Ordering Facility: [facility] Address: [address] [place] [id number] Performed By: #### 5 7021-8 #### [facility] CLIA [id number] [address] [place] [address] 72289 Platelet mean volume (Bld) [Entitic vol] 9.5 fL Normal 9.0-12.7 [facility] Comment on above: Order Comment: Speci men Type: BLOOD SPECIMEN Ordering Facility: [facility] Address: [address] [place] [address] Performed By: #### 5 7021-8 #### [facility] CLIA [id number] [address] [place] [address] 77077 Platelets (Bld) [#/Vol] 223 10*3/uL Normal 150-400 [facility] Comment on above: Order Comment: Speci men Type: BLOOD SPECIMEN Ordering Facility: [facility] Address: [address] [place] [address] Performed By: #### 5 7021-8 #### [facility] CLIA [id number] [address] [place] [address] 87802 RBC (Bld) [#/Vol] 5.11 10*6/uL Normal 4.20-6.00 [facility] Comment on above: Order Comment: Speci men Type: BLOOD SPECIMEN Ordering Facility: [facility] Address: [address] [place] [address] Performed By: #### 5 7021-8 #### [facility] CLIA [id number] [address] [place] [address] 23576 WBC (Bld) [#/Vol] 8.89 10*3/uL Normal 3.70-11.00 [facility] Comment on above: Order Comment: Speci men Type: BLOOD SPECIMEN Ordering Facility: [facility] Address: [address] [place] [address] Performed By: #### 5 7021-8 #### [facility] CLIA [id number] [address] [place] [address] 12545 CNOVSPon 09-13-2024 CNOVSP Visit (SP) Office ([facility]) -- GER MACKENZIE ([id number]) 1955 M Date Time Provider Department 09/13/24 2:30 PM JOB BRADY During your visit today, we recorded the following information about you: Temperature Pulse Respiration Blood pressure 98.2 degrees 76/minute 16/minute 126/78 Weight Height 86.5 kg 1.702 m Job Brady MD 09/13/2024 3:07 PM Signed PATIENT NAME: Ger Mackenzie CLINIC NO.: [id number] ATTENDING PHYSICIAN: Job Brady MD DATE OF SERVICE: September 13, [address] Deric Lockett [address] [place] [address] thank you for referring Ger Mackenzie for an opinion regarding lung cancer. CHIEF COMPLAINT: Lung cancer HPI: Ger Mackenzie is a 69 year old year old male with PMH of prostate cancer, referred to us for lung cancer. The lesion was first discovered on 06/15/2023 PET scan, with weak uptake, and highly suspicion for primary lung cancer. At that time his strategic marketing associate recommended him to do IR robotic bronchoscopy [...] cancer. Father- alive. Scheduled for PFTs at [facility]. Current Outpatient Medications Medication Sig albuterol HFA [...] cervical, supraclavicular, (more content not included)... Normal [facility] Comprehensive metabolic 2000 panelOrdered By: Iman Mckenzie on 09-13-2024 Albumin [Mass/Vol] 4 g/dL 3.9 - 4.9 g/dL [facility] ALP [Catalytic activity/Vol] 88 U/L 38 - 113 U/L [facility] ALT [Catalytic activity/Vol] 26 U/L 10 - 54 U/L [facility] Anion gap [Moles/Vol] 12 mmol/L 8 - 15 mmol/L [facility] AST [Catalytic activity/Vol] 24 U/L 14 - 40 U/L [facility] Bilirubin [Mass/Vol] 0.4 mg/dL 0.2 - 1 .3 mg/dL [facility] Calcium [Mass/Vol] 9.8 mg/dL 8.5 - 10. 2 mg/dL [facility] Chloride [Moles/Vol] 101 mmol/L 98 - 10 7 mmol/L [facility] CO2 [Moles/Vol] 26 mmol/L 22 - 30 mmol/L [facility] Creatinine [Mass/Vol] 1.05 mg/dL 0.73 - 1.22 mg/dL [facility] GFR/1.73 sq M.predicted among non-blacks MDRD (S/P/Bld) [Vol rate/Area] 77 mL/min/{1.73_m2} - PINF [facility] Comment on above: Estimated Glomerular Filtration [...] [Mass/Vol] 95 mg/dL 74 - 99 mg/dL [facility] Comment on above: The [place] Di[employer] Association (ADA) provides guidance for [...] Standards of Medical Care in Diabetes 2016, [place] [employer]. Diabetes Care. 2016.39(Suppl 1). Interpretation and review of laboratory results Abnormal [facility] Potassium [Moles/Vol] 4.5 mmol/L 3.7 - 5.1 mmol/L [facility] Protein [Mass/Vol] 8.1 g/dL High 6.3 - 8.0 g/dL [facility] Sodium [Moles/Vol] 139 mmol/L 136 - 144 mmol/L [facility] Urea nitrogen [Mass/Vol] 18 mg/dL 9 - 24 mg/dL [facility] Comprehensive metabolic 2000 panelon 09-13-2024 Albumin [Mass/Vol] 4.0 g/dL Normal 3.9-4.9 [facility] Comment on above: Order Comment: Speci men Type: BLOOD SPECIMEN Ordering Facility: [facility] Address: [address] [place] [address] Performed By: #### 2 4323-8 #### [facility] CLIA [id number] [address] [place] [address] 83463 ALP [Catalytic activity/Vol] 88 U/L Normal 38-113 [facility] Comment on above: Order Comment: Speci men Type: BLOOD SPECIMEN Ordering Facility: [facility] Address: [address] [place] [address] Performed By: #### 2 4323-8 #### [facility] CLIA [id number] [address] [place] [address] ALT [Catalytic activity/Vol] 26 U/L Normal 10-54 [facility] Comment on above: Order Comment: Speci men Type: BLOOD SPECIMEN Ordering Facility: [facility] Address: [address] [place], [place] [address] Performed By: #### 2 4323-8 #### [facility] CLIA [id number] [address] [place] [address] 65149 Anion gap [Moles/Vol] 12 mmol/L Normal 8-15 [facility] Comment on above: Order Comment: Speci men Type: BLOOD SPECIMEN Ordering Facility: [facility] Address: [address] [place] [address] Performed By: #### 2 4323-8 #### [facility] CLIA [id number] [address] [place] [address] 04762 AST [Catalytic activity/Vol] 24 U/L Normal 14-40 [facility] Comment on above: Order Comment: Speci men Type: BLOOD SPECIMEN Ordering Facility: [facility] Address: [address] [place], [place] [address] Performed By: #### 2 4323-8 #### [facility] CLIA [id number] [address] [place] [address] 00356 Bilirubin [Mass/Vol] 0.4 mg/dL Normal 0.2-1.3 [facility] Comment on above: Order Comment: Speci men Type: BLOOD SPECIMEN Ordering Facility: [facility] Address: [address] [place], [place] [address] Performed By: #### 2 4323-8 #### [facility] CLIA [id number] [address] [place] [address] 04641 Calcium [Mass/Vol] 9.8 mg/dL Normal 8.5-10.2 [facility] Comment on above: Order Comment: Speci men Type: BLOOD SPECIMEN Ordering Facility: [facility] Address: [address] [place], [place] [address] Performed By: #### 2 4323-8 #### [facility] CLIA [id number] [address] [place] [address] Chloride [Moles/Vol] 101 mmol/L Normal 98-107 [facility] Comment on above: Order Comment: Speci men Type: BLOOD SPECIMEN Ordering Facility: [facility] Address: [address] [place] [address] Performed By: #### 2 4323-8 #### [facility] CLIA [id number] [address] [place] [address] 68821 CO2 [Moles/Vol] 26 mmol/L Normal 22-30 [facility] Comment on above: Order Comment: Speci men Type: BLOOD SPECIMEN Ordering Facility: [facility] Address: [address] [place] [address] Performed By: #### 2 4323-8 #### [facility] CLIA [id number] [address] [place] [address] 72189 Creatinine [Mass/Vol] 1.05 mg/dL Normal 0.73-1.22 [facility] Comment on above: Order Comment: Speci men Type: BLOOD SPECIMEN Ordering Facility: [facility] Address: [address] [place] [address] Performed By: #### 2 4323-8 #### [facility] CLIA [id number] [address] [place] [address]4033 Creatinine and Glomerular filtration rate.predicted panel (S/P/Bld) 77 mL/min/1.73m??? Normal >=60 [facility] Comment on above: Order Comment: Speci men Type: BLOOD SPECIMEN Ordering Facility: [facility] Address: [address] [place] [address] Result Comment: Yuly mated Glomerular Filtration Rate [...] GFR. Performed By: #### 2 4323-8 #### [facility] CLIA [id number] [address] [place] [address] 24790 Glucose [Mass/Vol] 95 mg/dL Normal 74-99 [facility] Comment on above: Order Comment: Brent romero Type: BLOOD SPECIMEN Ordering Facility: [facility] Address: [address] [place], [place] [address] Result Comment: The [place] Diabetes Association (ADA) provides guidance for cutoff [...] Standards of Medical Care in Diabetes 2016, [place] [employer]. Diabetes Care. 2016.39(Suppl 1). Performed By: #### 2 4323-8 #### [facility] CLIA [id number] [address] [place] [address] 56737 Potassium [Moles/Vol] 4.5 mmol/L Normal 3.7-5.1 [facility] Comment on above: Order Comment: Brent romero Type: BLOOD SPECIMEN Ordering Facility: [facility] Address: [address] [place] [address] Performed By: #### 2 4323-8 #### [facility] CLIA [id number] [address] [place] [address] 34600 Protein [Mass/Vol] 8.1 g/dL High 6.3-8.0 [facility] Comment on above: Order Comment: Speci men Type: BLOOD SPECIMEN Ordering Facility: [facility] Address: [facility] [place] [id number] Performed By: #### 2 4323-8 #### [facility] CLIA [id number] [address] [place] [address] Sodium [Moles/Vol] 139 mmol/L Normal 136-144 [facility] Comment on above: Order Comment: Speci men Type: BLOOD SPECIMEN Ordering Facility: [facility] Address: [address] [place], [place] [address] Performed By: #### 2 4323-8 #### [facility] CLIA [id number] [address] [place] [address] 07627 Urea nitrogen [Mass/Vol] 18 mg/dL Normal 9-24 [facility] Comment on above: Order Comment: Speci men Type: BLOOD SPECIMEN Ordering Facility: [facility] Address: [address] [place], [place] [address] Performed By: #### 2 4323-8 #### [facility] CLIA [id number] [address] [place] [address] 87820 PSA SerPl-mCncon 09-13-2024 Prostate specific Ag [Mass/Vol] 11.30 ng/mL High <2.60 [facility] Comment on above: Order Comment: Speci men Type: BLOOD SPECIMEN Ordering Facility: [facility] Address: [address] [place] [address] Result Comment: Tota l PSA test methodology [...] 2003,349:335-42. Performed By: #### 2 857-1 #### [facility] CLIA [id number] [address] [place] [address] STATES OF [facility] Testost SerPl-mCncon 025 Testosterone [Mass/Vol] 437 ng/dL Normal 193-824 [facility] Comment on above: Order Comment: Speci men Type: BLOOD SPECIMEN Ordering Facility: [facility] Address: [address] [place] [address] Result Comment: A te stosterone level in the 193-320 ng/dL range with associated clinical symptoms is considered low and may indicate hypogonadism (from [facility] 2010 363:123-135). Results >320 ng/dL are considered normal. Performed By: #### 2 986-8 #### [facility] CLIA [id number] [address] [place] [address] OF [facility] HPon 08-20-2024 HP ------ -- Attestation signed by Stephanie Catherine MD at 08/20/2024 10:55 AM Re-explained the procedure to the patient along with the associated risk of pneumothorax, bleeding, hypoxia, and respiratory failure. Patient is agreeable and will proceed with the scheduled bronchoscopy and EBUS Stephanie Catherine MD Interventional Pulmonary Medicine Pulmonary and Critical Care Medicine [facility] -- H&P reviewed. The patient was [...] Abdomen: Not distended Extremities: No edema Normal [facility] NON-CHEMICAL ENGINEERING TECHNOLOGIST CYTOLOGY - CELLULAR EXAMon 08-20-2024 LAB AP ADDENDUM 1 Normal [facility] Comment on above: Result Comment: 09/06 - This case ([id number] C) was sent to [facility] for PD-L1 22C3 IHC with tumor proportion [...] 10:45 AM Performed By: #### L AB13 ####[facility] (BEAKER)[address] [place] [address] LAB AP ASR DISCLAIMER The interpretation of [...] Clinical Laboratory Improvement Amendments of 1998. Normal [facility] Comment on above: Performed By: #### L AB13 ####[facility] ([facility] ([place]))[address] [place] [address] LAB AP CASE REPORT Normal [facility] Comment on above: Result Comment: Non- gynecologic Cytology Case: [id number] Authorizing Provider: Stephanie Catherine MD Collected: 08/20/2024 1304 Ordering Location: [facility] Main Operating Room Received: 08/20/2024 1345 Pathologist: Austen Govea MD Specimens: A) - Lymph Node, Station 4R B) - Lymph Node, Station 7 C) - Lung, Left Lower Lobe, LLL mass FNA Performed By: #### L AB13 ####[facility] ([facility] ([place] [place] [address] LAB AP CLINICAL INFORMATION Left lower lobe lung mass initially discovered in 06/2023, recent imaging showed an increase in size as well as hilar/mediastinal adenopathy, 50 pack-year smoking history, history of prostate cancer Normal [facility] Comment on above: Performed By: #### L AB13 ####[facility] ([facility] ([place] [place] [address] LAB AP DIAGNOSIS COMMENT Normal [facility] Comment on above: Result Comment: C. [...] clinically indicated. Performed By: #### L AB13 ####[facility] ([facility] ([place] [place] [address] LAB AP GROSS DESCRIPTION Normal [facility] Comment on above: Result Comment: A. 3 air-dried slides, 3 alcohol-fixed slides, 30 mL CytoLyt with hazy, red fluid and clots. B. 3 air-dried slides, 3 alcohol-fixed slides, 30 mL CytoLyt with hazy, red fluid and clots. C. 1 air-dried slide, 1 alcohol-fixed slide, 30 mL CytoLyt with cloudy, red fluid and clots. Performed By: #### L AB13 ####[facility] (BEAKER)[address] [place] [address] LAB AP INTRAOPERATIVE CONSULTATION Normal [facility] Comment on above: Result Comment: Dionne. [...] material submitted.* Performed By: #### L AB13 ####[facility] (BEAKER)[address] [place] [address] LAB AP MICROSCOPIC DESCRIPTION Normal [facility] Comment on above: Result Comment: A. [...] and blood. Performed By: #### L AB13 ####[facility] (BEAKER)[address] [place] [address] LAB AP REPORT FINAL DIAGNOSIS NARRATIVE Normal [facility] Comment on above: Result Comment: A. [...] 1:03 PM Performed By: #### L AB13 ####[facility] [place] [address] POCT GLUCOSE METER UNSOLICIT ED RESULTSon 08-20-2024 Glucose [Mass/Vol] 103 mg/dL Normal 70-105 [facility] Comment on above: Order Comment: Waive d Testing in the ED is performed under the ED CLIA certificate #[id number]. Result Comment: dhol as Performed By: #### L [id number] ####[facility] (BEAKER)[address] [place] [address] Prep for Procedureon 025 Prep for Procedure [id number] Chase Mackenzie 1955 M Date Provider Department Center 08/12/2024 STEPHANIE DIAZ [facility] Family History Problem Relation Age of Onset Bone cancer Mother Asthma Maternal Grandfather Asthma Paternal Grandfather Family Status - Relation Status Age at Mother Maternal Grandfather Paternal Grandfather Normal [facility] HPon 08-01-2024 HP ------ -- Attestation [...] Age: 69 y.o. : 1955 Account No.: [id number] Referring physician: Paulette Chief complaint: Following up on lung mass HPI Mr. Mackenzie is a 69-year-old male past medical history significant for prostatic adenocarcinoma, smoker, he had a televisit with us back on 10/19/2023 for left lower ling mass .The lesion was first discovered on 06/15/2023 PET scan, with weak uptake, and highly suspicion for primary lung cancer. At that time his strategic marketing associate recommended him to do IR robotic bronchoscopy [...] , PH , PHART , PHVEN , PFS4TWG , EXN3COG , GEQ8FJR , PO2POC , PO2ART , PO2VEN , PRZ6DSA , OQE2FFF Radiology: No Chest X-ray results found for [...] was initiated by the patient and conducted rnm-otow-xg-face with use of audio-only real time telephone communication between patient and provider for a virtual visit. Verbal consent to provide and bill this service was obtained on: 08/02/24 No signat (more content not included)... [facility] Outside Recordson 08-01-2024 Outside Records [id number]#1.00OTGTIFF [facility] Telemedicineon 08-01-2024 Telemedicine [id number] Chase Mackenzie 1955 [facility] Provider Department Center 08/01/[address] [facility] ONC DCC Family History Problem Relation Age of Onset Bone cancer Mother Asthma Maternal Grandfather Asthma Paternal Grandfather Family Status - Relation Status Age at Mother Maternal Grandfather Paternal Grandfather Level of Service:49034 MO OFFICE/OUTPT VISIT,PROCEDURE ONLY (GC) Reason for Visit and Comments: New Patient [632] - Please evaluate for interventional bronchoscopy. [facility] Abstracton 07-31-2024 Abstract [id number] MackenzieChase 1955 M Date Provider Department Center 07/31/2024 383-STEPHANIE CATHERINE [facility] ONC DCC Family History Problem Relation Age of Onset Bone cancer Mother Asthma Maternal Grandfather Asthma Paternal Grandfather Family Status - Relation Status Age at Mother Maternal Grandfather Paternal Grandfather Normal [facility] Outside Recordson 07-31-2024 Outside Records [id number]#1.00OTGTI FF [facility] Rad - Other Radiology Report on 07-29-2024 Rad - Other Radiology Report [id number]#1.00OTGTIF F [facility] CNPNon 07-25-2024 CNPN Telephone (NCCAP) -- GER MACKENZIE ([id number]) 1955 M Date Time Provider Department 07/25/24 [facility] During your visit today, we recorded the [...] Encounter Status:Closed by SHANNON MINOR on 07/25/24 [facility] Urology Office/Clinic Noteon 07-24-2024 Urology Office/Clinic Note Urology Office/Clinic Note Chief Complaint discus RALP HPI Staff 69yr old male pt here to discuss RALP. S/p TRUS/bx 05/18/23. PSMA PET/PET 06/15/24 Previous Dx: prostate cancer, lung nodule, BPH with urinary obstruction *Flomax 0.4mg qd PSA 06/22/24 - 11.39 pt and states they were going through [facility] and did not like it so [...] Pt accompanied by today, she works at [employer] [place]. No prior abdominal surgeries. Denies hx [place], stroke or DM MELE 13 - not a priority 1. Prostate cancer (C61: Malignant neoplasm of prostate) PSA. 02/23/23- 7.43 04/15/23 - 9.60 08/19/23 - 9.55 02/06/24 - 9.91 04/20/24 - 10.15 06/22/24 - 11.39 Mother had breast cancer. MALISSA by Dr. Alvarez 07/25/22: 60+g, intermediate left lateral nodule. MRI prostate 09/10/22 [facility] - Two lesions PI-RADS 5. Involvement of the posterior prostatic capsule. S/p TRUS/bx 05/18/23 - Rowe 7 (4+3) Bilateral apex and L mid. [...] and open approaches. I showed him the [facility] nomogram which estimates his risk of organ [...] of radiatio (more content not included)... Normal [facility] Comment on above: Result Comment: [...] with Essence CROWLEY MD, URL When: Where: [facility] [address] [place] [phone]- Someone Will Contact You Regarding These Appointments [facility] [place] External Ambulatory Referral, Other Referral, Dr. Fuentes @ [facility], 07/03/24 14:30:00 EST, Prostate cancer Medications What [...] Prostate can (more content not included)... Normal [facility] Urology Office/Clinic Noteon 07-03-2024 Urology Office/Clinic Note Urology Office/Clinic Note Chief Complaint New Pt. HPI Staff 69 year old male new patient here to discuss elevated psa flomax 0.4mg qd Patient does have a 6x4 cm lung nodule being followed by DR. Lockett- repeat ct w/contrast due mid Jul 2024 Prostate bx 05/18/[address] Miguel at [facility]- 5 cores positive, Rowe 4+3=7 PSMA 06/15/23 IPSS 9 PSA 04/15/23- [...] Pt accompanied by today, she works at [employer] [facility] [place]. Portions of this record may have been created with voice recognition artificial intelligence software, specifically [employer], [employer] and or [employer]. Substitutions may have occurred due to the inherent limitations of voice recognition and artificial intelligence software. 1. Prostate cancer (C61: Malignant neoplasm of prostate) PSA. 02/23/23- 7.43 04/15/23 - 9.60 08/19/23 - 9.55 02/06/24 - 9.91 04/20/24 - 10.15 06/22/24 - 11.39 Mother had breast cancer. MRI of prostate 09/10/22 [facility] - Two lesions PI-RADS 5. Involvement of the posterior prostatic capsule. S/p TRUS/bx 05/18/23 - Niles 7 (4+3) Bilateral disease. Grade group 3. 5/12 cores. PSMA PET/PET 06/15/24 [facility] [place] - small focus of activity in the [...] discussed referral to discuss RALP, locally or [facility]. We also discussed the possible need of repeating biopsy since it has been over a year. Will have pt meet with Dr. Lloyd and Dr. Fuentes first. -Schedule appt with Dr. Lloyd to discuss RALP -Referral placed to Dr. Fuentes at [facility] 2. Lung nodule (R91.1: Solitary pulmonary nodule) [...] urinary tract symptoms) MRI of prostate 09/10/22 [facility] - prostate volume 70.3 mL. UA today negative for blood or infection. IPSS 9. Taking Flomax 0.4mg qd through external provider. Summary is that this patient had adenocarcinoma the prostate, Niles 4+3 equal 7 diagnosed over a year ago. He had postbiopsy c (more content not included)... Normal [facility] Comment on above: Result Comment: Elec tronically Signed By: Essence CROWLEY MD\.br\Date and Time Signed: 07/03/24 14:35 EST\.br\Electronically Co-Signed By: Tammie Weathers\.br\Date and Time Co-Signed: 07/03/24 14:32 EST Outside Recordson 05-13-2024 Outside Records [id number]#1.00OTGTIF F [facility] Rad - Other Radiology Report on 04-25-2024 Rad - Other Radiology Report [id number]#1.00OTGTIF [facility] Lab - Other Lab Resultson Lab - Other Lab Results [id number]#1.00OTGTI [facility] Lab - Other Lab Results [id number]#1.00OTGTI [facility] Outside Recordson 02-01-2024 Outside Records [id number]#[facility] Radiology Report on 01-16-2024 Rad - Other Radiology Report [id number]#1.[facility] 10-25-2023 Outside Records [id number]#1.[facility] Tele[facility] 10-23-2023 Telephone [id number] Chase Mackenzie wander Scott 1955 M Date Provider Department Center 10/23/2023 [facility] ONC DCC Family History Problem Relation Age of Onset Bone cancer Mother Asthma Maternal Grandfather Asthma Paternal Grandfather Family Status - Relation Status Age at Mother Maternal Grandfather Paternal Grandfather Normal [facility] Lab - Other Lab Resultson Lab - Other Lab Results [id number]#1.00OTGTIFF Normal [facility] Telemedicineon 10-19-2023 Telemedicine [id number] Chase Mackenzie wander L 1955 M Date Provider Department Center 10/19/[address] [facility]C [facility] Family History Problem Relation Age of Onset Bone cancer Mother Asthma Maternal Grandfather Asthma Paternal Grandfather Family Status - Relation Status Age at Mother Maternal Grandfather Paternal Grandfather Level of Service:64139 MO PHYS/QHP TELEPHONE EVALUATION 21-30 MIN () Reason for Visit and Comments: New Patient [632] - PSYCHIATRIC REGISTERED NURSE TELEMED REFERRAL BY DR DERIC LOCKETT FOR LUNG MASS IN UPPER LEFT LOBE. CT DONE 09-23-23. PET DONE 06-15-23 FILMS in [facility]. BRONCH WAS DONE 10-18-2023. ALL IN MEDIA Normal [facility] Orders Onlyon 10-18-2023 Orders Only [id number] Chase Mackenzie wander L 1955 M Date Provider Department Center 10/18/[address] [facility] Family History Problem Relation Age of Onset Bone cancer Mother Asthma Maternal Grandfather Asthma Paternal Grandfather Family Status - Relation Status Age at Mother Maternal Grandfather Paternal Grandfather Normal [facility] Body fluid differential cell countOrdered By: Deric Lockett on 10-03-2023 Differential panel (Body fld) 5 % [facility] Comment on above: The reference interv al and other method performance specifications have not been established for this body fluid. The test result must be integrated into the clinical context for interpretation. Cell Count/Diff, Fluidon Appearance, Fluid Hazy Normal [facility] Comment on above: Order Comment: Body Fluid Source: Other (Name in the Site) Body Fluid Site: LEFT LOWER LOBE LAVAGE Result Comment: The reference interval and other method performance specifications have not been established for this body fluid. The test result must be integrated into the clinical context for interpretation. Performed By: #### F LCCDIFF #### [address] Color, Fluid Colorless Normal [facility] Comment on above: Order Comment: Body Fluid Source: Other (Name in the Site) Body Fluid Site: LEFT LOWER LOBE LAVAGE Result Comment: The reference interval and other method performance specifications have not been established for this body fluid. The test result must be integrated into the clinical context for interpretation. Performed By: #### F LCCDIFF #### [address] Color, Fluid Supernatant Colorless Normal [facility] Comment on above: Order Comment: Body Fluid Source: Other (Name in the Site) Body Fluid Site: LEFT LOWER LOBE LAVAGE Result Comment: The reference interval and other method performance specifications have not been established for this body fluid. The test result must be integrated into the clinical context for interpretation. Performed By: #### F LCCDIFF #### [address] Comment, Fluid Normal [facility] Comment on above: Order Comment: Body Fluid Source: Other (Name in the Site) Body Fluid Site: LEFT LOWER LOBE LAVAGE Result Comment: Body fluid is partially clotted and/or cell clumps or debris are present. Fluid cell count and differential results may not be reliable. Clinical correlation is recommended. PERFORMED BY: [place] [address] PATHOLOGIST NAUMKEAG OPERATOR HEMA GOULD M.D. Performed By: #### F LCCDIFF #### [address] Eosinophils, Fluid 0 /100{WBC} Normal 0-3 [facility] Comment on above: Order Comment: Body Fluid Source: Other (Name in the Site) Body Fluid Site: LEFT LOWER LOBE LAVAGE Performed By: #### F LCCDIFF #### [address] Lymphocytes, Fluid 2 % Normal [facility] Comment on above: Order Comment: Body Fluid Source: Other (Name in the Site) Body Fluid Site: LEFT LOWER LOBE LAVAGE Result Comment: The reference interval and other method performance specifications have not been established for this body fluid. The test result must be integrated into the clinical context for interpretation. Performed By: #### F LCCDIFF #### [place] [address] [place] Monocytes/Macrophages , Fluid 5 % Normal [facility] Comment on above: Order Comment: Body Fluid Source: Other (Name in the Site) Body Fluid Site: LEFT LOWER LOBE LAVAGE Result Comment: The reference interval and other method performance specifications have not been established for this body fluid. The test result must be integrated into the clinical context for interpretation. Performed By: #### F LCCDIFF #### [facility] [address] [id number] [facility] Neutrophil, Fluid 93 % Normal [facility] Comment on above: Order Comment: Body Fluid Source: Other (Name in the Site) Body Fluid Site: LEFT LOWER LOBE LAVAGE Result Comment: The reference interval and other method performance specifications have not been established for this body fluid. The test result must be integrated into the clinical context for interpretation. Performed By: #### F LCCDIFF #### [facility] [address] [id number] [facility] RBC, Fluid 735 /uL Normal [facility] Comment on above: Order [...] interpretation. Performed By: #### F LCCDIFF #### [facility] [address] [id number] [facility] TNC, Body Fluid 525 /uL Normal [facility] Comment on above: Order [...] interpretation. Performed By: #### F LCCDIFF #### [facility] [address] [id number] [facility] Color of Spun Body fluidOrde red By: Deric Lockett on 10-03-2023 Color (Spun body fld) Colorless [facility] Comment on above: The reference interv al and other method performance specifications have not been established for this body fluid. The test result must be integrated into the clinical context for interpretation. Determination of appearance of body fluidOrdered By: Deric Lockett on 10-03-2023 Appearance (Body fld) Hazy [facility] Comment on above: The reference interv al and other method performance specifications have not been established for this body fluid. The test result must be integrated into the clinical context for interpretation. Evaluation of color of body fluidOrdered By: Deric Lockett on 10-03-2023 Color (Body fld) Colorless [facility] Comment on above: The reference interv al and other method performance specifications have not been established for this body fluid. The test result must be integrated into the clinical context for interpretation. Gordon 10-03-2023 L Specimen: [id number] Received: 10/04/23 Status: FRED Fleming Num: [id number] Spec Type: Surgical Subm Dr: Deric Lockett DO Tissues: A Lung - Transbroncial Biopsy (LT LOWER LOBE BX) Procedures: HE/2, Gross/Micro L4 Age/ Patient Sex Location Account Attending Physician Ger Mackenzie 68/M LABELL [id number] Deric Lockett DO SPEC NUM: [id number] RECD: 10/04/23 STATUS: FRED FLEMING NUM: [id number] ARSH: 10/03/[address]: Deric Lockett DO ENTERED: 10/04/23 [facility] DR: Nadine,Ajay SPEC TYPE: Surgical DEPT: [facility] [...] of mucus, no endometrial lesions. CPT Codes 82756 Specimen: [id number] Received: 10/04/23 Status: FRED Fleming Num: [id number] Spec Type: Surgical Subm Dr: Deric Lockett DO Tissues: A Lung - Transbroncial Biopsy (LT LOWER LOBE BX) Procedures: HE/2, Gross/Micro L4 Patient: Ger Mackenzie [id number] (Continued) Signed (signature on file) Stephanie Jackson MD 10/05/[address] [facility] L Specimen: Received: 10/05/23 Status: FRED Fleming Num: [id number] Spec Type: Cytology Subm Dr: Deric Lockett DO Tissues: A [facility] ([facility]) Procedures: HE/2, Gross/Micro L4, Cyto Prepstain, PAPSTN Age/ Patient Sex Location Account Attending Physician Ger Mackenzie Sonia 68/M LABELL [id number] Deric Lockett DO SPEC NUM: [id number] RECD: 10/05/23 STATUS: FRED FLEMING NUM: [id number] ARSH: 10/03/23- SUBM DR: Deric Lockett DO ENTERED: 10/05/[address]: Ajay Mccoy SPEC TYPE: Cytology DEPT: [facility] ENTERED BY: [id number] RECV BY: [id number] ORDERED: HE/2, Gross/Micro L4, Cyto Prepstain, PAPSTN [...] are prepared. 1 cell blocks are prepared. (KS/nd) CPT Codes 73785, 49562 Specimen: [id number] Received: 10/05/23 Status: FRED Fleming Num: [id number] Spec Type: Cytology Subm Dr: Deric Lockett DO Tissues: A [facility] ([facility]) Procedures: HE/2, Gross/Micro L4, Cyto Prepstain, PAPSTN Patient: Ger Mackenzie [id number] (Continued) Signed (signature on file) Snehal Acosta MD 10/08/232007 Normal [facility] Manual body fluid eosinophil s/100 leukocytesOrdered By: Deric Lockett on 10-03-2023 Eosinophils/100 WBC Manual cnt (Body fld) 0 /100{WBC} 0-3 [facility] Manual body fluid erythrocyt es count (number/volume)Ordered By: Deric Lockett on 10-03-2023 RBC Manual cnt (Body fld) [#/Vol] 735 /uL [facility] Comment on above: Body fluid is [...] cnt (Body fld) 2 % [facility] Comment on above: The reference interv al and other method performance specifications have not been established for this body fluid. The test result must be integrated into the clinical context for interpretation. Neutrophils/100 WBC Manual c nt (Body fld)Ordered By: Deric Lockett on 10-03-2023 Neutrophils/100 WBC (Body fld) 93 % [facility] Comment on above: The reference interv al and other method performance specifications have not been established for this body fluid. The test result must be integrated into the clinical context for interpretation. No Panel InformationOrdered By: Deric Lockett on 10-03-2023 Body Fluid Comment See comment [facility] Comment on above: Body fluid is partia lly clotted and/or cell clumps or debris are present. Fluid cell count and differential results may not be reliable. Clinical correlation is recommended. Body Fluid Total Nucleated Cells 525 /uL [facility] Comment on above: Body fluid is partia lly clotted and/or cell clumps or debris are present. Fluid cell count and differential results may not be reliable. Clinical correlation is recommended.The reference interval and other method performance specifications have not been established for this body fluid. The test result must be integrated into the clinical context for interpretation. Outside Recordson 09-28-2023 Outside Records [id number]#1.00OTGTI [facility] Outside Recordson 09-27-2023 Outside Records [id number]#1.00OTGTIFF [facility] PET CT TUMOR IMAGE SKULL THI GH [...] Deric Hernández MD 06/15/23 Final result Normal [facility] Surgical Pathology Reporton 05-18-2023 Surgical Pathology Report (NOTE) Path Number: [id number] -- Diagnosis -- A. PROSTATE, LB, NEEDLE [...] Findings: PROSTATE BIOPSY X 12 Operation Performed: MO PROSTATE NEEDLE BIOPSY ANY APPROACH kb Source [...] seen in intradepartmental consultation (FRANKLYN) for quality assurance nurse purposes. Processing Lab: [facility] [address] [place] [address] Interpretation Performed at [facility] [address] [place], [place] SURGICAL PATHOLOGY CONSULTATION Patient Name: GER MACKENZIE [facility] Rec: [id number] [facility] ANATOMIC PATHOLOGY [address] [place], [place] [address] Normal [facility] PSA, Diagn[employer] 04-15-2023 Prostatic Spec. Ag 9.60 ng/mL High <4.1 [facility] Comment on above: Result Comment: The Ion ECLIA assay is used. Results obtained with different assay methods cannot be used interchangeably. Performed By: #### P SAD #### [address] [address] Personal Loan Specialist: Delon Rizzo MD Cult,Urineon 02-24-2023 Cult,Urine Specimen Description .CLEAN CATCH URINE Culture NO GROWTH Report Status FINAL 02/24/2023 [facility] Comment on above: Performed By: #### U RC #### [address] [address] Personal Loan Specialist: Delon Rizzo MD [facility] [address] [place] [address] [place] [address] Personal Loan Specialist: Juan Carlos Eisenberg MD PSA, Screeningon 02-24-2023 Prostatic Spec. Ag 7.43 ng/mL High <4.1 [facility] Comment on above: Result Comment: The Ion ECLIA assay is used. Results obtained with different assay methods cannot be used interchangeably. Performed By: #### C P, CDP #### [facility] [address] [place] [address] Personal Loan Specialist: Juan Carlos Eisenberg MD #### PSAS #### [facility] [address] [place] [address] Personal Loan Specialist: Delon Rizzo MD CBC with Auto Differentialon 02-23-2023 Basophils (Bld) [#/Vol] 0.07 10*3/uL [facility] Basophils/100 WBC (Bld) 1 % 0 - 2 % [facility] Eosinophils (Bld) [...] WBC (Bld) 0 % 0 [facility] Interpretation and review of laboratory results [...] [Ratio] 0.0 % 0.0 per 100 WBC [facility] Platelet mean volume (Bld) [Entitic vol] 10.2 fL 8.1 - 13.5 fL [facility] Platelets (Bld) [#/Vol] 206 10*3/uL [facility] RBC (Bld) [#/Vol] 4.90 10*6/uL 4.21 - 5.7 7 m/uL [facility] Segmented neutrophils/100 WBC (Bld) 5.44 % [facility] WBC other (Bld) [#/Vol] 7.6 [facility] CBC with Diffon 02-23-2023 Abs. Basophil 0.07 k/uL Normal 0.00-0.20 [facility] Comment on above: Performed By: #### C P, CDP #### [facility] [address] [place] [address] Dr. [place] [phone] Personal Loan Specialist: Juan Carlos Eisenberg MD #### PSAS #### [address] [address] Personal Loan Specialist: Delon Rizzo MD Abs.Imm.Granulocyte 0.03 k/uL Normal 0.00-0.30 [facility] Comment on above: Performed By: #### C P, CDP #### [address] [place] [phone] Personal Loan Specialist: Juan Carlos Eisenberg MD #### PSAS #### [address] [address] Personal Loan Specialist: Delon Rizzo MD Abs.Neutrophil (Seg) 5.44 k/uL Normal 1.50-8.10 [facility] Comment on above: Performed By: #### C P, CDP #### [address] [place], [place] [phone] Personal Loan Specialist: Juan Carlos Eisenberg MD #### PSAS #### [address] [phone] Personal Loan Specialist: Delon Rizzo MD Basophils/100 WBC (Bld) 1 % Normal 0-2 [facility] Comment on above: Performed By: #### C P, CDP #### [facility] [address] [place] [address] [place] [phone] Personal Loan Specialist: Juan Carlos Eisenberg MD #### PSAS #### [address] [address] Personal Loan Specialist: Delon Rizzo MD Eosinophils (Bld) [#/Vol] 0.11 10*3/uL Normal 0.00-0.44 [facility] Comment on above: Performed By: #### C P, CDP #### [address] [place] [phone] Personal Loan Specialist: Juan Carlos Eisenberg MD #### PSAS #### [address] [address] Personal Loan Specialist: Delon Rizzo MD Eosinophils/100 WBC (Bld) 1 % Normal 1-4 [facility] Comment on above: Performed By: #### C P, CDP #### [address] [place] [phone] Personal Loan Specialist: Juan Carlos Eisenberg MD #### PSAS #### [address] [address] Personal Loan Specialist: Delon Rizzo MD Erythrocyte distribution width (RBC) [Ratio] 12.1 % Normal 11.8-14.4 [facility] Comment on above: Performed By: #### C P, CDP #### [address] [place] [phone] Personal Loan Specialist: Juan Carlos Eisenberg MD #### PSAS #### [address] [address] Personal Loan Specialist: Delon Rizzo MD Hematocrit (Bld) [Volume fraction] 47.1 % Normal 40.7-50.3 [facility] Comment on above: Performed By: #### C P, CDP #### [facility] [address] [place], [place] [phone] Personal Loan Specialist: Juan Carlos Eisenberg MD #### PSAS #### [address] [phone] Personal Loan Specialist: Delon Rizzo MD Hemoglobin (Bld) [Mass/Vol] 16.6 g/dL Normal 13.0-17.0 [facility] Comment on above: Performed By: #### C P, CDP #### [facility] [address] [place] [phone] Personal Loan Specialist: Juan Carlos Eisenberg MD #### PSAS #### [address] [phone] Personal Loan Specialist: Delon Rizzo MD Immature granulocytes/100 WBC (Bld) 0 % Normal 0 [facility] Comment on above: Performed By: #### C P, CDP #### [facility] [address] [place] [phone] Personal Loan Specialist: Juan Carlos Eisenberg MD #### PSAS #### [address] [address] Personal Loan Specialist: Delon Rizzo MD Lymphocytes (Bld) [#/Vol] 1.46 10*3/uL Normal 1.10-3.70 [facility] Comment on above: Performed By: #### C P, CDP #### [facility] [address] [place], [place] [phone] Personal Loan Specialist: Juan Carlos Eisenberg MD #### PSAS #### [address] [address] Personal Loan Specialist: Delon Rizzo MD Lymphocytes/100 WBC (Bld) 19 % Low 24-43 [facility] Comment on above: Performed By: #### C P, CDP #### [facility] [address] [place] [address] Personal Loan Specialist: Juan Carlos Eisenberg MD #### PSAS #### [place] [address] [place], [place] [phone] Personal Loan Specialist: Delon Rizzo MD MCH (RBC) [Entitic mass] 33.9 pg High 25.2-33.5 [facility] Comment on above: Performed By: #### C P, CDP #### [facility] [address] [place] [address] Personal Loan Specialist: Juan Carlos Eisenberg MD #### PSAS #### [place] [phone] [place], [place] [phone] Personal Loan Specialist: Delon Rizzo MD MCHC (RBC) [Mass/Vol] 35.2 g/dL High 28.4-34.[address] [facility] Comment on above: Performed By: #### C P, CDP #### [facility] [address] [place] [phone] Personal Loan Specialist: Juan Carlos Eisenberg MD #### PSAS #### [place] [phone] [place], [place] [phone] Personal Loan Specialist: Delon Rizzo MD MCV (RBC) [Entitic vol] 96.1 fL Normal 82.6-102.9 [facility] Comment on above: Performed By: #### C P, CDP #### [facility] [address] [place], [place] [phone] Personal Loan Specialist: Juan Carlos Eisenberg MD #### PSAS #### [address] [address] Personal Loan Specialist: Delon Rizzo MD Monocytes (Bld) [#/Vol] 0.52 10*3/uL Normal 0.10-1.20 [facility] Comment on above: Performed By: #### C P, CDP #### [facility] [address] [place], [place] [phone] Personal Loan Specialist: Juan Carlos Eisenberg MD #### PSAS #### [address] [address] Personal Loan Specialist: Delon Rizzo MD Monocytes/100 WBC (Bld) 7 % Normal 3-12 [facility] Comment on above: Performed By: #### C P, CDP #### [facility] [address] [place], [place] [phone] Personal Loan Specialist: Juan Carlos Eisenberg MD #### PSAS #### [address] [phone] Personal Loan Specialist: Delon Rizzo MD Neutrophil (Seg) 72 % High 36-65 [facility] Comment on above: Performed By: #### C P, CDP #### [address] [place], [place] [phone] Personal Loan Specialist: Juan Carlos Eisenberg MD #### PSAS #### [address] [address] Personal Loan Specialist: Delon Rizzo MD NRBC Automated 0.0 per 100 WBC Normal 0.0 [facility] Comment on above: Performed By: #### C P, CDP #### [facility] [address] [place] [address] [place] [address] Personal Loan Specialist: Juan Carlos Eisenberg MD #### PSAS #### [address] [phone] Personal Loan Specialist: Delon Rizzo MD Platelet mean volume (Bld) [Entitic vol] 10.2 fL Normal 8.1-13.5 [facility] Comment on above: Performed By: #### C P, CDP #### [facility] [address] [place] [address] Dr. [place] [phone] Personal Loan Specialist: Juan Carlos Eisenberg MD #### PSAS #### [place] [phone] [place], [place] [phone] Personal Loan Specialist: Delon Rizzo MD Platelets (Bld) [#/Vol] 206 10*3/uL Normal 138-453 [facility] Comment on above: Performed By: #### C P, CDP #### [address] [place] [phone] Personal Loan Specialist: Juan Carlos Eisenberg MD #### PSAS #### [place] [phone] Personal Loan Specialist: Delon Rizzo MD RBC (Bld) [#/Vol] 4.90 10*6/uL Normal 4.21-5.77 [facility] Comment on above: Performed By: #### C P, CDP #### [address] [place] [phone] Personal Loan Specialist: Juan Carlos Eisenberg MD #### PSAS #### [place] [phone] Personal Loan Specialist: Delon Rizzo MD WBC (Bld) [#/Vol] 7.6 10*3/uL Normal 3.5-11.3 [facility] Comment on above: Performed By: #### C P, CDP #### [address] [place] [phone] Personal Loan Specialist: Juan Carlos Eisenberg MD #### PSAS #### [address] [phone] Personal Loan Specialist: Delon Rizzo MD Comp Metabolic Profon 2022 Albumin [Mass/Vol] 4.4 g/dL Normal 3.5-5.2 [facility] Comment on above: Performed By: #### C P, CDP #### [address] [place], [place] [phone] Personal Loan Specialist: Juan Carlos Eiesnberg MD #### PSAS #### [address] [phone] Personal Loan Specialist: Delon Rizzo MD Albumin/Glob Ratio 1.3 Normal 1.0-2.5 [facility] Comment on above: Performed By: #### C P, CDP #### [facility] [address] [place], [place] [phone] Personal Loan Specialist: Juan Carlos Eisenberg MD #### PSAS #### [address] [address] Personal Loan Specialist: Delon Rizzo MD Alkaline Phos 91 U/L Normal 40-129 [facility] Comment on above: Performed By: #### C P, CDP #### [facility] [address] [place] [address] Dr. [place] [phone] ( Personal Loan Specialist: Juan Carlos Eisenberg MD #### PSAS #### [address] [address] Personal Loan Specialist: Delon Rizzo MD ALT [Catalytic activity/Vol] 42 U/L High 5-41 [facility] Comment on above: Performed By: #### C P, CDP #### [facility] [address] [place] [address] Personal Loan Specialist: Juan Carlos Eisenberg MD #### PSAS #### [address] [phone] Personal Loan Specialist: Delon Rizzo MD Anion gap [Moles/Vol] 9 mmol/L Normal 9-[address] [facility] Comment on above: Performed By: #### C P, CDP #### [facility] [address] [place] [address] Personal Loan Specialist: Juan Carlos Eisenberg MD #### PSAS #### [address] [address] Personal Loan Specialist: Delon Rizzo MD AST [Catalytic activity/Vol] 27 U/L Normal <40 [facility] Comment on above: Performed By: #### C P, CDP #### [facility] [address] [place], [place] [phone] Personal Loan Specialist: Juan Carlos Eisenberg MD #### PSAS #### [address] [address] Personal Loan Specialist: Delon Rizzo MD Bilirubin [Mass/Vol] 0.6 mg/dL Normal 0.3-1.2 [facility] Comment on above: Performed By: #### C P, CDP #### [address] [place], [place] [phone] Personal Loan Specialist: Juan Carlos Eisenberg MD #### PSAS #### [address] [phone] Personal Loan Specialist: Delon Rizzo MD BUN/CRE Ratio 21 High 9-20 [facility] Comment on above: Performed By: #### C P, CDP #### [address] [place], [place] [phone] Personal Loan Specialist: Juan Carlos Eisenberg MD #### PSAS #### [address] [address] Personal Loan Specialist: Delon Rizzo MD Calcium [Mass/Vol] 9.3 mg/dL Normal 8.6-10.4 [facility] Comment on above: Performed By: #### C P, CDP #### [address] [place], [place] [phone] Personal Loan Specialist: Juan Carlos Eisenberg MD #### PSAS #### [address] [address] Personal Loan Specialist: Delon Rizzo MD Chloride [Moles/Vol] 106 mmol/L Normal 98-107 [facility] Comment on above: Performed By: #### C P, CDP #### [facility] [address] [place] [address] Personal Loan Specialist: Juan Carlos Eisenberg MD #### PSAS #### [place] [phone] [place], [place] [phone] Personal Loan Specialist: Delon Rizzo MD CO2 [Moles/Vol] 28 mmol/L Normal 20-31 [facility] Comment on above: Performed By: #### C P, CDP #### [facility] [address] [place] [address] Personal Loan Specialist: Juan Carlos Eisenberg MD #### PSAS #### [address] [phone] Personal Loan Specialist: Delon Rizzo MD Creatinine [Mass/Vol] 1.0 mg/dL Normal 0.7-1.[address] [facility] Comment on above: Performed By: #### C P, CDP #### [facility] [address] [place] [address] Personal Loan Specialist: Juan Carlos Eisenberg MD #### PSAS #### [address] [phone] Personal Loan Specialist: Delon Rizzo MD GFR/1.73 sq M.predicted among non-blacks MDRD (S/P/Bld) [Vol rate/Area] mL/min/{1.73_m2} Normal >60 [facility] Comment on above: Result Comment: These [...] By: #### C P, CDP #### [address] [place], [place] [phone] Personal Loan Specialist: Juan Carlos Eisenberg MD #### PSAS #### [address] [address] Personal Loan Specialist: Delon Rizzo MD Glucose [Mass/Vol] 84 mg/dL Normal 70-99 [facility] Comment on above: Performed By: #### C P, CDP #### [address] [place], [place] [phone] Personal Loan Specialist: Juan Carlos Eisenberg MD #### PSAS #### [address] [address] Personal Loan Specialist: Delon Rizzo MD Potassium [Moles/Vol] 4.4 mmol/L Normal 3.7-5.[address] [facility] Comment on above: Performed By: #### C P, CDP #### [address] [place], [place] [phone] Personal Loan Specialist: Juan Carlos Eisenberg MD #### PSAS #### [address] [address] Personal Loan Specialist: Delon Rizzo MD Protein [Mass/Vol] 7.8 g/dL Normal 6.4-8.3 [facility] Comment on above: Performed By: #### C P, CDP #### [address] [place], [place] [phone] Personal Loan Specialist: Juan Carlos Eisenberg MD #### PSAS #### [address] [address] Personal Loan Specialist: Delon Rizzo MD Sodium [Moles/Vol] 143 mmol/L Normal 135-144 [facility] Comment on above: Performed By: #### C P, CDP #### [address] [place], [place] [phone] Personal Loan Specialist: Juan Carlos Eisenberg MD #### PSAS #### [facility] [address] [place], [place] [phone] Personal Loan Specialist: Delon Rizzo MD Urea nitrogen [Mass/Vol] 21 mg/dL Normal 8-23 [facility] Comment on above: Performed By: #### C P, CDP #### [facility] [address] [place] [address] Personal Loan Specialist: Juan Carlos Eisenberg MD #### PSAS #### [facility] [address] [place], [place] [phone] Personal Loan Specialist: Delon Rizzo MD [facility] Metabolic Pane [facility] 02-23-2023 Albumin [Mass/Vol] 4.4 g/dL 3.5 - 5.2 g/dL [facility] Albumin/Globulin [Mass ratio] 1.3 {ratio} 1.0 - 2.5 [facility] ALP [Catalytic activity/Vol] 91 U/L 40 - 129 U/L [facility] ALT [Catalytic activity/Vol] 42 U/L High 5 - 41 U/L [facility] Anion gap [Moles/Vol] 9 mmol/L 9 - 17 mmol/L [facility] AST [Catalytic activity/Vol] 27 U/L NINF - 40 U/L [facility] Bilirubin [Mass/Vol] 0.6 mg/dL 0.3 - 1 .2 mg/dL [facility] Calcium [Mass/Vol] 9.3 mg/dL 8.6 - 10. 4 mg/dL [facility] Chloride [Moles/Vol] 106 mmol/L 98 - 10 7 mmol/L [facility] CO2 [Moles/Vol] 28 mmol/L 20 - 31 mmol/L [facility] Creatinine [Mass/Vol] 1.0 mg/dL 0.7 - 1.2 mg/dL [facility] GFR/1.73 sq M.predicted MDRD (S/P/Bld) [Vol rate/Area] - PINF [facility] Comment on above: These results are not [...] [Mass/Vol] 84 mg/dL 70 - 99 mg/dL [facility] Interpretation and review of laboratory results Abnormal [facility] Potassium [Moles/Vol] 4.4 mmol/L 3.7 - 5.3 mmol/L [facility] Protein [Mass/Vol] 7.8 g/dL 6.4 - 8.3 g/dL [facility] Sodium [Moles/Vol] 143 mmol/L 135 - 144 mmol/L [facility] Urea nitrogen [Mass/Vol] 21 mg/dL 8 - 23 mg/dL [facility] Urea nitrogen/Creatinine [Mass ratio] 21 mg/mg High 9 - 20 [facility] Urinalysis w/ Microon 2022 Bilirubin, SemiQt,Ur Negative Normal NEG [facility] Comment on above: Performed By: #### U AMIC #### [facility] [address] [place] [address] [place] [address] Personal Loan Specialist: Juan Carlos Eisenberg MD Blood, Urine Negative Normal NEG [facility] Comment on above: Performed By: #### U AMIC #### [facility] [address] [place] [address] Personal Loan Specialist: Juan Carlos Eisenberg MD Clarity (U) Clear Normal CLEAR [facility] Comment on above: Performed By: #### U AMIC #### [facility] [address] [place] [address] [place] [address] Personal Loan Specialist: Juan Carlos Eisenberg MD Color (U) Yellow Normal YEL [facility] Comment on above: Performed By: #### U AMIC #### [facility] [address] [place] [phone] Personal Loan Specialist: Juan Carlos Eisenberg MD Epithelial cells LM Ql (Urine sed) None Normal 0-5 [facility] Comment on above: Performed By: #### U AMIC #### [facility] [address] [place], [place] [phone] Personal Loan Specialist: Juan Carlos Eisenberg MD Glucose Ql (U) Negative Normal NEG [facility] Comment on above: Performed By: #### U AMIC #### [facility] [address] [place], [place] [phone] Personal Loan Specialist: Juan Carlos Eisenberg MD Ketones Ql (U) Negative Normal NEG [facility] Comment on above: Performed By: #### U AMIC #### [facility] [address] [place], [place] [phone] Personal Loan Specialist: Juan Carlos Eisenberg MD Leukocyte esterase Test strip Ql (U) Negative Normal NEG [facility] Comment on above: Performed By: #### U AMIC #### [facility] [address] [place], [place] [phone] Personal Loan Specialist: Juan Carlos Eisenberg MD Nitrite,Ur Negative Normal NEG [facility] Comment on above: Performed By: #### U AMIC #### [facility] [address] [place], [place] [phone] Personal Loan Specialist: Juan Carlos Eisenberg MD PH,Ur 6.5 Normal 5.0-9.0 [facility] Comment on above: Performed By: #### U AMIC #### [facility] [address] [place], [place] [phone] Personal Loan Specialist: Juan Carlos Eisenberg MD Protein Ql (U) Negative Normal NEG [facility] Comment on above: Performed By: #### U AMIC #### [facility] [address] [place], [place] [phone] Personal Loan Specialist: Juan Carlos Eisenberg MD Spec. Cedar,Ur 1.020 Normal 1.010-1.020 [facility] Comment on above: Performed By: #### U AMIC #### [facility] [address] [place] [address] Personal Loan Specialist: Juan Carlos Eisenberg MD Urine RBC's None Normal 0-2 [facility] Comment on above: Performed By: #### U AMIC #### [facility] [address] [place], [place] [phone] Personal Loan Specialist: Juan Carlos Eisenberg MD Urine WBC's None Normal 0-5 [facility] Comment on above: Performed By: #### U AMIC #### [facility] [address] [place], [place] [phone] Personal Loan Specialist: Juan Carlos Eisenberg MD Urobilinogen,Ur Normal Normal 0.0-1.0 [facility] Comment on above: Performed By: #### U AMIC #### [facility] [address] [place], [place] [phone] Personal Loan Specialist: Juan Carlos Eisenberg MD Urinalysis with Microscopico n 02-23-2023 Bilirubin Ql (U) Negative NEGATIVE [facility] Clarity (U) Clear Clear [facility] Color (U) Yellow Yellow [facility] Epithelial cells LM.HPF (Urine sed) [#/Area] None [facility] Glucose Test strip (U) [Mass/Vol] Negative NEGATIVE mg/dL [facility] Hemoglobin Auto test strip Ql (U) Negative NEGATIVE [facility] Ketones (U) [Mass/Vol] Negative NEGATIVE mg/dL [facility] Leukocyte esterase Test strip Ql (U) Negative NEGATIVE [facility] Nitrite Ql (U) Negative NEGATIVE [facility] pH (U) 6.5 [pH] 5.0 - 9.0 [facility] Protein (U) [Mass/Vol] Negative NEGATIVE mg/dL [facility] RBC LM.HPF (Urine sed) [#/Area] None [facility] Specific gravity (U) [Rel density] 1.020 1.010 - 1.020 [facility] Urobilinogen Qn (U) Normal 0.0 - 1. 0 EU/dL [facility] WBC LM.HPF (Urine sed) [#/Area] None [facility] Urology Office/Clinic Noteon 10-10-2022 Urology Office/Clinic Note [...] Ramiro Alvarez MD 10/10/22 20:10 EDT Normal [facility] MRI Prostate w/ + w/o Contra [...] Signed, Electronically Signed in Other Vendor System) [facility] Provider Letteron 07-25-2022 Provider Letter (Inserted Image. Antoinette ble to display) Jw Shea DO [address] [place] [address] Re: Ger [place] 1955 Date of Visit: [...] your patient's care. Sincerely, Ramiro Alvarez MD [facility] Urology Office/Clinic Noteon 07-25-2022 Urology Office/Clinic [...] SCHOFIELD, Ramiro Rosas 07/25/22 19:47 EST Normal [facility] PROTIMEon 08-14-2021 INR Coag (PPP) [Relative time] 1.03 {INR} Normal [facility] Comment on above: Performed By: #### P TT, PT #### [facility] [address] [place] [address] Dr. Philippe Acosta INR GUIDELINES SEE BELOW Normal [facility] Comment on above: Result Comment: TONY RED INR: 2.0 - 3.0 CONDITIONS NOT LISTED BELOW 2.5 - 3.5 FOR PROSTHETIC HEART VALVE REPLACEMENT 2.5 - 3.5 RECURRENT THROMBOSIS Performed By: #### P TT, PT #### [facility] [address] [place] [address] Dr. Philippe Acosta PT Coag (PPP) [Time] 11.1 s Normal 9.0-11.6 [facility] Comment on above: Performed By: #### P TT, PT #### [facility] [address] [place] [address] Dr. Philippe Acosta PTTon 08-14-2021 aPTT Coag (Bld) [Time] 30.4 s Normal 22.3-36.2 [facility] Comment on above: Performed By: #### P TT, PT #### [facility] [address] [place] [address] Dr. Philippe Acosta Vital Signs Date Time Vital Sign Value Performing Clinician Nakia chavez 09-13-2024 14:38-0400 Body height 170.2 cm Job Brady MD Work Phone: [facility] 09-13-2024 14:38-0400 Body mass index (BMI) [Ratio] 29.86 kg/m2 Job Brady MD Work Phone: [facility] 09-13-2024 14:38-0400 Body temperature 98.2 [degF] Job Brady MD Work Phone: [facility] 09-13-2024 14:38-0400 Body weight 86.5 kg Job Brady MD Work Phone: [facility] 09-13-2024 14:38-0400 Diastolic blood pressure 78 mm[Hg] Job Brady MD Work Phone: [facility] 09-13-2024 14:38-0400 Heart rate 76 /min Job Brady MD Work Phone: [facility] 09-13-2024 14:38-0400 Respiratory rate 16 /min Job Brady MD Work Phone: [facility] 09-13-2024 14:38-0400 SaO2% (BldA) [Mass fraction] 95 % Job Brady MD Work Phone: [facility] 09-13-2024 14:38-0400 Systolic blood pressure 126 mm[Hg] Job Brady MD Work Phone: [facility] 07-24-2024 08:48-0500 Blood Pressure Location Bettye Lue [facility] 07-24-2024 08:48-0500 Body temperature 98.6 [degF] Bettye Lue [facility] 07-24-2024 08:48-0500 Diastolic blood pressure 90 mm[Hg] Bettye Lue [facility] 07-24-2024 08:48-0500 Heart rate 90 /min Bettye Lue [facility] 07-24-2024 08:48-0500 Systolic blood pressure 146 mm[Hg] Bettye Lue [facility] 07-03-2024 13:51-0500 Blood Pressure Location Essence CROWLEY [facility] 07-03-2024 13:51-0500 Diastolic blood pressure 96 mm[Hg] Essence CROWLEY [facility] [facility] 07-03-2024 13:51-0500 Heart rate 90 /min Essence CROWLEY [facility] 07-03-2024 13:51-0500 Respiratory rate 21 /min Essence CROWLEY [facility] 07-03-2024 13:51-0500 Systolic blood pressure 143 mm[Hg] Essence CROWLEY [facility] Encounters Encounter Date Encounter Type Care Provider Facility Start: 09-16-2024 End: 09-16-2024 Orders Only Alisha Tellez [facility] Work Phone: [facility] HB-3 Comment on above: Malignant neoplasm o f prostate (HCC) (Primary Dx) Start: 09-13-2024 End: 09-13-2024 Office outpatient new 60 minutes Job Brady MD Work Phone: Hematology/Oncology Comment on above: 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) (Primary Dx); Prostate cancer (HCC) Start: 09-13-2024 End: 09-13-2024 ambulatory DERIC LOCKETT Facility:[facility] Start: 09-11-2024 End: 09-11-2024 Chart abstracting Job Brady MD Work Phone: Hematology/Oncology Start: 08-20-2024 End: 08-20-2024 ambulatory [facility] Start: 08-01-2024 ambulatory [facility] Start: 07-31-2024 End: 07-31-2024 ambulatory [facility] Start: 07-31-2024 End: 07-31-2024 ambulatory [facility] Start: 07-25-2024 End: 07-25-2024 Telephone encounter Barbara Fuentes MD Work Phone: [facility] Start: 07-24-2024 End: 07-24-2024 ambulatory Bettye Lloyd Facility:[facility] Start: 07-24-2024 End: 07-24-2024 Patient encounter procedure Bettye Lloyd [facility] Start: 07-03-2024 End: 07-03-2024 ambulatory Essence CROWLEY Facility:[facility] Start: 07-03-2024 End: 07-03-2024 Patient encounter procedure Essence CROWLEY [facility] Start: 2024 ambulatory Bettye Lucalin Facility:[facility] Start: 05-15-2024 End: 05-15-2024 ambulatory DO JW P HOUSE Facility:[facility] Start: 10-19-2023 End: 10-19-2023 ambulatory DO JW P HOUSE Facility:[facility] Start: 10-19-2023 ambulatory [facility] Start: 10-19-2023 End: 10-19-2023 ambulatory [facility] Start: 10-19-2023 End: 10-19-2023 ambulatory [facility] Start: 10-03-2023 End: 10-03-2023 ambulatory Deric P Samsa Facility:[facility] Start: 10-03-2023 End: 10-03-2023 ambulatory DO Deric Samsa Work Phone: [facility] Work Phone: Start: 10-03-2023 End: 10-03-2023 Departed Referred DO Deric Samsa Work Phone: [facility] Start: 06-20-2023 ambulatory Chandler Ventura MD Facility: [facility] Start: 06-15-2023 End: 06-18-2023 [facility] Start: 05-18-2023 End: 05-19-[address] [facility] Start: 04-15-2023 End: 04-16-[address] [facility] Start: 02-23-2023 End: 02-24-[address] [facility] Start: 02-23-2023 End: 02-23-2023 Subsequent hospital visit by physician Jw Shea Sr., DO Work Phone: [facility] Comment on above: Proteinuria, unspeci fied type; Prostate cancer screening; BPH with obstruction/lower urinary tract symptoms Start: 12-26-2022 ambulatory Jw Shea DO Facility:[facility] Start: 12-08-2022 End: 12-09-2022 ambulatory Ramiro Alvarez MD Facility:[facility] Start: 10-10-2022 End: 10-11-2022 ambulatory Ramiro Alvarez MD Facility:[facility] Start: 10-03-2022 ambulatory Ramiro Alvarez MD F acility:[facility] Start: 09-15-2022 End: 09-16-2022 ambulatory Ramiro Alvarez MD Facility:[facility] Start: 09-10-2022 End: 09-11-2022 ambulatory Ramiro Alvarez MD Facility:[facility] Start: 07-25-2022 End: 07-26-2022 ambulatory Ramiro Alvarez MD Facility:[facility] Start: 05-24-2022 End: 05-25-[address] JW SHEA Facility: Start: 08-17-2021 Encounter for preprocedural laboratory examination DR DOCTOR TELLES [facility] Start: 08-14-2021 End: 08-15-[address] DOCTOR [...] above: Performed By: #### P SAD #### [facility] [address] [place] [address] Dr. Philippe Acosta Start: 08-18-2020 Total replacement of left hip joint Essence CROWLEY Total replacement of hip Gre sumit CROWLEY Plan of Treatment Date Care Activity Detail Author Start: 2031 RSV Vaccine (1 - 1-dose 75+ series) RSV Vaccine (1 - 1-dose 75+ series) [facility] Start: 09-13-2029 Prostate specific antigen measurement Prostate Cancer Screening Discussion [facility] Start: 04-15-2028 Prostate specific antigen measurement Prostate Cancer Screening Discussion [facility] Start: 09-14-2027 Diabetes Screening Diabetes Screening [facility] Start: 02-23-2026 Diabetes Screening Diabetes Screening [facility] Start: 10-04-2024 End: 10-04-2024 ambulatory 10/04/2024 2:30 PM EDT Infusion Center Hematology/Oncology [address] [place] [address] [place] [address] Add Lupron Injection To This F/U Appt Per Dr Adams Phone Encounter Hematology/Oncol ogy Comment on above: Add Lupron Injection To This F/U Appt Pe r Dr Adams Phone Encounter Start: 10-04-2024 End: 10-04-2024 Follow-up encounter 10/04/2024 2:00 PM EDT Visit (SP) Office Hematology/Oncology [address] [place] [address] [place] [address] Job Brady MD [address] [facility] [facility] [place] [address] Follow up after pet scan ( NCC ) and MRI at [facility] Hematology/Oncol ogy Comment on above: Follow up after pet scan ( NCC ) and MRI at [facility] Start: 09-30-2024 End: 09-30-2024 Patient encounter procedure Radiology Pe t CT Comment on above: Pet scan Start: 09-27-2024 End: 12-27-2024 [facility] Routine Malignant neoplasm of lower lobe of left lung (HCC) Prostate cancer (HCC) Expected: 09/27/2024, Expires: 12/27/2024 [facility] Comment on above: Expected: 09/27/2024, Expires: 5 Start: 09-20-2024 End: 10-13-2025 MR Brain WO and W contrast IV MRI BRAIN WO/W IVCON Radiology Routine Malignant neoplasm of lower lobe of left lung (HCC) Prostate cancer (HCC) Expected: 09/20/2024, Expires: 10/13/2025 [facility] Comment on above: Expected: 09/20/2024, Expires: Start: 09-20-2024 End: 10-13-2025 PET+CT Guidance for localization of tumor of Skull base to mid-thigh-- W 18F-FDG IV NM PET/CT SKULL-THIGH INITIAL Radiology Routine Malignant neoplasm of lower lobe of left lung (HCC) Prostate cancer (HCC) Expected: 09/20/2024, Expires: 10/13/2025 [facility] Comment on above: Expected: 09/20/2024, Expires: Start: 09-13-2024 End: 09-13-2024 ambulatory 09/13/2024 2:30 PM EDT Visit (SP) Office Hematology/Oncology [address] [place] [address] [place] [address] Job Brady MD [address] [place] [address] [place] [address] Deric Lockett DX: Primary Adenocarcinoma of lower lobe of left lung Hematology/Oncol ogy Comment on above: Ref by Dr Deric Lockett DX: Primary Adeno carcinoma of lower lobe of left lung Start: 09-13-2024 End: 12-13-2024 Prostate specific Ag [Mass/volume] in Serum or Plasma [facility] Work Phone: Comment on above: Expected: 09/13/2024, Expires: Start: 09-13-2024 End: 12-13-2024 Testosterone [Mass/volume] in Serum or Plasma [facility] Comment on above: Expected: 09/13/2024, Expires: Start: 09-13-2024 End: 09-13-2024 Patient encounter procedure 09/13/2024 1:30 PM EDT Office Visit Radiation Oncology [address] [facility] [facility] [place] [address] Barbara Fuentes MD [address] [facility] [facility] [place] [address] DX: Prostate Cancer Radiation Oncology Comment on above: DX: Prostate Cancer Start: 08-13-2024 End: 08-13-2024 Patient encounter procedure 08/13/2024 10:00 AM EST Office Visit Radiation Oncology [address] [facility] [facility] [place] [address] Barbara Fuentes MD [address] [facility] [place] [address] DX: Prostate Cancer Radiation Oncology Comment on above: DX: Prostate Cancer Start: 08-09-2024 End: 08-09-2024 Patient encounter procedure 08/09/2024 1:00 PM EST Office Visit Radiation Oncology [address] [facility] [facility] [place] [address] Nathaniel Lewis MD [address] [facility] [facility] [place] [address] DX: Prostate Cancer Radiation Oncology Comment on above: DX: Prostate Cancer Start: 06-12-2024 Advance Directive Discussion Advance Directive Discussion [facility] Start: 02-11-2024 Covid-19 Vaccine ( season) Covid-19 Vaccine ( season) [facility] Start: 02-11-2024 Influenza vaccination Influenza Vaccine (#1) [facility] Start: 03-09-2023 End: 03-09-2023 Patient encounter procedure 03/09/2023 4:30 PM EDT Office Visit [facility] Part of [address] [place] [address] follow up, PSA [facility] of [facility] Comment on above: follow up, PSA Start: 01-10-2023 Influenza vaccination Flu vaccine (#1) [facility] Start: 06-03-2022 Pneumococcal 65+ years Vaccine (2 - PCV) Pneumococcal 65+ years Vaccine (2 - PCV) [facility] Start: 06-03-2022 Pneumococcal Vaccine: 50+ (2 of 2 - PCV) Pneumococcal Vaccine: 50+ (2 of 2 - PCV) [facility] Start: 2021 Abdominal aortic aneurysm screening AAA screen [facility] Start: 2006 Shingles vaccine (1 of 2) Shingles vaccine (1 of 2) [facility] Start: 2006 Shingrix Vaccine (1 of 2) Shingrix Vaccine (1 of 2) [facility] Start: 2001 Screening for malignant neoplasm of colon [facility] Start: 1996 Lipid panel Lipids [facility] Start: 1991 Diabetes screen Diabetes screen [facility] Start: 1991 Lipid panel Lipid Screening [facility] Start: 1975 DTaP/Tdap/Td vaccine (1 - Tdap) DTaP/Tdap/Td vaccine (1 - Tdap) [facility] Start: 1975 Urine microalbumin profile DTaP,Tdap,Td Vaccine (1 - Tdap) [facility] Start: 1974 Anxiety Screening Anxiety Screening [facility] Start: 1974 Depression Screening Depression Screening [facility] Start: 1974 Hepatitis C screening [facility] Start: 1968 Depression Screen Depression Screen [facility] Start: 1956 COVID-19 Vaccine (#1) COVID-19 Vaccine (#1) [facility] [employer] Start: 1956 Abdominal aortic aneurysm screening Abdominal Aortic Aneurysm Screening [facility] End: 02-23-2023 Culture, Urine [facility] Comment on above: 1 Occurrences starting 02/23/2023 until 02/23/2023 End: 02-23-2023 PSA screening [facility] Comment on above: 1 Occurrences starting 02/23/2023 until 02/23/2023 Immunizations Immunization Date Immunization Notes Care Provider Russ mascorro 03-10-2023 influenza virus vacc ine, unspecified formulation NA Blanche SCHOFIELD Work Phone: [facility] Payers Date Payer Category Payer Medicare (Managed Care) [employer] HMO Member Subscriber Plan / Payer (Effective 2024-Present) Name: Ger Mackenzie Relation to Subscriber: Self Name: Ger Mackenzie Payer ID: Not on file Type: HMO Address: [place] [id number] 2024 Unknown [id number] 2023 Medicare [id number] 2021 Unknown 2017 Self-pay 1959 Unknown [id number] 1956 Unknown [id number] 2.16.840.1.688949.3.579. 2.593 1956 Unknown [id number] 2.16.840.1.268163.3.579. 2.593 1956 Unknown [id number] 2.16.840.1.680621.3.579. 2.593 1956 Unknown [id number] 2.16.840.1.870489.3.579. 2.173 1956 Unknown [id number] 2.16.840.1.913912.3.579. 2.173 1956 Unknown [id number] 2.16.840.1.474200.3.579. 2.173 1956 Unknown [id number] 2.16.840.1.691849.3.579. 2.173 1956 Unknown [id number] 2.16.840.1.113286.3.579. 2.196 1956 Unknown [id number] 2.16.840.1.047498.3.579. 2.196 1956 Unknown [id number] 2.16.840.1.693260.3.579. 2.196 1956 Unknown [id number] 2.16.840.1.389929.3.579. 2.196 1956 Unknown [id number] 2.16.840.1.415286.3.579. 2.196 1956 Unknown [id number] 2.16.840.1.542077.3.579. 2.196 1956 Unknown [id number] 2.16.840.1.787177.3.579. 2.196 1956 Unknown [id number] 2.16.840.1.912462.3.579. 2.727 1956 Unknown [id number] 2.16.840.1.488376.3.579. 2.727 1956 Unknown [id number] 2.16.840.1.881730.3.579. 2.727 1956 Unknown [id number] 2.16.840.1.523531.3.579. 2.718 1956 Unknown [id number] 2.16.840.1.216049.3.579. 2.718 Social History Date Type Detail Facility Start: 02-23-2023 End: 09-13-2024 Tobacco smoking status NHIS Smokes tobacco daily [facility] [employer] History of tobacco use Cigarette Smoker [facility] [employer] Start: 02-23-2023 End: 09-13-2024 Tobacco use and exposure Smokeless tobacco non-user [facility] [employer] Start: 02-23-2023 End: 09-13-2024 Alcohol intake Current drinker of alcohol (finding) [employer] Start: 02-23-2023 End: 09-13-2024 History of Social function [facility] [employer] Start: 02-23-2023 End: 09-13-2024 Tobacco use panel [facility] Start: 02-23-2023 Alcohol Comment weekends [facility] [employer] Start: 1955 Sex Assigned At Not on file B ON [employer] Start: 1955 Sex Assigned At Male F [facility] Start: 07-03-2024 End: 07-24-2024 Tobacco smoking status Heavy tobacco smoker (finding) [facility] Tobacco smoking status NHIS Tobacco smoking consumption unknown [facility] History of tobacco use Passive smoker [facility] Start: 09-11-2024 Tobacco Comment Smokes 10-19 cigs/da y [facility] Start: 09-11-2024 Alcohol Comment socially [facility] National Score (1-100), lower number is lower risk 59 [facility] Functional Status Date Assessment Result Facility 07-24-2024 Functional Status N/A [facility] 07-03-2024 Functional Status N/A [facility] Clinical Notes 10-19-2023 to 09-13-2024 Patient InstructionsJob [...] in 2 weeks documented in this encounter [facility] 09-13-2024 History of Present illness Narrative Images from the original note were not included. PATIENT NAME: Ger Mackenzie CLINIC NO.: [id number] ATTENDING PHYSICIAN: Job Brady MD DATE OF SERVICE: September 13, [address] Deric Lockett [address] [address] thank you for referring Ger Mackenzie for an opinion regarding lung cancer. CHIEF COMPLAINT: Lung cancer HPI: Ger Mackenzie is a 69 year old year old male with PMH of prostate cancer, referred to us for lung cancer. The lesion was first discovered on 06/15/2023 PET scan, with weak uptake, and highly suspicion for primary lung cancer. At that time his strategic marketing associate recommended him to do IR robotic bronchoscopy [...] cancer. Father- alive. Scheduled for PFTs at [facility]. Current Outpatient Medications Medication Sig albuterol HFA [...] , ABSEOSIN , BASOP , ABSBASO PATH: Non-rn gynecology cytology - cellular exam Order: [id number] Component 3 wk ago Case Report Non-gynecologic Cytology Case: [id number] Authorizing Provider: Stephanie Catherine MD Collected: 08/20/2024 1304 Ordering Location: [facility] Main Operating Room Received: 08/20/2024 1345 [...] cancer mgmt. - Scheduled for PFTs at [facility]. - Further management of lung cancer depending on PET scan and MRI brain findings. - Seen by Rad onc today. D/w - Ordered labs today - All his questions answered in detail. - F/u in [address] Deric Lockett [address] [address] thank you for allowing me to participate in Ger Mackenzie care, if there are any questions or concerns please do not hesitate to contact me at the number below. I spent a total of 60 minutes on the date of the service which included preparing to see the patient, utay-ur-hwzy patient care, completing clinical documentation, obtaining and/or reviewing separately obtained history, performing a medically appropriate examination, counseling and educating the patient/family/caregiver, ordering medications, tests, or procedures, communicating with other HCPs (not separately reported), independently interpreting results (not separately reported), communicating results to the patient/family/caregiver, and care coordination (not separately reported). Job Brady MD. Hematology/Medical Oncology [place] [address] [phone] CC: documented in this encounter [facility] 09-13-2024 Note HNO ID: [id number] Author: JOB BRADY MD Service: ? Author Type: Physician Type: Progress Notes Filed: 09/13/2024 15:07 Note Text: PATIENT NAME: Ger Mackenzie [facility] NO.: [id number] ATTENDING PHYSICIAN: Job Brady MD DATE OF SERVICE: September 13, [address] Deric Lockett [address] [place] [id number] thank you for referring Ger Mackenzie for an opinion regarding lung cancer. CHIEF COMPLAINT: Lung cancer HPI: Ger Mackenzie is a 69 year old year old male with PMH of prostate cancer, referred to us for lung cancer. The lesion was first discovered on 06/15/2023 PET scan, with weak uptake, and highly suspicion for primary lung cancer. At that time his strategic marketing associate recommended him to do IR robotic bronchoscopy [...] cancer. Father- alive. Scheduled for PFTs at [facility]. Current Outpatient Medications Medication Sig albuterol HFA [...] No edema N (more content not included)... [facility] 09-05-2024 Note Entered by STEPHANY SHEA DO on September 05, 2024 10:25:37 EDT From: JW SHEA DO To: Aneviape 1742 Sent: 09/05/2024 10:25:37 EDT Subject: Medication Management [...] 2 Substitutions Allowed Notes from Pharmacy: --------- [facility] 08-20-2024 Note Patient: Ger Rubio arpe Procedure Summary Date: 08/20/24 Room / Location: [facility] Main Operating Room Anesthesia Start: 1244 [...] per anesthesia protocol. No notable events documented. [facility] 08-20-2024 Note Airway Date/Time: 08/20/2024 12:57 PM Urgency: elective General Information and Staff Patient location during procedure: OR Anesthesiologist: Stephanie James MD Resident/EDUCATIONAL ASSISTANT/CAA: Genet Norwood MD Performed: resident/EDUCATIONAL ASSISTANT/CAA Indications and Patient Condition Indications for airway [...] viewed on bronchoscopy to confirm ETT placement. [facility] 08-20-2024 Note Patient: Ger travis Procedure Information Date/Time: 08/20/24 1200 Scheduled providers: Stephanie Catherine MD; Stephanie James MD Procedure: BRONCHOSCOPY DIAGNOSTIC / EBUS Location: [facility] Main Operating Room Relevant Problems Cardio [...] Last Dose Status albuterol 90 mcg/actuation inhaler [id number] Yes 2 puffs as needed for SOB Inhalation Q4H for 30 days Kika Larsen MD 08/12/2024 Active buPROPion XL (Wellbutrin XL) 150 mg 24 hr tablet [id number] Yes Kika Larsen MD 08/12/2024 Active lisinopril 20 mg tablet [id number] No Take 1 tablet by mouth in the morning. Kika Larsen MD Unknown Active meloxicam (Mobic) 15 mg tablet [id number] Yes TAKE ONE TABLET BY MOUTH DAILY Oral for 30 Days Kika Larsen MD 08/12/2024 Active multivitamin with minerals (MULTIPLE VITAMIN-MINERALS ORAL) [id number] Yes 1 (one) time each day at the same time. Kika Larsen MD 08/12/2024 Active tamsulosin (Flomax) 0.4 mg 24 hr capsule [id number] Yes 1 capsule 1 (one) time each day at the same time. Kika Larsen MD 08/12/2024 Active tamsulosin (Flomax) 0.4 mg 24 hr capsule [id number] No Take 0.4 mg by mouth. Kika Larsen MD Unknown Active tiotropium-olodateroL (Stiolto Respimat) 2.5-2.5 mcg/actuation mist inhaler [id number] Yes 1 (one) time each day at [...] with attending and resident. Additional Equipment Requests [facility] 08-01-2024 Note Attestation signed by Stephanie Catherine MD at 08/08/2024 4:20 PM Please refer to Dr. Samuel's notes as we were able to reach the patient and conduct the visit Stephanie Catherine MD Interventional Pulmonary Medicine Pulmonary and Critical Care Medicine [facility] Visit Note Patient: Ger Mackeznie Age: 69 y.o. : 1955 Account No.: [id number] Referring physician: Jw Shea MD Chief complaint: [...] , PH , PHART , PHVEN , SRQ8ENP , RXD5OSQ , PMU7EOT , PO2POC , PO2ART , PO2VEN , BRR0YUQ , CDE7ECX Radiology: No Chest X-ray results found for the past [address] results found for the past 12 months Assessment and Plan: Plan: Visit was not completed, patient never answered the call Ramon Brown MD [facility] Pulmonary/Critical Care Fellow [facility] 08-01-2024 Note Attestation signed by Stephanie [...] Age: 69 y.o. : 1955 Account No.: [id number] Referring physician: Paulette Chief complaint: Following up on lung mass HPI Mr. Mackenzie is a 69-year-old male past medical history significant for prostatic adenocarcinoma, smoker, he had a televisit with us back on 10/19/2023 for left lower ling mass .The lesion was first discovered on 06/15/2023 PET scan, with weak uptake, and highly suspicion for primary lung cancer. At that time his strategic marketing associate recommended him to do IR robotic bronchoscopy [...] , PH , PHART , PHVEN , AGW5FKK , AXK0TRC , MNX5QWI , PO2POC , PO2ART , PO2VEN , DHE7MII , DLS3IDB Radiology: No Chest X-ray results found for [...] was initiated by the patient and conducted apx-ozxe-mz-face with use of audio-only real time telephone communication between patient and provider for a virtual visit. Verbal consent to provide and bill this service was obtained on: 08/02/24 No signat (more content not included)... [facility] 07-25-2024 Telephone encounter Note Patient returned call. Appt was rescheduled with Dr. Fuentes for 08/13/24. This was the first date that worked with the patient's and his 's schedule. [facility] 07-25-2024 Miscellaneous Notes Patient returned call. [...] with Dr. Fuentes. documented in this encounter [facility] 07-25-2024 Telephone encounter Note Currently patient is scheduled with Dr. Lewis on 08/09/24 for a new patient with prostate CA. A message was left for him to call back. This appointment will need reschedule with Dr. Fuentes. [facility] 07-24-2024 Hospital Discharge instructions Patient Education [...] including vitamins, herbs, eye drops, creams, and ebhi-wuo-jfjhilq medicines. Any problems you or family members [...] provider tells you to take them. ?Taking rgbd-rtw-sgdxnfu medicines, vitamins, herbs, and supplements. Follow your [...] provider. Document Revised: 08/25/2021 Document Reviewed: 08/25/2021 [employer] Patient Education 2023 [employer]. 07/24/2024 09:58:20 Steps to Quit Smoking Steps [...] require a prescription. You can also purchase vfzq-yil-hkoquut medicines. Medicines may have nicotine in them [...] and encouragement. Call telephone quitlines, such as 4-524-FJWU-NOW, reach out to support groups, or work [...] provider. Document Revised: 05/20/2022 Document Reviewed: 05/20/2022 [employer] Patient Education 2023 [employer]. Follow Up Care 07/03/2024 15:37:41 With:Gabino SCHOFIELD, Bettye Holloway, SAIDAL, URO Address: [address], [place] [phone] When: Unknown [facility] 07-24-2024 Note Patient Education Pulmonary Medicine [...] require a prescription. You can also purchase uixb-wjh-bnltlvy medicines. Medicines may have nicotine in them [...] and encouragement. Call telephone quitlines, such as 5-968-QKAI-NOW, reach out to support groups, or work [...] away, not s (more content not included)... [facility] 07-03-2024 Hospital Discharge instructions Patient Education 07/03/2024 [...] the likelihood that the cancer will spread. Rowe 6 or lower: This indicates that the [...] stress of having cancer. General instructions Take nbsv-kdg-brrrexe and prescription medicines only as told by your health care provider. If you have to go to the hospital, notify your cancer specialist (oncologist). Keep all follow-up visits. This is important. Where to find more information [place] [employer]: www.cancer.org [place] [employer]: www.cancer.net [employer] [place]: www.cancer.gov Contact a health care provider if: [...] provider. Document Revised: 08/25/2021 Document Reviewed: 08/25/2021 [employer] Patient Education 2023 [employer]. Follow Up Care 05/06/2024 10:07:10 With:DELORES SCHOFIELD, Essence Onofre, URL Address: [facility] Member Desk [place] [id number]- When: Unknown [facility] 07-03-2024 Note Patient Education Oncology Prostate Cancer [...] to normal prostate cells (well differentiated). ??? Rowe 7: This indicates that the cancer cells [...] seeds, wires, o (more content not included)... [facility] 06-04-2024 Note Entered by STEPHANY SHEA DO on June 04, 2024 09:54:01 EST From: JW SHEA DO To: [id number] Sent: 06/04/2024 09:54:01 EST Subject: Medication Management [...] DO Sent: June 04, 2024 8:32:32 AM EARRINGS FABRICATOR Subject: Medication Management Due: June 05, 2024 12:15:51 AM EARRINGS FABRICATOR On Hold Pending Signature Drug: meloxicam (meloxicam 15 mg oral tablet), TAKE ONE TABLET BY MOUTH DAILY Quantity: 30 EA Days Supply: 30 Refills: 1 Substitutions Allowed Notes from Pharmacy: Dispensed Drug: meloxicam (meloxicam 15 mg oral tablet), TAKE ONE TABLET BY MOUTH DAILY Quantity: 30 EA Days Supply: 30 Refills: 2 Substitutions Allowed Notes from Pharmacy: --------- [facility] 03-05-2024 Note Entered by STEPHANY SHEA [...] 2 Substitutions Allowed Notes from Pharmacy: --------- [facility] 12-05-2023 Note Entered by STEPHANY SHEA [...] 2 Substitutions Allowed Notes from Pharmacy: --------- [facility] 10-19-2023 Note Attestation signed by Stephanie [...] Age: 68 y.o. : 1955 Account No.: [id number] Referring physician: Paulette Chief complaint: Left lung [...] to us for ION robotic evaluation. Shx: mcc smoker 2 pack a day for 50 [...] , PH , PHART , PHVEN , ROJ2JMS , IUD8TBB , SJB9FHU , PO2POC , PO2ART , PO2VEN , IPF2SPN , HHS2DMK Radiology: Assessment and Plan: # Left lower [...] was initiated by the patient and conducted rhd-vvgn-qk-face with use of audio-only real time telephone communication between patient and provider for a virtual visit. Verbal consent to provide and bill this service was obtained on: 10/19/23 No signature was obtained due to the COVID-19 pandemic. Manuel Hoffman MD [facility] Pulmonary/Critical Care Fellow [facility] Evaluation + Plan note Future Appointments Appointment Date:07/24/2024 08:45:00 AM Scheduled Provider:Bettye Lloyd MD Location:[facility] Appointment Type:URO Office Visit [facility] Evaluation note Diagnosis Proteinuria, unspecified type Prostate cancer screening Special screening for malignant neoplasm of prostate BPH with obstruction/lower urinary tract symptoms Hypertrophy of prostate with urinary obstruction and other lower urinary tract symptoms (LUTS) documented in this encounter [facility] noteNo assessment information available [facility] Work Phone: Evaluation note* Diagnosis Malignant neoplasm of lower lobe of left lung (HCC)- Primary Prostate cancer (HCC) Malignant neoplasm of prostate documented in this encounter [facility] note* Diagnosis Malignant neoplasm of prostate (HCC)- Primary Malignant neoplasm of prostate [facility] Narrative No data available for this section [facility] Progress note No data available for this section [facility] Reason for referral (narrative) Referred by: Essence CROWLEY MD [facility] Summary Purpose Family History No Family History [...] DATE CREATED AUTHOR AUTHOR'S ORGANIZ ATION 06/21/2023 [facility] DATE CREATED AUTHOR AUTHOR'S ORGANIZ ATION 10/09/2023 [facility] DATE CREATED AUTHOR AUTHOR'S ORGANIZ ATION 07/26/2024 [facility] DATE CREATED AUTHOR AUTHOR'S ORGANIZ ATION 09/07/2024 [facility] DATE CREATED AUTHOR AUTHOR'S ORGANIZ ATION 09/16/2024 [facility] DATE CREATED AUTHOR AUTHOR'S ORGANIZ ATION 09/17/2024 [facility] Care Teams (unrecognized sec tion and content) [employer] Sergeant Relationship Specialty Start Date End Date Jw Shea Sr., [address] [place] [address] PCP - General Family Medicine 02/23/23 Team Status: Inactive Member Role Status Dates Deric Lockett DO Attending Provider Active St art: October 03, 2023 End: October 03, 2023 [employer] Sergeant Relationship Specialty Start Date End Date Essence Crowley MD [address] [place] [address] Urology 07/03/24 [employer] Relationship Specialty Start Date End Date Jw Shea Sr., DO [address] [place] [address] PCP - General Family Medicine 09/06/24 Essence Crowley MD [address] [place] [address] Urology 07/03/24 [employer] Sergeant Relationship Specialty Start Date End Date Jose Juan Jw Onofre Sr., DO [address] [place] [address] PCP - General Family Medicine 09/06/24 Essence Crowley MD [address] [place] [address] Urology 07/03/24 [employer] Relationship Specialty Start Date End Date Jw Shea Sr., DO [address] [place] [address] PCP - General Family Medicine 09/06/24 Essence Crowley MD [address] [place] [address] Urology 07/03/24 Goals (unrecognized section and content) [...] or prosecute any alcohol or drug abuse patient.[facility] Hospital[facility] the event this information is protected by the Federal Confidentiality of Alcohol and Drug Abuse Patient Records regulations: The Federal rules restrict any use of the information to criminally investigate or prosecute any alcohol or drug abuse patient.[facility] HospitalIn the event this information is protected by the Federal Confidentiality of Alcohol and Drug Abuse Patient Records regulations: The Federal rules restrict any use of the information to criminally investigate or prosecute any alcohol or drug abuse patient.[facility] Hospital[facility] the event this information is protected by the Federal Confidentiality of Alcohol and Drug Abuse Patient Records regulations: The Federal rules restrict any use of the information to criminally investigate or prosecute any alcohol or drug abuse patient.[facility] Reason for Visit (unrecogniz ed section [...] BE BASED ON THE PRIMARY CLINICAL RECORDS. [employer] [facility]. provides no warranty or guarantee of the accuracy or completeness of information in this document.
--- NOTE | 2024-09-20 07:39 | MR_ITS ---
The [address] [address] Patient Name: GER MACKENZIE MRN: [id number] date: 1955 Sex: M Assigned Patient Location: MRI Current Patient Location: MRI Accession/Order Number: [id number] Exam Date: 09/20/2024 13:08 Report Date: 09/20/2024 13:13 At the request of: MANISHA LION MD Procedure: MR head/brain wo con EXAMINATION: MRI OF THE BRAIN WITHOUT CONTRAST CLINICAL HISTORY: Malignant Neoplasm Of Left Lung, Prostate Cancer COMPARISON: None TECHNIQUE: Multiecho, multiplanar imaging of the brain was performed without enhancement. FINDINGS: Evaluation of brain metastases is limited due to lack of IV contrast. No evidence of restriction diffusion is an diffusion-weighted imaging. No evidence of blood products is seen on T2 Star imaging. Cortical atrophy with mild chronic microvascular ischemic changes are noted which appears to extend into the alla. Cerebellum midbrain and medulla appear grossly unremarkable. Intraorbital contents appear grossly unremarkable. Visualized paranasal sinuses appear clear. MR/MR head/brain wo con IMPRESSION: LIMITED STUDY DUE TO LACK OF IV CONTRAST. NO DEFINITIVE MRI EVIDENCE OF INTRACRANIAL METASTASES. CORTICAL ATROPHY WITH MILD CHRONIC MICROVASCULAR ISCHEMIC CHANGES. Impression dictated by: Ralph Sargent Jr., D.O.09/20/2024 1:13 PM Dictation Location: [place] [address] Electronically authenticated by: [id number] Y Date: 09/20/2024 13:13
== END 2024-09-20 07:22 | disposition home or self-care (01) ==
PROVIDERS: PCP Family Medicine; Visit Provider Student in an Organized Health Care Education/Training Program
DX: C34.32 Malignant neoplasm of lower lobe, left bronchus or lung (principal); C61 Malignant neoplasm of prostate
CPT/HCPCS: 70551